=== PATIENT | male | born 1960 ===

== ENCOUNTER 2019-08-11 15:39 | Inpatient (IN) | payer MEDICARE, OTHER ==
[2019-08-09 16:35] VITALS: BMI 34.4
[2019-08-11 16:34] LABS: Glucose,Whole Blood 97 mg/dL (75-99)
[2019-08-11] MEDS ORDERED: SODIUM CHLORIDE 0.9% 1,000 ML IV ONE (16:34)
[2019-08-11] MEDS ORDERED: fentaNYL (PF) 50 MCG/ML 2 ML AMP IV ONE ×2 (16:35)
[2019-08-11] MEDS ORDERED: ONDANSETRON 4 MG/2 ML VIAL IVP ONE (16:35)
[2019-08-11 16:42] LABS: HCT 40.9 % (39.0-53.0); HGB 13.3 gm/dL (13.0-17.5); MCH 29.1 pg (25.0-35.0); MCHC 32.4 g/dL (31.0-37.0); MCV 89.7 fL (80.0-100.0); Platelet Count 267 k/uL (150-450); RBC 4.56 m/uL (4.30-5.90); RDW 14.8 % (11.5-15.5); WBC 11.9 k/uL (3.8-10.6)
[2019-08-11 16:43] LABS: Calcium 8.5 mg/dL (8.4-10.2); Potassium 5.4 mmol/L (3.5-5.1)
[2019-08-11] MEDS ORDERED: MIDAZOLAM 2 MG/2 ML VIAL ONE (17:17)
[2019-08-11] MEDS ORDERED: ePHEDrine SULFATE/0.9% NACL/PF 50 MG/5 ML SYRINGE IV ONE (17:17)
[2019-08-11] MEDS ORDERED: fentaNYL (PF) 50 MCG/ML 2 ML AMP ONE (17:17)
[2019-08-11] MEDS ORDERED: PHENYLEPHRINE-0.9% NACL SYG 1 MG/10 ML SYRINGE ONE (17:17)
[2019-08-11] MEDS ORDERED: PROPOFOL 10 MG/ML 20 ML VIAL IV ONE (17:17)
[2019-08-11] MEDS ORDERED: LIDOCAINE 1% INJ 10MG/ML (20 ML MDV) ONE (17:17)
[2019-08-11] MEDS ORDERED: BUPIVACAINE (PF) 0.5% 30 ML VIAL SQ ONE ×2 (17:37)
[2019-08-11] MEDS ORDERED: LIDOCAINE 1% INJ 10MG/ML (20 ML MDV) SQ ONE ×2 (17:37)
[2019-08-11] MEDS ORDERED: ONDANSETRON 4 MG/2 ML VIAL IVP PRN (20:06)
[2019-08-11 20:09] LABS: Glucose,Whole Blood 113 mg/dL (75-99)
[2019-08-11] MEDS ORDERED: VANCOMYCIN IV PER PHARMACY 1 EACH MISC MISCELLANE PRN (20:13)
--- NOTE | 2019-08-11 21:10 | P.OP ---
Date of Procedure: 08/11/19 Preoperative Diagnosis: 1. Right index finger abscess with osteomyelitis of the distal phalanx Postoperative Diagnosis: 1. Right index finger abscess with osteomyelitis of the distal phalanx 2. Suppurative flexor tenosynovitis - right index finger Procedure(s) Performed: 1. Incision and drainage of right index finger abscess 2. Partial transphalangeal amputation of right index finger 3. Irrigation and debridement of right index finger flexor sheath and flexor tenosynovectomy 4. Open right carpal tunnel release Anesthesia: CHRISTIEA, local Surgeon: Sawyer Tapia Estimated Blood Loss (ml): 5 Pathology: other (Middle and distal phalanges of right index finger) Condition: stable Disposition: PACU Indications for Procedure: The patient is a 58-year-old male who presented to the office for evaluation of a worsening infection in his right index finger. He was diagnosed with an abscess and osteomyelitis and surgical debridement and partial amputation was recommended. Risks and benefits were reviewed, including (but not limited to) the risks of bleeding, injury to tendons or neurovascular structures, persistent or recurrent infection, wound healing problems and possible need for additional surgery. The patient expressed understanding, willingness to accept these risks and wished to proceed with surgery. Consent forms were signed. The surgical site was confirmed and marked preoperatively. Operative Findings: Gross pus in flexor sheath, extending to mid-palm. Description of Procedure: The patient was positioned supine with the operative limb on a hand table. General anesthesia was administered uneventfully. A time-out was performed, confirming patient identifiers, the operative side, site and the procedure to be performed: all team members expressed agreement. The hand (proximal to the finger) was exsanguinated with an Esmarch which was clamped at the wrist as a tourniquet. Loupe magnification was used throughout the case for optimum visualization. There was subcutaneous fluctuance below the skin of the distal phalanx, extending to the mid aspect of the middle phalanx. A fishmouth incision was marked at this level. The skin was sharply incised and full-thickness skin flaps were elevated. Gross purulence was encountered in the flexor sheath. A swab culture of this fluid was obtained. The flexor digitorum profundus tendon was found to be detached from its insertion - this had a chronic appearance, consistent with the subacute presentation of this infection. An oblique incision was made in the palm over the index finger A1 conrado. The subcutaneous tissues were bluntly spread with scissors and more purulent fluid was identified. To further evaluate the proximal extent of the infection, an open carpal tunnel incision was marked in the palm, in line with the radial border of the ring finger. The skin was sharply incised. The subcutaneous tissues were spread and the palmar fascia was divided. The palmar cutaneous nerve branch was identified, mobilized and protected. The transverse carpal ligament was identified and sharply incised. The contents of the carpal tunnel were inspected. There was thickened tenosynovium but no gross purulent material. Once the extent of the infection was determined, attention was turned back to the amputation. The dorsal skin flap was elevated off the extensor tendon. The neurovascular bundles on both sides were identified and dissected free. The nerves were gently tractioned and sharply resected below the level of the intended amputation. The vessels were divided with bipolar cautery. The extensor and flexor tendons were sharply transected at the PIP joint level. The capsule was sharply dissected off the head of the proximal phalanx and the PIP joint was disarticulated. The middle and distal phalanges were amputated and sent to pathology. IV antibiotics were then administered. A 16-gauge angiocatheter was inserted proximally into the flexor sheath of the index finger and a syringe was used to copiously irrigate the sheath with normal saline. This was repeated until no further purulent fluid was expressed from the distal wound. Thickened tenosynovium and nonviable subcutaneous tissue was resected from the distal sheath. The surrounding soft tissues were mechanically debrided with curettes and rongeurs. There was inadequate soft tissue to allow tension-free closure of the wound with the remaining bone length of the proximal phalanx. An oscillating saw was used to resect the head of the proximal phalanx. The edges were smoothed and contoured. The esmarch tourniquet was released after 86 minutes. Good bleeding was noted from the skin flaps but no arterial bleeding was identified. The skin flaps were closed over the end of the remaining proximal phalanx bone with interrupted 4-0 Prolene sutures. The two incisions in the palm were loosely closed with interrupted 3-0 Prolene sutures. Vessel loops were inserted into each of the three incisions to serve as drains. Local anesthetic without epinephrine was injected around the operative sites for postoperative pain control. Sterile dressings of Adaptic, 4 x 4's, Gasper and Cobjosie were applied. All sponge, needle and instrument counts were correct at the end of the case. The patient tolerated the procedure well. He was taken to recovery in stable condition. The patient will be admitted for continued IV antibiotics, to be guided by intraoperative cultures. Repeat surgical debridement may be required. We will consult the infectious disease team for further treatment recommendations.
[2019-08-11] MEDS ORDERED: VANCOMYCIN 2,000 MG in SODIUM CHLORIDE 0.9% 500 ML 500 ML IVPB ONE (22:00)
[2019-08-11 22:19] LABS: Basophils # (A) 0.1 k/uL (0-0.2); Basophils % (A) 1 %; Eosinophils % (A) 0 %; HCT 45.5 % (39.0-53.0); HGB 14.4 gm/dL (13.0-17.5); Lymphocytes # (A) 0.5 k/uL (1.0-4.8); Lymphocytes % (A) 3 %; MCH 29.2 pg (25.0-35.0); MCHC 31.6 g/dL (31.0-37.0); MCV 92.4 fL (80.0-100.0); Mean Platelet Volume 6.9; Monocytes # (A) 0.6 k/uL (0-1.0); Monocytes % (A) 3 %; Neutrophils # (A) 16.6 k/uL (1.3-7.7); Neutrophils % (A) 93 %; Platelet Count 300 k/uL (150-450); RBC 4.93 m/uL (4.30-5.90); RDW 14.9 % (11.5-15.5); WBC 17.9 k/uL (3.8-10.6)
[2019-08-11 23:05] LABS: Albumin 3.7 g/dL (3.5-5.0); Calcium 8.3 mg/dL (8.4-10.2); Potassium 5.8 mmol/L (3.5-5.1); Total Bilirubin 0.6 mg/dL (0.2-1.3); Total Protein 7.4 g/dL (6.3-8.2)
[2019-08-11 23:07] LABS: C Reactive Protein 88.3 mg/L (<10.0)
[2019-08-11 23:15] LABS: Erythrocyte Sedimentation Rate 76 mm/hr (0-15)
[2019-08-12] MEDS: HYDROcodone/APAP 5-325MG 1 EACH TAB PO PRN ×2 (00:35→20:04)
[2019-08-12] MEDS: HYDROmorphone 0.5 MG/0.5 ML SYRINGE IVP PRN ×7 (03:57→23:38)
[2019-08-12] MEDS: ENOXAPARIN 30 MG/0.3 ML SYRINGE SQ SCH (07:39)
[2019-08-12] MEDS ORDERED: ALBUTEROL NEBULIZED 2.5 MG/3 ML INHALATION PRN (09:49)
[2019-08-12 10:58] LABS: HGB 13.1 gm/dL (13.0-17.5); MCHC 33.5 g/dL (31.0-37.0); MCV 89.5 fL (80.0-100.0); Mean Platelet Volume 6.6; Platelet Count 236 k/uL (150-450); RBC 4.36 m/uL (4.30-5.90); RDW 14.7 % (11.5-15.5); WBC 13.6 k/uL (3.8-10.6)
--- NOTE | 2019-08-12 10:59 | P.CONS ---
History of Present Illness - Reason for Consult Consult date: 08/12/19 diabetes Requesting physician: Sawyer Tapia - Chief Complaint right index finger pain and swelling - History of Present Illness Patient is a 58-year-old male with a past medical history of end-stage renal disease on hemodialysis Thursday, Thursday, Thursday at [facility] in [place] with Dr. Linda, diabetes mellitus type 2 insulin-dependent on Toujeo 5 units at night, and prior history of osteomyelitis who presented for surgical incision and drainage of right finger abscess with osteomyelitis of the distal phalanx. On 08/11 he underwent incision and drainage of the right finger tests, partial transphalangeal amputation of the right index finger, I&D of the right index finger flexor sheath and flexure atenolol synovectomy, and open right carpal tunnel release with Dr. Tapia. We're asked to consult for medical management of his diabetes. Patient seen and examined at bedside. He states he is having some increased neuropathy after not receiving his Lyrica last night. Pain is currently controlled. Denies any chest pain, shortness breath, nausea, vomiting, or diarrhea. He no longer produces urine. He goes to dialysis every Thursday, Thursday, and Thursday. He states that he last ran 2 days ago on Thursday for a complete time and that he never misses dialysis or has shorter runs of dialysis. He is surprised that his creatinine was as high as 10 and states this is unusual. He also reports that due to his potassium being high he was trying to not eat any potassium containing foods. He reports that he does have a history of osteomyelitis several years ago that was treated in [place] with a course of initially Vanco and Rocephin and then Vanco and cefepime. He states that he typically receives dialysis through his right upper extremity fistula. He had a left upper extremity fistula placed in April of this year which has not yet matured. This was placed due to stenosis in his right upper extremity fistula. He has been on dialysis for the last 11 years. He states that he had hypertension prior to beginning dialysis but now requires Midrin prior to receiving dialysis. He see Dr. Ortiz in [place]. His diabetes is typically well controlled. His maximum blood sugar over the last 1 month is 124. Per charting from Dr. Tapia's office his last hemoglobin A1c was 5.5. He has not recently missed any medications. No recent illness other than his hand. He does report her dad he initially burned the tip of his finger about 4 weeks ago only Finger at his house, he then reported it with healing, he then helped to son work on cars and this Was knocked off and came out of his fingertip. The finger then worsen for approximately 1 week and he presented to Dr. Tapia's office for evaluation. 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 He does have an electric wheelchair but has no means of transporting the electric wheelchair. Review of Systems Pertinent positives and negatives as discussed in HPI, a complete review of systems was performed and all other systems are negative. Past Medical History Past Medical History: Asthma, Diabetes Mellitus, Eye Disorder, Musculoskeletal Disorder, Renal Disease, Sleep Apnea/CPAP/BIPAP Additional Past Medical History / Comment(s): ESRD- HEMODIALYSIS MON, THU, THU; HAS FISTULA'S IN MART [place], "CAN ONLY HAVE IV'S IN HANDS." USES O2 @ HS OCC. HX OSTEOMYELITIS L3-5 2010. RT INDEX FINGER ABSCESS CURRENTLY. Neuropathy History of Any Multi-Drug Resistant Organisms: None Reported Past Surgical History: Cholecystectomy Additional Past Surgical History / Comment(s): LT BKA, RT TOES AMPUTATIONS. FISTULA IN RFA, & LT INNER ELBOW. MART CATARACTS, EYE LASER. Past Anesthesia/Blood Transfusion Reactions: No Reported Reaction Past Psychological History: No Psychological Hx Reported Smoking Status: Former smoker Past Alcohol Use History: Rare Additional Past Alcohol Use History / Comment(s): SMOKED AGE 9-30, UP TO 2 PPD. Past Drug Use History: Cocaine, Methamphetamine Additional Drug Use History / Comment(s): NO USE SINCE 1993 Additional History: Lives with his [id number], typically uses a cane in the house and a walker outside of the house - Past Family History Mother Family Medical History: No Reported History Additional Family Medical History / Comment(s): Congestive heart failure Father Additional Family Medical History / Comment(s): Congestive heart failure, myocardial infarction Medications and Allergies Home Medications Medication Instructions Recorded Confirmed Type Albuterol Inhaler [Ventolin Hfa 1 - 2 puff INHALATION RT-Q6H PRN 10/01/19 10/03/19 History Inhaler] Cephalexin [Keflex] 250 mg PO TID 08/09/19 08/11/19 History HYDROcodone/APAP 7.5-325MG [Morganza 1 tab PO TID PRN 08/09/19 08/11/19 History 7.5-325] Insulin Glargine [Lantus] 5 unit SQ HS 08/09/19 08/11/19 History Midodrine HCl [ProAmatine] 10 mg PO MOWEFR 08/09/19 08/11/19 History Pregabalin [Lyrica] 75 mg PO HS 08/09/19 08/11/19 History fentaNYL 25MCG/HR PATCH [Duragesic 25 mcg TRANSDERM Q72H 08/09/19 08/11/19 History 25MCG/HR] Allergies Allergy/AdvReac Type Severity Reaction Status Date / Time No Known Allergies Allergy Verified 08/09/19 15:47 Physical Exam Osteopathic Statement: *. No significant issues noted on an osteopathic structural exam other than those noted in the History and Physical/Consult. Vitals: Vital Signs Temp Pulse Pulse Resp BP BP Pulse Ox 08/12/19 07:00 97.4 F L 73 16 131/67 96 08/11/19 23:55 83 92/55 08/11/19 23:40 83 101/57 08/11/19 23:25 86 103/67 08/11/19 23:10 84 103/64 08/11/19 22:55 85 103/64 08/11/19 22:40 85 104/65 08/11/19 22:25 92 109/66 08/11/19 22:10 98.4 F 91 15 104/67 99 08/11/19 20:40 88 16 106/54 97 08/11/19 20:25 91 18 108/52 100 08/11/19 20:10 93 18 101/52 99 08/11/19 19:55 97.0 F L 100 16 110/55 98 08/11/19 16:07 98.3 F 98 16 172/78 97 Intake and Output 08/11/19 08/12/19 08/12/19 22:59 06:59 14:59 Intake Total 450 540 Output Total 5 Balance 445 540 Intake: IV 450 Oral 540 Output: Estimated Blood Loss 5 Other: Weight 117 kg General: non toxic, no distress, appears at stated age, normal weight Derm: right hand with dressing in place unusual rashes/lesions no unusual ecchymoses, warm, dry Head: atraumatic, normocephalic, symmetric Eyes: EOMI, no lid lag, anicteric sclera, pupils equal round reactive to light ENT: Nose and ears atraumatic, no thrush, no pharyngeal erythema Neck: No thyromegaly, no cervical lymphadenopathy, trachea midline, supple Mouth: no lip lesion, mucus membranes moist Cardiovascular: S1S2 reg, no murmur, positive posterior tibial pulse right, no edema, capillary refill less than 2 seconds Lungs: CTA bilateral, no rhonchi, no rales , no accessory muscle use Abdominal: soft, nontender to palpation, no guarding, no appreciable organomegaly, normal bowel sounds Ext: no gross muscle atrophy, muscle strength 5 out of 5 in shoulder b/l, left BKA, no contractures, Neuro: CN II-XI grossly intact, light touch deminished all 4 extremities Psych: Alert, oriented, appropriate affect Results CBC & Chem 7: 08/11/19 21:43 08/11/19 21:43 Labs: Abnormal Lab Results - Last 24 Hours (Table) 08/11/19 08/11/19 08/11/19 Range/Units 16:30 16:30 20:00 WBC 11.9 H (3.8-10.6) k/uL Neutrophils # (1.3-7.7) k/uL Lymphocytes # (1.0-4.8) k/uL ESR (0-15) mm/hr Sodium 135 L (137-145) mmol/L Potassium 5.4 H (3.5-5.1) mmol/L Chloride 94 L (98-107) mmol/L Carbon Dioxide 21 L (22-30) mmol/L BUN 63 H (9-20) mg/dL Creatinine 10.28 H* (0.66-1.25) mg/dL Glucose 106 H (74-99) mg/dL POC Glucose (mg/dL) 113 H (75-99) mg/dL Calcium (8.4-10.2) mg/dL ALT (21-72) U/L C-Reactive Protein (<10.0) mg/L 08/11/19 08/11/19 Range/Units 21:43 21:43 WBC 17.9 H (3.8-10.6) k/uL Neutrophils # 16.6 H (1.3-7.7) k/uL Lymphocytes # 0.5 L (1.0-4.8) k/uL ESR 76 H (0-15) mm/hr Sodium (137-145) mmol/L Potassium 5.8 H (3.5-5.1) mmol/L Chloride 92 L (98-107) mmol/L Carbon Dioxide 19 L (22-30) mmol/L BUN 64 H (9-20) mg/dL Creatinine 10.96 H* (0.66-1.25) mg/dL Glucose 125 H (74-99) mg/dL POC Glucose (mg/dL) (75-99) mg/dL Calcium 8.3 L (8.4-10.2) mg/dL ALT 10 L (21-72) U/L C-Reactive Protein 88.3 H (<10.0) mg/L Microbiology - Last 24 Hours (Table) 08/11/19 19:47 Gram Stain - Preliminary Finger - Right Second Wound Culture - Preliminary 08/11/19 19:47 Anaerobic Culture - Preliminary Finger - Right Second Assessment and Plan Assessment: Right index finger abscess with osteomyelitis status post amputation - Continue with vancomycin - await cultures - await ID Recs - pain control - ortho recs - PT evaluation and OT for help with gait and no use of right hand Diabetes mellitus type 2 insulin requiring with diabetic neuropathy -Hemoglobin A1c 5.5 per patient -Continue with 5 units of long-acting, add sliding scale, follow blood sugars -Resume Isidro End-stage renal disease on hemodialysis Thursday, Thursday, Thursday with hyper kalemia -Stat basic metabolic profile ordered -Discussed with nephrology, and nephrology consulted, plans are for dialysis today -Does not appear to be on any phosphate binders at baseline, will have pharmacy verify his home meds Chronic pain -Resume home fentanyl patch if okay with orthopedics History of osteomyelitis Thank you for allowing us to participate in the care of this patient. We will follow peripherally. Do not hesitate to contact us with questions. Someone can be reached from the [facility] hospitalist group at all hours of the day at [phone] or via perfect serve.
[2019-08-12] MEDS ORDERED: VANCOMYCIN 1,750 MG in SODIUM CHLORIDE 0.9% 500 ML 500 ML IVPB ONE (11:00)
[2019-08-12 11:52] LABS: Calcium 8.1 mg/dL (8.4-10.2)
[2019-08-12 11:55] LABS: Potassium 5.6 mmol/L (3.5-5.1)
[2019-08-12 12:11] LABS: Glucose,Whole Blood 173 mg/dL (75-99)
[2019-08-12] MEDS: INSULIN ASPART (NovoLOG) 100 UNIT/ML VIAL SQ SCH ×2 (13:03→17:49)
[2019-08-12] MEDS: MIDODRINE 5 MG TAB PO SCH (14:10)
--- NOTE | 2019-08-12 17:05 | P.PN ---
Subjective Progress Note Date: 08/12/19 The patient states that the hand has been quite painful but this is improved with the IV dilaudid and his present fentynl patch. He has been trying to keep it elevated. He denies nausea or vomiting. He had dialysis earlier today. Objective - Vital Signs Vital signs: Vital Signs Temp 98.4 F 08/12/19 16:38 Pulse 68 08/12/19 16:38 Resp 18 08/12/19 16:38 BP 139/66 08/12/19 16:38 Pulse Ox 97 08/12/19 16:15 Intake & Output 08/11/19 08/12/19 08/12/19 18:59 06:59 18:59 Intake Total 450 540 800 Output Total 5 1500 Balance 450 535 -700 Weight 117 kg Intake: IV 450 0 Intake, IV Titration 500 Amount Vancomycin 1,750 mg In 500 Sodium Chloride 0.9% 500 ml 500 ml @ 167 mls/hr IVPB ONCE ONE Rx#: [id number] Oral 540 300 Output: Hemodialysis 1500 Estimated Blood Loss 5 Other: # Voids 0 - Exam Dressings were removed. No purulent drainage. Mild sanguinous output from the index finger wound. All incisions are well approximated with sutures in place. No dehiscence. All drains were removed easily. No purulent fluid was expressed from the wounds. Pain with active and passive digital flexion and extension, particularly at the extremes of motion. He retains some intact flexion and extension of the index finger stump. - Labs CBC & Chem 7: 08/12/19 10:47 08/12/19 10:47 Labs: Abnormal Lab Results - Last 24 Hours (Table) 08/11/19 08/11/19 08/11/19 Range/Units 20:00 21:43 21:43 WBC 17.9 H (3.8-10.6) k/uL Neutrophils # 16.6 H (1.3-7.7) k/uL Lymphocytes # 0.5 L (1.0-4.8) k/uL ESR 76 H (0-15) mm/hr Sodium (137-145) mmol/L Potassium 5.8 H (3.5-5.1) mmol/L Chloride 92 L (98-107) mmol/L Carbon Dioxide 19 L (22-30) mmol/L BUN 64 H (9-20) mg/dL Creatinine 10.96 H* (0.66-1.25) mg/dL Glucose 125 H (74-99) mg/dL POC Glucose (mg/dL) 113 H (75-99) mg/dL Calcium 8.3 L (8.4-10.2) mg/dL ALT 10 L (21-72) U/L C-Reactive Protein 88.3 H (<10.0) mg/L 08/12/19 08/12/19 08/12/19 Range/Units 10:47 10:47 12:00 WBC 13.6 H (3.8-10.6) k/uL Neutrophils # (1.3-7.7) k/uL Lymphocytes # (1.0-4.8) k/uL ESR (0-15) mm/hr Sodium 133 L (137-145) mmol/L Potassium 5.6 H (3.5-5.1) mmol/L Chloride 91 L (98-107) mmol/L Carbon Dioxide (22-30) mmol/L BUN 82 H (9-20) mg/dL Creatinine 11.71 H* (0.66-1.25) mg/dL Glucose 224 H (74-99) mg/dL POC Glucose (mg/dL) 173 H (75-99) mg/dL Calcium 8.1 L (8.4-10.2) mg/dL ALT (21-72) U/L C-Reactive Protein (<10.0) mg/L Microbiology - Last 24 Hours (Table) 08/11/19 19:47 Gram Stain - Preliminary Finger - Right Second Wound Culture - Preliminary 08/11/19 19:47 Anaerobic Culture - Preliminary Finger - Right Second Preliminary Cultures: Moderate G+ cocci Few G- bacilli Assessment and Plan Assessment: 1. Postoperative day #1 status post I&D and partial amputation of right index finger with flexor tenosynovectomy. 2. Right index finger osteomyelitis (distal phalanx) and suppurative flexor tenosynovitis. 3. Chronic kidney disease on hemodialysis. 4. Insulin-dependent diabetes mellitus. 5. Obesity. Plan: I discussed the clinical and intraoperative findings with the patient. The finger and hand are looking good. I instructed him to work frequently on range of motion. Begin soaks of the entire hand in warm saline and betadine (10:1 ratio) at least three times a day. Afterwards, reapply a light dressing of 4x4's and patria. Intraoperative cultures pending. Further recommendations to follow - appreciate the assistance of the infectious disease team. Continue IV antibiotic empiric treatment. Encourage ambulation for DVT prophylaxis. DC planning - the patient will require extended outpatient antibiotic therapy.
[2019-08-12 17:41] LABS: Glucose,Whole Blood 191 mg/dL (75-99)
[2019-08-12] MEDS: CALCIUM ACETATE 667 MG CAP PO SCH (17:48)
[2019-08-12] MEDS: PREGABALIN 75 MG CAP PO SCH (20:04)
[2019-08-12 20:38] LABS: Glucose,Whole Blood 210 mg/dL (75-99)
[2019-08-12] MEDS ORDERED: INSULIN DETEMIR (LEVEMIR) 100 UNIT/ML SYR SQ SCH (21:00)
--- NOTE | 2019-08-12 22:07 | CONS ---
CONSULTATION REASON FOR CONSULT: End-stage renal disease. HISTORY OF PRESENT ILLNESS: Patient is a 58-year-old male with end-stage renal disease, on hemodialysis on a Thursday, Thursday, Thursday schedule. Patient dialyzes out of [facility]. He was admitted to the hospital with pain and drainage from his right index finger. He was seen by a hand surgeon as outpatient and was admitted for amputation. This was done yesterday. Patient states he is feeling fairly well. He does not have significant urine output. He has a fistula in his right upper extremity. He is compliant with his dialysis. Serum creatinine was noted to be 10. His potassium was elevated at 5.8, and patient is scheduled for hemodialysis today. No complaints of chest pains or shortness of breath. Usual UF with treatments is about 1 to 1-1/2 as per patient. PAST MEDICAL HISTORY: 1. Diabetes. 2. Hypertension. 3. End-stage renal disease. 4. CKD mineral bone disorder. 5. Anemia of chronic disease. 6. Peripheral neuropathy. PAST SURGICAL HISTORY: 1. Cholecystectomy. 2. Left BKA. 3. Amputation of toes on the right side. 4. AV fistula, right arm. 5. Cataract surgery. 6. Laser surgery on the eyes. SOCIAL HISTORY: Positive for smoking. Currently not smoking any more. There is also history of use of cocaine, methamphetamines. MEDICATIONS: Medications prior to admission included: 1. Keflex. 2. Insulin. 3. Midodrine. 4. Lyrica. 5. Duragesic patch. ALLERGIES: NONE. REVIEW OF SYSTEMS: As per HPI. Other systems negative. PHYSICAL EXAMINATION: Patient is comfortable, awake, alert, oriented x3, not in any acute distress. Blood pressure is 131/67, heart rate 73 per minute. She is afebrile. EXAMINATION OF THE HEART: S1 and S2. EXAMINATION OF LUNGS: Bilateral breath sounds are heard. ABDOMEN: Soft, non-tender. Examination of lower extremities shows no significant edema, right lower extremity. Patient has left BKA. His right hand is currently wrapped after the index finger amputation. LABS: Sodium 133, potassium 5.6, BUN 82, serum creatinine 11.7. ASSESSMENT: 1. End-stage renal disease, on hemodialysis on a Thursday, Thursday, Thursday schedule. We will arrange for hemodialysis today. 2. Hyperkalemia. Expect improvement with hemodialysis. 3. Osteomyelitis, gangrene, right index finger, status post amputation. 4. Chronic kidney disease mineral bone disorder. Check phosphorus level. PLAN: Hemodialysis today. Add phosphorus level to labs drawn this morning. Maintain patient on his home phosphate binders. Continue antibiotics. Thank you for this consultation. Will continue to follow the patient with you during his hospitalization. MMODL / IJN: [id number] /
[2019-08-13] MEDS: HYDROmorphone 0.5 MG/0.5 ML SYRINGE IVP PRN ×7 (03:12→21:44)
[2019-08-13 06:56] LABS: Glucose,Whole Blood 161 mg/dL (75-99)
[2019-08-13] MEDS: ENOXAPARIN 30 MG/0.3 ML SYRINGE SQ SCH (07:55)
[2019-08-13] MEDS: CALCIUM ACETATE 667 MG CAP PO SCH ×3 (07:55→17:25)
[2019-08-13] MEDS: INSULIN ASPART (NovoLOG) 100 UNIT/ML VIAL SQ SCH ×3 (07:55→17:25)
[2019-08-13 09:15] LABS: HCT 35.4 % (39.0-53.0); HGB 11.4 gm/dL (13.0-17.5); MCH 29.6 pg (25.0-35.0); MCHC 32.3 g/dL (31.0-37.0); MCV 91.6 fL (80.0-100.0); Mean Platelet Volume 6.4; Platelet Count 279 k/uL (150-450); RBC 3.86 m/uL (4.30-5.90); RDW 14.5 % (11.5-15.5)
[2019-08-13 09:36] LABS: Calcium 8.2 mg/dL (8.4-10.2); Potassium 4.7 mmol/L (3.5-5.1)
[2019-08-13 11:56] LABS: Glucose,Whole Blood 212 mg/dL (75-99)
--- NOTE | 2019-08-13 12:43 | P.PN ---
Subjective Progress Note Date: 08/13/19 He states the hand is feeling much better overall. The pain level has decreased. He has been performing regular range of motion exercises and feels that the fingers are moving better. He has been soaking the hand as instructed. Objective - Vital Signs Vital signs: Vital Signs Temp 97.8 F 08/13/19 07:00 Pulse 70 08/13/19 08:00 Resp 14 08/13/19 08:00 BP 146/83 08/13/19 07:00 Pulse Ox 96 08/13/19 07:00 Intake & Output 08/12/19 08/13/19 08/13/19 18:59 06:59 18:59 Intake Total 800 540 Output Total 1500 Balance -700 540 Intake: Intake, IV Titration 500 Amount Vancomycin 1,750 mg In 500 Sodium Chloride 0.9% 500 ml 500 ml @ 167 mls/hr IVPB ONCE ONE Rx#: [id number] Oral 300 540 Output: Hemodialysis 1500 Other: # Voids 0 - Exam Dressings are in place-clean and dry without strikethrough. Improve motion and less pain with active flexion and extension of the middle, ring and small fingers. Appropriate tenderness to palpation in the palm. No pain with active wrist motion. - Labs CBC & Chem 7: 08/13/19 06:58 08/13/19 06:58 Labs: Abnormal Lab Results - Last 24 Hours (Table) 08/12/19 08/12/19 08/12/19 Range/Units 14:00 17:30 20:27 RBC (4.30-5.90) m/uL Hgb (13.0-17.5) gm/dL Hct (39.0-53.0) % BUN (9-20) mg/dL Creatinine (0.66-1.25) mg/dL Glucose (74-99) mg/dL POC Glucose (mg/dL) 191 H 210 H (75-99) mg/dL Calcium (8.4-10.2) mg/dL Phosphorus 8.8 H (2.5-4.5) mg/dL 08/13/19 08/13/19 08/13/19 Range/Units 06:54 06:58 06:58 RBC 3.86 L (4.30-5.90) m/uL Hgb 11.4 L (13.0-17.5) gm/dL Hct 35.4 L (39.0-53.0) % BUN 54 H (9-20) mg/dL Creatinine 9.17 H* (0.66-1.25) mg/dL Glucose 144 H (74-99) mg/dL POC Glucose (mg/dL) 161 H (75-99) mg/dL Calcium 8.2 L (8.4-10.2) mg/dL Phosphorus (2.5-4.5) mg/dL 08/13/19 Range/Units 11:55 RBC (4.30-5.90) m/uL Hgb (13.0-17.5) gm/dL Hct (39.0-53.0) % BUN (9-20) mg/dL Creatinine (0.66-1.25) mg/dL Glucose (74-99) mg/dL POC Glucose (mg/dL) 212 H (75-99) mg/dL Calcium (8.4-10.2) mg/dL Phosphorus (2.5-4.5) mg/dL Microbiology - Last 24 Hours (Table) 08/11/19 19:47 Gram Stain - Preliminary Finger - Right Second Wound Culture - Preliminary Gram Neg Bacilli Assessment and Plan Assessment: 1. Postoperative day #2 status post I&D and partial amputation of right index finger with flexor tenosynovectomy. 2. Right index finger osteomyelitis (distal phalanx) and suppurative flexor tenosynovitis. 3. Chronic kidney disease on hemodialysis. 4. Insulin-dependent diabetes mellitus. 5. Obesity. Plan: Continue dilute betadine soaks and encourage ROM of hand, wrist & fingers. Intraoperative cultures show gram-positive cocci and gram-negative bacilli. Final results and sensitivities are still pending. Continue IV antibiotic empiric treatment per Infectious Disease. Encourage ambulation for DVT prophylaxis. DC planning - the patient will require extended outpatient antibiotic therapy.
--- NOTE | 2019-08-13 14:32 | P.CONS ---
History of Present Illness - Reason for Consult Consult date: 08/13/19 - Chief Complaint Infection right hand - History of Present Illness 58 -year-old male presents to the dialysis center as he routinely does aminase Mondays and Fridays but noticed that there was an acute change to his right hand. The patient relates that many weeks ago he was having a Flare in the backyard he suffered a burn to the index finger. With his once a history of diabetes and peripheral neuropathy it was not severely painful and treated it locally. He relates that he was showing some improvement but continued to have eschar at the tip especially below the nail. Is trying to be cautious with it. However was helping his son work on his car and accidentally bumped the finger quite significantly with a tool. The eschar on the tip of the finger dislodged and a large amount of grossly purulent material oozed out of the site. In the following day the hand markedly worsened with increasing swelling discomfort and increasing drainage. He was seen at the dialysis center and referred to the hand surgeon. At the time of the evaluation and answers officer is evidence of an active infection in counseling he was sent to hospital for further intervention. He is undergone the amputation of the index finger of the right hand with the destructive osteomyelitis and gross infection that was actually through the tendon sheath on the index finger that penetrated into the palm but not through the carpal tunnel. Patient the extensive surgical debridement. For antibiotic therapy the infectious diseases consultation is been requested. He has had some recent interventions and include his chronic right upper extremity fistula versus hemodialyses had for 11 years. His had the fistula recently place of the left arm so that he may transition to a new site due to poor flow that is been having into the right upper extremity. He relates he routinely has quite control of his diabetes now in it is noted last hemoglobin A1c was at 5.5. With his infection the blood sugars have now increased which she finds somewhat unusual. Due to his significant neuropathy he is not having much pain at the surgical site. Review of Systems HEENT:Denies headache or acute visual change. Denies sinus or mouth discomforts. Denies neck stiffness or pain. Denies significant oral cavity pain. Denies difficulty on swallowing. Lungs: Denies significant shortness of breath, cough, sputum production, or hemoptysis. Cardiovascular: Denies significant shortness of breath, chest pain, chest wall pain, orthopnea, dyspnea on exertion, syncope Gastrointestinal:Denies nausea, vomiting, diarrhea, constipation, hematemesis, melena, hematochezia. No no significant change of bowel habit noticed. Musculoskeletal: With his neuropathy does not have much pain that is noted has had the extensive interventions and include the left [id number] amputation i n the right transmetatarsal amputation. Skin: Denies new rash or lesions. No new ulcers or wounds are related.. Neuro: Denies headache vision is poor but not acutely changed Denies any new onset weakness or difficulty with ambulation. Denies falls or seizures. Psychiatric:Denies anxiety or depression. 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 HX OSTEOMYELITIS L3-5 2010. RT INDEX FINGER ABSCESS CURRENTLY. Neuropathy History of Any Multi-Drug Resistant Organisms: None Reported Past Surgical History: Cholecystectomy Additional Past Surgical History / Comment(s): LT BKA, RT TOES AMPUTATIONS. FISTULA IN RFA, & LT INNER ELBOW. MART CATARACTS, EYE LASER. Past Anesthesia/Blood Transfusion Reactions: No Reported Reaction Past Psychological History: No Psychological Hx Reported Additional Psychological History / Comment(s): Patient is not . Lived in [place] for most of his life however he is now out of the care of his son. His son work for the disabled [employer]. He moved from [place] to [place] here to [place]. And he followed his son. His son is now in over the road recycler forklift driver truck driver but still resides here in the patient does live with him. He receives his hemodialysis in [place] and Dr. Linda is his nephro logist. 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 No experience. No recent international travel. No animals in the home. Was tobacco smoker but stopped about age 29. No current cocaine or methamphetamine use leg past. Does walk with assistive devices Smoking Status: Former smoker Past Alcohol Use History: Rare Additional Past Alcohol Use History / Comment(s): SMOKED AGE [age], UP TO 2 PPD. Past Drug Use History: Cocaine, Methamphetamine Additional Drug Use History / Comment(s): NO USE SINCE 1993 - Past Family History Mother Family Medical History: No Reported History Additional Family Medical History / Comment(s): Congestive heart failure Father Additional Family Medical History / Comment(s): Congestive heart failure, myocar dial infarction Medications and Allergies Home Medications and Allergies Comment(s): Current Medications Hydrocodone Bitart/Acetaminophen ([place] 5-325) 1 each PO Q6HR PRN PRN Reason: Pain Scale 1 to 5 Last Admin: 08/12/19 20:04 Dose: 1 each Documented by: Albuterol Sulfate (Ventolin Nebulized) 2.5 mg INHALATION RT-Q6H PRN PRN Reason: Shortness Of Breath Calcium Acetate (Phoslo) 667 mg PO TID-W/MEALS [facility] Last Admin: 08/13/19 12:11 Dose: 667 mg Documented by: Enoxaparin Sodium (Lovenox) 30 mg SQ DAILY [facility] Last Admin: 08/13/19 07:55 Dose: 30 mg Documented by: Hydromorphone HCl (Dilaudid) 0.5 mg IVP Q2HR PRN PRN Reason: Breakthrough Pain Last Admin: 08/13/19 13:47 Dose: 0.5 mg Documented by: Ceftriaxone Sodium 1 gm/ (Sodium Chloride) 50 mls @ 100 mls/hr IVPB Q24H [facility] Last Admin: 08/12/19 21:11 Dose: 100 mls/hr Documented by: Insulin Aspart (Novolog) 0 unit SQ AC-TID [facility]; Protocol Last Admin: 08/13/19 12:11 Dose: 3 unit Documented by: Insulin Detemir (Levemir) 7 unit SQ [facility] Midodrine (Proamatine) 10 mg PO MOWEFR [facility] Last Admin: 08/12/19 14:10 Dose: 5 mg Documented by: Miscellaneous Information (Pharmacy To Dose Iv Vancomycin) 1 each MISCELLANE DIRECTED PRN PRN Reason: Per Protocol Ondansetron HCl (Zofran) 4 mg IVP Q8HR PRN PRN Reason: Nausea And Vomiting Pregabalin (Lyrica) 75 mg PO [facility] Last Admin: 08/12/19 20:04 Dose: 75 mg Documented by: Home Medications Medication Instructions Recorded Confirmed Type Albuterol Inhaler [Ventolin Hfa 1 - 2 puff INHALATION RT-Q6H PRN 08/09/19 08/12/19 History Inhaler] Cephalexin [Keflex] 250 mg PO TID 08/09/19 08/12/19 History HYDROcodone/APAP 7.5-325MG [[place] 1 tab PO TID PRN 08/09/19 08/12/19 History 7.5-325] Midodrine HCl [ProAmatine] 10 mg PO MOWEFR@2100 08/09/19 08/12/19 History Pregabalin [Lyrica] 75 mg PO HS 08/09/19 08/12/19 History fentaNYL 25MCG/HR PATCH [Duragesic 1 patch TRANSDERM Q72H 08/09/19 08/12/19 History 25MCG/HR] Calcium Acetate [Phoslo] 1,334 - 2,001 mg PO AC-TID 08/12/19 08/12/19 History Insulin Degludec [Tresiba] 5 units SQ HS 08/12/19 08/12/19 History Allergies Allergy/AdvReac Type Severity Reaction Status Date / Time shellfish derived [Shrimp] Allergy Unknown Verified 08/12/19 11:03 Physical Exam Vitals: Vital Signs Temp Pulse Pulse Resp BP Pulse Ox 08/13/19 08:00 70 14 08/13/19 07:00 97.8 F 70 14 146/83 96 08/13/19 01:08 98.4 F 70 19 104/66 94 L 08/12/19 20:00 98.2 F 94 16 109/67 97 08/12/19 16:38 98.4 F 68 18 139/66 08/12/19 16:15 98.0 F 80 16 139/66 97 08/12/19 16:00 68 18 Intake and Output 08/12/19 08/13/19 08/13/19 22:59 06:59 14:59 Intake Total 540 296 Output Total 1500 Balance -960 296 Intake: Oral 540 296 Output: Hemodialysis 1500 - Constitutional 58 -year-old male currently not in distress HEENT: Anicteric conjunctiva are pink and moist nasal mucosa grossly intact without significant lesions, there is no thrush. Neck: The neck is supple without significant lymphadenopathy or thyromegaly. Lungs: Good bilateral air entry without significant crackles or wheezing. There is no significant bronchial sounds. There is no egophony or dullness. Heart: Regular rate and rhythm with an audible S1-S2, no S3 no S4. There is no significant murmur click or rub, PMI was nondisplaced. Abdomen: Positive bowel sounds soft and nontender without palpable masses or organomegaly. There was no guarding or rebound. Extremities: The left upper extremity has no acute abnormalities. The right upper extremities evidence of the bulky dressing in place from the recent surgery and we've been asked not to remove this dressing. He does have some tenderness that ascends his arm but there is no ascending lymphangitis. There is no distinct epitrochlear or axillary lymphadenopathy. The left hand has no acute abnormalities. The fistula left arm and right arm are both intact with evidence of easily palpable thrill. The lower extremities show evidence of the left [id number] amputation site is intact. The transmetatarsal site to the right foot is also well-healed no evidence of any open ulcerations on either lower extremity at this time. Neuro: Awake alert oriented to person place and time. There are no acute new gross focal sensory motor deficits. Results CBC & Chem 7: 08/13/19 06:58 08/13/19 06:58 Labs: Abnormal Lab Results - Last 24 Hours (Table) 08/12/19 08/12/19 08/12/19 Range/Units 14:00 17:30 20:27 RBC (4.30-5.90) m/uL Hgb (13.0-17.5) gm/dL Hct (39.0-53.0) % BUN (9-20) mg/dL Creatinine (0.66-1.25) mg/dL Glucose (74-99) mg/dL POC Glucose (mg/dL) 191 H 210 H (75-99) mg/dL Calcium (8.4-10.2) mg/dL Phosphorus 8.8 H (2.5-4.5) mg/dL 08/13/19 08/13/19 08/13/19 Range/Units 06:54 06:58 06:58 RBC 3.86 L (4.30-5.90) m/uL Hgb 11.4 L (13.0-17.5) gm/dL Hct 35.4 L (39.0-53.0) % BUN 54 H (9-20) mg/dL Creatinine 9.17 H* (0.66-1.25) mg/dL Glucose 144 H (74-99) mg/dL POC Glucose (mg/dL) 161 H (75-99) mg/dL Calcium 8.2 L (8.4-10.2) mg/dL Phosphorus (2.5-4.5) mg/dL 08/13/19 Range/Units 11:55 RBC (4.30-5.90) m/uL Hgb (13.0-17.5) gm/dL Hct (39.0-53.0) % BUN (9-20) mg/dL Creatinine (0.66-1.25) mg/dL Glucose (74-99) mg/dL POC Glucose (mg/dL) 212 H (75-99) mg/dL Calcium (8.4-10.2) mg/dL Phosphorus (2.5-4.5) mg/dL Microbiology - Last 24 Hours (Table) 08/11/19 19:47 Gram Stain - Preliminary Finger - Right Second Wound Culture - Preliminary Gram Neg Bacilli Laboratory Results WBC 9.0 k/uL (3.8-10.6) 08/13/19 06:58 RBC 3.86 m/uL (4.30-5.90) L 08/13/19 06:58 Hgb 11.4 gm/dL (13.0-17.5) L 08/13/19 06:58 Hct 35.4 % (39.0-53.0) L 08/13/19 06:58 MCV 91.6 fL (80.0-100.0) 08/13/19 06:58 MCH 29.6 pg (25.0-35.0) 08/13/19 06:58 MCHC 32.3 g/dL (31.0-37.0) 08/13/19 06:58 RDW 14.5 % (11.5-15.5) 08/13/19 06:58 Plt Count 279 k/uL (150-450) 08/13/19 06:58 Neutrophils % 93 % 08/11/19 21:43 Lymphocytes % 3 % 08/11/19 21:43 Monocytes % 3 % 08/11/19 21:43 Eosinophils % 0 % 08/11/19 21:43 Basophils % 1 % 08/11/19 21:43 Neutrophils # 16.6 k/uL (1.3-7.7) H 08/11/19 21:43 Lymphocytes # 0.5 k/uL (1.0-4.8) L 08/11/19 21:43 Monocytes # 0.6 k/uL (0-1.0) 08/11/19 21:43 Eosinophils # 0.0 k/uL (0-0.7) 08/11/19 21:43 Basophils # 0.1 k/uL (0-0.2) 08/11/19 21:43 ESR 76 mm/hr (0-15) H 08/11/19 21:43 Sodium 138 mmol/L (137-145) 08/13/19 06:58 Potassium 4.7 mmol/L (3.5-5.1) 08/13/19 06:58 Chloride 98 mmol/L (98-107) 08/13/19 06:58 Carbon Dioxide 24 mmol/L (22-30) 08/13/19 06:58 Anion Gap 16 mmol/L 08/13/19 06:58 BUN 54 mg/dL (9-20) H 08/13/19 06:58 Creatinine 9.17 mg/dL (0.66-1.25) H* 08/13/19 06:58 Est GFR (CKD-EPI)AfAm 7 (>60 ml/min/1.73 sqM) 08/13/19 06:58 Est GFR (CKD-EPI)NonAf 6 (>60 ml/min/1.73 sqM) 08/13/19 06:58 Glucose 144 mg/dL (74-99) H 08/13/19 06:58 POC Glucose (mg/dL) 212 mg/dL (75-99) H 08/13/19 11:55 POC Glu Grease Buffer ID Dimple Mccann 08/13/19 11:55 Calcium 8.2 mg/dL (8.4-10.2) L 08/13/19 06:58 Phosphorus 8.8 mg/dL (2.5-4.5) H 08/12/19 14:00 Total Bilirubin 0.6 mg/dL (0.2-1.3) 08/11/19 21:43 AST 21 U/L (17-59) 08/11/19 21:43 ALT 10 U/L (21-72) L 08/11/19 21:43 Alkaline Phosphatase 72 U/L (38-126) 08/11/19 21:43 C-Reactive Protein 88.3 mg/L (<10.0) H 08/11/19 21:43 Total Protein 7.4 g/dL (6.3-8.2) 08/11/19 21:43 Albumin 3.7 g/dL (3.5-5.0) 08/11/19 21:43 Random Vancomycin 23.6 ug/mL 08/13/19 06:58 Microbiology 08/11/19 19:47 Finger - Right Second Gram Stain - Preliminary 08/11/19 19:47 Finger - Right Second Wound Culture - Preliminary Gram Neg Bacilli 08/11/19 19:47 Finger - Right Second Anaerobic Culture - Preliminary Assessment and Plan (1) Abscess of finger Current Visit: Yes Status: Acute Code(s): L02.519 - CUTANEOUS ABSCESS OF UNSPECIFIED HAND SNOMED Code(s): 33553826 (2) Amputation of finger Current Visit: Yes Status: Acute Code(s): S68.119A - COMPLETE TRAUMATIC MCP AMPUTATION OF UNSP FINGER, INIT SNOMED Code(s): 551618986 (3) Osteomyelitis Current Visit: Yes Status: Acute Code(s): M86.9 - OSTEOMYELITIS, UNSPECIFIED SNOMED Code(s): 93836652 (4) Tenosynovitis of right hand Narrative/Plan: 58-year-old male who has a long-standing history of many medical troubles includes diabetes hypertension heart disease and a prior history of osteomyelitis of the spine when he was living in [place] is on hemodialysis every Thursdayday Thursday at the [facility]. The patient had a sudden onset of pain and swelling to his right hand after an injury many weeks ago. The time he presented to the hand surgeon there is evidence of an extensive infection that traveled through the index finger into the palm. The patient has had the extensive surgical incision and drainage through the palm for the tenosynovitis. He's had amputation of the grossly osteomyelitic and necrotic index finger. The infection did not travel beyond the carpal tunnel. We have cultures at this time she has a gram-negative bacilli. With him being on dialysis to be worried about pathogen pseudomonas because Rocephin is transitioned to ceftazidime at the appropriate dose for dialysis. Continue vancomycin for now until cultures are finalized. We'll need arrangements for outpatient intravenous antibiotic therapy since this is not dialysis related will need to have those arrangements finalized before discharge. Was sure he is getting a vitamin it's appropriate for patient's on hemodialysis. His blood sugars are elevated due to underlying infection and again he has a outpatient hemoglobin A1c that is reported at 5.5 showing evidence of improved glucose control. Current Visit: Yes Status: Acute Code(s): M65.9 - SYNOVITIS AND TENOSYNOVITIS, UNSPECIFIED SNOMED Code(s): 3540632269174438
--- NOTE | 2019-08-13 14:38 | PN ---
PROGRESS NOTE The patient is seen for followup for end-stage renal disease. He was dialyzed yesterday. Patient is doing well. He is maintained on antibiotics for osteomyelitis of his right index finger, which is also status post amputation now. PHYSICAL EXAMINATION: On examination this morning, patient is awake, comfortable, not in any acute distress. Blood pressure was 146/83, heart rate 70 per minute. He is afebrile. EXAMINATION OF THE HEART: S1, S2. EXAMINATION OF THE LUNGS: Bilateral breath sounds are heard. Abdomen is soft, nontender. Examination of the lower extremities shows no significant edema. Patient has left BKA. Right hand is currently wrapped. LABS: Labs show sodium 138, potassium 4.7. Phosphorus was 8.8. ASSESSMENT: 1. End-stage renal disease, on hemodialysis on a Thursday, Thursday, Thursday schedule, status post dialysis yesterday. 2. Chronic kidney disease mineral bone disorder, maintained on PhosLo. Phosphorus level was elevated to 8. I am not sure if patient was taking his binders prior to admission. We will repeat his phosphorus level if he is here over the weekend. 3. Osteomyelitis of the right hand finger, status post amputation of the right index finger. PLAN: Next dialysis on Thursday. Continue with the IV antibiotics. MMODL / IJN: [id number] /
[2019-08-13] MEDS: FOLIC ACID-VIT B COMPLEX-VIT C 1 CAP PO SCH ×2 (15:09→15:10)
[2019-08-13 16:55] LABS: Glucose,Whole Blood 167 mg/dL (75-99)
[2019-08-13 20:53] LABS: Glucose,Whole Blood 179 mg/dL (75-99)
--- NOTE | 2019-08-13 20:57 | P.PN ---
Subjective Progress Note Date: 08/13/19 (delayed charting seen at 1145) Principal diagnosis: right hand pain Patient is a 58-year-old male with a past medical history of end-stage renal disease on hemodialysis Thursday, Thursday, Thursday at [facility] in [place] with Dr. Linda, diabetes mellitus type 2 insulin-dependent on Toujeo 5 units at night, and prior history of osteomyelitis who presented for surgical incision and drainage of right finger abscess with osteomyelitis of the distal phalanx. On 08/11 he underwent incision and drainage of the right finger tests, partial transphalangeal amputation of the right index finger, I&D of the right index finger flexor sheath and flexure atenolol synovectomy, and open right carpal tunnel release with Dr. Tapia. Now undergoing treatment for osteomyelitis and abscess. Patient seen and examined at bedside. He has already soaked and today and it did not cause much pain. He denies any chest pain, shortness breath, nausea, vomiting, or loose stools. He is feeling well overall. Objective - Vital Signs Vital signs: Vital Signs Temp 97.6 F 08/13/19 19:10 Pulse 79 08/13/19 19:10 Resp 16 08/13/19 19:10 BP 144/72 08/13/19 19:10 Pulse Ox 98 08/13/19 19:10 Intake & Output 08/13/19 08/13/19 08/14/19 06:59 18:59 06:59 Intake Total 540 1032 Balance 540 1032 Intake: Oral 540 1032 - Exam General: non toxic, no distress, appears older than stated age Derm: Dressing in place over right hand warm, dry Head: atraumatic, normocephalic, symmetric Eyes: EOMI, no lid lag, anicteric sclera Mouth: no lip lesion, mucus membranes moist Cardiovascular: S1S2 reg, no murmur, positive posterior tibial pulse right, Lungs: Decreased breath sounds bilateral, no rhonchi, no rales , no accessory muscle use Abdominal: soft, nontender to palpation, no guarding, no appreciable organomegaly Ext: no gross muscle atrophy, no edema, no contractures Neuro: CN II-XI grossly intact, no focal neuro deficits Psych: Alert, oriented, appropriate affect - Labs CBC & Chem 7: 08/13/19 06:58 08/13/19 06:58 Labs: Abnormal Lab Results - Last 24 Hours (Table) 08/12/19 08/13/19 08/13/19 Range/Units 14:00 06:54 06:58 RBC 3.86 L (4.30-5.90) m/uL Hgb 11.4 L (13.0-17.5) gm/dL Hct 35.4 L (39.0-53.0) % BUN (9-20) mg/dL Creatinine (0.66-1.25) mg/dL Glucose (74-99) mg/dL POC Glucose (mg/dL) 161 H (75-99) mg/dL Calcium (8.4-10.2) mg/dL Phosphorus 8.8 H (2.5-4.5) mg/dL 08/13/19 08/13/19 08/13/19 Range/Units 06:58 11:55 16:54 RBC (4.30-5.90) m/uL Hgb (13.0-17.5) gm/dL Hct (39.0-53.0) % BUN 54 H (9-20) mg/dL Creatinine 9.17 H* (0.66-1.25) mg/dL Glucose 144 H (74-99) mg/dL POC Glucose (mg/dL) 212 H 167 H (75-99) mg/dL Calcium 8.2 L (8.4-10.2) mg/dL Phosphorus (2.5-4.5) mg/dL Microbiology - Last 24 Hours (Table) 08/11/19 19:47 Gram Stain - Preliminary Finger - Right Second Wound Culture - Preliminary Gram Neg Bacilli Assessment and Plan Assessment: Right index finger abscess with osteomyelitis status post amputation - Continue with vancomycin, ceftazidime added for pseudomonal coverage by ID - CUlture growing gram negatives - ID Recs appreciated - pain control - ortho recs - PT evaluation and OT for help with gait and no use of right hand Diabetes mellitus type 2 insulin requiring with diabetic neuropathy -Hemoglobin A1c 5.5 per patient -7 units of long-acting, sliding scale, follow blood sugars -Lyrica End-stage renal disease on hemodialysis Thursday, Thursday, Thursday -Stat basic metabolic profile ordered -Discussed with nephrology, and nephrology consulted, plans are for dialysis today -Does not appear to be on any phosphate binders at baseline, will have pharmacy verify his home meds Chronic pain -Resume home fentanyl patch, decreased Dilaudid frequency History of osteomyelitis hyperkalemia DVT prophylaxis: Lovenox
[2019-08-13] MEDS: PREGABALIN 75 MG CAP PO SCH (21:41)
[2019-08-13] MEDS: INSULIN DETEMIR (LEVEMIR) 100 UNIT/ML SYR SQ SCH (21:41)
[2019-08-14] MEDS: HYDROcodone/APAP 5-325MG 1 EACH TAB PO PRN ×3 (05:42→22:33)
[2019-08-14 06:56] LABS: HGB 11.7 gm/dL (13.0-17.5); MCH 30.2 pg (25.0-35.0); MCHC 32.5 g/dL (31.0-37.0); MCV 93.1 fL (80.0-100.0); Mean Platelet Volume 7.3; Platelet Count 329 k/uL (150-450); RBC 3.87 m/uL (4.30-5.90); RDW 14.7 % (11.5-15.5); WBC 8.9 k/uL (3.8-10.6)
[2019-08-14 07:10] LABS: Calcium 8.4 mg/dL (8.4-10.2); Potassium 5.3 mmol/L (3.5-5.1)
[2019-08-14 07:18] LABS: Glucose,Whole Blood 120 mg/dL (75-99)
[2019-08-14] MEDS: FOLIC ACID-VIT B COMPLEX-VIT C 1 CAP PO SCH (07:53)
[2019-08-14] MEDS: HYDROmorphone 0.5 MG/0.5 ML SYRINGE IVP PRN ×4 (07:53→22:33)
[2019-08-14] MEDS: ENOXAPARIN 30 MG/0.3 ML SYRINGE SQ SCH (07:53)
[2019-08-14] MEDS: CALCIUM ACETATE 667 MG CAP PO SCH ×3 (07:53→17:24)
[2019-08-14] MEDS: INSULIN ASPART (NovoLOG) 100 UNIT/ML VIAL SQ SCH ×3 (07:58→17:23)
[2019-08-14 08:35] LABS: Vancomycin,Random 22.2 ug/mL
--- NOTE | 2019-08-14 11:57 | P.PN ---
Subjective Progress Note Date: 08/14/19 He states the pain is mild and well controlled. He has been continuing soaks and performing range of motion exercises as discussed. He has been ambulating around the room. He denies any new issues or concerns. Objective - Vital Signs Vital signs: Vital Signs Temp 98.9 F 08/14/19 07:00 Pulse 77 08/14/19 09:24 Resp 18 08/14/19 08:00 BP 131/71 08/14/19 09:24 Pulse Ox 98 08/14/19 07:00 Intake & Output 08/13/19 08/14/19 08/14/19 18:59 06:59 18:59 Intake Total 1032 Output Total 0 Balance 1032 0 Intake: Oral 1032 Output: Urine 0 Other: # Voids 0 - Exam The dressings were removed. All incisions are well approximated. The skin edges at the tip of the stump shows some ecchymosis but no necrosis. No purulent drainage. No active bleeding. Improved motion of the thumb, middle ring and small fingers with less evidence of discomfort. - Labs CBC & Chem 7: 08/14/19 06:10 08/14/19 06:10 Labs: Abnormal Lab Results - Last 24 Hours (Table) 08/13/19 08/13/19 08/13/19 Range/Units 11:55 16:54 20:42 RBC (4.30-5.90) m/uL Hgb (13.0-17.5) gm/dL Hct (39.0-53.0) % Potassium (3.5-5.1) mmol/L Chloride (98-107) mmol/L BUN (9-20) mg/dL Creatinine (0.66-1.25) mg/dL Glucose (74-99) mg/dL POC Glucose (mg/dL) 212 H 167 H 179 H (75-99) mg/dL 08/14/19 08/14/19 08/14/19 Range/Units 06:10 06:10 07:16 RBC 3.87 L (4.30-5.90) m/uL Hgb 11.7 L (13.0-17.5) gm/dL Hct 36.0 L (39.0-53.0) % Potassium 5.3 H (3.5-5.1) mmol/L Chloride 97 L (98-107) mmol/L BUN 64 H (9-20) mg/dL Creatinine 11.15 H* (0.66-1.25) mg/dL Glucose 127 H (74-99) mg/dL POC Glucose (mg/dL) 120 H (75-99) mg/dL Microbiology - Last 24 Hours (Table) 08/11/19 19:47 Gram Stain - Preliminary Finger - Right Second Wound Culture - Preliminary Citrobacter freundii Morganella morganii Presumptive Staph aureus Alpha Hemolytic Streptococcus Assessment and Plan Assessment: 1. Postoperative day #3 status post I&D and partial amputation of right index finger with flexor tenosynovectomy. 2. Right index finger osteomyelitis (distal phalanx) and suppurative flexor tenosynovitis - cultures demonstrate polymicrobial infection 3. Chronic kidney disease on hemodialysis. 4. Insulin-dependent diabetes mellitus. 5. Obesity. Plan: Intraoperative cultures demonstrate a polymicrobial infection. Final results and sensitivities are still pending. Continue IV antibiotic empiric treatment per Infectious Disease. Continue dilute betadine soaks and encourage ROM of hand, wrist & fingers. Encourage ambulation for DVT prophylaxis. DC planning - the patient will require extended outpatient antibiotic therapy. No further surgical debridement planned at this time. The patient should be ready for discharge once final antibiotic plan has been determined. Continue present care.
[2019-08-14 12:11] LABS: Glucose,Whole Blood 140 mg/dL (75-99)
--- NOTE | 2019-08-14 15:03 | P.PN ---
Subjective Progress Note Date: 08/14/19 58 -year-old male presents to the dialysis center as he routinely does aminase Mondays and Fridays but noticed that there was an acute change to his right hand. The patient relates that many weeks ago he was having a Flare in the backyard he suffered a burn to the index finger. With his once a history of diabetes and peripheral neuropathy it was not severely painful and treated it locally. He relates that he was showing some improvement but continued to have eschar at the tip especially below the nail. Is trying to be cautious with it. However was helping his son work on his car and accidentally bumped the finger quite significantly with a tool. The eschar on the tip of the finger dislodged and a large amount of grossly purulent material oozed out of the site. In the following day the hand markedly worsened with increasing swelling discomfort and increasing drainage. He was seen at the dialysis center and referred to the hand surgeon. At the time of the evaluation and answers officer is evidence of an active infection in counseling he was sent to hospital for further inte rvention. He is undergone the amputation of the index finger of the right hand with the destructive osteomyelitis and gross infection that was actually through the tendon sheath on the index finger that penetrated into the palm but not through the carpal tunnel. Patient the extensive surgical debridement. For antibiotic therapy the infectious diseases consultation is been requested. He has had some recent interventions and include his chronic right upper extremity fistula versus hemodialyses had for 11 years. His had the fistula recently place of the left arm so that he may transition to a new site due to poor flow that is been having into the right upper extremity. He relates he routinely has quite control of his diabetes now in it is noted last hemoglobin A1c was at 5.5. With his infection the blood sugars have now increased which he finds somewhat unusual. Due to his significant neuropathy he is not having much pain at the surgical site. 08/14/2019 the patient does feel somewhat better. Relates the pain is improved. He is not having fevers or chills. Objective - Vital Signs Vital signs: Vital Signs Temp 98.9 F 08/14/19 07:00 Pulse 77 08/14/19 09:24 Resp 18 08/14/19 08:00 BP 131/71 08/14/19 09:24 Pulse Ox 98 08/14/19 07:00 Intake & Output 08/13/19 08/14/19 08/14/19 18:59 06:59 18:59 Intake Total 1032 500 Output Total 0 Balance 1032 0 500 Intake: Oral 1032 500 Output: Urine 0 Other: # Voids 0 - Exam 58 -year-old male currently not in distress HEENT: Anicteric conjunctiva are pink and moist nasal mucosa grossly intact without significant lesions, there is no thrush. Neck: The neck is supple without significant lymphadenopathy or thyromegaly. Lungs: Good bilateral air entry without significant crackles or wheezing. There is no significant bronchial sounds. There is no egophony or dullness. Heart: Regular rate and rhythm with an audible S1-S2, no S3 no S4. There is no significant murmur click or rub, PMI was nondisplaced. Abdomen: Positive bowel sounds soft and nontender without palpable masses or organomegaly. There was no guarding or rebound. Extremities: The left upper extremity has no acute abnormalities. The right upper extremities evidence of the bulky dressing in place from the recent surgery and is being changed by the surgeon .He does have some tenderness that ascends his arm but there is no ascending lymphangitis. There is no distinct epitrochlear or axillary lymphadenopathy. The left hand has no acute abnormalities. The fistula left arm and right arm are both intact with evidence of easily palpable thrill. The lower extremities show evidence of the left [id number] amputation site is intact. The transmetatarsal site to the right foot is also well-healed no evidence of any open ulcerations on either lower extremity at this time. Neuro: Awake alert oriented to person place and time. There are no acute new gross focal sensory motor deficits. - Labs CBC & Chem 7: 08/14/19 06:10 08/14/19 06:10 Labs: Abnormal Lab Results - Last 24 Hours (Table) 08/13/19 08/13/19 08/14/19 Range/Units 16:54 20:42 06:10 RBC 3.87 L (4.30-5.90) m/uL Hgb 11.7 L (13.0-17.5) gm/dL Hct 36.0 L (39.0-53.0) % Potassium (3.5-5.1) mmol/L Chloride (98-107) mmol/L BUN (9-20) mg/dL Creatinine (0.66-1.25) mg/dL Glucose (74-99) mg/dL POC Glucose (mg/dL) 167 H 179 H (75-99) mg/dL 08/14/19 08/14/19 08/14/19 Range/Units 06:10 07:16 12:07 RBC (4.30-5.90) m/uL Hgb (13.0-17.5) gm/dL Hct (39.0-53.0) % Potassium 5.3 H (3.5-5.1) mmol/L Chloride 97 L (98-107) mmol/L BUN 64 H (9-20) mg/dL Creatinine 11.15 H* (0.66-1.25) mg/dL Glucose 127 H (74-99) mg/dL POC Glucose (mg/dL) 120 H 140 H (75-99) mg/dL Microbiology - Last 24 Hours (Table) 08/11/19 19:47 Gram Stain - Preliminary Finger - Right Second Wound Culture - Preliminary Citrobacter freundii Morganella morganii Presumptive Staph aureus Alpha Hemolytic Streptococcus Laboratory Results WBC 8.9 k/uL (3.8-10.6) 08/14/19 06:10 RBC 3.87 m/uL (4.30-5.90) L 08/14/19 06:10 Hgb 11.7 gm/dL (13.0-17.5) L 08/14/19 06:10 Hct 36.0 % (39.0-53.0) L 08/14/19 06:10 MCV 93.1 fL (80.0-100.0) 08/14/19 06:10 MCH 30.2 pg (25.0-35.0) 08/14/19 06:10 MCHC 32.5 g/dL (31.0-37.0) 08/14/19 06:10 RDW 14.7 % (11.5-15.5) 08/14/19 06:10 Plt Count 329 k/uL (150-450) 08/14/19 06:10 Neutrophils % 93 % 08/11/19 21:43 Lymphocytes % 3 % 08/11/19 21:43 Monocytes % 3 % 08/11/19 21:43 Eosinophils % 0 % 08/11/19 21:43 Basophils % 1 % 08/11/19 21:43 Neutrophils # 16.6 k/uL (1.3-7.7) H 08/11/19 21:43 Lymphocytes # 0.5 k/uL (1.0-4.8) L 08/11/19 21:43 Monocytes # 0.6 k/uL (0-1.0) 08/11/19 21:43 Eosinophils # 0.0 k/uL (0-0.7) 08/11/19 21:43 Basophils # 0.1 k/uL (0-0.2) 08/11/19 21:43 ESR 76 mm/hr (0-15) H 08/11/19 21:43 Sodium 139 mmol/L (137-145) 08/14/19 06:10 Potassium 5.3 mmol/L (3.5-5.1) H 08/14/19 06:10 Chloride 97 mmol/L (98-107) L 08/14/19 06:10 Carbon Dioxide 25 mmol/L (22-30) 08/14/19 06:10 Anion Gap 17 mmol/L 08/14/19 06:10 BUN 64 mg/dL (9-20) H 08/14/19 06:10 Creatinine 11.15 mg/dL (0.66-1.25) H* 08/14/19 06:10 Est GFR (CKD-EPI)AfAm 5 (>60 ml/min/1.73 sqM) 08/14/19 06:10 Est GFR (CKD-EPI)NonAf 4 (>60 ml/min/1.73 sqM) 08/14/19 06:10 Glucose 127 mg/dL (74-99) H 08/14/19 06:10 POC Glucose (mg/dL) 140 mg/dL (75-99) H 08/14/19 12:07 POC Glu Product Line Manager ID Rema Cain 08/14/19 12:07 Calcium 8.4 mg/dL (8.4-10.2) 08/14/19 06:10 Phosphorus 8.8 mg/dL (2.5-4.5) H 08/12/19 14:00 Total Bilirubin 0.6 mg/dL (0.2-1.3) 08/11/19 21:43 AST 21 U/L (17-59) 08/11/19 21:43 ALT 10 U/L (21-72) L 08/11/19 21:43 Alkaline Phosphatase 72 U/L (38-126) 08/11/19 21:43 C-Reactive Protein 88.3 mg/L (<10.0) H 08/11/19 21:43 Total Protein 7.4 g/dL (6.3-8.2) 08/11/19 21:43 Albumin 3.7 g/dL (3.5-5.0) 08/11/19 21:43 Random Vancomycin 22.2 ug/mL 08/14/19 06:10 Microbiology 08/11/19 19:47 Finger - Right Second Gram Stain - Preliminary 08/11/19 19:47 Finger - Right Second Wound Culture - Preliminary Citrobacter freundii Morganella morganii Presumptive Staph aureus Alpha Hemolytic Streptococcus 08/11/19 19:47 Finger - Right Second Anaerobic Culture - Preliminary Assessment and Plan (1) Abscess of finger Current Visit: Yes Status: Acute Code(s): L02.519 - CUTANEOUS ABSCESS OF UNSPECIFIED HAND SNOMED Code(s): 50612706 (2) Amputation of finger Current Visit: Yes Status: Acute Code(s): S68.119A - COMPLETE TRAUMATIC MCP AMPUTATION OF UNSP FINGER, INIT SNOMED Code(s): 644234615 (3) Osteomyelitis Current Visit: Yes Status: Acute Code(s): M86.9 - OSTEOMYELITIS, UNSPECIFIED SNOMED Code(s): 70551986 (4) Tenosynovitis of right hand Narrative/Plan: 58-year-old male who has a long-standing history of many medical troubles includes diabetes hypertension heart disease and a prior history of os teomyelitis of the spine when he was living in [place] is on hemodialysis every Thursday at the [facility]. The patient had a sudden onset of pain and swelling to his right hand after an injury many weeks ago. The time he presented to the hand surgeon there is evidence of an extensive infection that traveled through the index finger into the palm. The patient has had the extensive surgical incision and drainage through the palm for the tenosynovitis. He's had amputation of the grossly osteomyelitic and necrotic index finger. The infection did not travel beyond the carpal tunnel. We have cultures at this time she has a gram-negative bacilli. With him being on dialysis to be worried about pathogen pseudomonas because Rocephin is transitioned to ceftazidime at the appropriate dose for dialysis. Continue vancomycin for now until cultures are finalized. We'll need arrangements for outpatient intravenous antibiotic therapy since this is not dialysis related will need to have those arrangements finalized before discharge. Was sure he is getting a vitamin it's appropriate for patient's on hemodialysis. His blood sugars are elevated due to underlying infection and again he has a outpatient hemoglobin A1c that is reported at 5.5 showing evidence of improved glucose control. 08/14/2019 the patient is having some improvement. Pain discomfort have improved. Drainage is improved when the dressing was changed. Cultures are showing evidence of the polymicrobial infection but so far nothing is highly resistant. There may be the possibility of oral therapy or a combination between oral and antibiotic given at dialysis. His cultures finalized we'll then be able to work with case management to finalize the choice. Current Visit: Yes Status: Acute Code(s): M65.9 - SYNOVITIS AND TENOSYNOVITIS, UNSPECIFIED SNOMED Code(s): 6370366445389844
--- NOTE | 2019-08-14 16:31 | P.PN ---
Subjective Progress Note Date: 08/14/19 (Delayed charting seen at 12:30) Principal diagnosis: right hand pain Patient is a 58-year-old male with a past medical history of end-stage renal disease on hemodialysis Thursday, Thursday, Thursday at [facility] in [place] with Dr. Linda, diabetes mellitus type 2 insulin-dependent on Toujeo 5 units at night, and prior history of osteomyelitis who presented for surgical incision and drainage of right finger abscess with osteomyelitis of the distal phalanx. On 08/11 he underwent incision and drainage of the right finger tests, partial transphalangeal amputation of the right index finger, I&D of the right index finger flexor sheath and flexor tenosynovectomy, and open right carpal tunnel release with Dr. Tapia. Now undergoing treatment for ost eomyelitis and abscess. CUltures show poly microbial infection Patient seen and examined at bedside. Pain is well controlled. Feeling better after fentanyl patch was changed. Denies any chest pain, shortness breath, nausea, vomiting, or diarrhea. Objective - Vital Signs Vital signs: Vital Signs Temp 98.4 F 08/14/19 15:00 Pulse 77 08/14/19 15:00 Resp 12 08/14/19 15:00 BP 154/72 08/14/19 15:00 Pulse Ox 98 08/14/19 15:00 Intake & Output 08/13/19 08/14/19 08/14/19 18:59 06:59 18:59 Intake Total 1032 500 Output Total 0 Balance 1032 0 500 Intake: Oral 1032 500 Output: Urine 0 Other: # Voids 0 - Exam General: non toxic, no distress, appears older than stated age Derm: Dressing in place over right hand warm, dry Head: atraumatic, normocephalic, symmetric Eyes: EOMI, no lid lag, anicteric sclera Mouth: no lip lesion, mucus membranes moist Cardiovascular: S1S2 reg, no murmur, positive posterior tibial pulse right, Lungs: Decreased breath sounds bilateral, no rhonchi, no rales , no accessory muscle use Abdominal: soft, nontender to palpation, no guarding, no appreciable organomegaly Ext: no gross muscle atrophy, no edema, no contractures Neuro: CN II-XI grossly intact, no focal neuro deficits Psych: Alert, oriented, appropriate affect - Labs CBC & Chem 7: 08/14/19 06:10 08/14/19 06:10 Labs: Abnormal Lab Results - Last 24 Hours (Table) 08/13/19 08/13/19 08/14/19 Range/Units 16:54 20:42 06:10 RBC 3.87 L (4.30-5.90) m/uL Hgb 11.7 L (13.0-17.5) gm/dL Hct 36.0 L (39.0-53.0) % Potassium (3.5-5.1) mmol/L Chloride (98-107) mmol/L BUN (9-20) mg/dL Creatinine (0.66-1.25) mg/dL Glucose (74-99) mg/dL POC Glucose (mg/dL) 167 H 179 H (75-99) mg/dL 08/14/19 08/14/19 08/14/19 Range/Units 06:10 07:16 12:07 RBC (4.30-5.90) m/uL Hgb (13.0-17.5) gm/dL Hct (39.0-53.0) % Potassium 5.3 H (3.5-5.1) mmol/L Chloride 97 L (98-107) mmol/L BUN 64 H (9-20) mg/dL Creatinine 11.15 H* (0.66-1.25) mg/dL Glucose 127 H (74-99) mg/dL POC Glucose (mg/dL) 120 H 140 H (75-99) mg/dL Microbiology - Last 24 Hours (Table) 08/11/19 19:47 Gram Stain - Preliminary Finger - Right Second Wound Culture - Preliminary Citrobacter freundii Morganella morganii Presumptive Staph aureus Alpha Hemolytic Streptococcus Assessment and Plan Assessment: Right index finger abscess with osteomyelitis status post amputation - Continue with vancomycin, ceftazidime added for pseudomonal coverage by ID - Culture growing gram negatives, possible staph and alpha hemolytic strep - ID Recs appreciated: possible oral vs oral and IV await final cultures - pain control - ortho recs - PT evaluation and OT Diabetes mellitus type 2 insulin requiring with diabetic neuropathy -Hemoglobin A1c 5.5 per patient -7 units of long-acting, sliding scale, follow blood sugars -Lyrica End-stage renal disease on hemodialysis Thursday, Thursday, Thursday -Stat basic metabolic profile ordered -Discussed with nephrology, and nephrology consulted, plans are for dialysis today -Does not appear to be on any phosphate binders at baseline, will have pharmacy verify his home meds Chronic pain -Fentanyl patch home dose - dilaudid and norco for break through History of osteomyelitis hyperkalemia, resolved DVT prophylaxis: Lovenox
[2019-08-14 17:15] LABS: Glucose,Whole Blood 144 mg/dL (75-99)
--- NOTE | 2019-08-14 18:54 | PN ---
PROGRESS NOTE Patient is seen for followup for end-stage renal disease. He is scheduled for hemodialysis tomorrow as he is on a Thursday, Thursday, Thursday schedule. No significant complaints. His pain from the site of the right index finger amputation is controlled. Blood pressure this morning 131/71, heart rate 94 per minute, he is afebrile. Examination of the heart S1, S2. Examination of the lungs, bilateral breath sounds are heard. Abdomen is soft, nontender. Examination lower extremities shows left BKA. Right hand is currently wrapped. LABS: Shows potassium of 5.3, hemoglobin 11.7 g/dL. ASSESSMENT: 1. End-stage renal disease, on hemodialysis on a Thursday, Thursday, Thursday schedule. We will arrange for hemodialysis in a.m. 2. Mild hyperkalemia. Expect improvement with hemodialysis tomorrow. 3. Osteomyelitis of the right index finger status post amputation, maintained on antibiotics. 4. Chronic hypotension maintained on midodrine. However, blood pressure has been high here for the last 2 days. We can use the midodrine just with dialysis if needed. PLAN: Hemodialysis in a.m., UF of about 2 L. MMODL / IJN: [id number] /
[2019-08-14 22:26] LABS: Glucose,Whole Blood 131 mg/dL (75-99)
[2019-08-14] MEDS: INSULIN DETEMIR (LEVEMIR) 100 UNIT/ML SYR SQ SCH (22:34)
[2019-08-14] MEDS: PREGABALIN 75 MG CAP PO SCH (22:34)
[2019-08-15] MEDS: HYDROmorphone 0.5 MG/0.5 ML SYRINGE IVP PRN (07:09)
[2019-08-15] MEDS: CALCIUM ACETATE 667 MG CAP PO SCH ×3 (07:09→17:27)
[2019-08-15] MEDS: HYDROcodone/APAP 5-325MG 1 EACH TAB PO PRN ×2 (07:09→11:50)
[2019-08-15] MEDS: ENOXAPARIN 30 MG/0.3 ML SYRINGE SQ SCH (07:10)
[2019-08-15 07:18] LABS: Glucose,Whole Blood 97 mg/dL (75-99)
[2019-08-15] MEDS: INSULIN ASPART (NovoLOG) 100 UNIT/ML VIAL SQ SCH ×3 (07:34→17:27)
[2019-08-15 07:50] LABS: Calcium 7.6 mg/dL (8.4-10.2); Potassium 5.2 mmol/L (3.5-5.1)
--- NOTE | 2019-08-15 11:16 | P.PN ---
Subjective Progress Note Date: 08/15/19 Chart reviewed. The patient reports continued improvement in both pain and function. His soaking the hand and moving the fingers regularly. He denies any specific issues or concerns. Objective - Vital Signs Vital signs: Vital Signs Temp 97.9 F 08/15/19 07:00 Pulse 76 08/15/19 07:00 Resp 18 08/15/19 07:00 BP 153/75 08/15/19 07:00 Pulse Ox 98 08/15/19 07:00 Intake & Output 08/14/19 08/15/19 08/15/19 18:59 06:59 18:59 Intake Total 500 Balance 500 Intake: Oral 500 Other: # Bowel Movements 1 - Exam The patient was actually in the process of soaking the hand upon entering the room. Carpal tunnel incision is closed and healing well. The two distal incisions are still approximated but the wound edges are still mobile and not yet epithelia lized. No erythema, drainage or purulence. Appropriate edema without subcutaneous fluctuance. He demonstrates no signs of pain with mid range active digital flexion and extension or with active wrist range of motion. - Labs CBC & Chem 7: 08/14/19 06:10 08/15/19 06:37 Labs: Abnormal Lab Results - Last 24 Hours (Table) 08/14/19 08/14/19 08/14/19 Range/Units 12:07 17:11 22:24 Potassium (3.5-5.1) mmol/L Carbon Dioxide (22-30) mmol/L BUN (9-20) mg/dL Creatinine (0.66-1.25) mg/dL POC Glucose (mg/dL) 140 H 144 H 131 H (75-99) mg/dL Calcium (8.4-10.2) mg/dL 08/15/19 Range/Units 06:37 Potassium 5.2 H (3.5-5.1) mmol/L Carbon Dioxide 21 L (22-30) mmol/L BUN 75 H (9-20) mg/dL Creatinine 11.27 H* (0.66-1.25) mg/dL POC Glucose (mg/dL) (75-99) mg/dL Calcium 7.6 L (8.4-10.2) mg/dL Microbiology - Last 24 Hours (Table) 08/11/19 19:47 Gram Stain - Final Finger - Right Second Wound Culture - Final Citrobacter freundii Morganella morganii Staphylococcus aureus Viridans streptococcus group 08/11/19 19:47 Anaerobic Culture - Final Finger - Right Second Anaerobic Gm Negative Bacilli Anaerobic Gm Negative Bacilli#2 Anaerobic Gm Negative Bacilli#3 Assessment and Plan Assessment: 1. Postoperative day #4 status post I&D and partial amputation of right index finger with flexor tenosynovectomy. 2. Right index finger osteomyelitis (distal phalanx) and suppurative flexor tenosynovitis 3. Intraoperative cultures demonstrate polymicrobial infection 4. Chronic kidney disease on hemodialysis. 5. Insulin-dependent diabetes mellitus. 6. Obesity. Plan: Intraoperative cultures results finalized with sensitivities. Antibiotic regimen TDB by Dr. Jonas Discontinue soaks and encourage ROM of hand, wrist & fingers. Encourage ambulation for DVT prophylaxis. DC planning - the patient will require extended outpatient antibiotic therapy. Ok to discharge once final antibiotic plan has been determined.
[2019-08-15 11:43] LABS: Glucose,Whole Blood 135 mg/dL (75-99)
--- NOTE | 2019-08-15 14:04 | PN ---
PROGRESS NOTE Patient is seen for followup for end-stage renal disease. He was admitted to the hospital for amputation of his right index finger for necroses and gangrene and osteomyelitis. Currently patient is maintained on IV antibiotics. He is doing very well. He is maintained on a Thursday, Thursday, Thursday schedule for dialysis. He is scheduled for hemodialysis today. PHYSICAL EXAMINATION: On examination, blood pressure is 153/75, heart rate 76 per minute, he is afebrile. Examination of the heart S1, S2. Examination of the lungs, bilateral breath sounds are heard. Abdomen is soft, nontender. 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 No edema right lower extremity. Right hand is currently dressed. LABS: Show potassium 5.2, BUN 75, creatinine 11.27. ASSESSMENT: 1. End-stage renal disease, on hemodialysis on a Thursday, Thursday, Thursday schedule. 2. Mild hyperkalemia. Expect improvement with hemodialysis today. 3. Status post amputation right index finger, maintained on antibiotics. 4. Osteomyelitis of the right index finger, status post amputation. 5. Chronic kidney disease mineral bone disorder. 6. Hypertension, currently controlled. PLAN: Continue antibiotics, hemodialysis today, UF about 2 L. MMODL / IJN: [id number] /
[2019-08-15 16:59] LABS: Glucose,Whole Blood 132 mg/dL (75-99)
[2019-08-15] MEDS: MIDODRINE 5 MG TAB PO SCH (17:39)
[2019-08-15] MEDS ORDERED: VANCOMYCIN 1,750 MG in SODIUM CHLORIDE 0.9% 500 ML 500 ML IVPB ONE (18:00)
[2019-08-15 18:27] VITALS: BP 197/83; PULSE 68; RESP 18; TEMP 98.1
--- NOTE | 2019-08-15 19:47 | P.PN ---
Subjective Progress Note Date: 08/15/19 (Delayed charting seen at 1155) Principal diagnosis: right hand pain Patient is a 58-year-old male with a past medical history of end-stage renal disease on hemodialysis Thursday, Thursday, Thursday at [facility] in [place] with Dr. Linda, diabetes mellitus type 2 insulin-dependent on Toujeo 5 units at night, and prior history of osteomyelitis who presented for surgical incision and drainage of right finger abscess with osteomyelitis of the distal phalanx. On 08/11 he underwent incision and drainage of the right finger tests, partial transphalangeal amputation of the right index finger, I&D of the right index finger flexor sheath and flexor tenosynovectomy, and open right carpal tunnel release with Dr. Tapia. Now undergoing treatment for oste omyelitis and abscess. CUltures show poly microbial infection Patient seen and examined at bedside. Feeling well, excited to go home, no chest pain, no shortness of breath, no nausea. Objective - Vital Signs Vital signs: Vital Signs Temp 98.1 F 08/15/19 18:25 Pulse 68 08/15/19 18:25 Resp 18 08/15/19 18:25 BP 197/83 08/15/19 18:25 Pulse Ox 98 08/15/19 07:00 Intake & Output 08/15/19 08/15/19 08/16/19 06:59 18:59 06:59 Output Total 1999 Balance -1999 Output: Hemodialysis 1999 Other: # Bowel Movements 1 - Exam General: non toxic, no distress, appears older than stated age Derm: Dressing in place over right hand warm, dry Head: atraumatic, normocephalic, symmetric Eyes: EOMI, no lid lag, anicteric sclera Mouth: no lip lesion, mucus membranes moist, poor dentition Cardiovascular: S1S2 reg, no murmur, positive posterior tibial pulse right, Lungs: Decreased breath sounds bilateral, no rhonchi, no rales , no accessory muscle use Abdominal: soft, nontender to palpation, no guarding, no appreciable organomegaly Ext: no gross muscle atrophy, no edema, no contractures Neuro: CN II-XI grossly intact, no focal neuro deficits Psych: Alert, oriented, appropriate affect - Labs CBC & Chem 7: 08/14/19 06:10 08/15/19 06:37 Labs: Abnormal Lab Results - Last 24 Hours (Table) 08/14/19 08/15/19 08/15/19 Range/Units 22:24 06:37 11:42 Potassium 5.2 H (3.5-5.1) mmol/L Carbon Dioxide 21 L (22-30) mmol/L BUN 75 H (9-20) mg/dL Creatinine 11.27 H* (0.66-1.25) mg/dL POC Glucose (mg/dL) 131 H 135 H (75-99) mg/dL Calcium 7.6 L (8.4-10.2) mg/dL 08/15/19 Range/Units 16:57 Potassium (3.5-5.1) mmol/L Carbon Dioxide (22-30) mmol/L BUN (9-20) mg/dL Creatinine (0.66-1.25) mg/dL POC Glucose (mg/dL) 132 H (75-99) mg/dL Calcium (8.4-10.2) mg/dL Microbiology - Last 24 Hours (Table) 08/11/19 19:47 Gram Stain - Final Finger - Right Second Wound Culture - Final Citrobacter freundii Morganella morganii Staphylococcus aureus Viridans streptococcus group 08/11/19 19:47 Anaerobic Culture - Final Finger - Right Second Anaerobic Gm Negative Bacilli Anaerobic Gm Negative Bacilli#2 Anaerobic Gm Negative Bacilli#3 Assessment and Plan Assessment: Right index finger abscess with osteomyelitis status post amputation - ID recs: 4 weeks of oral abx with flagyl and levaquin - Culture growing gram negatives, staph and alpha hemolytic strep - pain control - ortho recs - PT evaluation and OT Diabetes mellitus type 2 insulin requiring with diabetic neuropathy -Hemoglobin A1c 5.5 per patient -Resume home Gabe Boa End-stage renal disease on hemodialysis Thursday, Thursday, Thursday -Discussed with nephrology, and nephrology consulted, plans are for dialysis today -phosphate binders Chronic pain -Fentanyl patch home dose - dilaudid and norco for break through History of osteomyelitis hyperkalemia, resolved DVT prophylaxis: Lovenox Medically optimized for discharge home. Med rec verified.
--- NOTE | 2019-08-15 22:34 | P.PN ---
Subjective Progress Note Date: 08/15/19 58 -year-old male presents to the dialysis center as he routinely does aminase Mondays and Fridays but noticed that there was an acute change to his right hand. The patient relates that many weeks ago he was having a Flare in the backyard he suffered a burn to the index finger. With his once a history of diabetes and peripheral neuropathy it was not severely painful and treated it locally. He relates that he was showing some improvement but continued to have eschar at the tip especially below the nail. Is trying to be cautious with it. However was helping his son work on his car and accidentally bumped the finger quite significantly with a tool. The eschar on the tip of the finger dislodged and a large amount of grossly purulent material oozed out of the site. In the following day the hand markedly worsened with increasing swelling discomfort and increasing drainage. He was seen at the dialysis center and referred to the hand surgeon. At the time of the evaluation and answers officer is evidence of an active infection in counseling he was sent to hospital for further inte rvention. He is undergone the amputation of the index finger of the right hand with the destructive osteomyelitis and gross infection that was actually through the tendon sheath on the index finger that penetrated into the palm but not through the carpal tunnel. Patient the extensive surgical debridement. For antibiotic therapy the infectious diseases consultation is been requested. He has had some recent interventions and include his chronic right upper extremity fistula versus hemodialyses had for 11 years. His had the fistula recently place of the left arm so that he may transition to a new site due to poor flow that is been having into the right upper extremity. He relates he routinely has quite control of his diabetes now in it is noted last hemoglobin A1c was at 5.5. With his infection the blood sugars have now increased which he finds somewhat unusual. Due to his significant neuropathy he is not having much pain at the surgical site. 08/14/2019 the patient does feel somewhat better. Relates the pain is improved. He is not having fevers or chills. 08/15/2019 doing much better,pain has improved, will be released after dialysis Objective - Vital Signs Vital signs: Vital Signs Temp 98.1 F 08/15/19 18:25 Pulse 68 08/15/19 18:25 Resp 18 08/15/19 18:25 BP 197/83 08/15/19 18:25 Pulse Ox 98 08/15/19 07:00 Intake & Output 08/15/19 08/15/19 08/16/19 06:59 18:59 06:59 Output Total 1999 Balance -1999 Output: Hemodialysis 1999 Other: # Bowel Movements 1 - Exam 58 -year-old male currently not in distress HEENT: Anicteric conjunctiva are pink and moist nasal mucosa grossly intact without significant lesions, there is no thrush. Neck: The neck is supple without significant lymphadenopathy or thyromegaly. Lungs: Good bilateral air entry without significant crackles or wheezing. There is no significant bronchial sounds. There is no egophony or dullness. Heart: Regular rate and rhythm with an audible S1-S2, no S3 no S4. There is no significant murmur click or rub, PMI was nondisplaced. Abdomen: Positive bowel sounds soft and nontender without palpable masses or organomegaly. There was no guarding or rebound. Extremities: The left upper extremity has no acute abnormalities. The right upper extremities evidence of the bulky dressing in place from the recent surgery and is being changed by the surgeon .He has no tenderness to the arm and is no ascending lymphangitis. There is no distinct epitrochlear or axillary lymphadenopathy. The left hand has no acute abnormalities. The fistula left arm and right arm are both intact with evidence of easily palpable thrill. The lower extremities show evidence of the left [id number] amputation site is intact. The transmetatarsal site to the right foot is also well-healed no evidence of any open ulcerations on either lower extremity at this time. Neuro: Awake alert oriented to person place and time. There are no acute new gross focal sensory motor deficits. - Labs CBC & Chem 7: 08/14/19 06:10 08/15/19 06:37 Labs: Abnormal Lab Results - Last 24 Hours (Table) 08/14/19 08/15/19 08/15/19 Range/Units 22:24 06:37 11:42 Potassium 5.2 H (3.5-5.1) mmol/L Carbon Dioxide 21 L (22-30) mmol/L BUN 75 H (9-20) mg/dL Creatinine 11.27 H* (0.66-1.25) mg/dL POC Glucose (mg/dL) 131 H 135 H (75-99) mg/dL Calcium 7.6 L (8.4-10.2) mg/dL 08/15/19 Range/Units 16:57 Potassium (3.5-5.1) mmol/L Carbon Dioxide (22-30) mmol/L BUN (9-20) mg/dL Creatinine (0.66-1.25) mg/dL POC Glucose (mg/dL) 132 H (75-99) mg/dL Calcium (8.4-10.2) mg/dL Microbiology - Last 24 Hours (Table) 08/11/19 19:47 Gram Stain - Final Finger - Right Second Wound Culture - Final Citrobacter freundii Morganella morganii Staphylococcus aureus Viridans streptococcus group 08/11/19 19:47 Anaerobic Culture - Final Finger - Right Second Anaerobic Gm Negative Bacilli Anaerobic Gm Negative Bacilli#2 Anaerobic Gm Negative Bacilli#3 Laboratory Results WBC 8.9 k/uL (3.8-10.6) 08/14/19 06:10 RBC 3.87 m/uL (4.30-5.90) L 08/14/19 06:10 Hgb 11.7 gm/dL (13.0-17.5) L 08/14/19 06:10 Hct 36.0 % (39.0-53.0) L 08/14/19 06:10 MCV 93.1 fL (80.0-100.0) 08/14/19 06:10 MCH 30.2 pg (25.0-35.0) 08/14/19 06:10 MCHC 32.5 g/dL (31.0-37.0) 08/14/19 06:10 RDW 14.7 % (11.5-15.5) 08/14/19 06:10 Plt Count 329 k/uL (150-450) 08/14/19 06:10 Neutrophils % 93 % 08/11/19 21:43 Lymphocytes % 3 % 08/11/19 21:43 Monocytes % 3 % 08/11/19 21:43 Eosinophils % 0 % 08/11/19 21:43 Basophils % 1 % 08/11/19 21:43 Neutrophils # 16.6 k/uL (1.3-7.7) H 08/11/19 21:43 Lymphocytes # 0.5 k/uL (1.0-4.8) L 08/11/19 21:43 Monocytes # 0.6 k/uL (0-1.0) 08/11/19 21:43 Eosinophils # 0.0 k/uL (0-0.7) 08/11/19 21:43 Basophils # 0.1 k/uL (0-0.2) 08/11/19 21:43 ESR 76 mm/hr (0-15) H 08/11/19 21:43 Sodium 138 mmol/L (137-145) 08/15/19 06:37 Potassium 5.2 mmol/L (3.5-5.1) H 08/15/19 06:37 Chloride 103 mmol/L (98-107) 08/15/19 06:37 Carbon Dioxide 21 mmol/L (22-30) L 08/15/19 06:37 Anion Gap 14 mmol/L 08/15/19 06:37 BUN 75 mg/dL (9-20) H 08/15/19 06:37 Creatinine 11.27 mg/dL (0.66-1.25) H* 08/15/19 06:37 Est GFR (CKD-EPI)AfAm 5 (>60 ml/min/1.73 sqM) 08/15/19 06:37 Est GFR (CKD-EPI)NonAf 4 (>60 ml/min/1.73 sqM) 08/15/19 06:37 Glucose 85 mg/dL (74-99) 08/15/19 06:37 POC Glucose (mg/dL) 132 mg/dL (75-99) H 08/15/19 16:57 POC Glu Small Business Banking Officer ID Glenn Kaiser 08/15/19 16:57 Calcium 7.6 mg/dL (8.4-10.2) L 08/15/19 06:37 Phosphorus 8.8 mg/dL (2.5-4.5) H 08/12/19 14:00 Total Bilirubin 0.6 mg/dL (0.2-1.3) 08/11/19 21:43 AST 21 U/L (17-59) 08/11/19 21:43 ALT 10 U/L (21-72) L 08/11/19 21:43 Alkaline Phosphatase 72 U/L (38-126) 08/11/19 21:43 C-Reactive Protein 88.3 mg/L (<10.0) H 08/11/19 21:43 Total Protein 7.4 g/dL (6.3-8.2) 08/11/19 21:43 Albumin 3.7 g/dL (3.5-5.0) 08/11/19 21:43 Random Vancomycin 22.2 ug/mL 08/14/19 06:10 Microbiology 08/11/19 19:47 Finger - Right Second Gram Stain - Final 08/11/19 19:47 Finger - Right Second Wound Culture - Final Citrobacter freundii Morganella morganii Staphylococcus aureus Viridans streptococcus group 08/11/19 19:47 Finger - Right Second Anaerobic Culture - Final Anaerobic Gm Negative Bacilli Anaerobic Gm Negative Bacilli#2 Anaerobic Gm Negative Bacilli#3 Assessment and Plan (1) Abscess of finger Status: Acute Code(s): L02.519 - CUTANEOUS ABSCESS OF UNSPECIFIED HAND SNOMED Code(s): 94328793 (2) Amputation of finger Status: Acute Code(s): S68.119A - COMPLETE TRAUMATIC MCP AMPUTATION OF UNSP FINGER, INIT SNOMED Code(s): 690286859 (3) Osteomyelitis Status: Acute Code(s): M86.9 - OSTEOMYELITIS, UNSPECIFIED SNOMED Code(s): 49521123 (4) Tenosynovitis of right hand Narrative/Plan: 58-year-old male who has a long-standing history of many medical troubles includes diabetes hypertension heart disease and a prior history of osteomyelitis of the spine when he was living in [place] is on hemodialysis every Thursdayday Thursday at the [facility] [place]. The patient had a sudden onset of pain and swelling to his right hand after an injury many weeks ago. The time he presented to the hand surgeon there is evidence of an extensiv e infection that traveled through the index finger into the palm. The patient has had the extensive surgical incision and drainage through the palm for the tenosynovitis. He's had amputation of the grossly osteomyelitic and necrotic index finger. The infection did not travel beyond the carpal tunnel. We have cultures at this time she has a gram-negative bacilli. With him being on dialysis to be worried about pathogen pseudomonas because Rocephin is transitioned to ceftazidime at the appropriate dose for dialysis. Continue vancomycin for now until cultures are finalized. We'll need arrangements for outpatient intravenous antibiotic therapy since this is not dialysis related will need to have those arrangements finalized before discharge. Was sure he is getting a vitamin it's appropriate for patient's on hemodialysis. His blood sugars are elevated due to underlying infection and again he has a outpatient hemoglobin A1c that is reported at 5.5 showing evidence of improved glucose control. 08/14/2019 the patient is having some improvement. Pain discomfort have improved. Drainage is improved when the dressing was changed. Cultures are showing evidence of the polymicrobial infection but so far nothing is highly resistant. There may be the possibility of oral therapy or a combination between oral and antibiotic given at dialysis. His cultures finalized we'll then be able to work with case management to finalize the choice. 08/15/2019 has improved and after dialysis will be discharged Levaquin and metronidazole sent to pharmacy planning 42 days given the osteo and the tenosynovitis patient to followup in office in 3 weeks labs at dialysis wound care was directed by hand surgeon. Status: Acute Code(s): M65.9 - SYNOVITIS AND TENOSYNOVITIS, UNSPECIFIED SNOMED Code(s): 5571507239606512
== END 2019-08-15 18:53 | disposition home health service (06) | DRG 629 ==
LOC: OR 15:39 → EDSTATUS 17:00 → 4SSUR 19:48 → OR 20:05 → 4SSUR 20:06
PROVIDERS: ADMIT Orthopaedic Surgery; ATTEND Orthopaedic Surgery
PROC: 0LB70ZZ Excision of Right Hand Tendon, Open Approach (ICD-10-PCS; principal; 2019-08-11 17:00)
PROC: 0X6N0Z2 Detachment at Right Index Finger, Mid, Open Approach (ICD-10-PCS; principal; 2019-08-11 17:00)
PROC: 01N50ZZ Release Median Nerve, Open Approach (ICD-10-PCS; principal; 2019-08-11 17:00)
PROC: 5A1D70Z Performance of Urinary Filtration, Intermittent, Less than 6 Hours Per Day (ICD-10-PCS; 2019-08-12)
DX: E11.69 Type 2 diabetes mellitus with other specified complication (principal); M86.141 Other acute osteomyelitis, right hand; E11.52 Type 2 diabetes mellitus with diabetic peripheral angiopathy with gangrene; I12.0 Hypertensive chronic kidney disease with stage 5 chronic kidney disease or end stage renal disease; L02.511 Cutaneous abscess of right hand; D63.8 Anemia in other chronic diseases classified elsewhere; E11.22 Type 2 diabetes mellitus with diabetic chronic kidney disease; E11.42 Type 2 diabetes mellitus with diabetic polyneuropathy; E66.9 Obesity, unspecified; Z68.34 Body mass index [BMI] 34.0-34.9, adult; E87.5 Hyperkalemia; G47.30 Sleep apnea, unspecified; G56.01 Carpal tunnel syndrome, right upper limb; G89.29 Other chronic pain; I95.89 Other hypotension; J45.909 Unspecified asthma, uncomplicated; M65.9 Synovitis and tenosynovitis, unspecified; N18.6 End stage renal disease; T23.029A Burn of unspecified degree of unspecified single finger (nail) except thumb, initial encounter; N25.0 Renal osteodystrophy; Z79.4 Long term (current) use of insulin; Z82.49 Family history of ischemic heart disease and other diseases of the circulatory system; Z87.891 Personal history of nicotine dependence; Z89.512 Acquired absence of left leg below knee; Z99.2 Dependence on renal dialysis; Z79.83 Long term (current) use of bisphosphonates
CPT/HCPCS: 80048; 80053; 80202; 84100; 85025; 85027; 85652; 86140; 87070; 87075; 87077; 87186; 87205; 88305; 88311; 90935

== ENCOUNTER → 2019-09-02 | Day surgery (SDC) | payer MEDICARE, OTHER ==
[2019-08-30 16:12] VITALS: BMI 34.4
[~2019-09-02] MED LIST: BUPIVACAINE (PF) 0.5% 30 ML VIAL SQ ONE; DEXAMETHASONE SOD PHOSPHATE 10 MG/ML 1 ML VIAL IV ONE; LACTATED RINGERS 1,000 ML IV SCH; LIDOCAINE 1% 20 ML VIAL (10MG/ML) FOR IV START INTRADERMA PRN; LIDOCAINE 1% INJ 10MG/ML (20 ML MDV) ONE; MIDAZOLAM 2 MG/2 ML VIAL IV PRN; MIDAZOLAM 2 MG/2 ML VIAL ONE; ONDANSETRON 4 MG/2 ML VIAL IVP ONE; PHENYLEPHRINE-0.9% NACL SYG 1 MG/10 ML SYRINGE ONE; PROPOFOL 10 MG/ML 20 ML VIAL IV ONE; SCOPOLAMINE 1.5MG/72HR PATCH TRANSDERM ONE; SODIUM CHLORIDE 0.9% 500 ML 500 ML IV ONE; WATER FOR INJECTION, STERILE 10 ML VIAL IV ONE; ePHEDrine SULFATE/0.9% NACL/PF 50 MG/5 ML SYRINGE IV ONE; fentaNYL (PF) 50 MCG/ML 2 ML AMP IV ONE; fentaNYL (PF) 50 MCG/ML 2 ML AMP ONE
[2019-09-02 13:09] LABS: Glucose,Whole Blood 79 mg/dL (75-99)
[2019-09-02 15:05] LABS: Glucose,Whole Blood 75 mg/dL (75-99)
[2019-09-02 16:46] LABS: Glucose,Whole Blood 102 mg/dL (75-99)
[2019-09-02 16:49] VITALS: TEMP 98
[2019-09-02] MEDS: HYDROmorphone 0.5 MG/0.5 ML SYRINGE IVP PRN ×2 (16:55→17:19)
[2019-09-02 17:17] VITALS: RESP 16
[2019-09-02 17:30] VITALS: PULSE 81
[2019-09-02 17:51] VITALS: BP 158/84
--- NOTE | 2019-09-03 15:36 | P.OP ---
Date of Procedure: 09/02/19 Preoperative Diagnosis: 1. Persistent right index finger infection status post irrigation and debridement and right index finger amputation 2. History of osteomyelitis of the right index finger distal phalanx with suppurative flexor tenosynovitis Postoperative Diagnosis: 1. Persistent right index finger infection status post irrigation and debridement and right index finger amputation 2. History of osteomyelitis of the right index finger distal phalanx with suppurative flexor tenosynovitis Procedure(s) Performed: 1. Irrigation and sharp excisional debridement of right index finger and flexor sheath 2. Sharp excisional debridement and closure of non-healing right hand wound 3. Revision amputation of right index finger Anesthesia: GETA (General), local Surgeon: Sawyer Tapia Estimated Blood Loss (ml): 5 Pathology: none sent Condition: stable Disposition: PACU Indications for Procedure: The patient is a 59-year-old male who previously underwent surgical debridement of his right index finger for abscess and osteomyelitis, resulting in partial amputation. At postoperative follow-up, purulent fluid was expressed from the stump and the wound was not healing. Surgical debridement was recommended. Risks and benefits were reviewed including (but not limited to) the risks of bleeding, injury to tendons or neurovascular structures, persistent or recurrent infection, wound healing problems and possible need for additional surgery, including revision amputation. The patient expressed understanding, willingness to accept these risks and wished to proceed with surgery. Consent forms were signed. The surgical site was confirmed and marked preoperatively. Description of Procedure: The patient was brought to the operating suite by the anesthesia team and was positioned supine. All bony prominences were well-padded. Anesthesia was administered uneventfully. A tourniquet was placed on the operative limb but was not utilized. The right upper extremity was prepped and draped in standard, sterile fashion. A time-out was performed, confirming patient identifiers, the operative side, site and the procedure to be performed: all team members expressed agreement. Sutures in the stump were removed and the wound opened easily with spreading dissection. There was a small purulent fluid pocket in the stump but a great deal more unhealthy-appearing granulation tissue. A piece of the FDS tendon was protruding from the incision at the A1 conrado level. These sutures were also removed. A Ragnell retractor was inserted under the FDS and FDP tendons - both pulled easily through the palmar wound. The tendon ends showed maceration, consistent with infection. These were sharply resected at the level of the incision. There is no evidence of purulence extending proximally from the incision. A combination of sharp and mechanical debridement was used to resect infected and unhealthy tissue. Both wounds were copiously irrigated with normal saline using a bulb syringe. The fluid flowed easily out the distal wound when irrigated proximally. The surrounding soft tissues were mechanically debrided with a curette. A rongeur was used to resect fibrous and devitalized tissue at the end of the stump. The skin edges showed some maceration. These were sharply revised back to bleeding tissue. The revised skin edges would not close over the end of the remaining bone. A rongeur was used to resect additional bone of the proximal phalanx. The bone end was contoured until smooth. The neurovascular bundles were already recessed proximal to this level. The skin flaps were positioned over the end of the bone, now able to close over the stump without tension. The stump wound was again irrigated and the flaps were closed with interrupted 3-0 Prolene sutures. The skin edges and the palmar wound were thickened, keratotic and macerated. The margins were sharply revised back to healthy tissue. The wound was irrigated and closed with interrupted 3-0 Prolene sutures. Good hemostasis was maintained throughout the case without the need for a tourniquet. Local anesthetic without epinephrine was injected for postoperative pain control. Sterile dressings of Adaptic, 4 x 4's, Gasper and Coban were applied. All sponge, needle and instrument counts were correct at the end of the case. The patient tolerated the procedure well and was taken to recovery in stable condition.
--- NOTE | 2019-09-08 06:21 | CDI ---
Outpatient Documentation Clarification Form Date: 09/08/19 CDS/Itinerant Teacher Assistant Name: Sari Conklin Phone: If any questions call Karma Juarez Airline Dispatcher at [phone] Patient Name: Clint Verdugo Admit Date: 09/02/29 Discharge Date: 09/02/19 ATTENTION: The [facility] Coding Staff appreciate your assistance in clarifying documentation. Please respond to the clarification below the line at the bottom and electronically sign. The [facility] Coding Staff will review the response and follow-up as needed. Please note: Queries are made part of the Legal Health Record. If you have any questions, please call the Airline Dispatcher. Dear Dr. Tapia, In order to follow official coding guidelines and code to the highest specificity, please provide the dimensions of the areas debrided, both the finger and the palm. Thank you for your kind consideration, An area of approximately 3 cm was debrided in the finger and approximately 2 cm in the palm. MTDD
== END | disposition home or self-care (01) ==
LOC: OR 12:37
PROVIDERS: ATTEND Orthopaedic Surgery
DX: T87.41 Infection of amputation stump, right upper extremity (principal); L02.511 Cutaneous abscess of right hand; Z89.021 Acquired absence of right finger(s); E11.22 Type 2 diabetes mellitus with diabetic chronic kidney disease; N18.6 End stage renal disease; Z99.2 Dependence on renal dialysis; J45.909 Unspecified asthma, uncomplicated; G47.33 Obstructive sleep apnea (adult) (pediatric); E66.01 Morbid (severe) obesity due to excess calories; Z68.35 Body mass index [BMI] 35.0-35.9, adult; Z89.512 Acquired absence of left leg below knee; Z89.429 Acquired absence of other toe(s), unspecified side; Z87.891 Personal history of nicotine dependence; Z90.49 Acquired absence of other specified parts of digestive tract; Z83.3 Family history of diabetes mellitus; Z82.49 Family history of ischemic heart disease and other diseases of the circulatory system; Z97.3 Presence of spectacles and contact lenses; Z79.890 Hormone replacement therapy; Z79.891 Long term (current) use of opiate analgesic; Z99.81 Dependence on supplemental oxygen; Z79.899 Other long term (current) drug therapy; Z91.013 Allergy to seafood
CPT/HCPCS: 26180 ×2; 84132; 11043; 26952; J2250; J0690; J2405; J2001; J3010; J2370; J2704; J1170

== ENCOUNTER 2019-11-16 08:49 | Inpatient (IN) | payer MEDICARE, OTHER ==
[2019-11-16] MEDS ORDERED: MORPHINE SULFATE 4 MG/ML SYRINGE IVP STA ×2 (09:37→14:10)
--- NOTE | 2019-11-16 10:14 | ED ---
Extremity Problem HPI - General Chief complaint: Extremity Problem,Nontraumatic Stated complaint: rt hand finger infection Time Seen by Provider: 11/16/19 09:17 Source: patient, RN notes reviewed Mode of arrival: ambulatory Limitations: no limitations - History of Present Illness Initial comments: 59-year-old male presents emergency Department chief complaint of pain, infection to his right hand third digit. Patient states that he had his index finger amputation this finger by Dr. Tapia for similar problems. They discussed possible amputation of his digit if it became infected. Patient has had bilateral lower extremity amputation secondary to infections, diabetes. Patient reports controlled diabetic has been on dialysis for several years. He does admit that he's had multiple infections including osteomyelitis. Patient states she has severe neuropathy normally has no symptoms in his digits but states that he has severe pain to his finger there is wound that has been increasing in size, mild drainage. He states this initially started from a burn - Related Data Home Medications Medication Instructions Recorded Confirmed Albuterol Inhaler [Ventolin Hfa 2 puff INHALATION RT-HS 08/09/19 11/16/19 Inhaler] HYDROcodone/APAP 7.5-325MG [[place] 1 tab PO TID PRN 08/09/19 11/16/19 7.5-325] Midodrine HCl [ProAmatine] 10 mg PO MOWEFR@2100 PRN 08/09/19 11/16/19 Pregabalin [Lyrica] 75 mg PO DIRECTED 08/09/19 11/16/19 Calcium Acetate [PhosLo] 2,001 - 2,668 mg PO AC-TID 08/12/19 11/16/19 Insulin Degludec [Tresiba] 3 units SQ HS 08/12/19 11/16/19 traMADol HCl [Ultram] 50 mg PO Q4HR PRN 11/16/19 11/16/19 Allergies Allergy/AdvReac Type Severity Reaction Status Date / Time shellfish derived [Shrimp] Allergy Unknown Verified 11/16/19 10:00 Review of Systems ROS Statement: Those systems with pertinent positive or pertinent negative responses have been documented in the HPI. ROS Other: All systems not noted in ROS Statement are negative. Past Medical History Past Medical History: Asthma, Diabetes Mellitus, Eye Disorder, Musculoskeletal Disorder, Renal Disease, Sleep Apnea/CPAP/BIPAP Additional Past Medical History / Comment(s): End Stage Renal Disease- HEMODIALYSIS MON, WED, FRI, HAS FISTULAS IN BILATERAL ARMS, "CAN ONLY HAVE IV'S IN HANDS." USES O2 @ HS OCCASIONALLY. HX OSTEOMYELITIS L3-5 2010. RT INDEX FINGER ABSCESS. Neuropathy. No CPAP use. Bilateral Glaucoma. History of Any Multi-Drug Resistant Organisms: None Reported Past Surgical History: Cholecystectomy Additional Past Surgical History / Comment(s): LEFT BKA, RIGHT TOE AMPUTATIONS. FISTULA IN RFA, & LT INNER ELBOW. BILATERAL CATARACT SURGERY, LASER EYE ESTEVAN GUSTAVO, right index finger amputation. Past Anesthesia/Blood Transfusion Reactions: No Reported Reaction Past Psychological History: No Psychological Hx Reported Smoking Status: Former smoker Past Alcohol Use History: Rare Past Drug Use History: Cocaine, Methamphetamine - Past Family History Mother Family Medical History: No Reported History Additional Family Medical History / Comment(s): Congestive heart failure. Father Additional Family Medical History / Comment(s): Congestive heart failure, myocardial infarction General Exam Limitations: no limitations General appearance: alert, in no apparent distress Head exam: Present: atraumatic, normocephalic, normal inspection Eye exam: Present: normal appearance, PERRL, EOMI. Absent: scleral icterus, conjunctival injection, periorbital swelling Respiratory exam: Present: normal lung sounds bilaterally. Absent: respiratory distress, wheezes, rales, rhonchi, stridor Cardiovascular Exam: Present: normal rhythm, tachycardia, normal heart sounds. Absent: systolic murmur, diastolic murmur, rubs, gallop, clicks Extremities exam: Present: other (Bilateral lower extremity amputation, right hand second digit amputation noted, there is an open wound with mild drainage, tenderness palpation to the third digit, full range of motion there is mild erythema noted) Neurological exam: Present: alert, oriented X3 Skin exam: Present: warm, dry, intact, normal color. Absent: rash Course Vital Signs 11/16/19 09:02 Temperature 100.7 F H Pulse Rate 106 H Respiratory 19 Rate Blood Pressure 137/87 O2 Sat by Pulse 100 Oximetry Medical Decision Making - Medical Decision Making 5-year-old male with known diabetic, on renal dialysis with multiple amputation secondary to infections vascular issues has evidence of bruits abscess versus icing advised of his finger. Patient does have a fever, leukocytosis. Patient will be admitted for IV antibiotics evaluation from his hand surgeon Dr. Tapia and will have consult to nephrology for dialysis. - Lab Data Result diagrams: 11/16/19 10:55 11/16/19 10:55 Lab Results 11/16/19 11/16/19 11/16/19 Range/Units 10:55 10:55 10:55 WBC 11.6 H (3.8-10.6) k/uL RBC 4.03 L (4.30-5.90) m/uL Hgb 12.3 L (13.0-17.5) gm/dL Hct 35.9 L (39.0-53.0) % MCV 89.1 (80.0-100.0) fL MCH 30.6 (25.0-35.0) pg MCHC 34.3 (31.0-37.0) g/dL RDW 15.2 (11.5-15.5) % Plt Count 194 (150-450) k/uL Neutrophils % 85 % Lymphocytes % 7 % Monocytes % 6 % Eosinophils % 1 % Basophils % 1 % Neutrophils # 9.9 H (1.3-7.7) k/uL Lymphocytes # 0.8 L (1.0-4.8) k/uL Monocytes # 0.7 (0-1.0) k/uL Eosinophils # 0.1 (0-0.7) k/uL Basophils # 0.1 (0-0.2) k/uL Sodium 135 L (137-145) mmol/L Potassium 5.7 H (3.5-5.1) mmol/L Chloride 95 L (98-107) mmol/L Carbon Dioxide 24 (22-30) mmol/L Anion Gap 16 mmol/L BUN 67 H (9-20) mg/dL Creatinine 11.19 H* (0.66-1.25) mg/dL Est GFR (CKD-EPI)AfAm 5 (>60 ml/min/1.73 sqM) Est GFR (CKD-EPI)NonAf 4 (>60 ml/min/1.73 sqM) Glucose 100 H (74-99) mg/dL Plasma Lactic Acid Gonsalo 1.3 (0.7-2.0) mmol/L Calcium 8.3 L (8.4-10.2) mg/dL Total Bilirubin 0.9 (0.2-1.3) mg/dL AST 20 (17-59) U/L ALT 10 (4-49) U/L Alkaline Phosphatase 76 (38-126) U/L C-Reactive Protein 53.5 H (<10.0) mg/L Total Protein 7.6 (6.3-8.2) g/dL Albumin 4.1 (3.5-5.0) g/dL Influenza Type A RNA (Not Detectd) Influenza Type B (PCR) (Not Detectd) 11/16/19 Range/Units 11:15 WBC (3.8-10.6) k/uL RBC (4.30-5.90) m/uL Hgb (13.0-17.5) gm/dL Hct (39.0-53.0) % MCV (80.0-100.0) fL MCH (25.0-35.0) pg MCHC (31.0-37.0) g/dL RDW (11.5-15.5) % Plt Count (150-450) k/uL Neutrophils % % Lymphocytes % % Monocytes % % Eosinophils % % Basophils % % Neutrophils # (1.3-7.7) k/uL Lymphocytes # (1.0-4.8) k/uL Monocytes # (0-1.0) k/uL Eosinophils # (0-0.7) k/uL Basophils # (0-0.2) k/uL Sodium (137-145) mmol/L Potassium (3.5-5.1) mmol/L Chloride (98-107) mmol/L Carbon Dioxide (22-30) mmol/L Anion Gap mmol/L BUN (9-20) mg/dL Creatinine (0.66-1.25) mg/dL Est GFR (CKD-EPI)AfAm (>60 ml/min/1.73 sqM) Est GFR (CKD-EPI)NonAf (>60 ml/min/1.73 sqM) Glucose (74-99) mg/dL Plasma Lactic Acid Gonsalo (0.7-2.0) mmol/L Calcium (8.4-10.2) mg/dL Total Bilirubin (0.2-1.3) mg/dL AST (17-59) U/L ALT (4-49) U/L Alkaline Phosphatase (38-126) U/L C-Reactive Protein (<10.0) mg/L Total Protein (6.3-8.2) g/dL Albumin (3.5-5.0) g/dL Influenza Type A RNA Not Detected (Not Detectd) Influenza Type B (PCR) Not Detected (Not Detectd) Disposition Clinical Impression: Cellulitis of finger of right hand, Osteomyelitis of finger Disposition: ADMITTED IP TO THIS [facility] Condition: Fair Referrals: Ander Ortiz DO [Primary Care Provider] - 1-2 days
[2019-11-16 11:19] LABS: Basophils # (A) 0.1 k/uL (0-0.2); Basophils % (A) 1 %; Eosinophils # (A) 0.1 k/uL (0-0.7); Eosinophils % (A) 1 %; HCT 35.9 % (39.0-53.0); HGB 12.3 gm/dL (13.0-17.5); Lymphocytes # (A) 0.8 k/uL (1.0-4.8); Lymphocytes % (A) 7 %; MCH 30.6 pg (25.0-35.0); MCHC 34.3 g/dL (31.0-37.0); MCV 89.1 fL (80.0-100.0); Mean Platelet Volume 8.3; Monocytes # (A) 0.7 k/uL (0-1.0); Monocytes % (A) 6 %; Neutrophils # (A) 9.9 k/uL (1.3-7.7); Neutrophils % (A) 85 %; Platelet Count 194 k/uL (150-450); RBC 4.03 m/uL (4.30-5.90); RDW 15.2 % (11.5-15.5); WBC 11.6 k/uL (3.8-10.6)
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
[2019-11-16 11:47] LABS: Albumin 4.1 g/dL (3.5-5.0); C Reactive Protein 53.5 mg/L (<10.0); Calcium 8.3 mg/dL (8.4-10.2); Potassium 5.7 mmol/L (3.5-5.1); Total Bilirubin 0.9 mg/dL (0.2-1.3); Total Protein 7.6 g/dL (6.3-8.2)
[2019-11-16] MEDS ORDERED: VANCOMYCIN IV PER PHARMACY 1 EACH MISC MISCELLANE PRN (11:47)
[2019-11-16] MEDS ORDERED: PIPERACILLIN-TAZOBACTAM 3.375 GM in SODIUM CHLORIDE 0.9% 100 ML IVPB STA (11:47)
[2019-11-16] MEDS ORDERED: VANCOMYCIN 1,750 MG in SODIUM CHLORIDE 0.9% 500 ML 500 ML IVPB STA (11:54)
[2019-11-16] MEDS ORDERED: NALOXONE 0.4 MG/ML 1 ML VIAL IV PRN (12:39)
[2019-11-16] MEDS ORDERED: CALCIUM GLUCONATE 1 GM in SODIUM CHLORIDE 0.9% 100 ML IVPB ONE (18:11)
--- NOTE | 2019-11-16 18:22 | P.HPIM ---
History of Present Illness H&P Date: 11/16/19 The patient is a 59-year-old male with a PMH of type 2 diabetes mellitus, end- stage renal disease on hemodialysis, and ARA on CPAP presented to the ED w/ complaints of R hand 3rd finger wound with drainage and tenderness. The patient has had multiple amputations due to uncontrolled DM and notes that he has been following with Dr Tapia. The patient notes that Dr Tapia advised him to come to the ED if the fingers became swollen or began hurting. The patient reports he has severe neuropathy and normally can not feel much in his fingers. The patient notes that this morning when he went to his dialysis site, they noticed a temperature of 100.0 and advised him to go to the ED and told him that his dialysis couldn't be done. The patient otherwise denied any additional complaints. Denied chest pain, SOB, nausea, vomiting, fever, chills, dizziness, diaphoresis, cough, or diarrhea. He underwent an extensive evaluation in the ED w/ T max 100.7. Finger x-ray revealed lucency in the distal portion of the middle phalanx of the R middle finger with concerns for Boo's abscess vs osteomyelitis. Laboratory evaluation revealed a WBC count of 11.6, Hgb 12.3, plt 194, Na 135, K 5.7, chloride 95, CO2 24, BUN 67, creatinine 11.19, and influenza negative. Review of Systems Pertinent positives and negatives as discussed in HPI, a complete review of systems was performed and all other systems are negative. Past Medical History Past Medical History: Asthma, Diabetes Mellitus, Eye Disorder, Musculoskeletal Disorder, Renal Disease, Sleep Apnea/CPAP/BIPAP Additional Past Medical History / Comment(s): End Stage Renal Disease- HEMODIALYSIS MON, WED, THU, HAS FISTULAS IN BILATERAL ARMS, "CAN ONLY HAVE IV'S IN HANDS." USES O2 @ HS OCCASIONALLY. HX OSTEOMYELITIS L3-5 2010. RT INDEX FINGER ABSCESS. Neuropathy. No CPAP use. Bilateral Glaucoma. History of Any Multi-Drug Resistant Organisms: None Reported Past Surgical History: Cholecystectomy Additional Past Surgical History / Comment(s): LEFT BKA, RIGHT TOE AMPUTATIONS. FISTULA IN RFA, & LT INNER ELBOW. BILATERAL CATARACT SURGERY, LASER EYE SURGERY, right index finger amputation. Past Anesthesia/Blood Transfusion Reactions: No Reported Reaction Past Psychological History: No Psychological Hx Reported Smoking Status: Former smoker Past Alcohol Use History: Rare Past Drug Use History: Cocaine, Methamphetamine - Past Family History Mother Family Medical History: No Reported History Additional Family Medical History / Comment(s): Congestive heart failure. Father Additional Family Medical History / Comment(s): Congestive heart failure, myocardial infarction Medications and Allergies Home Medications Medication Instructions Recorded Confirmed Type Albuterol Inhaler [Ventolin Hfa 2 puff INHALATION RT-HS 08/09/19 11/16/19 History Inhaler] HYDROcodone/APAP 7.5-325MG [[place] 1 tab PO TID PRN 08/09/19 11/16/19 History 7.5-325] Midodrine HCl [ProAmatine] 10 mg PO MOWEFR@2100 PRN 08/09/19 11/16/19 History Pregabalin [Lyrica] 75 mg PO DIRECTED 08/09/19 11/16/19 History Calcium Acetate [PhosLo] 2,001 - 2,668 mg PO AC-TID 08/12/19 11/16/19 History Insulin Degludec [Tresiba] 3 units SQ HS 08/12/19 11/16/19 History traMADol HCl [Ultram] 50 mg PO Q4HR PRN 11/16/19 11/16/19 History Allergies Allergy/AdvReac Type Severity Reaction Status Date / Time shellfish derived [Shrimp] Allergy Unknown Verified 11/16/19 10:00 Physical Exam Vitals: Vital Signs Temp Pulse Resp BP Pulse Ox 11/16/19 09:02 100.7 F H 106 H 19 137/87 100 Intake and Output 11/16/19 11/16/19 11/16/19 06:59 14:59 22:59 Other: Weight 117 kg General: Chronically ill-appearing M, no distress, appears older than stated age, obese Derm: no unusual rashes/lesions no unusual ecchymoses, warm, dry Head: atraumatic, normocephalic, symmetric Eyes: EOMI, no lid lag, anicteric sclera, pupils equal round reactive to light ENT: Nose and ears atraumatic, no thrush, no pharyngeal erythema Neck: No thyromegaly, no cervical lymphadenopathy, trachea midline, supple Mouth: no lip lesion, mucus membranes moist, poor dentition Cardiovascular: S1S2 reg, no murmur Lungs: CTA bilateral, no rhonchi, no rales, no accessory muscle use Abdominal: soft, nontender to palpation, no guarding, no appreciable organomegaly, normal bowel sounds Ext: LLE AKA, RLE all toes amputated, R hand 2nd digit amputated, R hand 3rd digit wound @ medial aspect with some erythema and no drainage, no gross muscle atrophy, muscle strength 5 out of 5 in all 4 extremities grossly, no contractures Neuro: CN II-XI grossly intact, finger to nose within normal limits Psych: Alert, oriented, appropriate affect Results CBC & Chem 7: 11/16/19 10:55 11/16/19 10:55 Labs: Abnormal Lab Results - Last 24 Hours (Table) 11/16/19 11/16/19 Range/Units 10:55 10:55 WBC 11.6 H (3.8-10.6) k/uL RBC 4.03 L (4.30-5.90) m/uL Hgb 12.3 L (13.0-17.5) gm/dL Hct 35.9 L (39.0-53.0) % Neutrophils # 9.9 H (1.3-7.7) k/uL Lymphocytes # 0.8 L (1.0-4.8) k/uL Sodium 135 L (137-145) mmol/L Potassium 5.7 H (3.5-5.1) mmol/L Chloride 95 L (98-107) mmol/L BUN 67 H (9-20) mg/dL Creatinine 11.19 H* (0.66-1.25) mg/dL Glucose 100 H (74-99) mg/dL Calcium 8.3 L (8.4-10.2) mg/dL C-Reactive Protein 53.5 H (<10.0) mg/L Assessment and Plan Plan: Sepsis secondary to R hand 3rd digit osteomyelitis -Dr Tapia consulted -C/w Vancomycin and Zosyn for now -ID consulted -Monitor CBC -F/u blood cultures ESRD, on HD -Nephro for resumption of HD -Monitor BMP Hyperkalemia -Due to ESRD -S/p Ca-Gluconate -Monitor BMP Type 2 DM -JASPAL with FS DVT prophylaxis -Heparin The patient is admitted with an anticipated more than 2 midnight stay for evaluation of osteomyelitis CODE STATUS: Full Code Discussed with: Patient Anticipated discharge date: 3-[address]: Home A total of 40 minutes was spent on the care of this complex patient more than 50% of the time was spent in counseling and care coordination.
[2019-11-16] MEDS: ALBUTEROL NEBULIZED 2.5 MG/3 ML INHALATION SCH (19:24)
[2019-11-16] MEDS: HYDROcodone/APAP 5-325MG 1 EACH TAB PO PRN (19:49)
[2019-11-16] MEDS: ACETAMINOPHEN TAB 325 MG TAB PO PRN (20:36)
[2019-11-16] MEDS: PREGABALIN 75 MG CAP PO SCH (21:21)
[2019-11-17] MEDS: HYDROcodone/APAP 7.5-325MG 1 EACH TAB PO PRN (04:13)
[2019-11-17 07:07] LABS: Glucose,Whole Blood 123 mg/dL (75-99)
[2019-11-17] MEDS ORDERED: SODIUM CHLORIDE 0.9% 1,000 ML IV SCH (07:15)
[2019-11-17 07:55] LABS: HCT 34.6 % (39.0-53.0); HGB 11.9 gm/dL (13.0-17.5); MCH 30.8 pg (25.0-35.0); MCHC 34.4 g/dL (31.0-37.0); MCV 89.6 fL (80.0-100.0); Mean Platelet Volume 8.3; Platelet Count 170 k/uL (150-450); RBC 3.86 m/uL (4.30-5.90); WBC 8.8 k/uL (3.8-10.6)
[2019-11-17] MEDS ORDERED: VANCOMYCIN 1,750 MG in SODIUM CHLORIDE 0.9% 500 ML 500 ML IVPB ONE (08:00)
[2019-11-17 08:10] LABS: Calcium 8.1 mg/dL (8.4-10.2)
[2019-11-17 08:17] LABS: Potassium 6.4 mmol/L (3.5-5.1)
[2019-11-17] MEDS: ACETAMINOPHEN TAB 325 MG TAB PO PRN ×3 (08:57→22:04)
[2019-11-17] MEDS: HYDROcodone/APAP 5-325MG 1 EACH TAB PO PRN ×2 (09:34→17:03)
--- NOTE | 2019-11-17 10:33 | P.PN ---
Subjective Progress Note Date: 11/17/19 The patient is a 59-year-old male with a PMH of type 2 diabetes mellitus, end- stage renal disease on hemodialysis, and ARA on CPAP presented to the ED w/ complaints of R hand 3rd finger wound with drainage and tenderness. The patient had multiple amputations due to uncontrolled DM and noted that he had been following with Dr Tapia. The patient notes that Dr Tapia advised him to come to the ED if the fingers became swollen or began hurting. The patient reports he has severe neuropathy and normally can not feel much in his fingers. The patient noted that this morning when he went to his dialysis site, they noticed a temperature of 100.0 and advised him to go to the ED and told him that his dialysis couldn't be done. The patient otherwise denied any additional complaints. Denied chest pain, SOB, nausea, vomiting, fever, chills, dizziness, diaphoresis, cough, or diarrhea. He underwent an extensive evaluation in the ED w/ T max 100.7. Finger x-ray revealed lucency in the distal portion of the middle phalanx of the R middle finger with concerns for Boo's abscess vs osteomyelitis. Laboratory evaluation revealed a WBC count of 11.6, Hgb 12.3, plt 194, Na 135, K 5.7, chloride 95, CO2 24, BUN 67, creatinine 11.19, and influenza negative. The patient was started on IV Vancomycin and Zosyn. Nephrology was consulted and the patient was restarted on his dialysis. The patient was seen and evaluated at the bedside on 11/17/19. He reported episodes of fever overnight with Tmax 102.7. He noted some pain in the R 3rd digit. Denied chest pain, SOB, nausea, vomiting, cough, abdominal pain, or diarrhea. Objective - Vital Signs Vital signs: Vital Signs Temp 100 F H 11/17/19 09:17 Pulse 77 11/17/19 04:49 Resp 20 11/17/19 04:49 BP 156/65 11/17/19 04:49 Pulse Ox 99 11/17/19 04:49 Intake & Output 11/16/19 11/17/19 11/17/19 18:59 06:59 18:59 Intake Total 580 Balance 580 Weight 117 kg 117 kg Intake: Intake, IV Titration 100 Amount Calcium Gluconate 1 gm In 100 Sodium Chloride 0.9% 100 ml @ 100 mls/hr IVPB ONCE ONE Rx#:[id number] Oral 480 - Exam General: Chronically Ill-appearing M, in no acute distress, appears stated age, obese HEENT: NC/AT, anicteric sclerae, moist conjunctiva, no lid-lag, PERRLA Cardiovascular: S1/S2 wnl, no murmurs, rubs, or gallops Lungs: Clear to auscultation, normal respiratory effort, no accessory muscle use Abdominal: Soft, non-tender, non-distended, no guarding, rebound, or rigidity Skin: Warm, dry Extremities: LLE BKA, RLE all toes amputated, R hand 2nd digit amputated, R hand 3rd digit ulcer with some erythema and no drainage, no gross muscle atrophy, no contractures Psychiatric: Alert and oriented to person, place and time, appropriate affect Neuro: CN II-XII grossly intact, Speech intact, no focal deficits noted - Labs CBC & Chem 7: 11/17/19 07:40 11/17/19 07:40 Labs: Abnormal Lab Results - Last 24 Hours (Table) 11/16/19 11/16/19 11/17/19 Range/Units 10:55 10:55 07:00 WBC 11.6 H (3.8-10.6) k/uL RBC 4.03 L (4.30-5.90) m/uL Hgb 12.3 L (13.0-17.5) gm/dL Hct 35.9 L (39.0-53.0) % Neutrophils # 9.9 H (1.3-7.7) k/uL Lymphocytes # 0.8 L (1.0-4.8) k/uL Sodium 135 L (137-145) mmol/L Potassium 5.7 H (3.5-5.1) mmol/L Chloride 95 L (98-107) mmol/L Carbon Dioxide (22-30) mmol/L BUN 67 H (9-20) mg/dL Creatinine 11.19 H* (0.66-1.25) mg/dL Glucose 100 H (74-99) mg/dL POC Glucose (mg/dL) 123 H (75-99) mg/dL Calcium 8.3 L (8.4-10.2) mg/dL C-Reactive Protein 53.5 H (<10.0) mg/L 11/17/19 11/17/19 Range/Units 07:40 07:40 WBC (3.8-10.6) k/uL RBC 3.86 L (4.30-5.90) m/uL Hgb 11.9 L (13.0-17.5) gm/dL Hct 34.6 L (39.0-53.0) % Neutrophils # (1.3-7.7) k/uL Lymphocytes # (1.0-4.8) k/uL Sodium 134 L (137-145) mmol/L Potassium 6.4 H* (3.5-5.1) mmol/L Chloride 96 L (98-107) mmol/L Carbon Dioxide 20 L (22-30) mmol/L BUN 82 H (9-20) mg/dL Creatinine 13.49 H* (0.66-1.25) mg/dL Glucose 133 H (74-99) mg/dL POC Glucose (mg/dL) (75-99) mg/dL Calcium 8.1 L (8.4-10.2) mg/dL C-Reactive Protein (<10.0) mg/L Microbiology - Last 24 Hours (Table) 11/16/19 10:55 Blood Culture - Final Blood Assessment and Plan Plan: Sepsis secondary to R hand 3rd digit osteomyelitis -Awaiting Dr Tapia and Dr Jonas recommendations -C/w Vancomycin and Zosyn for now -Monitor CBC -Blood cultures showing gram positive cocci in clusters ESRD, on HD -C/w HD -Monitor BMP Hyperkalemia -Currently undergoing HD -Monitor BMP Type 2 DM -JASPAL with FS DVT prophylaxis -Heparin Discussed with: Patient Anticipated discharge date: 3-[address]: Home
--- NOTE | 2019-11-17 10:37 | P.NPCON ---
History of Present Illness - Reason for Consult end stage renal disease - History of Present Illness Reason for consultation: End-stage renal disease History of present illness: Patient is a 59-year-old male seen in renal consultation for end-stage renal disease. He is maintained on hemodialysis on Thursday schedule. Patient has a right upper extremity AV fistula. Patient missed hemodialysis treatment yesterday as he wasn't feeling well. Patient states on the way to dialysis he felt like he was shaking and was also noted to have a fever. He subsequently came to the hospital. Patient states his right middle finger is infected. He does have a wound on the finger and states is tender. No active drainage noted. Patient has a history of uncontrolled diabetes mellitus. He's had multiple amputations in the past. Patient's x-ray was suspicious for Boo's abscess. Infectious disease and orthopedic surgery have been consulted. This morning he had a temperature of 100F. He's currently seen while undergoing hemodialysis. Patient's potassium level was 6.4 this morning w hich is expected to improve after dialysis. Blood sugars are stable. No vomiting or diarrhea. Vital signs are stable. General: The patient appeared well nourished and normally developed. HEENT: Head exam is unremarkable. Neck is without jugular venous distension. LUNGS: Lungs are clear to auscultation and percussion. Breath sounds decreased. HEART: Rate and Rhythm are regular. First and second heart sounds normal. No murmurs, rubs or gallops. ABDOMEN: Abdominal exam reveals normal bowel sounds. Non-tender and non- distended. No evidence of peritonitis. EXTREMITITES: No clubbing, cyanosis, or edema. Left BKA. Right first finger amputated. Right toes amputated. Past Medical History Past Medical History: Asthma, Diabetes Mellitus, Eye Disorder, Hypertension, Musculoskeletal Disorder, Renal Disease, Sleep Apnea/CPAP/BIPAP Additional Past Medical History / Comment(s): End Stage Renal Disease- HEMODIALYSIS THU, THU, THU, HAS FISTULAS IN BILATERAL ARMS, "CAN ONLY HAVE IV'S IN HANDS." USES O2 @ HS OCCASIONALLY. HX OSTEOMYELITIS L3-5 2010. RT INDEX FINGER ABSCESS. Neuropathy. No CPAP use. Bilateral Glaucoma. History of Any Multi-Drug Resistant Organisms: None Reported Past Surgical History: Cholecystectomy Additional Past Surgical History / Comment(s): LEFT BKA, RIGHT TOE AMPUTATIONS. FISTULA IN RFA, & LT INNER ELBOW. BILATERAL CATARACT SURGERY,bilateral lens LASER EYE SURGERY, right index finger amputation. Past Anesthesia/Blood Transfusion Reactions: No Reported Reaction Past Psychological History: No Psychological Hx Reported Smoking Status: Former smoker Past Alcohol Use History: Rare Additional Past Alcohol Use History / Comment(s): SMOKED AGE 9-30, UP TO 2 PPD. Past Drug Use History: Cocaine, Methamphetamine Additional Drug Use History / Comment(s): NO USE SINCE 1993. - Past Family History Mother Family Medical History: No Reported History Additional Family Medical History / Comment(s): Congestive heart failure. Father Additional Family Medical History / Comment(s): Congestive heart failure, myocardial infarction Medications and Allergies Home Medications Medication Instructions Recorded Confirmed Type Albuterol Inhaler [Ventolin Hfa 2 puff INHALATION RT-HS 08/09/19 11/16/19 History Inhaler] HYDROcodone/APAP 7.5-325MG [[place] 1 tab PO TID PRN 08/09/19 11/16/19 History 7.5-325] Midodrine HCl [ProAmatine] 10 mg PO MOWEFR@2100 PRN 08/09/19 11/16/19 History Pregabalin [Lyrica] 75 mg PO DIRECTED 08/09/19 11/16/19 History Calcium Acetate [PhosLo] 2,001 - 2,668 mg PO AC-TID 08/12/19 11/16/19 History Insulin Degludec [Tresiba] 3 units SQ HS 08/12/19 11/16/19 History traMADol HCl [Ultram] 50 mg PO Q4HR PRN 11/16/19 11/16/19 History Allergies Allergy/AdvReac Type Severity Reaction Status Date / Time shellfish derived [Shrimp] Allergy Unknown Verified 11/16/19 10:00 Physical Exam Vitals: Vital Signs Temp Pulse Pulse Resp BP BP Pulse Ox 11/17/19 09:17 100 F H 11/17/19 04:49 97.4 F L 77 20 156/65 99 11/16/19 21:53 100.4 F H 11/16/19 20:48 102.1 F H 118 H 18 192/82 96 11/16/19 19:30 88 11/16/19 19:26 90 11/16/19 16:29 98.0 F 90 16 174/86 97 Intake and Output 11/16/19 11/17/19 11/17/19 22:59 06:59 14:59 Intake Total 340 240 Balance 340 240 Intake: Intake, IV Titration 100 Amount Calcium Gluconate 1 gm In 100 Sodium Chloride 0.9% 100 ml @ 100 mls/hr IVPB ONCE ONE Rx#:[id number] Oral 240 240 Other: Weight 117 kg Results - Lab Results Most recent lab results Calcium 8.1 mg/dL (8.4-10.2) L 11/17/19 07:40 11/17/19 07:40 11/17/19 07:40 Assessment and Plan Plan: Assessment: 1. End-stage renal disease maintained on hemodialysis on Thursday schedule. 2. Hyperkalemia secondary to chronic kidney disease and missed hemodialysis yesterday. 3. Metabolic acidosis secondary to chronic kidney disease. 4. Diabetes mellitus. 5. Status post left BKA. 6. Right middle finger osteomyelitis. Maintained on IV antibiotics. Plan: Currently seen while undergoing hemodialysis. Next hemodialysis tomorrow. Discontinue IV fluids. Monitor vancomycin levels. Target level less than 20. Infectious disease and orthopedic surgery recommendations pending. Thank you for the consultation. I will continue to follow the patient with you during his hospital stay.
--- NOTE | 2019-11-17 10:46 | P.CNOR ---
<Michelle Nieves - Last Filed: 11/17/19 10:32> History of Present Illness - HPI Consult date: 11/17/19 Consult reason: joint pain (Right middle finger infection) History of present illness: This is a 59-year-old male presents emergency Department chief complaint of pain, infection to his right middle finger. Patient states that he had his index finger amputation this finger by Dr. Tapia for similar problems. They discussed possible amputation of his digit if it became infected. Patient has had bilateral lower extremity amputation secondary to infections, diabetes. Patient reports controlled diabetic has been on dialysis for several years. He does admit that he's had multiple infections including osteomyelitis. Patient states she has severe neuropathy normally has no symptoms in his digits but states that he has severe pain to his finger there is wound that has been increasing in size, mild drainage. He states this initially started from a burn to the finger after pulling the plate out of the microwave a while back. He is readmitted for IV antibiotics and orthopedic evaluation. Past Medical History Past Medical History: Asthma, Diabetes Mellitus, Eye Disorder, Hypertension, Mu sculoskeletal Disorder, Renal Disease, Sleep Apnea/CPAP/BIPAP Additional Past Medical History / Comment(s): End Stage Renal Disease- HEMODIALYSIS MON, WED, FRI, HAS FISTULAS IN BILATERAL ARMS, "CAN ONLY HAVE IV'S IN HANDS." USES O2 @ HS OCCASIONALLY. HX OSTEOMYELITIS L3-5 2010. RT INDEX FINGER ABSCESS. Neuropathy. No CPAP use. Bilateral Glaucoma. History of Any Multi-Drug Resistant Organisms: None Reported Past Surgical History: Cholecystectomy Additional Past Surgical History / Comment(s): LEFT BKA, RIGHT TOE AMPUTATIONS. FISTULA IN RFA, & LT INNER ELBOW. BILATERAL CATARACT SURGERY,bilateral lens LASER EYE SURGERY, right index finger amputation. Past Anesthesia/Blood Transfusion Reactions: No Reported Reaction Past Psychological History: No Psychological Hx Reported Smoking Status: Former smoker Past Alcohol Use History: Rare Additional Past Alcohol Use History / Comment(s): SMOKED AGE 9-30, UP TO 2 PPD. Past Drug Use History: Cocaine, Methamphetamine Additional Drug Use History / Comment(s): NO USE SINCE 1993. - Past Family History Mother Family Medical History: No Reported History Additional Family Medical History / Comment(s): Congestive heart failure. Father Additional Family Medical History / Comment(s): Congestive heart failure, myocardial infarction Medications and Allergies Home Medications Medication Instructions Recorded Confirmed Type Albuterol Inhaler [Ventolin Hfa 2 puff INHALATION RT-HS 08/09/19 11/16/19 History Inhaler] HYDROcodone/APAP 7.5-325MG [[place] 1 tab PO TID PRN 08/09/19 11/16/19 History 7.5-325] Midodrine HCl [ProAmatine] 10 mg PO MOWEFR@2100 PRN 08/09/19 11/16/19 History Pregabalin [Lyrica] 75 mg PO DIRECTED 08/09/19 11/16/19 History Calcium Acetate [PhosLo] 2,001 - 2,668 mg PO AC-TID 08/12/19 11/16/19 History Insulin Degludec [Tresiba] 3 units SQ HS 08/12/19 11/16/19 History traMADol HCl [Ultram] 50 mg PO Q4HR PRN 11/16/19 11/16/19 History Allergies Allergy/AdvReac Type Severity Reaction Status Date / Time shellfish derived [Shrimp] Allergy Unknown Verified 11/16/19 10:00 Physical Examination Exam of the right upper extremity reveals status post amputation of the index finger. Middle finger has a V-shaped wound about the palmar aspect of the middle finger between the DIP and PIP joints. There is some callus formation around the wound. There is slight active drainage from the wound at this time. Drainage is slightly purulent. There is also a small wound at the fingertip. He is able to fully extend the finger. There is some stiffness with flexion of the DIP joint. Neurologic status is impaired secondary to diabetic neuropathy. The remainder of his musculoskeletal exam Her extremities is unremarkable. Results X-rays of the right hand reveal multiple metallic foreign bodies in place. Evidence of index finger amputation at mid proximal phalanx. There are some changes noted to the distal aspect of the middle phalanx of the right middle finger consistent with possible osteomyelitis. No acute fractures identified. - Labs Labs: Abnormal Lab Results - Last 24 Hours (Table) 11/16/19 11/16/19 11/17/19 Range/Units 10:55 10:55 07:00 WBC 11.6 H (3.8-10.6) k/uL RBC 4.03 L (4.30-5.90) m/uL Hgb 12.3 L (13.0-17.5) gm/dL Hct 35.9 L (39.0-53.0) % Neutrophils # 9.9 H (1.3-7.7) k/uL Lymphocytes # 0.8 L (1.0-4.8) k/uL Sodium 135 L (137-145) mmol/L Potassium 5.7 H (3.5-5.1) mmol/L Chloride 95 L (98-107) mmol/L Carbon Dioxide (22-30) mmol/L BUN 67 H (9-20) mg/dL Creatinine 11.19 H* (0.66-1.25) mg/dL Glucose 100 H (74-99) mg/dL POC Glucose (mg/dL) 123 H (75-99) mg/dL Calcium 8.3 L (8.4-10.2) mg/dL C-Reactive Protein 53.5 H (<10.0) mg/L 11/17/19 11/17/19 Range/Units 07:40 07:40 WBC (3.8-10.6) k/uL RBC 3.86 L (4.30-5.90) m/uL Hgb 11.9 L (13.0-17.5) gm/dL Hct 34.6 L (39.0-53.0) % Neutrophils # (1.3-7.7) k/uL Lymphocytes # (1.0-4.8) k/uL Sodium 134 L (137-145) mmol/L Potassium 6.4 H* (3.5-5.1) mmol/L Chloride 96 L (98-107) mmol/L Carbon Dioxide 20 L (22-30) mmol/L BUN 82 H (9-20) mg/dL Creatinine 13.49 H* (0.66-1.25) mg/dL Glucose 133 H (74-99) mg/dL POC Glucose (mg/dL) (75-99) mg/dL Calcium 8.1 L (8.4-10.2) mg/dL C-Reactive Protein (<10.0) mg/L Microbiology - Last 24 Hours (Table) 11/16/19 10:55 Blood Culture - Final Blood H & H 11/16/19 11/17/19 Range/Units 10:55 07:40 Hgb 12.3 L 11.9 L (13.0-17.5) gm/dL Hct 35.9 L 34.6 L (39.0-53.0) % Result Diagrams: 11/17/19 07:40 11/17/19 07:40 Assessment and Plan Assessment: 1. Infection right middle finger with possible osteomyelitis. 2. Insulin-dependent diabetic. 3. Renal failure, on dialysis. 4. History of amputation right index finger. Plan: The clinical and x-ray findings are discussed with the patient. The patient will be evaluated by Dr. Tapia later today. There'll be further recommendations at that time. He most likely will require further debridement with possible fixation of that finger. <Sawyer Tapia - Last Filed: 11/18/19 07:30> Results - Labs Labs: Abnormal Lab Results - Last 24 Hours (Table) 11/17/19 11/17/19 11/17/19 Range/Units 07:40 07:40 07:40 RBC 3.86 L (4.30-5.90) m/uL Hgb 11.9 L (13.0-17.5) gm/dL Hct 34.6 L (39.0-53.0) % Sodium 134 L (137-145) mmol/L Potassium 6.4 H* (3.5-5.1) mmol/L Chloride 96 L (98-107) mmol/L Carbon Dioxide 20 L (22-30) mmol/L BUN 82 H (9-20) mg/dL Creatinine 13.49 H* (0.66-1.25) mg/dL Glucose 133 H (74-99) mg/dL POC Glucose (mg/dL) (75-99) mg/dL Calcium 8.1 L (8.4-10.2) mg/dL Hep Bs Antibody Reactive H (Non-Reactive) 11/17/19 11/17/19 11/17/19 Range/Units 11:16 17:12 19:27 RBC (4.30-5.90) m/uL Hgb (13.0-17.5) gm/dL Hct (39.0-53.0) % Sodium (137-145) mmol/L Potassium 5.5 H (3.5-5.1) mmol/L Chloride (98-107) mmol/L Carbon Dioxide (22-30) mmol/L BUN (9-20) mg/dL Creatinine (0.66-1.25) mg/dL Glucose (74-99) mg/dL POC Glucose (mg/dL) 152 H 192 H (75-99) mg/dL Calcium (8.4-10.2) mg/dL Hep Bs Antibody (Non-Reactive) 11/17/19 11/18/19 Range/Units 20:39 06:58 RBC (4.30-5.90) m/uL Hgb (13.0-17.5) gm/dL Hct (39.0-53.0) % Sodium (137-145) mmol/L Potassium (3.5-5.1) mmol/L Chloride (98-107) mmol/L Carbon Dioxide (22-30) mmol/L BUN (9-20) mg/dL Creatinine (0.66-1.25) mg/dL Glucose (74-99) mg/dL POC Glucose (mg/dL) 181 H 135 H (75-99) mg/dL Calcium (8.4-10.2) mg/dL Hep Bs Antibody (Non-Reactive) Microbiology - Last 24 Hours (Table) 11/17/19 10:45 Blood Culture - Final Blood 11/16/19 10:45 Blood Culture Gram Stain - Preliminary Blood Blood Culture - Preliminary Staphylococcus aureus 11/16/19 10:55 Blood Culture - Final Blood H & H 11/16/19 11/17/19 Range/Units 10:55 07:40 Hgb 12.3 L 11.9 L (13.0-17.5) gm/dL Hct 35.9 L 34.6 L (39.0-53.0) % Result Diagrams: 11/17/19 07:40 11/17/19 19:27 Assessment and Plan Plan: Reviewed and agree with above (amendments/corrections noted below). The patient was subsequently seen and examined by me as well. S: He denies recent injuries to the finger. The pain has improved since admission. He reports persistent fevers and chills. O: Middle finger is diffusely edematous, with more subcutaneous edema along the dorsum of the middle and proximal phalanges. Mild calor. Moderate tenderness at the distal phalanx. This is somewhat fluctuant. Nothing is expressed from the wound. Imaging: Cystic changes noted at the distal middle phalanx, not significantly changed fr om prior studies from August 2019. A: Right middle finger wound with possible deep abscess Fevers of unknown origin P: I discussed the clinical findings with the patient. I explained that it is not common to have high-grade fevers from only a finger infection. I recommended a brief period of observation to see how he responds to the antibiotics. If this progresses, we will likely proceed with incision and drainage and primary amputation. He expressed understanding and agreement with this plan. Continue IV antibiotics per infectious disease. Sawyer Tapia D.O. [facility]
[2019-11-17 11:39] LABS: Glucose,Whole Blood 152 mg/dL (75-99)
[2019-11-17 17:17] LABS: Glucose,Whole Blood 192 mg/dL (75-99)
[2019-11-17 18:08] LABS: Hepatitis B Surface AB- Quant 279.1 mIU/mL; Hepatitis B Surface Antibody Reactive (Non-Reactive); Hepatitis B Surface Antigen Non-Reactive (Non-Reactive)
[2019-11-17] MEDS ORDERED: MIDODRINE 5 MG TAB PO PRN (18:36)
[2019-11-17] MEDS: ALBUTEROL NEBULIZED 2.5 MG/3 ML INHALATION SCH (20:37)
[2019-11-17 20:40] LABS: Glucose,Whole Blood 181 mg/dL (75-99)
--- NOTE | 2019-11-17 23:02 | P.CONS ---
History of Present Illness - Reason for Consult Consult date: 11/17/19 right middle finger infection Requesting physician: Tammy Billy - Chief Complaint pain right middle finger x days - History of Present Illness Patient is a 59-year-old male with a previous history of right index finger amputation because of infection/osteomyelitis patient now has developed a wound on his right middle finger at the middle phalanx with the patient has for couple of weeks now patient denies any history of trauma to the middle finger, the patient is complaining of pain to the middle finger to be throbbing and sharp almost 10 out of 10 when severe with associated swelling and redness but there is no purulent drainage with the symptom the patient presented to [facility] ER on arrival to the ER the patient has been running a fever of 100.7 to 102 F patient did have a tachycardia with heart rate of 106 white count was elevated at 11.6 patient did have blood cultures drawn which are now showing staph aureus patient also have x-rays of the right hand which he did show some lucency within the distal portion middle phalanx right middle finger with concern for bolus abscess/osteomyelitis patient has been treated with vancomycin infectious disease has been consulted for further recommendation regarding antibiotic therapy. Review of Systems CONSTITUTIONAL: Positive for weakness along with the fever. EYES: No complaint. ENT: No complaint. RESPIRATORY: No complaint. CARDIOVASCULAR: No complaint. GENITOURINARY: No complaint. GASTROINTESTINAL: No complaint. MUSCULOSKELETAL: As per history of present illness. INTEGUMENTARY: No complaint. PSYCHOLOGIC: No complaint. ENDOCRINE: No complaint. NEUROLOGIC: No complaint. Past Medical History Past Medical History: Asthma, Diabetes Mellitus, Eye Disorder, Hypertension, Musculoskeletal Disorder, Renal Disease, Sleep Apnea/CPAP/BIPAP Additional Past Medical History / Comment(s): End Stage Renal Disease- HEMODIALYSIS MON, WED, THU, HAS FISTULAS IN BILATERAL ARMS, "CAN ONLY HAVE IV'S IN HANDS." USES O2 @ HS OCCASIONALLY. HX OSTEOMYELITIS L3-5 2010. RT INDEX FINGER ABSCESS. Neuropathy. No CPAP use. Bilateral Glaucoma. History of Any Multi-Drug Resistant Organisms: None Reported Past Surgical History: Cholecystectomy Additional Past Surgical History / Comment(s): LEFT BKA, RIGHT TOE AMPUTATIONS. FISTULA IN RFA, & LT INNER ELBOW. BILATERAL CATARACT SURGERY,bilateral lens LASER EYE SURGERY, right index finger amputation. Past Anesthesia/Blood Transfusion Reactions: No Reported Reaction Past Psychological History: No Psychological Hx Reported Smoking Status: Former smoker Past Alcohol Use History: Rare Additional Past Alcohol Use History / Comment(s): SMOKED AGE 9-30, UP TO 2 PPD. Past Drug Use History: Cocaine, Methamphetamine Additional Drug Use History / Comment(s): NO USE SINCE 1993. - Past Family History Mother Family Medical History: No Reported History Additional Family Medical History / Comment(s): Congestive heart failure. Father Additional Family Medical History / Comment(s): Congestive heart failure, myocardial infarction Medications and Allergies Home Medications Medication Instructions Recorded Confirmed Type Albuterol Inhaler [Ventolin Hfa 2 puff INHALATION RT-HS 08/09/19 11/16/19 History Inhaler] HYDROcodone/APAP 7.5-325MG [[place] 1 tab PO TID PRN 08/09/19 11/16/19 History 7.5-325] Midodrine HCl [ProAmatine] 10 mg PO MOWEFR@2100 PRN 08/09/19 11/16/19 History Pregabalin [Lyrica] 75 mg PO DIRECTED 08/09/19 11/16/19 History Calcium Acetate [PhosLo] 2,001 - 2,668 mg PO AC-TID 08/12/19 11/16/19 History Insulin Degludec [Tresiba] 3 units SQ HS 08/12/19 11/16/19 History traMADol HCl [Ultram] 50 mg PO Q4HR PRN 11/16/19 11/16/19 History Allergies Allergy/AdvReac Type Severity Reaction Status Date / Time shellfish derived [Shrimp] Allergy Unknown Verified 11/16/19 10:00 Physical Exam Vitals: Vital Signs Temp Pulse Pulse Pulse Resp BP BP 11/17/19 21:00 99.1 F 95 16 92/55 11/17/19 20:50 84 11/17/19 20:37 84 11/17/19 17:06 99.9 F H 11/17/19 16:00 65 18 11/17/19 13:24 98.2 F 18 171/91 11/17/19 11:52 98.2 F 65 17 99/43 11/17/19 09:17 100 F H 11/17/19 07:55 17 11/17/19 04:49 97.4 F L 77 20 156/65 Pulse Ox 11/17/19 21:00 97 11/17/19 20:50 11/17/19 20:37 11/17/19 17:06 11/17/19 16:00 11/17/19 13:24 11/17/19 11:52 95 11/17/19 09:17 11/17/19 07:55 11/17/19 04:49 99 Intake and Output 11/17/19 11/17/19 11/17/19 06:59 14:59 22:59 Intake Total 240 1200 240 Output Total 3100 0 Balance 240 -1900 240 Intake: Intake, IV Titration 550 Amount Sodium Chloride 0.9% 1, 50 000 ml @ 100 mls/hr IV . Q10H SK[facility] Rx#:[id number] Vancomycin 1,750 mg In 500 Sodium Chloride 0.9% 500 ml 500 ml @ 167 mls/hr IVPB ONCE ONE Rx#: [id number] Oral 240 650 240 Output: Urine 0 0 Hemodialysis 3100 GENERAL DESCRIPTION: Middle-aged male lying in bed, no distress. No tachypnea or accessory muscle of respiration use. HEENT: Shows Pallor , no scleral icterus. Oral mucous membrane is dry. NECK: Trachea central, no thyromegaly. LUNGS: Unlabored breathing. Clear to auscultation anteriorly. No wheeze or crackle. HEART: S1, S2, regular rate and rhythm. ABDOMEN: Soft, no tenderness , guarding or rigidity EXTREMITIES: Right middle finger did have swelling and redness with a wound on the palmar aspect no purulent drainage was noticed. SKIN: No rash, no masses palpable. NEUROLOGICAL: The patient is awake, alert, oriented x3, mood and affect normal. Results CBC & Chem 7: 11/17/19 07:40 11/17/19 19:27 Labs: Abnormal Lab Results - Last 24 Hours (Table) 11/17/19 11/17/19 11/17/19 Range/Units 07:00 07:40 07:40 RBC 3.86 L (4.30-5.90) m/uL Hgb 11.9 L (13.0-17.5) gm/dL Hct 34.6 L (39.0-53.0) % Sodium 134 L (137-145) mmol/L Potassium 6.4 H* (3.5-5.1) mmol/L Chloride 96 L (98-107) mmol/L Carbon Dioxide 20 L (22-30) mmol/L BUN 82 H (9-20) mg/dL Creatinine 13.49 H* (0.66-1.25) mg/dL Glucose 133 H (74-99) mg/dL POC Glucose (mg/dL) 123 H (75-99) mg/dL Calcium 8.1 L (8.4-10.2) mg/dL Hep Bs Antibody (Non-Reactive) 11/17/19 11/17/19 11/17/19 Range/Units 07:40 11:16 17:12 RBC (4.30-5.90) m/uL Hgb (13.0-17.5) gm/dL Hct (39.0-53.0) % Sodium (137-145) mmol/L Potassium (3.5-5.1) mmol/L Chloride (98-107) mmol/L Carbon Dioxide (22-30) mmol/L BUN (9-20) mg/dL Creatinine (0.66-1.25) mg/dL Glucose (74-99) mg/dL POC Glucose (mg/dL) 152 H 192 H (75-99) mg/dL Calcium (8.4-10.2) mg/dL Hep Bs Antibody Reactive H (Non-Reactive) 11/17/19 11/17/19 Range/Units 19:27 20:39 RBC (4.30-5.90) m/uL Hgb (13.0-17.5) gm/dL Hct (39.0-53.0) % Sodium (137-145) mmol/L Potassium 5.5 H (3.5-5.1) mmol/L Chloride (98-107) mmol/L Carbon Dioxide (22-30) mmol/L BUN (9-20) mg/dL Creatinine (0.66-1.25) mg/dL Glucose (74-99) mg/dL POC Glucose (mg/dL) 181 H (75-99) mg/dL Calcium (8.4-10.2) mg/dL Hep Bs Antibody (Non-Reactive) Microbiology - Last 24 Hours (Table) 11/16/19 10:45 Blood Culture Gram Stain - Preliminary Blood Blood Culture - Preliminary Staphylococcus aureus 11/16/19 10:55 Blood Culture - Final Blood Assessment and Plan Assessment: -patient admitted to the hospital with sepsis in this patient who did have fever tachycardia elevated white count source is right middle finger abscess with concern for underlying osteomyelitis now with evidence of Streptococcus aureus bacteremia likely infecting pathogen with a question of possible MRSA in this patient with history of diabetes and previous antibiotic exposure (1) Sepsis Current Visit: Yes Status: Acute Code(s): A41.9 - SEPSIS, UNSPECIFIED ORGANISM SNOMED Code(s): 66982891 (2) Staphylococcus aureus bacteremia Current Visit: Yes Status: Acute Code(s): R78.81 - BACTEREMIA SNOMED Code(s): 914371185 (3) Cellulitis of finger of right hand Current Visit: Yes Status: Acute Code(s): L03.011 - CELLULITIS OF RIGHT FINGER SNOMED Code(s): 69383095 Plan: 1-await orthopedic decision regarding either drainage of the abscess and deep culture versus amputation 2-repeat blood cultures to document clearance of bacteremia 3-vancomycin pharmacy to dose her with a target trough of 15 while watching her kidney function and Vanco trough closely. 4-dry protective dressing to the wound on the right middle finger We will follow on clinical condition and cultures to further adjust medication if needed Thank you for this consultation we will follow the patient along with you Time with Patient: Greater than 30
[2019-11-18] MEDS: HYDROcodone/APAP 7.5-325MG 1 EACH TAB PO PRN ×3 (04:50→20:56)
[2019-11-18 07:00] LABS: Glucose,Whole Blood 135 mg/dL (75-99)
[2019-11-18 08:44] LABS: HCT 35.7 % (39.0-53.0); HGB 11.5 gm/dL (13.0-17.5); MCH 30.2 pg (25.0-35.0); MCHC 32.3 g/dL (31.0-37.0); MCV 93.5 fL (80.0-100.0); Mean Platelet Volume 8.7; Platelet Count 181 k/uL (150-450); RBC 3.82 m/uL (4.30-5.90); RDW 15.3 % (11.5-15.5); WBC 10.2 k/uL (3.8-10.6)
[2019-11-18 08:59] LABS: Calcium 8.6 mg/dL (8.4-10.2); Potassium 5.8 mmol/L (3.5-5.1)
[2019-11-18 09:01] LABS: Vancomycin,Random 22.6 ug/mL
[2019-11-18 09:13] LABS: C Reactive Protein 211.8 mg/L (<10.0)
--- NOTE | 2019-11-18 10:08 | P.PN ---
Subjective Progress Note Date: 11/18/19 The patient is a 59-year-old male with a PMH of type 2 diabetes mellitus, end- stage renal disease on hemodialysis, and ARA on CPAP presented to the ED w/ complaints of R hand 3rd finger wound with drainage and tenderness. The patient had multiple amputations due to uncontrolled DM and noted that he had been following with Dr Tapia. The patient notes that Dr Tapia advised him to come to the ED if the fingers became swollen or began hurting. The patient reports he has severe neuropathy and normally can not feel much in his fingers. The patient noted that this morning when he went to his dialysis site, they noticed a temperature of 100.0 and advised him to go to the ED and told him that his dialysis couldn't be done. The patient otherwise denied any additional complaints. Denied chest pain, SOB, nausea, vomiting, fever, chills, dizziness, diaphoresis, cough, or diarrhea. He underwent an extensive evaluation in the ED w/ T max 100.7. Finger x-ray revealed lucency in the distal portion of the middle phalanx of the R middle finger with concerns for Boo's abscess vs osteomyelitis. Laboratory evaluation revealed a WBC count of 11.6, Hgb 12.3, plt 194, Na 135, K 5.7, chloride 95, CO2 24, BUN 67, creatinine 11.19, and influenza negative. The patient was started on IV Vancomycin and Zosyn. Nephrology was consulted and the patient was restarted on his dialysis. The patient was seen and evaluated at the bedside on 11/18. He reported that he did not have any additional episodes of fever overnight. Notes continued slight pain in the R 3rd finger. Denied additional complaints. Denied chest pain, SOB, nausea, vomiting, abdominal pain, or diarrhea. Objective - Vital Signs Vital signs: Vital Signs Temp 98 F 11/18/19 05:00 Pulse 78 11/18/19 05:00 Resp 18 11/18/19 05:00 BP 141/53 11/18/19 05:00 Pulse Ox 99 11/18/19 05:00 Intake & Output 11/17/19 11/18/19 11/18/19 18:59 06:59 18:59 Intake Total 1200 480 Output Total 3100 Balance -1900 480 Intake: Intake, IV Titration 550 Amount Sodium Chloride 0.9% 1, 50 000 ml @ 100 mls/hr IV . Q10H SK[facility] Rx#:[id number] Vancomycin 1,750 mg In 500 Sodium Chloride 0.9% 500 ml 500 ml @ 167 mls/hr IVPB ONCE ONE Rx#: [id number] Oral 650 480 Output: Urine 0 Hemodialysis 3100 - Exam General: Chronically Ill-appearing M, in no acute distress, appears stated age, obese HEENT: NC/AT, anicteric sclerae, moist conjunctiva, no lid-lag, PERRLA Cardiovascular: S1/S2 wnl, no murmurs, rubs, or gallops Lungs: Clear to auscultation, normal respiratory effort, no accessory muscle use Abdominal: Soft, non-tender, non-distended, no guarding, rebound, or rigidity Skin: Warm, dry Extremities: LLE BKA, RLE all toes amputated, R hand 2nd digit amputated, R hand 3rd digit ulcer with some erythema and edema and no drainage, no gross muscle atrophy, no contractures Psychiatric: Alert and oriented to person, place and time, appropriate affect Neuro: CN II-XII grossly intact, Speech intact, no focal deficits noted - Labs CBC & Chem 7: 11/18/19 08:05 11/18/19 08:05 Labs: Abnormal Lab Results - Last 24 Hours (Table) 11/17/19 11/17/19 11/17/19 Range/Units 07:40 11:16 17:12 RBC (4.30-5.90) m/uL Hgb (13.0-17.5) gm/dL Hct (39.0-53.0) % Sodium (137-145) mmol/L Potassium (3.5-5.1) mmol/L Chloride (98-107) mmol/L Carbon Dioxide (22-30) mmol/L BUN (9-20) mg/dL Creatinine (0.66-1.25) mg/dL Glucose (74-99) mg/dL POC Glucose (mg/dL) 152 H 192 H (75-99) mg/dL C-Reactive Protein (<10.0) mg/L Hep Bs Antibody Reactive H (Non-Reactive) 11/17/19 11/17/19 11/18/19 Range/Units 19:27 20:39 06:58 RBC (4.30-5.90) m/uL Hgb (13.0-17.5) gm/dL Hct (39.0-53.0) % Sodium (137-145) mmol/L Potassium 5.5 H (3.5-5.1) mmol/L Chloride (98-107) mmol/L Carbon Dioxide (22-30) mmol/L BUN (9-20) mg/dL Creatinine (0.66-1.25) mg/dL Glucose (74-99) mg/dL POC Glucose (mg/dL) 181 H 135 H (75-99) mg/dL C-Reactive Protein (<10.0) mg/L Hep Bs Antibody (Non-Reactive) 11/18/19 11/18/19 Range/Units 08:05 08:05 RBC 3.82 L (4.30-5.90) m/uL Hgb 11.5 L (13.0-17.5) gm/dL Hct 35.7 L (39.0-53.0) % Sodium 134 L (137-145) mmol/L Potassium 5.8 H (3.5-5.1) mmol/L Chloride 97 L (98-107) mmol/L Carbon Dioxide 17 L (22-30) mmol/L BUN 64 H (9-20) mg/dL Creatinine 10.83 H* (0.66-1.25) mg/dL Glucose 142 H (74-99) mg/dL POC Glucose (mg/dL) (75-99) mg/dL C-Reactive Protein 211.8 H (<10.0) mg/L Hep Bs Antibody (Non-Reactive) Microbiology - Last 24 Hours (Table) 11/17/19 10:45 Blood Culture - Final Blood 11/16/19 10:45 Blood Culture Gram Stain - Preliminary Blood Blood Culture - Preliminary Staphylococcus aureus 11/16/19 10:55 Blood Culture - Final Blood Assessment and Plan Plan: R hand 3rd digit osteomyelitis, sepsis resolved -Orthopedic and ID recs appreciated -Blood culture growing S. aureus -C/w Vancomycin. Zosyn DCed -Monitor CBC -Blood cultures showing gram positive cocci in clusters -Possible amputation of the R 3rd digit ESRD, on HD -C/w HD -Monitor BMP Hyperkalemia -Currently undergoing HD -Monitor BMP Type 2 DM -JASPAL with FS Anemia of chronic disease -At baseline DVT prophylaxis -Heparin Discussed with: Patient Anticipated discharge date: 3-[address]: Home
--- NOTE | 2019-11-18 11:02 | P.PN ---
Subjective Patient is seen in follow-up for end-stage renal disease. He is maintained on hemodialysis on Thursday schedule. Currently being treated for right middle finger abscess. Blood culture positive for staph aureus. Denies chest pain or shortness of breath. No active complaints. Vital signs are stable. General: The patient appeared well nourished and normally developed. HEENT: Head exam is unremarkable. Neck is without jugular venous distension. LUNGS: Lungs are clear to auscultation and percussion. Breath sounds decreased. HEART: Rate and Rhythm are regular. First and second heart sounds normal. No murmurs, rubs or gallops. ABDOMEN: Abdominal exam reveals normal bowel sounds. Non-tender and non- distended. No evidence of peritonitis. EXTREMITITES: No clubbing, cyanosis, or edema. Left BKA noted. No drainage noted from the right middle finger. Objective - Vital Signs Vital signs: Vital Signs Temp 98 F 11/18/19 05:00 Pulse 78 11/18/19 05:00 Resp 18 11/18/19 05:00 BP 141/53 11/18/19 05:00 Pulse Ox 99 11/18/19 05:00 Intake & Output 11/17/19 11/18/19 11/18/19 18:59 06:59 18:59 Intake Total 1200 480 Output Total 3100 Balance -1900 480 Intake: Intake, IV Titration 550 Amount Sodium Chloride 0.9% 1, 50 000 ml @ 100 mls/hr IV . Q10H [facility] Rx#:[id number] Vancomycin 1,750 mg In 500 Sodium Chloride 0.9% 500 ml 500 ml @ 167 mls/hr IVPB ONCE ONE Rx#: [id number] Oral 650 480 Output: Urine 0 Hemodialysis 3100 - Labs CBC & Chem 7: 11/18/19 08:05 11/18/19 08:05 Labs: Abnormal Lab Results - Last 24 Hours (Table) 11/17/19 11/17/19 11/17/19 Range/Units 07:40 11:16 17:12 RBC (4.30-5.90) m/uL Hgb (13.0-17.5) gm/dL Hct (39.0-53.0) % Sodium (137-145) mmol/L Potassium (3.5-5.1) mmol/L Chloride (98-107) mmol/L Carbon Dioxide (22-30) mmol/L BUN (9-20) mg/dL Creatinine (0.66-1.25) mg/dL Glucose (74-99) mg/dL POC Glucose (mg/dL) 152 H 192 H (75-99) mg/dL C-Reactive Protein (<10.0) mg/L Hep Bs Antibody Reactive H (Non-Reactive) 11/17/19 11/17/19 11/18/19 Range/Units 19:27 20:39 06:58 RBC (4.30-5.90) m/uL Hgb (13.0-17.5) gm/dL Hct (39.0-53.0) % Sodium (137-145) mmol/L Potassium 5.5 H (3.5-5.1) mmol/L Chloride (98-107) mmol/L Carbon Dioxide (22-30) mmol/L BUN (9-20) mg/dL Creatinine (0.66-1.25) mg/dL Glucose (74-99) mg/dL POC Glucose (mg/dL) 181 H 135 H (75-99) mg/dL C-Reactive Protein (<10.0) mg/L Hep Bs Antibody (Non-Reactive) 11/18/19 11/18/19 Range/Units 08:05 08:05 RBC 3.82 L (4.30-5.90) m/uL Hgb 11.5 L (13.0-17.5) gm/dL Hct 35.7 L (39.0-53.0) % Sodium 134 L (137-145) mmol/L Potassium 5.8 H (3.5-5.1) mmol/L Chloride 97 L (98-107) mmol/L Carbon Dioxide 17 L (22-30) mmol/L BUN 64 H (9-20) mg/dL Creatinine 10.83 H* (0.66-1.25) mg/dL Glucose 142 H (74-99) mg/dL POC Glucose (mg/dL) (75-99) mg/dL C-Reactive Protein 211.8 H (<10.0) mg/L Hep Bs Antibody (Non-Reactive) Microbiology - Last 24 Hours (Table) 11/17/19 10:45 Blood Culture Gram Stain - Preliminary Blood 11/17/19 10:45 Blood Culture - Final Blood 11/16/19 10:45 Blood Culture Gram Stain - Preliminary Blood Blood Culture - Preliminary Staphylococcus aureus 11/16/19 10:55 Blood Culture - Final Blood Assessment and Plan Plan: Assessment: 1. End-stage renal disease maintained on hemodialysis on Thursday schedule. Patient has a right upper extremity AV fistula. 2. Hyperkalemia secondary to chronic kidney disease. 3. Metabolic acidosis secondary to chronic kidney disease. 4. Diabetes mellitus. 5. Status post left BKA. 6. Right middle finger osteomyelitis with staph aureus bacteremia. Maintained on IV antibiotics. Potential amputation this admission. Plan: Hemodialysis today. Monitor vancomycin levels. Target level less than 20. Renal diet. Add oral sodium bicarbonate.
[2019-11-18 11:57] LABS: Glucose,Whole Blood 162 mg/dL (75-99)
[2019-11-18] MEDS: PREGABALIN 75 MG CAP PO SCH ×2 (13:28→20:12)
[2019-11-18] MEDS ORDERED: MIDAZOLAM 2 MG/2 ML VIAL ONE (14:41)
[2019-11-18] MEDS ORDERED: PROPOFOL 10 MG/ML 20 ML VIAL IV ONE (14:41)
[2019-11-18] MEDS ORDERED: fentaNYL (PF) 50 MCG/ML 2 ML AMP ONE (14:41)
[2019-11-18] MEDS ORDERED: ROCURONIUM BROMIDE 10 MG/ML 10 ML VIAL IV ONE (14:41)
[2019-11-18] MEDS ORDERED: PHENYLEPHRINE-0.9% NACL SYG 1 MG/10 ML SYRINGE ONE (14:41)
[2019-11-18] MEDS ORDERED: LIDOCAINE 1% INJ 10MG/ML (20 ML MDV) ONE (14:41)
[2019-11-18] MEDS: SODIUM BICARBONATE TAB 650 MG TAB PO SCH ×2 (15:25→20:13)
[2019-11-18 16:49] LABS: Glucose,Whole Blood 126 mg/dL (75-99)
[2019-11-18] MEDS: ALBUTEROL NEBULIZED 2.5 MG/3 ML INHALATION SCH (20:16)
[2019-11-18 20:18] LABS: Glucose,Whole Blood 217 mg/dL (75-99)
--- NOTE | 2019-11-18 22:47 | P.PN ---
Subjective Progress Note Date: 11/18/19 The patient reports continued pain in the tip of the middle finger. He has noticed that his fingernail has turned darker. Pain has been fairly well controlled. Objective - Vital Signs Vital signs: Vital Signs Temp 99.3 F 11/18/19 20:02 Pulse 90 11/18/19 20:27 Resp 16 11/18/19 20:02 BP 146/82 11/18/19 20:02 Pulse Ox 99 11/18/19 20:02 Intake & Output 11/18/19 11/18/19 11/19/19 06:59 18:59 06:59 Intake Total 480 Output Total 2500 Balance 480 -2500 Intake: Oral 480 Output: Hemodialysis 2500 Other: # Voids 0 - Exam Right middle finger: Moderately severe tenderness to palpation in the pulp. Nothing expressed from under the nail fold or from the open wound. The distal corner of the digit is hard but not necrotic. No tenderness in the middle and proximal phalanges (with the exception of the wound). No calor or erythema. The edema proximally has marginally improved - Labs CBC & Chem 7: 11/18/19 08:05 11/18/19 08:05 Labs: Abnormal Lab Results - Last 24 Hours (Table) 11/18/19 11/18/19 11/18/19 Range/Units 06:58 08:05 08:05 RBC 3.82 L (4.30-5.90) m/uL Hgb 11.5 L (13.0-17.5) gm/dL Hct 35.7 L (39.0-53.0) % ESR (0-15) mm/hr Sodium 134 L (137-145) mmol/L Potassium 5.8 H (3.5-5.1) mmol/L Chloride 97 L (98-107) mmol/L Carbon Dioxide 17 L (22-30) mmol/L BUN 64 H (9-20) mg/dL Creatinine 10.83 H* (0.66-1.25) mg/dL Glucose 142 H (74-99) mg/dL POC Glucose (mg/dL) 135 H (75-99) mg/dL C-Reactive Protein 211.8 H (<10.0) mg/L 11/18/19 11/18/19 11/18/19 Range/Units 11:47 12:05 16:48 RBC (4.30-5.90) m/uL Hgb (13.0-17.5) gm/dL Hct (39.0-53.0) % ESR 97 H (0-15) mm/hr Sodium (137-145) mmol/L Potassium (3.5-5.1) mmol/L Chloride (98-107) mmol/L Carbon Dioxide (22-30) mmol/L BUN (9-20) mg/dL Creatinine (0.66-1.25) mg/dL Glucose (74-99) mg/dL POC Glucose (mg/dL) 162 H 126 H (75-99) mg/dL C-Reactive Protein (<10.0) mg/L 11/18/19 Range/Units 20:11 RBC (4.30-5.90) m/uL Hgb (13.0-17.5) gm/dL Hct (39.0-53.0) % ESR (0-15) mm/hr Sodium (137-145) mmol/L Potassium (3.5-5.1) mmol/L Chloride (98-107) mmol/L Carbon Dioxide (22-30) mmol/L BUN (9-20) mg/dL Creatinine (0.66-1.25) mg/dL Glucose (74-99) mg/dL POC Glucose (mg/dL) 217 H (75-99) mg/dL C-Reactive Protein (<10.0) mg/L Microbiology - Last 24 Hours (Table) 11/17/19 10:45 Blood Culture Gram Stain - Preliminary Blood Blood Culture - Preliminary Presumptive Staph aureus 11/17/19 10:45 Blood Culture - Final Blood 11/16/19 10:45 Blood Culture Gram Stain - Preliminary Blood Blood Culture - Preliminary Staphylococcus aureus Assessment and Plan Assessment: 1. Right middle finger abscess - likely osteomyelitis 2. Staph bactermia 3. ESRD on HD 4. DM Plan: I reviewed the exam and imaging findings in detail with Mr. Peterson. Clinically, the presentation is consistent with a felon or deep abscess. Given his history, osteomyelitis is likely. Recommend proceeding with incision and drainage; possible partial amputation of the right middle finger. Risks and benefits reviewed. Patient in agreement. NPO after midnight for surgery tomorrow morning.
--- NOTE | 2019-11-18 23:25 | PN ---
PROGRESS NOTE DATE OF SERVICE: 11/18/2019 REASON FOR FOLLOWUP: Right middle finger abscess, cellulitis with bacteremia. INTERVAL HISTORY: The patient is currently afebrile. Still complaining of pain to the right flank area. Pain though slightly decreased intensity. The pain controlled with pain medication. No drainage. No chest pain, shortness of breath, cough, no abdominal pain. No diarrhea. PHYSICAL EXAMINATION: Blood pressure 146/82 with a pulse of 94, temperature 99.3. He is 99% on room air. General description is a middle-aged male lying in bed in no distress. Respiratory system: Unlabored breathing. Clear to auscultation anteriorly. Heart S1, S2. Regular rate and rhythm. Abdomen soft, no tenderness. Right middle finger open wound. Some swelling. No drainage was noticed. White count was 11.5, white count 10.2. Blood culture with Staph aureus. DIAGNOSTIC IMPRESSION AND PLAN: Patient with right middle finger abscess with secondary Staph aureus bacteremia. The patient is currently covered on vancomycin. Waiting for the surgical debridement or amputation per Ortho and monitor clinical course closely. MMODL / IJN: [id number] /
[2019-11-19] MEDS: HYDROcodone/APAP 7.5-325MG 1 EACH TAB PO PRN ×2 (05:29→19:17)
[2019-11-19 06:49] LABS: Glucose,Whole Blood 151 mg/dL (75-99)
[2019-11-19 07:30] LABS: Calcium 8.4 mg/dL (8.4-10.2); Potassium 4.8 mmol/L (3.5-5.1)
[2019-11-19 08:54] LABS: Vancomycin,Random 18.6 ug/mL
[2019-11-19] MEDS: SODIUM BICARBONATE TAB 650 MG TAB PO SCH ×2 (09:22→21:18)
--- NOTE | 2019-11-19 09:58 | P.PN ---
Subjective Patient is seen in follow-up for end-stage renal disease. He is maintained on hemodialysis on Thursday schedule. Currently being treated for right middle finger abscess. Blood culture positive for staph aureus. Denies chest pain or shortness of breath. No active complaints. Vital signs are stable. General: The patient appeared well nourished and normally developed. HEENT: Head exam is unremarkable. Neck is without jugular venous distension. LUNGS: Lungs are clear to auscultation and percussion. Breath sounds decreased. HEART: Rate and Rhythm are regular. First and second heart sounds normal. No murmurs, rubs or gallops. ABDOMEN: Abdominal exam reveals normal bowel sounds. Non-tender and non- distended. No evidence of peritonitis. EXTREMITITES: No clubbing, cyanosis, or edema. Left BKA noted. No drainage noted from the right middle finger. Objective - Vital Signs Vital signs: Vital Signs Temp 97.8 F 11/19/19 05:21 Pulse 76 11/19/19 05:21 Resp 17 11/19/19 05:21 BP 135/74 11/19/19 05:21 Pulse Ox 99 11/19/19 05:21 Intake & Output 11/18/19 11/19/19 11/19/19 18:59 06:59 18:59 Output Total 2500 Balance -2500 Output: Hemodialysis 2500 Other: # Voids 0 1 - Labs CBC & Chem 7: 11/18/19 08:05 11/19/19 06:53 Labs: Abnormal Lab Results - Last 24 Hours (Table) 11/18/19 11/18/19 11/18/19 Range/Units 11:47 12:05 16:48 ESR 97 H (0-15) mm/hr Sodium (137-145) mmol/L Chloride (98-107) mmol/L BUN (9-20) mg/dL Creatinine (0.66-1.25) mg/dL Glucose (74-99) mg/dL POC Glucose (mg/dL) 162 H 126 H (75-99) mg/dL 11/18/19 11/19/19 11/19/19 Range/Units 20:11 06:47 06:53 ESR (0-15) mm/hr Sodium 135 L (137-145) mmol/L Chloride 96 L (98-107) mmol/L BUN 50 H (9-20) mg/dL Creatinine 8.97 H* (0.66-1.25) mg/dL Glucose 152 H (74-99) mg/dL POC Glucose (mg/dL) 217 H 151 H (75-99) mg/dL Microbiology - Last 24 Hours (Table) 11/16/19 10:45 Blood Culture Gram Stain - Final Blood Blood Culture - Final Staphylococcus aureus 11/17/19 10:45 Blood Culture Gram Stain - Preliminary Blood Blood Culture - Preliminary Presumptive Staph aureus 11/17/19 10:45 Blood Culture - Final Blood Assessment and Plan Plan: Assessment: 1. End-stage renal disease maintained on hemodialysis on Thursday schedule. Patient has a right upper extremity AV fistula. 2. Hyperkalemia secondary to chronic kidney disease. Better post dialysis. 3. Metabolic acidosis secondary to chronic kidney disease. Improved. Maintain ed on oral sodium bicarbonate. 4. Diabetes mellitus. 5. Status post left BKA. 6. Right middle finger osteomyelitis with staph aureus bacteremia. Maintained on IV antibiotics. Scheduled for incision and drainage today. Plan: Hemodialysis Thursday. Monitor vancomycin levels. Target level less than 20. Renal diet.
[2019-11-19 11:04] LABS: Glucose,Whole Blood 129 mg/dL (75-99)
--- NOTE | 2019-11-19 11:48 | P.PN ---
Subjective Progress Note Date: 11/19/19 The patient is a 59-year-old male with a PMH of type 2 diabetes mellitus, end- stage renal disease on hemodialysis, and ARA on CPAP presented to the ED w/ complaints of R hand 3rd finger wound with drainage and tenderness. The patient had multiple amputations due to uncontrolled DM and noted that he had been following with Dr Tapia. The patient notes that Dr Tapia advised him to come to the ED if the fingers became swollen or began hurting. The patient reports he has severe neuropathy and normally can not feel much in his fingers. The patient noted that this morning when he went to his dialysis site, they noticed a temperature of 100.0 and advised him to go to the ED and told him that his dialysis couldn't be done. The patient otherwise denied any additional complaints. Denied chest pain, SOB, nausea, vomiting, fever, chills, dizziness, diaphoresis, cough, or diarrhea. He underwent an extensive evaluation in the ED w/ T max 100.7. Finger x-ray revealed lucency in the distal portion of the middle phalanx of the R middle finger with concerns for Boo's abscess vs osteomyelitis. Laboratory evaluation revealed a WBC count of 11.6, Hgb 12.3, plt 194, Na 135, K 5.7, chloride 95, CO2 24, BUN 67, creatinine 11.19, and influenza negative. The patient was started on IV Vancomycin and Zosyn. Nephrology was consulted and the patient was restarted on his dialysis. Orthopedic surgery and ID were consulted. The patient's blood cultures grew S. aureus and he was continued on Vancomycin. Surgery recommended amputation of the R 3rd digit. The patient was seen and evaluated at the bedside on 11/19. The patient was in good spirits. Noted minimal pain of the R 3rd finger. He denied fever, chills, chest pain, nausea, or vomiting. Objective - Vital Signs Vital signs: Vital Signs Temp 97.8 F 11/19/19 05:21 Pulse 76 11/19/19 05:21 Resp 17 11/19/19 05:21 BP 135/74 11/19/19 05:21 Pulse Ox 99 11/19/19 05:21 Intake & Output 11/18/19 11/19/19 11/19/19 18:59 06:59 18:59 Output Total 2500 Balance -2500 Output: Hemodialysis 2500 Other: # Voids 0 1 - Exam General: CNo acute distress, appears stated age, obese HEENT: NC/AT, anicteric sclerae, moist conjunctiva, no lid-lag, PERRLA Cardiovascular: S1/S2 wnl, no murmurs, rubs, or gallops Lungs: Clear to auscultation, normal respiratory effort, no accessory muscle use Abdominal: Soft, non-tender, non-distended, no guarding, rebound, or rigidity Skin: Warm, dry Extremities: LLE BKA, RLE all toes amputated, R hand 2nd digit amputated, R hand 3rd digit ulcer with some erythema and edema and no drainage, no gross muscle atrophy, no contractures Psychiatric: Alert and oriented to person, place and time, appropriate affect Neuro: CN II-XII grossly intact, Speech intact, no focal deficits noted - Labs CBC & Chem 7: 11/18/19 08:05 11/19/19 06:53 Labs: Abnormal Lab Results - Last 24 Hours (Table) 11/18/19 11/18/19 11/18/19 Range/Units 11:47 12:05 16:48 ESR 97 H (0-15) mm/hr Sodium (137-145) mmol/L Chloride (98-107) mmol/L BUN (9-20) mg/dL Creatinine (0.66-1.25) mg/dL Glucose (74-99) mg/dL POC Glucose (mg/dL) 162 H 126 H (75-99) mg/dL 11/18/19 11/19/19 11/19/19 Range/Units 20:11 06:47 06:53 ESR (0-15) mm/hr Sodium 135 L (137-145) mmol/L Chloride 96 L (98-107) mmol/L BUN 50 H (9-20) mg/dL Creatinine 8.97 H* (0.66-1.25) mg/dL Glucose 152 H (74-99) mg/dL POC Glucose (mg/dL) 217 H 151 H (75-99) mg/dL 11/19/19 Range/Units 11:01 ESR (0-15) mm/hr Sodium (137-145) mmol/L Chloride (98-107) mmol/L BUN (9-20) mg/dL Creatinine (0.66-1.25) mg/dL Glucose (74-99) mg/dL POC Glucose (mg/dL) 129 H (75-99) mg/dL Microbiology - Last 24 Hours (Table) 11/18/19 08:05 Blood Culture - Preliminary Blood No Growth after 24 hours 11/16/19 10:45 Blood Culture Gram Stain - Final Blood Blood Culture - Final Staphylococcus aureus 11/17/19 10:45 Blood Culture Gram Stain - Preliminary Blood Blood Culture - Preliminary Presumptive Staph aureus Assessment and Plan Plan: R hand 3rd digit osteomyelitis, sepsis resolved -Orthopedic and ID recs appreciated -Blood culture growing S. aureus -C/w Vancomycin. Zosyn DCed -Monitor CBC -Blood cultures showing gram positive cocci in clusters -Scheduled for amputation today, 11/19 ESRD, on HD -C/w HD -Monitor BMP Hyperkalemia -Resolved Type 2 DM -JASPAL with FS Anemia of chronic disease -At baseline DVT prophylaxis -Heparin Discussed with: Patient Anticipated discharge date: 1-[address]: Home
[2019-11-19 14:20] LABS: Glucose,Whole Blood 123 mg/dL (75-99)
[2019-11-19] MEDS ORDERED: fentaNYL (PF) 50 MCG/ML 2 ML AMP ONE (14:41)
[2019-11-19] MEDS ORDERED: PHENYLEPHRINE-0.9% NACL SYG 1 MG/10 ML SYRINGE ONE (14:41)
[2019-11-19] MEDS ORDERED: MIDAZOLAM 2 MG/2 ML VIAL ONE (14:41)
[2019-11-19] MEDS ORDERED: LIDOCAINE 1% INJ 10MG/ML (20 ML MDV) ONE (14:41)
[2019-11-19] MEDS ORDERED: ROCURONIUM BROMIDE 10 MG/ML 10 ML VIAL IV ONE (14:41)
[2019-11-19] MEDS ORDERED: PROPOFOL 10 MG/ML 20 ML VIAL IV ONE (14:41)
[2019-11-19] MEDS ORDERED: SODIUM CHLORIDE 0.9% 500 ML 500 ML IV ONE (14:44)
[2019-11-19] MEDS ORDERED: LIDOCAINE 1% INJ 10MG/ML (20 ML MDV) SQ ONE (15:18)
[2019-11-19] MEDS ORDERED: VANCOMYCIN 1,750 MG in SODIUM CHLORIDE 0.9% 500 ML 500 ML IVPB ONE (16:00)
[2019-11-19] MEDS ORDERED: MORPHINE SULFATE 4 MG/ML SYRINGE IV PRN (17:11)
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
[2019-11-19 17:14] LABS: Glucose,Whole Blood 115 mg/dL (75-99)
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
--- NOTE | 2019-11-19 19:56 | PN ---
PROGRESS NOTE DATE OF SERVICE: 11/19/2019. REASON FOR FOLLOWUP: Right middle finger abscess and cellulitis. INTERVAL HISTORY: The patient was seen on rounds this morning. The patient was waiting for his surgery this afternoon. The patient's pain currently is controlled. The patient denies having any chest pain, shortness of breath or cough. No nausea or vomiting. No abdominal pain or diarrhea. PHYSICAL EXAMINATION: Blood pressure 143/79 with a pulse of 69, temperature of 98.5. He is 100% on room air. General description is a middle-aged male lying in bed in no distress. RESPIRATORY SYSTEM: Unlabored breathing. Clear to auscultation anteriorly. HEART: S1, S2. Regular rate and rhythm. ABDOMEN: Soft. No tenderness. Right middle finger still has some swelling and redness but no drainage. LABS: Blood culture has been finalized with MSSA. DIAGNOSTIC IMPRESSION AND PLAN: Patient with a right middle finger abscess, possible osteomyelitis with methicillin- susceptible Staphylococcus aeruginosa bacteremia. The patient is status post debridement and amputation. Will wait for the deep culture to finalize. Antibiotic will be adjusted to cefazolin and discontinue vancomycin. Monitor clinical course closely. MMODL / IJN: [id number] /
[2019-11-19] MEDS: ALBUTEROL NEBULIZED 2.5 MG/3 ML INHALATION SCH (20:45)
[2019-11-19 21:28] LABS: Glucose,Whole Blood 190 mg/dL (75-99)
[2019-11-19] MEDS ORDERED: diphenhydrAMINE 50 MG/ML 1 ML VIAL IVP STA (23:12)
[2019-11-19] MEDS ORDERED: FAMOTIDINE 20 MG/2 ML VIAL IV STA (23:12)
[2019-11-19] MEDS ORDERED: methylPREDNISolone SOD SUCCI 125 MG/2 ML VIAL IV STA (23:21)
--- NOTE | 2019-11-19 23:35 | P.EN ---
i was called by RN to evaluate patient once he started the antibiotics he developed some itching , tightness in his breathing and vomited once vital signs stable antibiotics stopped started on IVF normal saline, one dose of IV benadryl , pepcid and solumedrol close monitoring continue IVF @ 100cc per hour (total of 1 L ) patient reports no history of any allergy to penicillin and that he has tolerated amoxicillin in the past no leukocytosis no fevers positive blood culture for MSSA patient received dose of vancomycin await further ID recs patient underwent I&D and amputation to site of cellulitis on his finger
[2019-11-20 07:09] LABS: Glucose,Whole Blood 271 mg/dL (75-99)
[2019-11-20 07:59] LABS: Calcium 8.2 mg/dL (8.4-10.2)
[2019-11-20 08:04] LABS: Potassium 6.1 mmol/L (3.5-5.1)
[2019-11-20] MEDS: SODIUM BICARBONATE TAB 650 MG TAB PO SCH ×2 (08:09→20:11)
[2019-11-20] MEDS: SODIUM CHLORIDE 0.9% 1,000 ML IV SCH ×4 (08:10→20:57)
--- NOTE | 2019-11-20 10:21 | P.PN ---
Subjective Patient is seen in follow-up for end-stage renal disease. He is maintained on hemodialysis on Thursday schedule. Blood culture positive for staph aureus. He was noted to have abscess of his right middle finger and underwent amputation yesterday. Denies chest pain or shortness of breath. No active complaints. Vital signs are stable. General: The patient appeared well nourished and normally developed. HEENT: Head exam is unremarkable. Neck is without jugular venous distension. LUNGS: Lungs are clear to auscultation and percussion. Breath sounds decreased. HEART: Rate and Rhythm are regular. First and second heart sounds normal. No murmurs, rubs or gallops. ABDOMEN: Abdominal exam reveals normal bowel sounds. Non-tender and non- distended. No evidence of peritonitis. EXTREMITITES: No clubbing, cyanosis, or edema. Left BKA noted. Objective - Vital Signs Vital signs: Vital Signs Temp 98.2 F 11/20/19 05:25 Pulse 86 11/20/19 05:25 Resp 16 11/20/19 05:25 BP 154/70 11/20/19 05:25 Pulse Ox 99 11/20/19 05:25 Intake & Output 11/19/19 11/20/19 11/20/19 18:59 06:59 18:59 Intake Total 370 500 Output Total 3 Balance 367 500 Intake: IV 370 Intake, IV Titration 500 Amount Vancomycin 1,750 mg In 500 Sodium Chloride 0.9% 500 ml 500 ml @ 167 mls/hr IVPB ONCE ONE Rx#: [id number] Output: Estimated Blood Loss 3 Other: # Bowel Movements 1 - Labs CBC & Chem 7: 11/18/19 08:05 11/20/19 07:24 Labs: Abnormal Lab Results - Last 24 Hours (Table) 11/19/19 11/19/19 11/19/19 Range/Units 11:01 14:19 17:13 Sodium (137-145) mmol/L Potassium (3.5-5.1) mmol/L Carbon Dioxide (22-30) mmol/L BUN (9-20) mg/dL Creatinine (0.66-1.25) mg/dL Glucose (74-99) mg/dL POC Glucose (mg/dL) 129 H 123 H 115 H (75-99) mg/dL Calcium (8.4-10.2) mg/dL 11/19/19 11/20/19 11/20/19 Range/Units 21:23 07:07 07:24 Sodium 136 L (137-145) mmol/L Potassium 6.1 H* (3.5-5.1) mmol/L Carbon Dioxide 20 L (22-30) mmol/L BUN 65 H (9-20) mg/dL Creatinine 10.92 H* (0.66-1.25) mg/dL Glucose 290 H (74-99) mg/dL POC Glucose (mg/dL) 190 H 271 H (75-99) mg/dL Calcium 8.2 L (8.4-10.2) mg/dL Microbiology - Last 24 Hours (Table) 11/17/19 10:45 Blood Culture Gram Stain - Final Blood Blood Culture - Final Staphylococcus aureus 11/18/19 08:05 Blood Culture - Preliminary Blood No Growth after 24 hours Assessment and Plan Plan: Assessment: 1. End-stage renal disease maintained on hemodialysis on Thursday schedule. Patient has a right upper extremity AV fistula. 2. Hyperkalemia secondary to chronic kidney disease and hyperglycemia. 3. Metabolic acidosis secondary to chronic kidney disease. Maintained on oral sodium bicarbonate. 4. Diabetes mellitus. 5. Status post left BKA. 6. Right middle finger osteomyelitis with staph aureus bacteremia. Maintained on IV antibiotics. S/p amputation on November 19. Plan: 2-hour hemodialysis treatment today. Another treatment tomorrow per his outpatient schedule. Renal diet. Tighter blood sugar control.
[2019-11-20] MEDS ORDERED: VANCOMYCIN IV PER PHARMACY 1 EACH MISC MISCELLANE PRN (10:30)
[2019-11-20 11:11] LABS: Glucose,Whole Blood 327 mg/dL (75-99)
[2019-11-20] MEDS: HYDROcodone/APAP 7.5-325MG 1 EACH TAB PO PRN ×2 (15:13→21:24)
--- NOTE | 2019-11-20 15:55 | P.PN ---
Subjective Progress Note Date: 11/20/19 The patient is a 59-year-old male with a PMH of type 2 diabetes mellitus, end- stage renal disease on hemodialysis, and ARA on CPAP presented to the ED w/ complaints of R hand 3rd finger wound with drainage and tenderness. The patient had multiple amputations due to uncontrolled DM and noted that he had been following with Dr Tapia. The patient notes that Dr Tapia advised him to come to the ED if the fingers became swollen or began hurting. The patient reports he has severe neuropathy and normally can not feel much in his fingers. The patient noted that this morning when he went to his dialysis site, they noticed a temperature of 100.0 and advised him to go to the ED and told him that his dialysis couldn't be done. The patient otherwise denied any additional complaints. Denied chest pain, SOB, nausea, vomiting, fever, chills, dizziness, diaphoresis, cough, or diarrhea. He underwent an extensive evaluation in the ED w/ T max 100.7. Finger x-ray revealed lucency in the distal portion of the middle phalanx of the R middle finger with concerns for Boo's abscess vs osteomyelitis. Laboratory evaluation revealed a WBC count of 11.6, Hgb 12.3, plt 194, Na 135, K 5.7, chloride 95, CO2 24, BUN 67, creatinine 11.19, and influenza negative. The patient was started on IV Vancomycin and Zosyn. Nephrology was consulted and the patient was restarted on his dialysis. Orthopedic surgery and ID were consulted. The patient's blood cultures grew S. aureus and he was continued on Vancomycin. Surgery recommended amputation of the R 3rd digit which the patient underwent on 11/19. The patient was started on Keflex by ID on 11/19 though the patient had a reaction to it, with itching, SOB, and vomiting. The patient was seen and evaluated at the bedside on 11/20. The patient denied active complaints. Denied chest pain, SOB, nausea, vomiting, dizziness, fever, chills, or abdominal pain. Objective - Vital Signs Vital signs: Vital Signs Temp 98.0 F 11/20/19 14:17 Pulse 93 11/20/19 14:17 Resp 18 11/20/19 14:17 BP 146/91 11/20/19 14:17 Pulse Ox 97 11/20/19 11:12 Intake & Output 11/19/19 11/20/19 11/20/19 18:59 06:59 18:59 Intake Total 370 500 Output Total 3 1999 Balance 367 500 -1999 Intake: IV 370 Intake, IV Titration 500 Amount Vancomycin 1,750 mg In 500 Sodium Chloride 0.9% 500 ml 500 ml @ 167 mls/hr IVPB ONCE ONE Rx#: [id number] Output: Hemodialysis 1999 Estimated Blood Loss 3 Other: # Bowel Movements 1 - Exam General: No acute distress, appears stated age, obese HEENT: NC/AT, anicteric sclerae, moist conjunctiva, no lid-lag, PERRLA Cardiovascular: S1/S2 wnl, no murmurs, rubs, or gallops Lungs: Clear to auscultation, normal respiratory effort, no accessory muscle use Abdominal: Soft, non-tender, non-distended, no guarding, rebound, or rigidity Skin: Warm, dry Extremities: LLE BKA, RLE all toes amputated, R hand 2nd digit amputated, R hand 3rd digit s/p amputation with dressing in place, no gross muscle atrophy, no contractures Psychiatric: Alert and oriented to person, place and time, appropriate affect Neuro: CN II-XII grossly intact, Speech intact, no focal deficits noted - Labs CBC & Chem 7: 11/18/19 08:05 11/20/19 07:24 Labs: Abnormal Lab Results - Last 24 Hours (Table) 11/19/19 11/19/19 11/20/19 Range/Units 17:13 21:23 07:07 Sodium (137-145) mmol/L Potassium (3.5-5.1) mmol/L Carbon Dioxide (22-30) mmol/L BUN (9-20) mg/dL Creatinine (0.66-1.25) mg/dL Glucose (74-99) mg/dL POC Glucose (mg/dL) 115 H 190 H 271 H (75-99) mg/dL Calcium (8.4-10.2) mg/dL 11/20/19 11/20/19 Range/Units 07:24 11:10 Sodium 136 L (137-145) mmol/L Potassium 6.1 H* (3.5-5.1) mmol/L Carbon Dioxide 20 L (22-30) mmol/L BUN 65 H (9-20) mg/dL Creatinine 10.92 H* (0.66-1.25) mg/dL Glucose 290 H (74-99) mg/dL POC Glucose (mg/dL) 327 H (75-99) mg/dL Calcium 8.2 L (8.4-10.2) mg/dL Microbiology - Last 24 Hours (Table) 11/18/19 08:05 Blood Culture - Preliminary Blood No Growth after 48 hours 11/17/19 10:45 Blood Culture Gram Stain - Final Blood Blood Culture - Final Staphylococcus aureus Assessment and Plan Plan: R hand 3rd digit osteomyelitis, w/ MSSA bactaremia, s/p amputation 11/19 -Orthopedic and ID recs appreciated -Plan for patient to complete course of Vancomycin -Likely DC on 11/21 ESRD, on HD -C/w HD -Monitor BMP Hyperkalemia -On HD Type 2 DM -JASPAL with FS Anemia of chronic disease -At baseline DVT prophylaxis -Heparin Discussed with: Patient Anticipated discharge date: 11/[address]: Home
--- NOTE | 2019-11-20 16:12 | P.PN ---
Subjective Progress Note Date: 11/20/19 Patient states that the pain has improved substantially since prior to surgery. Interval events reviewed, discussed with RN. The patient states that he suddenly became itchy, nauseated and threw up. This was shortly after his cefazolin was started. Infusion was stopped. Itching improved with benedryl. He has taken oral keflex in the past without adverse reaction. Says he feels fine now. Objective - Vital Signs Vital signs: Vital Signs Temp 98.2 F 11/20/19 05:25 Pulse 86 11/20/19 05:25 Resp 16 11/20/19 05:25 BP 154/70 11/20/19 05:25 Pulse Ox 99 11/20/19 05:25 Intake & Output 11/19/19 11/20/19 11/20/19 18:59 06:59 18:59 Intake Total 370 500 Output Total 3 Balance 367 500 Intake: IV 370 Intake, IV Titration 500 Amount Vancomycin 1,750 mg In 500 Sodium Chloride 0.9% 500 ml 500 ml @ 167 mls/hr IVPB ONCE ONE Rx#: [id number] Output: Estimated Blood Loss 3 Other: # Bowel Movements 1 - Exam The dressings were removed. There was minimal blood on the undersurface. The drains were removed easily. No purulence was expressed from the wound. The wound edges are well-approximated without dehiscence. No fluctuance or tenderness proximally. - Labs CBC & Chem 7: 11/18/19 08:05 11/20/19 07:24 Labs: Abnormal Lab Results - Last 24 Hours (Table) 11/19/19 11/19/19 11/19/19 Range/Units 11:01 14:19 17:13 Sodium (137-145) mmol/L Potassium (3.5-5.1) mmol/L Carbon Dioxide (22-30) mmol/L BUN (9-20) mg/dL Creatinine (0.66-1.25) mg/dL Glucose (74-99) mg/dL POC Glucose (mg/dL) 129 H 123 H 115 H (75-99) mg/dL Calcium (8.4-10.2) mg/dL 11/19/19 11/20/19 11/20/19 Range/Units 21:23 07:07 07:24 Sodium 136 L (137-145) mmol/L Potassium 6.1 H* (3.5-5.1) mmol/L Carbon Dioxide 20 L (22-30) mmol/L BUN 65 H (9-20) mg/dL Creatinine 10.92 H* (0.66-1.25) mg/dL Glucose 290 H (74-99) mg/dL POC Glucose (mg/dL) 190 H 271 H (75-99) mg/dL Calcium 8.2 L (8.4-10.2) mg/dL Microbiology - Last 24 Hours (Table) 11/17/19 10:45 Blood Culture Gram Stain - Final Blood Blood Culture - Final Staphylococcus aureus 11/18/19 08:05 Blood Culture - Preliminary Blood No Growth after 24 hours Assessment and Plan Assessment: 1. Postoperative day #1 status post irrigation, debridement and partial amputation of right middle finger 2. Right middle finger abscess with suppurative extensor tenosynovitis and likely osteomyelitis 3. MSSA bacteremia 4. End-stage renal disease on hemodialysis Plan: I discussed the clinical and intraoperative findings in detail with the patient. I do not anticipate any further debridements at this time. Sterile dressings were applied. These may be changed as needed. He may remove them shower. Okay to wash the finger and hand with soap and water. New dressing should then be reapplied. Continue IV antibiotics per ID recommendations. Continue PRN pain management. Discharge planning for outpatient antibiotic treatment.
[2019-11-20 16:59] LABS: Glucose,Whole Blood 356 mg/dL (75-99)
[2019-11-20 20:28] LABS: Glucose,Whole Blood 382 mg/dL (75-99)
[2019-11-20] MEDS: ALBUTEROL NEBULIZED 2.5 MG/3 ML INHALATION SCH (20:48)
[2019-11-20] MEDS: INSULIN ASPART (NovoLOG) 100 UNIT/ML VIAL SQ SCH (20:57)
[2019-11-20] MEDS ORDERED: PREGABALIN 75 MG CAP PO SCH (21:00)
--- NOTE | 2019-11-20 21:01 | PN ---
PROGRESS NOTE DATE OF SERVICE: 11/20/2019 REASON FOR FOLLOWUP: Left middle finger abscess and osteomyelitis. INTERVAL HISTORY: The patient seemed to have problem last night with infusion of Cefazolin with the patient having vomiting, itching, Cefazolin was subsequently discontinued last night. I was not notified. As of this morning, the patient's symptom have resolved. The patient denies having any chest pain. No shortness of breath. No cough. No nausea, vomiting, no abdominal pain. No diarrhea. PHYSICAL EXAMINATION: Vital signs stable with a blood pressure of 154/70 with a pulse of 86, temperature 98.2. He is 99% on room air. General description is a middle-aged male lying in bed in no distress. Respiratory system: Unlabored breathing. Clear to auscultation anteriorly. Heart S1, S2. Regular rate and rhythm. Abdomen soft, no tenderness. Right hand is currently dressed up, no obvious drainage on the dressing. LABS: Blood culture with MSSA. DIAGNOSTIC IMPRESSION AND PLAN: Patient with MSSA bacteremia, source is right middle finger abscess and osteomyelitis in this patient who is status post partial amputation of the right middle finger. The patient did have problems with cefazolin which has been discontinued. Vancomycin pharmacy to dose has been started. We will need to arrange for IV vancomycin which can be done through dialysis for at least 2-3 weeks depending upon clinical response. Local care to continue per surgery and monitor clinical course closely. MMODL / IJN: [id number] /
[2019-11-20 23:01] LABS: Glucose,Whole Blood 95 mg/dL (75-99)
[2019-11-21] MEDS ORDERED: cloNIDine HCL 0.1 MG TAB PO PRN (04:36)
[2019-11-21] MEDS: SODIUM CHLORIDE 0.9% 1,000 ML IV SCH ×2 (05:28→09:04)
[2019-11-21] MEDS: HYDROcodone/APAP 7.5-325MG 1 EACH TAB PO PRN ×2 (05:53→15:12)
[2019-11-21 07:17] LABS: Glucose,Whole Blood 226 mg/dL (75-99)
[2019-11-21] MEDS: INSULIN ASPART (NovoLOG) 100 UNIT/ML VIAL SQ SCH ×3 (07:59→17:50)
[2019-11-21] MEDS: SODIUM BICARBONATE TAB 650 MG TAB PO SCH (08:00)
[2019-11-21] MEDS: PREGABALIN 75 MG CAP PO SCH (08:00)
[2019-11-21 09:29] LABS: Calcium 8.6 mg/dL (8.4-10.2); Potassium 5.2 mmol/L (3.5-5.1)
[2019-11-21 09:34] LABS: Vancomycin,Random 23.6 ug/mL
[2019-11-21 11:24] LABS: Glucose,Whole Blood 207 mg/dL (75-99)
[2019-11-21 11:29] VITALS: RESP 18
[2019-11-21] MEDS ORDERED: diphenhydrAMINE 50 MG/ML 1 ML VIAL IVP PRN (12:03)
--- NOTE | 2019-11-21 13:38 | P.DS ---
Providers Date of admission: 11/17/19 11:33 Expected date of discharge: 11/21/19 Attending physician: Tammy Billy MD Consults: 11/16/19 12:42 Consult Physician Urgent Consulting Provider: Sawyer Tapia Consult Reason/Comments: Established patient, finger osteomyelitis Do you want consulting provider notified?: Yes 11/16/19 12:43 Consult Physician Urgent Consulting Provider: Roland Olivera Consult Reason/Comments: Dialysis Do you want consulting provider notified?: Yes 11/16/19 18:17 Consult Physician Urgent Consulting Provider: Meliza Worthington Consult Reason/Comments: R hand osteo Do you want consulting provider notified?: Yes Primary care physician: [facility] Hospital Course: The patient is a 59-year-old male with a PMH of type 2 diabetes mellitus, end- stage renal disease on hemodialysis, and ARA on CPAP presented to the ED w/ complaints of R hand 3rd finger wound with drainage and tenderness. The patient had multiple amputations due to uncontrolled DM and noted that he had been following with Dr Tapia. The patient notes that Dr Tapia advised him to come to the ED if the fingers became swollen or began hurting. The patient reports he has severe neuropathy and normally can not feel much in his fingers. The patient noted that this morning when he went to his dialysis site, they noticed a temperature of 100.0 and advised him to go to the ED and told him that his dialysis couldn't be done. The patient otherwise denied any additional complaints. Denied chest pain, SOB, nausea, vomiting, fever, chills, dizziness, diaphoresis, cough, or diarrhea. He underwent an extensive evaluation in the ED w/ T max 100.7. Finger x-ray revealed lucency in the distal portion of the middle phalanx of the R middle finger with concerns for Boo's abscess vs osteomyelitis. Laboratory evaluation revealed a WBC count of 11.6, Hgb 12.3, plt 194, Na 135, K 5.7, chloride 95, CO2 24, BUN 67, creatinine 11.19, and influenza negative. The patient was started on IV Vancomycin and Zosyn. Nephrology was consulted and the patient was restarted on his dialysis. Orthopedic surgery and ID were consulted. The patient's blood cultures grew S. aureus and he was continued on Vancomycin. Surgery recommended amputation of the R 3rd digit which the patient underwent on 11/19. The patient was started on Keflex by ID on 11/19 though the patient had a reaction to it, with itching, SOB, and vomiting. Patient was seen and examined. No acute events overnight. Patient with no complaints this morning. He denies any chest pain, shortness of breath or palpi tations. No nausea or vomiting. No fever or chills. Currently undergoing dialysis. Plans to arrange for IV vancomycin done through dialysis for at least 2-3 weeks. General: [non toxic], [no distress], [appears at stated age] Derm: [warm], [dry] Head: [atraumatic], [normocephalic], [symmetric] Eyes: [EOMI], [no lid lag], [anicteric sclera] Mouth: [no lip lesion], [mucus membranes moist] Cardiovascular: [S1S2 reg], [no murmur], [positive posterior tibial pulse bilateral], Lungs: [CTA bilateral], [no rhonchi, no rales] , [no accessory muscle use] Abdominal: [soft], [ nontender to palpation], [no guarding], [no appreciable organomegaly] Ext: [Left lower extremity BKA]. [Right lower extremity amputated toes], [right hand second digit amputation chronic, third digit post amputation with dressings clean dry and intact] Neuro: [no focal neuro deficits] Psych: [Alert], [oriented], [appropriate affect] Right hand osteomyelitis with MSSA bacteremia status post amputation 11/19/2019 ESRD on hemodialysis Hyperkalemia due to ESRD Type 2 diabetes mellitus with hyperglycemia Anemia of chronic disease As discussed with ID, patient will need 2-3 weeks of IV vancomycin to be done with dialysis. Insurance authorization is currently pending. Initial blood cultures were positive for MSSA, repeat blood cultures negative at 72 hours. Patient's potassium is 5.2 and he is currently undergoing dialysis. A repeat BMP has been ordered post dialysis. We will continue insulin sliding scale for hyperglycemia while inpatient. Patient can continue to take home dose of insulin on discharge. He will need adequate follow-up with ID and orthopedic surgery. He will need to continue dialysis on his outpatient schedule. Plans on DC home today. This complex discharge took about 35 minutes to complete. Pertinent Studies: Finger x-ray Procedures: Amputation Patient Condition at Discharge: Stable Plan - Discharge Summary Discharge Rx Participant: No New Discharge Prescriptions: Continue HYDROcodone/APAP 7.5-325MG [[place] 7.5-325] 1 tab PO TID PRN PRN Reason: Pain Midodrine HCl [ProAmatine] 10 mg PO MOWEFR@2100 PRN PRN Reason: Blood Pressure Pregabalin [Lyrica] 75 mg PO DIRECTED Albuterol Inhaler [Ventolin Hfa Inhaler] 2 puff INHALATION RT-HS Calcium Acetate [PhosLo] 2,001 - 2,668 mg PO AC-TID Insulin Degludec [Tresiba] 3 units SQ HS traMADol HCl [Ultram] 50 mg PO Q4HR PRN PRN Reason: Pain Discharge Medication List Albuterol Inhaler [Ventolin Hfa Inhaler] 2 puff INHALATION RT-HS 08/09/19 [History] HYDROcodone/APAP 7.5-325MG [[place] 7.5-325] 1 tab PO TID PRN 08/09/19 [History] Midodrine HCl [ProAmatine] 10 mg PO MOWEFR@2100 PRN 08/09/19 [History] Pregabalin [Lyrica] 75 mg PO DIRECTED 08/09/19 [History] Calcium Acetate [PhosLo] 2,001 - 2,668 mg PO AC-TID 08/12/19 [History] Insulin Degludec [Tresiba] 3 units SQ HS 08/12/19 [History] traMADol HCl [Ultram] 50 mg PO Q4HR PRN 11/16/19 [History] Follow up Appointment(s)/Referral(s): Sawyer Tapia DO [Medical Doctor] - 1 Week Ander Ortiz DO [Primary Care Provider] - 1-2 days Meliza Worthington MD [STAFF PHYSICIAN] - 1 Week Activity/Diet/Wound Care/Special Instructions: Diet: Renal Follow-up PCP within 3 days of discharge. Follow-up orthopedic surgery within 1 week of discharge. Follow-up infectious disease within 1 week of discharge. Take all medications as advised. Continue dialysis as you did in the outpatient setting. Will need vancomycin infusion with dialysis sessions. Discharge Disposition: HOME SELF-CARE
--- NOTE | 2019-11-21 16:04 | PN ---
PROGRESS NOTE Patient is seen on hemodialysis. He is tolerating his treatment well. On examination today, blood pressure was 158/82, heart rate 94 per minute. Patient is afebrile. EXAMINATION OF THE HEART: S1 and S2. EXAMINATION OF LUNGS: Bilateral breath sounds are heard. Decreased breath sounds at bases. ABDOMEN: Soft, non-tender. Examination of lower extremities shows no significant edema. Patient's right hand is currently dressed at the site of amputation of the finger, which is his right middle finger. LABS: Potassium 5.2, creatinine 10.4 mg/dL, sodium 135. ASSESSMENT: 1. End-stage renal disease, on hemodialysis on a Thursday, Thursday, Thursday schedule. I will increase his dialysis time to 4 hours, as patient runs 4 hours as outpatient. 2. Hyperkalemia, which was worsened related to recent surgery and amputation, currently improved. Expect further improvement after today's dialysis. 3. Hypertension. 4. Chronic kidney disease mineral bone disorder. 5. Type 2 diabetes. 6. Status post amputation at the middle phalanx of the right middle finger for osteomyelitis. PLAN: Increase hemodialysis time to 4 hours and repeat labs in a.m. MMODL / IJN: [id number] /
[2019-11-21 16:08] VITALS: BP 127/68; PULSE 69; TEMP 98.6
[2019-11-21 17:17] LABS: Glucose,Whole Blood 181 mg/dL (75-99)
[2019-11-21 18:37] LABS: Calcium 8.5 mg/dL (8.4-10.2); Potassium 3.9 mmol/L (3.5-5.1)
[2019-11-21] MEDS: ALBUTEROL NEBULIZED 2.5 MG/3 ML INHALATION SCH (19:31)
--- NOTE | 2019-11-21 21:55 | PN ---
PROGRESS NOTE DATE OF SERVICE: 11/21/2019 REASON FOR FOLLOWUP: Right hand middle finger abscess and cellulitis. INTERVAL HISTORY: The patient was seen on rounds this morning. The patient has been afebrile, breathing comfortably. No chest pain, shortness of breath or cough. No abdominal pain. No diarrhea or any worsening pain to the right middle finger area. PHYSICAL EXAMINATION: Blood pressure 127/68 with a pulse of 69, temperature 98.6. He is 98% on room air. General description is a middle-aged male lying in bed in no distress. RESPIRATORY SYSTEM: Unlabored breathing. Clear to auscultation anteriorly. HEART: S1, S2. Regular rate and rhythm. ABDOMEN: Soft. No tenderness. Right middle finger is currently dressed up. No obvious drainage on the dressing. LABS: Blood culture repeat from 11/18 has been negative. DIAGNOSTIC IMPRESSION AND PLAN: Patient with right middle finger abscess and cellulitis; MSSA with secondary bacteremia. Follow-up blood culture from 11/18 has been negative. Patient is status post amputation of the infected part. In view of the bacteremia, he will need to continue on IV antibiotic for at least 2 weeks from his negative blood culture, which will be vancomycin, as the patient did have a reaction to the cefazolin. Monitor the patient closely as outpatient. MMODL / IJN: [id number] /
== END 2019-11-21 19:50 | disposition home or self-care (01) | DRG 853 ==
LOC: EC 08:49 → 5NMEDONC 12:59 → OBSVTOIN 11-17 11:33
PROVIDERS: ADMIT Internal Medicine; ATTEND Internal Medicine
PROC: 5A1D70Z Performance of Urinary Filtration, Intermittent, Less than 6 Hours Per Day (ICD-10-PCS; 2019-11-17)
PROC: 0X6Q0Z2 Detachment at Right Middle Finger, Mid, Open Approach (ICD-10-PCS; principal; 2019-11-19 14:30)
PROC: 0LD70ZZ Extraction of Right Hand Tendon, Open Approach (ICD-10-PCS; 2019-11-19 14:30)
DX: A41.01 Sepsis due to Methicillin susceptible Staphylococcus aureus (principal); N18.6 End stage renal disease; E87.2 Acidosis; I12.0 Hypertensive chronic kidney disease with stage 5 chronic kidney disease or end stage renal disease; L02.511 Cutaneous abscess of right hand; M86.9 Osteomyelitis, unspecified; D63.8 Anemia in other chronic diseases classified elsewhere; E11.22 Type 2 diabetes mellitus with diabetic chronic kidney disease; E11.69 Type 2 diabetes mellitus with other specified complication; E11.42 Type 2 diabetes mellitus with diabetic polyneuropathy; E11.65 Type 2 diabetes mellitus with hyperglycemia; E66.9 Obesity, unspecified; R11.10 Vomiting, unspecified; T36.1X5A Adverse effect of cephalosporins and other beta-lactam antibiotics, initial encounter; L29.9 Pruritus, unspecified; E87.5 Hyperkalemia; J45.909 Unspecified asthma, uncomplicated; L03.011 Cellulitis of right finger; M65.841 Other synovitis and tenosynovitis, right hand; M89.9 Disorder of bone, unspecified; G47.33 Obstructive sleep apnea (adult) (pediatric); H40.9 Unspecified glaucoma; Z99.2 Dependence on renal dialysis; Z89.512 Acquired absence of left leg below knee; Z87.891 Personal history of nicotine dependence; Z79.4 Long term (current) use of insulin; Z79.899 Other long term (current) drug therapy; Z91.013 Allergy to seafood; Z90.49 Acquired absence of other specified parts of digestive tract; Z89.421 Acquired absence of other right toe(s); Z98.42 Cataract extraction status, left eye; Z98.41 Cataract extraction status, right eye; Z96.1 Presence of intraocular lens; Z68.33 Body mass index [BMI] 33.0-33.9, adult; Z82.49 Family history of ischemic heart disease and other diseases of the circulatory system
CPT/HCPCS: 36415; 80048; 80053; 80202; 83605; 84132; 85025; 85027; 85652; 86140; 86706; 87040; 87070; 87075; 87077; 87186; 87205; 87340; 87502; 88305; 88311; 90935; 93005; 94640; 96365; 96366; 96367; 96375; 96376; 99284

== ENCOUNTER 2020-03-20 16:08 | Inpatient (IN) | payer MEDICARE, OTHER ==
[2020-03-20] MEDS ORDERED: TEMAZEPAM 15 MG CAP PO PRN (16:11)
[2020-03-20] MEDS ORDERED: HYDROmorphone 0.5 MG/0.5 ML SYRINGE IVP PRN (16:11)
[2020-03-20] MEDS ORDERED: HYDROcodone/APAP 5-325MG 1 EACH TAB PO PRN (16:11)
[2020-03-20] MEDS ORDERED: diphenhydrAMINE 25 MG CAP PO PRN (16:11)
[2020-03-20] MEDS ORDERED: METOCLOPRAMIDE 5 MG/ML 2 ML VIAL IVP PRN (16:11)
[2020-03-20] MEDS ORDERED: ONDANSETRON 4 MG/2 ML VIAL IVP PRN (16:11)
[2020-03-20] MEDS ORDERED: VANCOMYCIN IV PER PHARMACY 1 EACH MISC MISCELLANE PRN (16:19)
[2020-03-20 17:29] LABS: Basophils % (A) 0 %; Eosinophils # (A) 0.2 k/uL (0-0.7); Eosinophils % (A) 2 %; HCT 37.2 % (39.0-53.0); HGB 11.6 gm/dL (13.0-17.5); Lymphocytes # (A) 1.1 k/uL (1.0-4.8); Lymphocytes % (A) 14 %; MCH 28.6 pg (25.0-35.0); MCHC 31.2 g/dL (31.0-37.0); MCV 91.7 fL (80.0-100.0); Mean Platelet Volume 8.6; Monocytes # (A) 0.6 k/uL (0-1.0); Monocytes % (A) 8 %; Neutrophils # (A) 6.3 k/uL (1.3-7.7); Neutrophils % (A) 75 %; Platelet Count 189 k/uL (150-450); RBC 4.05 m/uL (4.30-5.90); WBC 8.5 k/uL (3.8-10.6)
[2020-03-20 17:40] LABS: Albumin 4.2 g/dL (3.5-5.0); Calcium 9.3 mg/dL (8.4-10.2); Total Bilirubin 0.4 mg/dL (0.2-1.3); Total Protein 7.4 g/dL (6.3-8.2)
[2020-03-20] MEDS ORDERED: VANCOMYCIN 1,750 MG in SODIUM CHLORIDE 0.9% 500 ML 500 ML IVPB ONE (18:00)
[2020-03-20] MEDS: INSULIN ASPART (NovoLOG) 100 UNIT/ML VIAL SQ SCH ×2 (18:13→20:58)
[2020-03-20] MEDS ORDERED: HYDROcodone/APAP 7.5-325MG 1 EACH TAB PO PRN (18:48)
[2020-03-20] MEDS ORDERED: MIDODRINE 5 MG TAB PO PRN (18:48)
[2020-03-20] MEDS: LACTATED RINGERS 1,000 ML IV SCH (19:40)
[2020-03-20] MEDS: ALBUTEROL NEBULIZED 2.5 MG/3 ML INHALATION SCH (20:10)
[2020-03-20 20:48] LABS: Glucose,Whole Blood 168 mg/dL (75-99)
[2020-03-20] MEDS: INSULIN DETEMIR (LEVEMIR) 100 UNIT/ML SYR SQ SCH (20:58)
[2020-03-20] MEDS: PREGABALIN 75 MG CAP PO SCH (20:58)
[2020-03-20] MEDS: HYDROmorphone 0.5 MG/0.5 ML SYRINGE IVP PRN (20:59)
[2020-03-21] MEDS: HYDROcodone/APAP 5-325MG 1 EACH TAB PO PRN ×4 (00:21→21:03)
--- NOTE | 2020-03-21 02:30 | P.CONS ---
History of Present Illness - Reason for Consult Consult date: 03/20/20 Medical management - Chief Complaint Left index finger infection. 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 Avila's office due to worsening left index finger infection and cellulitis. Patient states that his finger was stuck in the door about a week back and had an accidental burn at and the tip couple of days later and since then he has been having increased swelling of the left index finger and redness and pain worsening up to the wrist. Patient was seen by orthopedic surgery/plastic surgery in the clinic and was recommended to admit to the hospital for IV antibiotics and possible I&D. Patient denied any complaints of fever or chills. No chest pain or shortness of breath. No nausea vomiting or abdominal pain or diarrhea. Patient is on hemodi alysis Thursday and Thursday. Patient had an x-ray at the doctor's office which showed possible bone infection as per the patient and was sent to hospital. Patient was started on antibiotics of vancomycin and ceftriaxone. Orthopedic surgery is planning for OR tomorrow. Review of Systems Constitutional: Patient denies any fever or chills . No generalized weakness or weight loss. Abdomen: Patient denied nausea vomiting and diarrhea and abdominal pain. Cardiovascular: Patient denies any chest pain or short of breath no palpitations. Respiratory: patient denied any cough is from production. No shortness of breath Neurologic: Patient denied any numbness or tingling. Patient does have dizziness and headache and ringing ears. Musculoskeletal: Left index finger swelling and pain Skin: Negative Psychiatric: Negative Endocrine: No heat or cold intolerance. No recent weight gain. Genitourinary: No dysuria or hematuria. All other 14 point ROS negative except the above Past Medical History Past Medical History: Asthma, Diabetes Mellitus, Eye Disorder, Hypertension, Musculoskeletal Disorder, Renal Disease, Sleep Apnea/CPAP/BIPAP Additional Past Medical History / Comment(s): End Stage Renal Disease- HEMODIAL YSIS THU, THU, THU, HAS FISTULAS IN BILATERAL ARMS, "CAN ONLY HAVE IV'S IN HANDS." USES O2 @ HS OCCASIONALLY. HX OSTEOMYELITIS L3-5 2010. RT INDEX FINGER ABSCESS. Neuropathy. No CPAP use. Bilateral Glaucoma. History of Any Multi-Drug Resistant Organisms: None Reported Past Surgical History: Cholecystectomy Additional Past Surgical History / Comment(s): LEFT BKA, RIGHT TOE AMPUTATIONS. FISTULA IN RFA, & LT INNER ELBOW. BILATERAL CATARACT SURGERY,bilateral lens LASER EYE SURGERY, right index finger amputation. Past Anesthesia/Blood Transfusion Reactions: No Reported Reaction Past Psychological History: No Psychological Hx Reported Additional Psychological History / Comment(s): Patient is not . Lived in [place] for most of his life however he is now out of the care of his son. His son work for the disabled [employer]. He moved from [place] to [place] here to [place]. And he followed his son. His son is now in over the road water truck driver but still resides here in the patient does live with him. He receives his hemodialysis in [place] and Dr. Linda is his store facility technician. 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 No experience. No recent international travel. No animals in the home. Was tobacco smoker but stopped about age 29. No current cocaine or methamphetamine use leg past. Does walk with assistive devices Smoking Status: Former smoker Past Alcohol Use History: Rare Additional Past Alcohol Use History / Comment(s): SMOKED AGE 9-30, UP TO 2 PPD. Past Drug Use History: Cocaine, Methamphetamine Additional Drug Use History / Comment(s): NO USE SINCE 1993. - Past Family History Mother Family Medical History: No Reported History Additional Family Medical History / Comment(s): Congestive heart failure. Father Additional Family Medical History / Comment(s): Congestive heart failure, myocardial infarction Medications and Allergies Home Medications Medication Instructions Recorded Confirmed Type HYDROcodone/APAP 7.5-325MG [[place] 1 tab PO TID PRN 08/09/19 03/20/20 History 7.5-325] Pregabalin [Lyrica] 75 mg PO HS 08/09/19 03/20/20 History Calcium Acetate [PhosLo] 2,668 mg PO AC-TID 08/12/19 03/20/20 History Insulin Degludec [Tresiba] 3 units SQ HS 08/12/19 03/20/20 History Albuterol Sulfate [Ventolin HFA] 2 puff INHALATION RT-Q4H PRN 03/20/20 03/20/20 History Pregabalin [Lyrica] 75 mg PO MOWEFR@0900 03/20/20 03/20/20 History Sensipar(Unknown Dose) 1 tab PO DAILY 03/20/20 03/20/20 History fentaNYL 25MCG/HR PATCH [Duragesic 1 patch TRANSDERM Q72H 03/20/20 03/20/20 History 25MCG/HR] Allergies Allergy/AdvReac Type Severity Reaction Status Date / Time shellfish derived [Shrimp] Allergy Anaphylaxis Verified 03/20/20 19:40 cefazolin [From Kefzol] AdvReac Intermediate Nausea Verified 11/19/19 23:40 Physical Exam Vitals: Vital Signs Temp Pulse Resp BP Pulse Ox 03/20/20 16:51 98.3 F 90 16 169/99 99 Intake and Output 03/20/20 03/20/20 03/20/20 06:59 14:59 22:59 Other: Weight 125 kg PHYSICAL EXAMINATION: Patient is lying in the bed comfortably, no acute distress, awake alert and oriented.. HEENT: Normocephalic. Neck is supple. Pupils reactive. Nostrils clear. Oral cavity is moist. Ears reveal no drainage. Neck reveals no JVD, carotid bruits, or thyromegaly. CHEST EXAMINATION: Trachea is central. Symmetrical expansion. Lung mir clear to auscultation and percussion. CARDIAC: Normal S1, S2 with no gallops. No murmurs ABDOMEN: Soft. Bowel sounds normal. No organomegaly. No abdominal bruits. Extremities: reveal no edema. No clubbing or cyanosis Left BKA and right leg toes amputation Right index finger amputation Neurologically awake, alert, oriented x3 with well-coordinated movements. No focal deficits noted Skin: No rash or skin lesions. Psychiatric: Coperative. Nonsuicidal Musculoskeletal: Swelling and redness of the left index finger extending up to the wrist. Open wound at the tip of the finger with dark eschar and no purulent drainage noted. Results CBC & Chem 7: 03/20/20 17:10 03/20/20 17:10 Labs: Abnormal Lab Results - Last 24 Hours (Table) 03/20/20 03/20/20 Range/Units 17:10 17:10 RBC 4.05 L (4.30-5.90) m/uL Hgb 11.6 L (13.0-17.5) gm/dL Hct 37.2 L (39.0-53.0) % Chloride 97 L (98-107) mmol/L BUN 47 H (9-20) mg/dL Creatinine 8.76 H* (0.66-1.25) mg/dL Glucose 114 H (74-99) mg/dL Assessment and Plan Assessment: Left index finger abscess with surrounding cellulitis. Possible osteomyelitis. Status post injury. 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 Obstructive sleep apnea not using CPAP at home Hypertension Asthma stable Bilateral glaucoma Previous history of smoking, cocaine use DVT prophylaxis with heparin subcu Plan: Patient will be continued on antibiotics in the form of ceftriaxone and vancomycin. ID will be consulted. Continue with insulin dosing and sliding scale and titrate as needed. Continue with home blood pressure medications and pain medications. Nephrology was consulted as well. Orthopedic surgery is planning for I&D. Please send deep cultures. Further recommendations based on the clinical course. Thank you for your consult. Time with Patient: Greater than 30
[2020-03-21] MEDS: HYDROmorphone 1 MG/ML 1 ML SYRINGE IVP PRN (04:01)
[2020-03-21] MEDS: LACTATED RINGERS 1,000 ML IV SCH ×3 (04:04→22:00)
[2020-03-21 07:15] LABS: Glucose,Whole Blood 74 mg/dL (75-99)
[2020-03-21 07:28] LABS: Basophils % (A) 1 %; Eosinophils # (A) 0.2 k/uL (0-0.7); Eosinophils % (A) 3 %; HCT 33.5 % (39.0-53.0); HGB 10.5 gm/dL (13.0-17.5); Lymphocytes # (A) 1.1 k/uL (1.0-4.8); Lymphocytes % (A) 15 %; MCHC 31.4 g/dL (31.0-37.0); MCV 92.5 fL (80.0-100.0); Mean Platelet Volume 8.4; Monocytes # (A) 0.6 k/uL (0-1.0); Monocytes % (A) 8 %; Neutrophils # (A) 4.9 k/uL (1.3-7.7); Neutrophils % (A) 71 %; Platelet Count 162 k/uL (150-450); RBC 3.62 m/uL (4.30-5.90); WBC 6.9 k/uL (3.8-10.6)
[2020-03-21] MEDS: CALCIUM ACETATE 667 MG TAB PO SCH ×3 (08:04→17:13)
[2020-03-21] MEDS: INSULIN ASPART (NovoLOG) 100 UNIT/ML VIAL SQ SCH ×4 (08:04→21:04)
--- NOTE | 2020-03-21 10:05 | P.NPCON ---
History of Present Illness - Reason for Consult end stage renal disease - History of Present Illness Reason for consultation: End-stage renal disease History of present illness: Patient is a 59-year-old male seen in renal consultation for end-stage renal disease. He is maintained on hemodialysis on Thursday schedule via right upper extremity AV fistula. Patient has long-standing history of diabetes mellitus and has undergone left [id number] amputation in the past. He has also undergone amputation of his right toes and right index and middle finger. He presents to the hospital due to worsening pain and swelling of his left index finger. Patient states he did injure his finger as it was stuck in the door about a week ago. He was seen by orthopedic surgery and was advised to go to the hospital. He is currently maintained on IV antibiotics. He may be undergoing incision and drainage this admission. He schedule for hemodialysis today. Denies chest pain or shortness of breath. No fever or chills. No drainage from his finger. No vomiting or diarrhea. Hemodynamically stable. Vital signs are stable. General: The patient appeared well nourished and normally developed. HEENT: Head exam is unremarkable. Neck is without jugular venous distension. LUNGS: Lungs are clear to auscultation and percussion. Breath sounds decreased. HEART: Rate and Rhythm are regular. First and second heart sounds normal. No murmurs, rubs or gallops. ABDOMEN: Abdominal exam reveals normal bowel sounds. Non-tender and non- distended. EXTREMITITES: No clubbing, cyanosis, or edema. Chronic changes noted. Left BKA. Right toes abdicated. Past Medical History Past Medical History: Asthma, Diabetes Mellitus, Eye Disorder, Hypertension, Musculoskeletal Disorder, Renal Disease, Sleep Apnea/CPAP/BIPAP Additional Past Medical History / Comment(s): End Stage Renal Disease- HEMODIALYSIS THU, THU, THU, HAS FISTULAS IN BILATERAL ARMS, "CAN ONLY HAVE IV'S IN HANDS." USES O2 @ HS OCCASIONALLY. HX OSTEOMYELITIS L3-5 2010. RT INDEX FINGER ABSCESS. Neuropathy. No CPAP use. Bilateral Glaucoma. History of Any Multi-Drug Resistant Organisms: None Reported Past Surgical History: Cholecystectomy Additional Past Surgical History / Comment(s): LEFT BKA, RIGHT TOE AMPUTATIONS. FISTULA IN RFA, & LT INNER ELBOW. BILATERAL CATARACT SURGERY,bilateral lens LASER EYE SURGERY, right index finger amputation. Past Anesthesia/Blood Transfusion Reactions: No Reported Reaction Past Psychological History: No Psychological Hx Reported Additional Psychological History / Comment(s): Patient is not . Lived in [place] for most of his life however he is now out of the care of his son. His son work for the disabled [employer]. He moved from [place] to [place] here to [place]. And he followed his son. His son is now in over the road diesel truck driver but still resides here in the patient does live with him. He receives his hemodialysis in [place] and Dr. Linda is his language pathologist. 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 No capo tary experience. No recent international travel. No animals in the home. Was tobacco smoker but stopped about age 29. No current cocaine or methamphetamine use leg past. Does walk with assistive devices Smoking Status: Former smoker Past Alcohol Use History: Rare Additional Past Alcohol Use History / Comment(s): SMOKED AGE 9-30, UP TO 2 PPD. Past Drug Use History: Cocaine, Methamphetamine Additional Drug Use History / Comment(s): NO USE SINCE 1993. - Past Family History Mother Family Medical History: No Reported History Additional Family Medical History / Comment(s): Congestive heart failure. Father Additional Family Medical History / Comment(s): Congestive heart failure, myocardial infarction Medications and Allergies Home Medications Medication Instructions Recorded Confirmed Type HYDROcodone/APAP 7.5-325MG [[place] 1 tab PO TID PRN 08/09/19 03/20/20 History 7.5-325] Pregabalin [Lyrica] 75 mg PO HS 08/09/19 03/20/20 History Calcium Acetate [PhosLo] 2,668 mg PO AC-TID 08/12/19 03/20/20 History Insulin Degludec [Tresiba] 3 units SQ HS 08/12/19 03/20/20 History Albuterol Sulfate [Ventolin HFA] 2 puff INHALATION RT-Q4H PRN 03/20/20 03/20/20 History Pregabalin [Lyrica] 75 mg PO MOWEFR@0900 03/20/20 03/20/20 History fentaNYL 25MCG/HR PATCH [Duragesic 1 patch TRANSDERM Q72H 03/20/20 03/20/20 History 25MCG/HR] Cinacalcet HCl [Sensipar] 30 mg PO DAILY 03/21/20 03/21/20 History Allergies Allergy/AdvReac Type Severity Reaction Status Date / Time shellfish derived [Shrimp] Allergy Anaphylaxis Verified 03/20/20 19:40 cefazolin [From Kefzol] AdvReac Intermediate Nausea Verified 11/19/19 23:40 Physical Exam Vitals: Vital Signs Temp Pulse Resp BP Pulse Ox 03/21/20 08:00 74 14 03/21/20 07:00 98.0 F 74 14 160/84 96 03/21/20 04:00 16 03/21/20 02:30 98.4 F 76 20 146/77 97 03/20/20 20:35 98.6 F 87 20 144/66 97 03/20/20 20:00 90 16 03/20/20 16:51 98.3 F 90 16 169/99 99 Intake and Output 03/20/20 03/21/20 03/21/20 22:59 06:59 14:59 Intake Total 1700 Balance 1700 Intake: Intake, IV Titration 1700 Amount Lactated Ringers 1,000 ml 1200 @ 100 mls/hr IV .Q10H [facility] Rx#:[id number] Vancomycin 1,750 mg In 500 Sodium Chloride 0.9% 500 ml 500 ml @ 167 mls/hr IVPB ONCE ONE Rx#: [id number] Other: # Voids 0 Weight 125 kg Results - Lab Results Most recent lab results Calcium 9.3 mg/dL (8.4-10.2) 03/20/20 17:10 03/21/20 06:25 03/20/20 17:10 Assessment and Plan Plan: Assessment: 1. End-stage renal disease maintained on hemodialysis on Thursday schedule. 2. Left index finger cellulitis maintained on antibiotics. 3. History of left BKA and right toes amputation. 4. Insulin-dependent diabetes mellitus. 5. Chronic kidney disease mineral bone disease maintained on PhosLo. Plan: Hemodialysis today. Antibiotics per infectious disease. Monitor vancomycin levels. Target level less than 20. Potential incision and drainage this admission. Thank you for the completion. I will continue to follow the patient with you during his hospital stay
[2020-03-21 11:38] LABS: Glucose,Whole Blood 90 mg/dL (75-99)
--- NOTE | 2020-03-21 14:02 | P.HPOR ---
History of Present Illness H&P Date: 03/21/20 Chief Complaint: Left index finger pain & swelling Mr. Peterson is well known to me and presented to the office for re-evaluation of his left index finger. He states that he burned it cooking some meat about 2 weeks ago. Initially, it seemed to be doing okay. The last few days, he has noticed increasing swelling and pain. He denies any fevers, chills or drainage from the wound. The pain extends up the back of his hand. Pain level tends to fluctuate. He denies numbness or tingling. He is still able to use it, but it is becoming more uncomfortable. After evaluation of his hand, he was sent directly to the hospital for IV antibiotics and continued monitoring. Prior history: Status post I&D and partial right middle finger amputation on 11/19/2019. Status post I&D and partial right index finger amputation on 08/11/19. Past Medical History Past Medical History: Asthma, Diabetes Mellitus, Eye Disorder, Hypertension, Musculoskeletal Disorder, Renal Disease, Sleep Apnea/CPAP/BIPAP Additional Past Medical History / Comment(s): End Stage Renal Disease- HEMODIALYSIS MON, WED, THU, HAS FISTULAS IN BILATERAL ARMS, "CAN ONLY HAVE IV'S IN HANDS." USES O2 @ HS OCCASIONALLY. HX OSTEOMYELITIS L3-5 2010. RT INDEX FINGER ABSCESS. Neuropathy. No CPAP use. Bilateral Glaucoma. History of Any Multi-Drug Resistant Organisms: None Reported Past Surgical History: Cholecystectomy Additional Past Surgical History / Comment(s): LEFT BKA, RIGHT TOE AMPUTATIONS. FISTULA IN RFA, & LT INNER ELBOW. BILATERAL CATARACT SURGERY,bilateral lens LASER EYE SURGERY, right index finger amputation. Past Anesthesia/Blood Transfusion Reactions: No Reported Reaction Past Psychological History: No Psychological Hx Reported Additional Psychological History / Comment(s): Patient is not . Lived in [place] for most of his life however he is now out of the care of his son. His son work for the disabled [employer] veterans. He moved from [place] to [place] here to [place]. And he followed his son. His son is now in over the road cone trucker but still resides here in the patient does live with him. He receives his hemodialysis in [place] and Dr. Linda is his lithographic general worker. 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 No experience. No recent international travel. No animals in the home. Was tobacco smoker but stopped about age 29. No current cocaine or methamphetamine use leg past. Does walk with assistive devices Smoking Status: Former smoker Past Alcohol Use History: Rare Additional Past Alcohol Use History / Comment(s): SMOKED AGE 9-30, UP TO 2 PPD. Past Drug Use History: Cocaine, Methamphetamine Additional Drug Use History / Comment(s): NO USE SINCE 1993. - Past Family History Mother Family Medical History: No Reported History Additional Family Medical History / Comment(s): Congestive heart failure. Father Additional Family Medical History / Comment(s): Congestive heart failure, myocardial infarction Medications and Allergies Home Medications Medication Instructions Recorded Confirmed Type HYDROcodone/APAP 7.5-325MG [[place] 1 tab PO TID PRN 08/09/19 03/20/20 History 7.5-325] Pregabalin [Lyrica] 75 mg PO HS 08/09/19 03/20/20 History Calcium Acetate [PhosLo] 2,668 mg PO AC-TID 08/12/19 03/20/20 History Insulin Degludec [Tresiba] 3 units SQ HS 08/12/19 03/20/20 History Albuterol Sulfate [Ventolin HFA] 2 puff INHALATION RT-Q4H PRN 03/20/20 03/20/20 History Pregabalin [Lyrica] 75 mg PO MOWEFR@0900 03/20/20 03/20/20 History fentaNYL 25MCG/HR PATCH [Duragesic 1 patch TRANSDERM Q72H 03/20/20 03/20/20 History 25MCG/HR] Cinacalcet HCl [Sensipar] 30 mg PO DAILY 03/21/20 03/21/20 History Allergies Allergy/AdvReac Type Severity Reaction Status Date / Time shellfish derived [Shrimp] Allergy Anaphylaxis Verified 03/20/20 19:40 cefazolin [From Kefzol] AdvReac Intermediate Nausea Verified 11/19/19 23:40 Physical Examination Constitution: Normal stature and development; appears stated age HEENT: Normocephalic & atraumatic Cardiovascular: Regular rate & rhythm Pulmonary: Unlabored respiratory effort without audible wheeze or conversational dyspnea Abdomen: Soft, nontender & nondistended Integumentary: No rashes or skin lesions noted in the examined areas Psychiatric: Patient interacts appropriately and is alert & oriented to person, place, time and purpose Musculoskeletal - Left hand and index finger: Stable black eschar at the tip of the digit is still intact. Interval worsening of the edema in the distal phalanx. The pulp is bulbous and tender to palpatio n. There appears to be some subcutaneous fluctuance. The edema and erythema over the dorsum of the proximal phalanx and hand has improved. These areas and no longer tender to palpation. Results - Labs Labs: Abnormal Lab Results - Last 24 Hours (Table) 03/20/20 03/20/20 03/20/20 Range/Units 17:10 17:10 20:45 RBC 4.05 L (4.30-5.90) m/uL Hgb 11.6 L (13.0-17.5) gm/dL Hct 37.2 L (39.0-53.0) % Chloride 97 L (98-107) mmol/L BUN 47 H (9-20) mg/dL Creatinine 8.76 H* (0.66-1.25) mg/dL Glucose 114 H (74-99) mg/dL POC Glucose (mg/dL) 168 H (75-99) mg/dL 03/21/20 03/21/20 Range/Units 06:25 07:14 RBC 3.62 L (4.30-5.90) m/uL Hgb 10.5 L (13.0-17.5) gm/dL Hct 33.5 L (39.0-53.0) % Chloride (98-107) mmol/L BUN (9-20) mg/dL Creatinine (0.66-1.25) mg/dL Glucose (74-99) mg/dL POC Glucose (mg/dL) 74 L (75-99) mg/dL H & H 03/20/20 03/21/20 Range/Units 17:10 06:25 Hgb 11.6 L 10.5 L (13.0-17.5) gm/dL Hct 37.2 L 33.5 L (39.0-53.0) % Result Diagrams: 03/21/20 06:25 03/20/20 17:10 Assessment and Plan Assessment: Left index finger burn wound with deep abscess and osteomyelitis of the distal phalanx. History of prior surgical debridements and digital amputations for infection Diabetes mellitus. Chronic kidney disease on hemodialysis. Morbid obesity. Plan: Given his previous history and the clinical progression, I recommended proceeding with surgical debridement and likely partial amputation of the index finger. Risks and benefits of surgery were discussed. We reviewed the surgical plan, as well as the expected postoperative course. Questions were invited and answered; the patient expressed understanding, willingness to accept these risks and wi shed to proceed with surgery. He is scheduled for dialysis this afternoon. We will plan for surgery tomorrow (local with sedation). NPO after midnight. Continue as-needed pain management.
[2020-03-21 16:10] LABS: Glucose,Whole Blood 180 mg/dL (75-99)
[2020-03-21 20:41] LABS: Glucose,Whole Blood 133 mg/dL (75-99)
[2020-03-21] MEDS: ALBUTEROL NEBULIZED 2.5 MG/3 ML INHALATION SCH (20:41)
[2020-03-21] MEDS ORDERED: VANCOMYCIN 1,750 MG in SODIUM CHLORIDE 0.9% 500 ML 500 ML IVPB ONE (21:00)
[2020-03-21] MEDS: PREGABALIN 75 MG CAP PO SCH (21:03)
[2020-03-21] MEDS: INSULIN DETEMIR (LEVEMIR) 100 UNIT/ML SYR SQ SCH (21:04)
--- NOTE | 2020-03-22 00:30 | P.CONS ---
History of Present Illness - Reason for Consult Consult date: 03/21/20 left index finger infection Requesting physician: J Carlos Babin - Chief Complaint left index finger pain x 2 weeks - History of Present Illness Patient is a 59-year-old male with a past medical history significant for finger infection requiring partial amputation culture positive for MRSA patient apparently did have a bone wound to his left index finger about 2 weeks ago patient initially was doing okay however over the last few days have the left index finger has become more swollen red and painful patient describes the pain to be throbbing to dull aching almost 7-8 out of 10 and the pain is rating to his wrist area there is no drainage denies high-grade fever or chills with the symptom and the patient was reevaluated by his surgeon patient has been admitted to the hospital for IV antibiotic patient was started on vancomycin infectious was consulted for further recommendation regarding my therapy since admission to the hospital patient has been afebrile white count has been normal wagner PCR was negative. Review of Systems Positive point has been mentioned in HPI rest of the systems are negative Past Medical History Past Medical History: Asthma, Diabetes Mellitus, Eye Disorder, Hypertension, Musculoskeletal Disorder, Renal Disease, Sleep Apnea/CPAP/BIPAP Additional Past Medical History / Comment(s): End Stage Renal Disease- HEMODIALYSIS MON, WED, THU, HAS FISTULAS IN BILATERAL ARMS, "CAN ONLY HAVE IV'S IN HANDS." USES O2 @ HS OCCASIONALLY. HX OSTEOMYELITIS L3-5 2010. RT INDEX FINGER ABSCESS. Neuropathy. No CPAP use. Bilateral Glaucoma. History of Any Multi-Drug Resistant Organisms: None Reported Past Surgical History: Cholecystectomy Additional Past Surgical History / Comment(s): LEFT BKA, RIGHT TOE AMPUTATIONS. FISTULA IN RFA, & LT INNER ELBOW. BILATERAL CATARACT SURGERY,bilateral lens LASER EYE SURGERY, right index finger amputation. Past Anesthesia/Blood Transfusion Reactions: No Reported Reaction Past Psychological History: No Psychological Hx Reported Additional Psychological History / Comment(s): Patient is not . Lived in [place] for most of his life however he is now out of the care of his son. His son work for the disabled [employer]. He moved from [place] to [place] here to [place]. And he followed his son. His son is now in over the road supervisor ordnance truck installation but still resides here in the patient does live with him. He receives his hemodialysis in [place] and Dr. Linda is his electric welder. 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 No experience. No recent international travel. No animals in the home. Was tobacco smoker but stopped about age 29. No current cocaine or methamphetamine use leg past. Does walk with assistive devices Smoking Status: Former smoker Past Alcohol Use History: Rare Additional Past Alcohol Use History / Comment(s): SMOKED AGE [age], UP TO 2 PPD. Past Drug Use History: Cocaine, Methamphetamine Additional Drug Use History / Comment(s): NO USE SINCE 1993. - Past Family History Mother Family Medical History: No Reported History Additional Family Medical History / Comment(s): Congestive heart failure. Father Additional Family Medical History / Comment(s): Congestive heart failure, myocardial infarction Medications and Allergies Home Medications Medication Instructions Recorded Confirmed Type HYDROcodone/APAP 7.5-325MG [Jansen 1 tab PO TID PRN 08/09/19 03/20/20 History 7.5-325] Pregabalin [Lyrica] 75 mg PO HS 08/09/19 03/20/20 History Calcium Acetate [PhosLo] 2,668 mg PO AC-TID 08/12/19 03/20/20 History Insulin Degludec [Tresiba] 3 units SQ HS 08/12/19 03/20/20 History Albuterol Sulfate [Ventolin HFA] 2 puff INHALATION RT-Q4H PRN 03/20/20 03/20/20 History Pregabalin [Lyrica] 75 mg PO MOWEFR@0900 03/20/20 03/20/20 History fentaNYL 25MCG/HR PATCH [Duragesic 1 patch TRANSDERM Q72H 03/20/20 03/20/20 History 25MCG/HR] Cinacalcet HCl [Sensipar] 30 mg PO DAILY 03/21/20 03/21/20 History Allergies Allergy/AdvReac Type Severity Reaction Status Date / Time shellfish derived [Shrimp] Allergy Anaphylaxis Verified 03/20/20 19:40 cefazolin [From Kefzol] AdvReac Intermediate Nausea Verified 11/19/19 23:40 Physical Exam Vitals: Vital Signs Temp Pulse Resp BP Pulse Ox 03/21/20 14:44 98.0 F 86 97 03/21/20 08:00 74 14 03/21/20 07:00 98.0 F 74 14 160/84 96 03/21/20 04:00 16 03/21/20 02:30 98.4 F 76 20 146/77 97 03/20/20 20:35 98.6 F 87 20 144/66 97 03/20/20 20:00 90 16 03/20/20 16:51 98.3 F 90 16 169/99 99 Intake and Output 03/20/20 03/21/20 03/21/20 22:59 06:59 14:59 Intake Total 1700 480 Balance 1700 480 Intake: IV 200 Lactated Ringers 1,000 ml 200 @ 100 mls/hr IV .Q10H SKY Rx#:[id number] Intake, IV Titration 1700 Amount Lactated Ringers 1,000 ml 1200 @ 100 mls/hr IV .Q10H SKY Rx#:[id number] Vancomycin 1,750 mg In 500 Sodium Chloride 0.9% 500 ml 500 ml @ 167 mls/hr IVPB ONCE ONE Rx#: [id number] Oral 280 Other: # Voids 0 2 Weight 125 kg GENERAL DESCRIPTION: Middle-aged male lying in bed, no distress. No tachypnea or accessory muscle of respiration use. HEENT: Shows Pallor , no scleral icterus. Oral mucous membrane is dry. NECK: Trachea central, no thyromegaly. LUNGS: Unlabored breathing. Clear to auscultation anteriorly. No wheeze or crackle. HEART: S1, S2, regular rate and rhythm. ABDOMEN: Soft, no tenderness , guarding or rigidity EXTREMITIES: Left index finger tip did have a bone with some swelling no significant redness or any drainage sKIN: No rash, no masses palpable. NEUROLOGICAL: The patient is awake, alert, oriented x3, mood and affect normal Results CBC & Chem 7: 03/21/20 06:25 03/20/20 17:10 Labs: Abnormal Lab Results - Last 24 Hours (Table) 03/20/20 03/20/20 03/20/20 Range/Units 17:10 17:10 20:45 RBC 4.05 L (4.30-5.90) m/uL Hgb 11.6 L (13.0-17.5) gm/dL Hct 37.2 L (39.0-53.0) % Chloride 97 L (98-107) mmol/L BUN 47 H (9-20) mg/dL Creatinine 8.76 H* (0.66-1.25) mg/dL Glucose 114 H (74-99) mg/dL POC Glucose (mg/dL) 168 H (75-99) mg/dL 03/21/20 03/21/20 Range/Units 06:25 07:14 RBC 3.62 L (4.30-5.90) m/uL Hgb 10.5 L (13.0-17.5) gm/dL Hct 33.5 L (39.0-53.0) % Chloride (98-107) mmol/L BUN (9-20) mg/dL Creatinine (0.66-1.25) mg/dL Glucose (74-99) mg/dL POC Glucose (mg/dL) 74 L (75-99) mg/dL Assessment and Plan Assessment: patient with a left index finger bone wound with secondary cellulitis and concern for underlying deep infection this patient did have previous history of MRSA infection and a dialysis patient will need to cover for the MRSA to be the likely pathogen (1) Abscess of finger Current Visit: No Status: Acute Code(s): L02.519 - CUTANEOUS ABSCESS OF UNSP ECIFIED HAND SNOMED Code(s): 81209139 Plan: 1-await I&D of this area and deep cultures 2-vancomycin pharmacy to dose her with a target trough of 15 while watching her kidney function and Vanco trough closely. We will follow on clinical condition and cultures to further adjust medication if needed Thank you for this consultation we will follow the patient along with you Time with Patient: Greater than 30
[2020-03-22] MEDS: HYDROmorphone 0.5 MG/0.5 ML SYRINGE IVP PRN ×2 (04:50→14:12)
[2020-03-22] MEDS ORDERED: ONDANSETRON 4 MG/2 ML VIAL ONE (06:00)
[2020-03-22] MEDS ORDERED: PHENYLEPHRINE-0.9% NACL SYG 1 MG/10 ML SYRINGE ONE (06:00)
[2020-03-22] MEDS ORDERED: LIDOCAINE 1% INJ 10MG/ML (20 ML MDV) ONE (06:00)
[2020-03-22] MEDS ORDERED: MIDAZOLAM 2 MG/2 ML VIAL ONE (06:00)
[2020-03-22] MEDS ORDERED: fentaNYL (PF) 50 MCG/ML 2 ML AMP ONE (06:00)
[2020-03-22] MEDS ORDERED: PROPOFOL 10 MG/ML 20 ML VIAL IV ONE (06:00)
[2020-03-22] MEDS ORDERED: SUCCINYLCHOLINE CHLORIDE 100 MG/5 ML SYR IV ONE (06:00)
[2020-03-22] MEDS ORDERED: IV FLUID CONTINUATION 1,000 ML IV ONE (06:04)
[2020-03-22] MEDS ORDERED: LIDOCAINE 2% (PF) 20 MG/ML 10 ML AMP SQ ONE (06:20)
[2020-03-22] MEDS ORDERED: SODIUM CHLORIDE 0.9% 500 ML 500 ML IV ONE (07:13)
[2020-03-22] MEDS: CALCIUM ACETATE 667 MG TAB PO SCH ×4 (07:41→17:50)
[2020-03-22] MEDS: INSULIN ASPART (NovoLOG) 100 UNIT/ML VIAL SQ SCH ×4 (07:41→21:38)
--- NOTE | 2020-03-22 07:45 | P.OP ---
Date of Procedure: 03/22/20 Preoperative Diagnosis: Left index finger gangrene with abscess and acute osteomyelitis of the distal phalanx Postoperative Diagnosis: Left index finger gangrene with abscess and acute osteomyelitis of the distal phalanx Procedure(s) Performed: Left index finger irrigation and debridement with partial amputation (distal phalanx) Anesthesia: BEBO, local Surgeon: Sawyer Tapia Estimated Blood Loss (ml): 5 Pathology: other (Distal phalanx (pathology) and swab culture) Condition: stable Disposition: PACU Indications for Procedure: The patient is a pleasant 59-year-old male who sustained a burn injury to his left index finger. Over the following weeks, he developed progressive pain and swelling. When evaluated in the office, a necrotic burn wound was noted at the tip of the digit with evidence of active infection. Imaging demonstrated findings consistent with osteomyelitis. He has a history of multiple prior similar infections which resulted in amputations. Surgical debridement was recommended. Risks and benefits were reviewed including (but not limited to) the risks of bleeding, injury to tendons or neurovascular structures, persistent or recurrent infection, wound healing problems, stiffness and possible need for additional surgery. The patient expressed understanding, willingness to accept these risks and wished to proceed with surgery. Consent forms were signed. The surgical site was confirmed and marked preoperatively. Operative Findings: Deep abscess in the pulp with clinical evidence of osteomyelitis of the distal phalanx. No purulence in the DIP joint or along the flexor or extensor tendons. Description of Procedure: The patient was positioned supine with the operative limb on a hand table. General anesthesia was administered uneventfully. A digital block was performed using 10 mL of 2% lidocaine without epinephrine. The left upper extremity was prepped and draped in standard, sterile fashion. A time-out was performed, confirming patient identifiers, the operative side, site and the procedure to be performed: all team members expressed agreement. No tourniquet was used. Loupe magnification was used throughout the case for optimum visualization. An incision was made on the radial aspect of the distal phalanx, along the midaxial line. Spreading dissection was used to explore the pulp tissue. A pocket of purulent fluid was identified and a swab culture was obtained. The bone of the distal phalanx gave way easily with probed with a blunt instrument. Based on his prior history, the decision was made to proceed with primary amputation. A fishmouth incision was marked at the distal aspect of the middle phalanx. The skin was sharply incised and full-thickness skin flaps were elevated. The dorsal skin flap was elevated off the extensor tendon. The neurovascular bundles on both sides were identified and dissected free. The nerves were gently held taut and sharply resected, recessing below the level of the intended amputation. The vessels were divided. The extensor and FDP tendons were sharply transected at the DIP joint level. The joint capsule was incised and the collateral ligaments were released. The remaining soft tissue attachments were sharply released and the distal phalanx was amputated and sent to pathology. The wound was explored, including the distal aspects of the extensor mechanism and flexor sheath: No further purulent fluid or necrotic tissue was identified. The surrounding tissues were mechanically debrided with a rongeur and copiously irrigated with normal saline using a bulb syringe. The condyles of the middle phalanx head were resected and contoured with a rongeur. The wound was again irrigated. The volar and dorsal skin flaps were mobilized distally over the end of the bone, achieving excellent coverage without tension.. The skin edges of both flaps were sharply revised and contoured to remove dog ears. The skin flaps were closed over the end of the middle phalanx with interrupted 4-0 Prolene sutures. Good hemostasis was maintained throughout the case without the need for tourniquet. Sterile dressings of Adaptic, 4 x 4's, Gasper and Coban were applied. All sponge, needle and instrument counts were correct at the end of the case. The patient tolerated the procedure well. He was taken to recovery in stable condition.
[2020-03-22] MEDS ORDERED: HYDROmorphone 0.5 MG/0.5 ML SYRINGE IVP ONE (07:50)
[2020-03-22 08:11] LABS: Glucose,Whole Blood 81 mg/dL (75-99)
[2020-03-22] MEDS: LACTATED RINGERS 1,000 ML IV SCH ×3 (09:01→17:52)
--- NOTE | 2020-03-22 10:19 | P.PN ---
Subjective Progress Note Date: 03/21/20 Principal diagnosis: Left index finger abscess with surrounding cellulitis Patient is a 59-year-old male with a known history of hypertension, diabetes type 2, ESRD on hemodialysis, obstructive sleep apnea not using CPAP, diabetic peripheral neuropathy and history of left BKA due to gangrene and right foot toes amputation status post fracture, right index finger amputation and previous history of smoking other medical medical problems including history of cocaine and methamphetamine use was sent to hospital from Dr. Avila's office due to worsening left index finger infection and cellulitis. Patient states that his finger was stuck in the door about a week back and had an accidental burn at and the tip couple of days later and since then he has been having increased swelling of the left index finger and redness and pain worsening up to the wrist. Patient was seen by orthopedic surgery/plastic surgery in the clinic and was recommended to admit to the hospital for IV antibiotics and possible I&D. Patient denied any complaints of fever or chills. No chest pain or shortness of breath. No nausea vomiting or abdominal pain or diarrhea. Patient is on hemodialysis Thursday and Thursday. Patient had an x-ray at the doctor's office which showed possible bone infection as per the patient and was sent to hospital. Patient was started on antibiotics of vancomycin and ceftriaxone. Orthopedic surgery is planning for OR tomorrow. 03/21/2020 Patient is currently undergoing hemodialysis. Awake alert and oriented 3. No complaints of chest pain or shortness of breath. Left index finger swelling is improved. Orthopedic surgery is planning for distal phalanx amputation tomorrow. Patient is afebrile. Continued on antibiotics in the form of vancomycin and ceftriaxone. Nephrology is following as well. ID on board. No complaints of fever or chills. Cultures have been negative so far. Current medications reviewed. Objective - Vital Signs Vital signs: Vital Signs Temp 99.2 F 03/21/20 19:45 Pulse 89 03/21/20 19:45 Resp 18 03/21/20 19:45 BP 177/83 03/21/20 19:45 Pulse Ox 97 03/21/20 19:45 Intake & Output 03/21/20 03/21/20 03/22/20 06:59 18:59 06:59 Intake Total 1700 480 Output Total 2500 Balance 1699 -2019 Intake: IV 200 Lactated Ringers 1,000 ml 200 @ 100 mls/hr IV .Q10H SKY Rx#:[id number] Intake, IV Titration 1700 Amount Lactated Ringers 1,000 ml 1200 @ 100 mls/hr IV .Q10H SKY Rx#:[id number] Vancomycin 1,750 mg In 500 Sodium Chloride 0.9% 500 ml 500 ml @ 167 mls/hr IVPB ONCE ONE Rx#: [id number] Oral 280 Output: Hemodialysis 2500 Other: # Voids 0 2 - Exam PHYSICAL EXAMINATION: Patient is lying in the bed comfortably, no acute distress, awake alert and oriented.. HEENT: Normocephalic. Neck is supple. Pupils reactive. Nostrils clear. Oral cavity is moist. Ears reveal no drainage. Neck reveals no JVD, carotid bruits, or thyromegaly. CHEST EXAMINATION: Trachea is central. Symmetrical expansion. Lung mir clear to auscultation and percussion. CARDIAC: Normal S1, S2 with no gallops. No murmurs ABDOMEN: Soft. Bowel sounds normal. No organomegaly. No abdominal bruits. Extremities: reveal no edema. No clubbing or cyanosis Left BKA and right leg toes amputation Right index finger amputation Neurologically awake, alert, oriented x3 with well-coordinated movements. No focal deficits noted Skin: No rash or skin lesions. Psychiatric: Coperative. Nonsuicidal Musculoskeletal: Swelling and redness of the left index finger extending up to the wrist. Open wound at the tip of the finger with dark eschar and no purulent drainage noted. - Labs CBC & Chem 7: 03/21/20 06:25 03/20/20 17:10 Labs: Abnormal Lab Results - Last 24 Hours (Table) 03/21/20 03/21/20 03/21/20 Range/Units 06:25 07:14 16:09 RBC 3.62 L (4.30-5.90) m/uL Hgb 10.5 L (13.0-17.5) gm/dL Hct 33.5 L (39.0-53.0) % POC Glucose (mg/dL) 74 L 180 H (75-99) mg/dL 03/21/20 Range/Units 20:40 RBC (4.30-5.90) m/uL Hgb (13.0-17.5) gm/dL Hct (39.0-53.0) % POC Glucose (mg/dL) 133 H (75-99) mg/dL Assessment and Plan Assessment: Left index finger abscess with surrounding cellulitis. Possible osteomyelitis. Status post injury. 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 Obstructive sleep apnea not using CPAP at home Hypertension Asthma stable Bilateral glaucoma Previous history of smoking, cocaine use DVT prophylaxis with heparin subcu Plan: Patient will be continued on antibiotics in the form of ceftriaxone and vancomycin. ID and nephrology is on board. Continue with insulin dosing and sliding scale and titrate as needed. Continue with home blood pressure medications and pain medications. Nephrology was consulted as well. Orthopedic surgery is planning for I&Dand possibledistal phalanx amputation. Please send deep cultures. Further recommendations based on the clinical course. Time with Patient: Greater than 30
--- NOTE | 2020-03-22 10:22 | P.PN ---
Subjective Patient is seen in follow-up for end-stage renal disease. He is maintained on hemodialysis on Thursday schedule. Underwent debridement with partial amputation of the left index finger on March 21. No active complaints at this time. Vital signs are stable. General: The patient appeared well nourished and normally developed. HEENT: Head exam is unremarkable. Neck is without jugular venous distension. LUNGS: Lungs are clear to auscultation and percussion. Breath sounds decreased. HEART: Rate and Rhythm are regular. First and second heart sounds normal. No murmurs, rubs or gallops. ABDOMEN: Abdominal exam reveals normal bowel sounds. Non-tender and non- distended. EXTREMITITES: No clubbing, cyanosis, or edema. BKA noted. Objective - Vital Signs Vital signs: Vital Signs Temp 97.6 F 03/22/20 08:45 Pulse 72 03/22/20 09:50 Resp 18 03/22/20 08:45 BP 141/81 03/22/20 09:50 Pulse Ox 99 03/22/20 09:50 Intake & Output 03/21/20 03/22/20 03/22/20 18:59 06:59 18:59 Intake Total 480 250 100 Output Total 2500 5 Balance -2019 250 95 Intake: IV 200 250 100 Lactated Ringers 1,000 ml 200 @ 100 mls/hr IV .Q10H SKY Rx#:[id number] Oral 280 Output: Hemodialysis 2500 Estimated Blood Loss 5 Other: # Voids 2 0 - Labs CBC & Chem 7: 03/21/20 06:25 03/20/20 17:10 Labs: Abnormal Lab Results - Last 24 Hours (Table) 03/21/20 03/21/20 Range/Units 16:09 20:40 POC Glucose (mg/dL) 180 H 133 H (75-99) mg/dL Assessment and Plan Plan: Assessment: 1. End-stage renal disease maintained on hemodialysis on Thursday schedule. 2. Left index finger cellulitis maintained on antibiotics. Status post debridement with partial amputation on March 21. 3. History of left BKA and right toes amputation. 4. Insulin-dependent diabetes mellitus. 5. Chronic kidney disease mineral bone disease maintained on PhosLo. Plan: Hemodialysis tomorrow. Antibiotics per infectious disease. Monitor vancomycin levels. Target level less than 20.
[2020-03-22 11:58] LABS: Glucose,Whole Blood 122 mg/dL (75-99)
[2020-03-22] MEDS ORDERED: fentaNYL (PF) 50 MCG/ML 2 ML AMP IV PRN (12:30)
[2020-03-22 17:04] LABS: Glucose,Whole Blood 119 mg/dL (75-99)
--- NOTE | 2020-03-22 18:24 | PN ---
PROGRESS NOTE DATE OF SERVICE: 03/22/2020 REASON FOR FOLLOWUP: Left index finger gangrene abscess and osteomyelitis. INTERVAL HISTORY: The patient was taken to the OR this morning. The patient is status post I&D of the left index finger with amputation of the distal phalanx. The patient tolerated the procedure. Wound cultures were obtained and are currently pending. Patient denies having any chest pain or shortness of breath or cough. No nausea, vomiting, abdominal pain or diarrhea. PHYSICAL EXAMINATION: Blood pressure is 151/81 with a pulse of 72, temperature 98.4. He is 97% on room air. General description is a middle-aged male lying in bed in no distress. RESPIRATORY SYSTEM: Unlabored breathing. Clear to auscultation anteriorly. HEART: S1, S2. Regular rate and rhythm. ABDOMEN: Soft. No tenderness. Right index finger is currently dressed up. No obvious drainage on the dressing. LABS: Cultures currently pending. DIAGNOSTIC IMPRESSION AND PLAN: Patient with right index finger tip gangrene abscess and osteomyelitis, status post amputation of the distal phalanx. Will wait for the culture to finalize. Continue with vancomycin and monitor his clinical course closely. MMODL / IJN: [id number] /
[2020-03-22] MEDS: ALBUTEROL NEBULIZED 2.5 MG/3 ML INHALATION SCH (19:40)
[2020-03-22 20:29] LABS: Glucose,Whole Blood 171 mg/dL (75-99)
[2020-03-22] MEDS: PREGABALIN 75 MG CAP PO SCH (21:37)
[2020-03-22] MEDS: HYDROcodone/APAP 5-325MG 1 EACH TAB PO PRN (21:37)
[2020-03-22] MEDS: INSULIN DETEMIR (LEVEMIR) 100 UNIT/ML SYR SQ SCH (21:40)
--- NOTE | 2020-03-23 00:49 | P.PN ---
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 Avila's office due to worsening left index finger infection and cellulitis. Patient states that his finger was stuck in the door about a week back and had an accidental burn at and the tip couple of days later and since then he has been having increased swelling of the left index finger and redness and pain worsening up to the wrist. Patient was seen by orthopedic surgery/plastic surgery in the clinic and was recommended to admit to the hospital for IV antibiotics and possible I&D. Patient denied any complaints of fever or chills. No chest pain or shortness of breath. No nausea vomiting or abdominal pain or diarrhea. Patient is on hemodialysis Thursday and Thursday. Patient had an x-ray at the doctor's office which showed possible bone infection as per the patient and was sent to hospital. Patient was started on antibiotics of vancomycin and ceftriaxone. Orthopedic surgery is planning for OR tomorrow. 03/21/2020 Patient is currently undergoing hemodialysis. Awake alert and oriented 3. No complaints of chest pain or shortness of breath. Left index finger swelling is improved. Orthopedic surgery is planning for distal phalanx amputation tomorrow. Patient is afebrile. Continued on antibiotics in the form of vancomycin and ceftriaxone. Nephrology is following as well. ID on board. No complaints of fever or chills. Cultures have been negative so far. 03/22/2020 Patient is currently lying in the bed comfortably. Status post IND of left index finger and amputation of distal phalanx. Currently being continued on antibiotics in the form of vancomycin and ceftriaxone. ID is on board. Hemodialysis as per schedule. Follow-up culture reports. Patient has been afebrile. Swelling and pain is improving. Current medications reviewed. Objective - Vital Signs Vital signs: Vital Signs Temp 98.4 F 03/22/20 15:00 Pulse 72 03/22/20 15:00 Resp 18 03/22/20 15:00 BP 151/81 03/22/20 15:00 Pulse Ox 97 03/22/20 15:00 Intake & Output 03/21/20 03/22/20 03/22/20 18:59 06:59 18:59 Intake Total 480 250 100 Output Total 2500 5 Balance -2019 250 95 Intake: IV 200 250 100 Lactated Ringers 1,000 ml 200 @ 100 mls/hr IV .Q10H [facility] Rx#:[id number] Oral 280 Output: Hemodialysis 2500 Estimated Blood Loss 5 Other: # Voids 2 0 2 - Exam PHYSICAL EXAMINATION: Patient is lying in the bed comfortably, no acute distress, awake alert and oriented.. HEENT: Normocephalic. Neck is supple. Pupils reactive. Nostrils clear. Oral cavity is moist. Ears reveal no drainage. Neck reveals no JVD, carotid bruits, or thyromegaly. CHEST EXAMINATION: Trachea is central. Symmetrical expansion. Lung mir clear to auscultation and percussion. CARDIAC: Normal S1, S2 with no gallops. No murmurs ABDOMEN: Soft. Bowel sounds normal. No organomegaly. No abdominal bruits. Extremities: reveal no edema. No clubbing or cyanosis Left BKA and right leg toes amputation Right index finger amputation Neurologically awake, alert, oriented x3 with well-coordinated movements. No focal deficits noted Skin: No rash or skin lesions. Psychiatric: Coperative. Nonsuicidal Musculoskeletal: Left index finger surgical site is bandaged. Swelling of the finger and tenderness improved. - Labs CBC & Chem 7: 03/21/20 06:25 03/20/20 17:10 Labs: Abnormal Lab Results - Last 24 Hours (Table) 03/21/20 03/22/20 Range/Units 20:40 11:56 POC Glucose (mg/dL) 133 H 122 H (75-99) mg/dL Assessment and Plan Assessment: Left index finger abscess with surrounding cellulitis. Possible osteomyelitis. s/p I&D and Amputation of distal phalanx. Postoperative day 0. 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 Obstructive sleep apnea not using CPAP at home Hypertension Asthma stable Bilateral glaucoma Previous history of smoking, cocaine use DVT prophylaxis with heparin subcu Plan: Patient will be continued on antibiotics in the form of ceftriaxone and va ncomycin. ID and nephrology is on board. Continue with insulin dosing and sliding scale and titrate as needed. Continue with home blood pressure medications and pain medications. Nephrology was consulted as well. s/p for I&D and distal phalanx amputation. f/u cultures. Further recommendations based on the clinical course.
[2020-03-23] MEDS: HYDROcodone/APAP 5-325MG 1 EACH TAB PO PRN ×3 (03:01→18:21)
[2020-03-23] MEDS: LACTATED RINGERS 1,000 ML IV SCH ×3 (05:13→16:41)
[2020-03-23 07:27] LABS: Glucose,Whole Blood 99 mg/dL (75-99)
[2020-03-23] MEDS: INSULIN ASPART (NovoLOG) 100 UNIT/ML VIAL SQ SCH ×4 (07:29→21:08)
[2020-03-23] MEDS: CALCIUM ACETATE 667 MG TAB PO SCH ×3 (07:50→16:57)
--- NOTE | 2020-03-23 11:24 | P.PN ---
Subjective Patient is seen in follow-up for end-stage renal disease. He is maintained on hemodialysis on Thursday schedule. Underwent debridement with partial amputation of the left index finger on March 21. No active complaints at this time. Tolerating hemodialysis well. Vital signs are stable. General: The patient appeared well nourished and normally developed. HEENT: Head exam is unremarkable. Neck is without jugular venous distension. LUNGS: Lungs are clear to auscultation and percussion. Breath sounds decreased. HEART: Rate and Rhythm are regular. First and second heart sounds normal. No murmurs, rubs or gallops. ABDOMEN: Abdominal exam reveals normal bowel sounds. Non-tender and non- distended. EXTREMITITES: No clubbing, cyanosis, or edema. BKA noted. Objective - Vital Signs Vital signs: Vital Signs Temp 97.6 F 03/23/20 07:00 Pulse 70 03/23/20 07:00 Resp 18 03/23/20 07:00 BP 149/60 03/23/20 07:00 Pulse Ox 100 03/23/20 07:00 Intake & Output 03/22/20 03/23/20 03/23/20 18:59 06:59 18:59 Intake Total 100 240 Output Total 5 Balance 95 240 Intake: IV 100 Oral 240 Output: Estimated Blood Loss 5 Other: # Voids 2 0 - Labs CBC & Chem 7: 03/21/20 06:25 03/23/20 09:26 Labs: Abnormal Lab Results - Last 24 Hours (Table) 03/22/20 03/22/20 03/22/20 Range/Units 11:56 16:57 20:27 Creatinine (0.66-1.25) mg/dL POC Glucose (mg/dL) 122 H 119 H 171 H (75-99) mg/dL 03/23/20 Range/Units 09:26 Creatinine 9.41 H* (0.66-1.25) mg/dL POC Glucose (mg/dL) (75-99) mg/dL Microbiology - Last 24 Hours (Table) 03/22/20 07:07 Gram Stain - Preliminary Finger - Left Second Wound Culture - Preliminary Presumptive Staph aureus 03/22/20 07:07 Anaerobic Culture - Preliminary Finger - Left Second Assessment and Plan Plan: Assessment: 1. End-stage renal disease maintained on hemodialysis on Thursday schedule. 2. Left index finger cellulitis maintained on antibiotics. Status post debridement with partial amputation on March 21. 3. History of left BKA and right toes amputation. 4. Insulin-dependent diabetes mellitus. 5. Chronic kidney disease mineral bone disease maintained on PhosLo. Plan: Currently seen while undergoing hemodialysis. Next treatment on Thursday. Antibiotics per infectious disease. Monitor vancomycin levels. Target level less than 20.
[2020-03-23 11:58] LABS: Glucose,Whole Blood 124 mg/dL (75-99)
--- NOTE | 2020-03-23 14:04 | P.PN ---
Subjective Progress Note Date: 03/23/20 This patient is a 59- year old male that is status-post left index finger irrigation and debridement with partial amputation on 03/22/[address] Tapia. Patient is examined bedside this morning. He states overall he feels well. He states his left index finger is mildly painful. He denies trying to move the left index finger. He is tolerating his diet well. He denies chest pain, shortness of breath, nausea, vomiting. Vital signs stable. Objective - Vital Signs Vital signs: Vital Signs Temp 97.6 F 03/23/20 07:00 Pulse 70 03/23/20 07:00 Resp 18 03/23/20 07:00 BP 149/60 03/23/20 07:00 Pulse Ox 100 03/23/20 07:00 Intake & Output 03/22/20 03/23/20 03/23/20 18:59 06:59 18:59 Intake Total 100 240 Output Total 5 Balance 95 240 Intake: IV 100 Oral 240 Output: Estimated Blood Loss 5 Other: # Voids 2 0 - Exam On examination, the patient is sitting up in bed in no apparent distress. He is alert and orientated x3. Patient currently undergoing hemodialysis. On inspection of the left hand, there is a clean, dry, intact surgical dressing in place. Dressing is taken down and reveals minimal blood on the dressing. On inspection of the left index finger, there is evidence of partial amputation with intact Prolene sutures with no tension on the skin flaps. No active drainage. The left index finger is warm and well perfused. Sensation is decreased along the finger, although patient states this is chronic and was pres ent before surgery. - Labs CBC & Chem 7: 03/21/20 06:25 03/23/20 09:26 Labs: Abnormal Lab Results - Last 24 Hours (Table) 03/22/20 03/22/20 03/23/20 Range/Units 16:57 20:27 09:26 Creatinine 9.41 H* (0.66-1.25) mg/dL POC Glucose (mg/dL) 119 H 171 H (75-99) mg/dL 03/23/20 Range/Units 11:54 Creatinine (0.66-1.25) mg/dL POC Glucose (mg/dL) 124 H (75-99) mg/dL Microbiology - Last 24 Hours (Table) 03/22/20 07:07 Gram Stain - Preliminary Finger - Left Second Wound Culture - Preliminary Presumptive Staph aureus 03/22/20 07:07 Anaerobic Culture - Preliminary Finger - Left Second Assessment and Plan Assessment: Left index finger abscess, acute osteomyelitis of the distal phalanx status-post irrigation and debridement with partial amputation on 03/22/20. Post-operative day #1. Plan: - The clinical findings were discussed with the patient. Patient was also discussed with Dr. Tapia. Left index finger dressing was changed bedside today. - Patient should have no motion of the left index finger. He should keep current dressing in place. - We will continue to follow cultures, currently showing presumptive staph aureus. - Antibiotics per infectious disease. - Medical management per internal medicine, infectious disease, nephrology. - We will continue to follow patient closely.
[2020-03-23 16:54] LABS: Glucose,Whole Blood 132 mg/dL (75-99)
--- NOTE | 2020-03-23 19:04 | P.PN ---
Subjective Progress Note Date: 03/23/20 This patient is a 59- year old male that is status-post left index finger irrigation and debridement with partial amputation on 03/22/[address] Tapia. Patient is examined bedside this morning. He states overall he feels well. He states his left index finger is mildly painful. He denies trying to move the left index finger. He is tolerating his diet well. He denies chest pain, shortness of breath, nausea, vomiting. Vital signs stable. Objective - Vital Signs Vital signs: Vital Signs Temp 97.6 F 03/23/20 07:00 Pulse 70 03/23/20 07:00 Resp 18 03/23/20 07:00 BP 149/60 03/23/20 07:00 Pulse Ox 100 03/23/20 07:00 Intake & Output 03/22/20 03/23/20 03/23/20 18:59 06:59 18:59 Intake Total 100 240 Output Total 5 Balance 95 240 Intake: IV 100 Oral 240 Output: Estimated Blood Loss 5 Other: # Voids 2 0 - Exam PHYSICAL EXAMINATION: GENERAL: The patient is alert and oriented x3, not in any acute distress. Well developed, well nourished. HEENT: Pupils are round and equally reacting to light. EOMI. No scleral icterus. No conjunctival pallor. Normocephalic, atraumatic. No pharyngeal erythema. No thyromegaly. CARDIOVASCULAR: S1 and S2 present. No murmurs, rubs, or gallops. PULMONARY: Chest is clear to auscultation, no wheezing or crackles. ABDOMEN: Soft, nontender, nondistended, normoactive bowel sounds. No palpable organomegaly. MUSCULOSKELETAL: No joint swelling or deformity. EXTREMITIES: On inspection of the left hand, there is a clean, dry, intact surgical dressing in place. NEUROLOGICAL: Gross neurological examination did not reveal any focal deficits. SKIN: No rashes. - Labs CBC & Chem 7: 03/21/20 06:25 03/23/20 09:26 Labs: Abnormal Lab Results - Last 24 Hours (Table) 03/22/20 03/22/20 03/23/20 Range/Units 16:57 20:27 09:26 Creatinine 9.41 H* (0.66-1.25) mg/dL POC Glucose (mg/dL) 119 H 171 H (75-99) mg/dL 03/23/20 Range/Units 11:54 Creatinine (0.66-1.25) mg/dL POC Glucose (mg/dL) 124 H (75-99) mg/dL Microbiology - Last 24 Hours (Table) 03/22/20 07:07 Gram Stain - Preliminary Finger - Left Second Wound Culture - Preliminary Presumptive Staph aureus 03/22/20 07:07 Anaerobic Culture - Preliminary Finger - Left Second Assessment and Plan Assessment: Left index finger abscess with surrounding cellulitis. Possible osteomyelitis. s/p I&D and Amputation of distal phalanx. Postoperative day 0. 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 Obstructive sleep apnea not using CPAP at home Hypertension Asthma stable Bilateral glaucoma Previous history of smoking, cocaine use DVT prophylaxis with heparin subcu Plan: Patient will be continued on antibiotics in the form of ceftriaxone and vancomycin. ID and nephrology is on boa
[2020-03-23] MEDS: ALBUTEROL NEBULIZED 2.5 MG/3 ML INHALATION SCH (19:55)
[2020-03-23 20:54] LABS: Glucose,Whole Blood 133 mg/dL (75-99)
[2020-03-23] MEDS: PREGABALIN 75 MG CAP PO SCH (21:04)
[2020-03-23] MEDS: INSULIN DETEMIR (LEVEMIR) 100 UNIT/ML SYR SQ SCH (21:05)
[2020-03-23] MEDS: HYDROmorphone 1 MG/ML 1 ML SYRINGE IVP PRN (21:16)
--- NOTE | 2020-03-23 23:24 | PN ---
PROGRESS NOTE DATE OF SERVICE: 03/23/2020 REASON FOR FOLLOWUP: Left index finger abscess, osteomyelitis. INTERVAL HISTORY: The patient is currently afebrile. The patient is currently breathing comfortably. Denies having any chest pain or shortness of breath or cough. No nausea, vomiting or abdominal pain. Pain to the index finger slightly controlled. PHYSICAL EXAMINATION: Blood pressure 149/60 with a pulse of 77, temperature 98.2. He is 100% on room air. General description is a middle-aged male up in the bed in no distress. RESPIRATORY SYSTEM: Unlabored breathing. Clear to auscultation anteriorly. HEART: S1, S2. Regular rate and rhythm. ABDOMEN: Soft. No tenderness. Left index finger is currently dressed up. No obvious drainage on the dressing. LABS: Wound culture with Staph aureus. DIAGNOSTIC IMPRESSION AND PLAN: Patient with left index fingertip abscess and osteomyelitis. Patient is covered with vancomycin. Will follow the culture to determine his discharge antibiotics. Continue with supportive care. MMODL / IJN: [id number] /
[2020-03-24] MEDS: LACTATED RINGERS 1,000 ML IV SCH ×4 (02:22→22:20)
[2020-03-24] MEDS: HYDROcodone/APAP 5-325MG 1 EACH TAB PO PRN ×2 (02:24→20:37)
[2020-03-24 06:47] LABS: Glucose,Whole Blood 72 mg/dL (75-99)
[2020-03-24 07:39] VITALS: RESP 18
[2020-03-24] MEDS: CALCIUM ACETATE 667 MG TAB PO SCH ×3 (07:47→17:17)
[2020-03-24] MEDS: INSULIN ASPART (NovoLOG) 100 UNIT/ML VIAL SQ SCH ×4 (07:47→22:27)
[2020-03-24] MEDS: HYDROmorphone 1 MG/ML 1 ML SYRINGE IVP PRN ×3 (07:51→22:34)
[2020-03-24 08:36] LABS: Basophils % (A) 1 %; Eosinophils # (A) 0.4 k/uL (0-0.7); Eosinophils % (A) 8 %; HCT 35.4 % (39.0-53.0); HGB 11.3 gm/dL (13.0-17.5); Lymphocytes # (A) 1.3 k/uL (1.0-4.8); Lymphocytes % (A) 29 %; MCH 29.3 pg (25.0-35.0); MCV 91.6 fL (80.0-100.0); Mean Platelet Volume 8.6; Monocytes # (A) 0.4 k/uL (0-1.0); Monocytes % (A) 9 %; Neutrophils # (A) 2.4 k/uL (1.3-7.7); Neutrophils % (A) 51 %; Platelet Count 134 k/uL (150-450); RBC 3.87 m/uL (4.30-5.90); RDW 13.6 % (11.5-15.5); WBC 4.6 k/uL (3.8-10.6)
[2020-03-24 11:56] LABS: Glucose,Whole Blood 130 mg/dL (75-99)
[2020-03-24] MEDS ORDERED: VANCOMYCIN 1,750 MG in SODIUM CHLORIDE 0.9% 500 ML 500 ML IVPB ONE (12:00)
[2020-03-24 17:11] LABS: Glucose,Whole Blood 119 mg/dL (75-99)
--- NOTE | 2020-03-24 17:12 | P.PN ---
Subjective Progress Note Date: 03/24/20 Chart and interval events reviewed. The patient states that he is doing well. There is minimal pain. He denies nausea or shortness of breath. He denies any specific issues or concerns. Objective - Vital Signs Vital signs: Vital Signs Temp 97.6 F 03/24/20 07:00 Pulse 70 03/24/20 07:00 Resp 18 03/24/20 07:00 BP 191/81 03/24/20 07:00 Pulse Ox 100 03/24/20 07:00 Intake & Output 03/23/20 03/24/20 03/24/20 18:59 06:59 18:59 Intake Total 600 Output Total 3700 Balance -3700 600 Intake: Oral 600 Output: Hemodialysis 3700 Other: # Voids 1 0 - Exam The dressings were removed. Scant sanguinous drainage. No active bleeding. The incision is well-approximated. No fluctuance. No purulence or drainage. No erythema. Minimal tenderness to palpation. Intact active PIP flexion and extension. - Labs CBC & Chem 7: 03/24/20 08:13 03/23/20 09:26 Labs: Abnormal Lab Results - Last 24 Hours (Table) 03/23/20 03/23/20 03/23/20 Range/Units 11:54 16:52 20:52 RBC (4.30-5.90) m/uL Hgb (13.0-17.5) gm/dL Hct (39.0-53.0) % Plt Count (150-450) k/uL POC Glucose (mg/dL) 124 H 132 H 133 H (75-99) mg/dL 03/24/20 03/24/20 Range/Units 06:46 08:13 RBC 3.87 L (4.30-5.90) m/uL Hgb 11.3 L (13.0-17.5) gm/dL Hct 35.4 L (39.0-53.0) % Plt Count 134 L (150-450) k/uL POC Glucose (mg/dL) 72 L (75-99) mg/dL Microbiology - Last 24 Hours (Table) 03/22/20 07:07 Gram Stain - Preliminary Finger - Left Second Wound Culture - Preliminary Presumptive Staph aureus Assessment and Plan Assessment: Post-operative day #2 status post left index finger I&D with partial amputation on 03/22/20. Left index finger necrosis, abscess and acute osteomyelitis of the distal phalanx Cultures positive for eller-sensitive staph aureus IDDM poorly controlled ESRD on HD History of multiple infections Multiple previous amputations Plan: The patient is doing well. A new dressing was applied. Leave in place. This will be changed prior to discharge. No use of the left index finger. Otherwise, activity as tolerated. Encourage ambulation. Continue IV antibiotics per infectious disease. Plan to discharge home once outpatient antibiotic arrangements have been finalized.
--- NOTE | 2020-03-24 17:27 | PN ---
PROGRESS NOTE Patient is seen for followup for end-stage renal disease. He is maintained on hemodialysis on a Thursday, Thursday, Thursday schedule. Currently patient is maintained on antibiotics for cellulitis of his right index finger. He has had an abscess and osteomyelitis. He is being followed by ID as well. EXAMINATION: Today patient is comfortable. Blood pressure was 191/81 earlier today but came down to 142/76, heart rate 74 per minute, he is afebrile. Examination of the heart S1, S2. Examination of lungs, decreased breath sounds at bases. Abdomen is soft, nontender. Examination lower extremities shows left BKA and forefoot amputation on the right foot. The left index finger is currently dressed. LABS: Show hemoglobin 11.3. Last potassium was 5.0 on 03/20/2020. PLAN: Hemodialysis on Thursday. Check labs today and continue with antibiotics as per ID. MMODL / IJN: [id number] /
[2020-03-24] MEDS: ALBUTEROL NEBULIZED 2.5 MG/3 ML INHALATION SCH (19:57)
[2020-03-24] MEDS: PREGABALIN 75 MG CAP PO SCH (20:36)
[2020-03-24] MEDS: INSULIN DETEMIR (LEVEMIR) 100 UNIT/ML SYR SQ SCH (22:27)
[2020-03-24 22:35] LABS: Glucose,Whole Blood 151 mg/dL (75-99)
[2020-03-25 07:01] LABS: Glucose,Whole Blood 97 mg/dL (75-99)
[2020-03-25] MEDS: INSULIN ASPART (NovoLOG) 100 UNIT/ML VIAL SQ SCH ×4 (07:32→21:15)
[2020-03-25] MEDS: HYDROmorphone 1 MG/ML 1 ML SYRINGE IVP PRN ×3 (07:36→21:14)
[2020-03-25] MEDS: CALCIUM ACETATE 667 MG TAB PO SCH ×3 (07:38→17:30)
[2020-03-25] MEDS: LACTATED RINGERS 1,000 ML IV SCH ×3 (07:39→15:15)
[2020-03-25 08:27] LABS: Basophils % (A) 1 %; Eosinophils # (A) 0.3 k/uL (0-0.7); Eosinophils % (A) 8 %; HCT 31.8 % (39.0-53.0); HGB 10.3 gm/dL (13.0-17.5); Lymphocytes % (A) 26 %; MCH 29.7 pg (25.0-35.0); MCHC 32.4 g/dL (31.0-37.0); MCV 91.7 fL (80.0-100.0); Mean Platelet Volume 8.7; Monocytes # (A) 0.4 k/uL (0-1.0); Monocytes % (A) 9 %; Neutrophils % (A) 53 %; Platelet Count 164 k/uL (150-450); RBC 3.46 m/uL (4.30-5.90); RDW 13.4 % (11.5-15.5); WBC 3.9 k/uL (3.8-10.6)
[2020-03-25 08:43] LABS: Calcium 8.5 mg/dL (8.4-10.2); Potassium 5.6 mmol/L (3.5-5.1)
--- NOTE | 2020-03-25 10:48 | P.PN ---
Subjective Progress Note Date: 03/25/20 This patient is a 59- year old male that is status-post left index finger irrigation and debridement with partial amputation on 03/22/[address] Tapia. Today is post-operative day #3. Patient is examined bedside this morning. He states he is feeling well. He has no complaints or concerns. Patient denies chest pain, shortness of breath, nausea, vomiting. Vital signs stable. Objective - Vital Signs Vital signs: Vital Signs Temp 98.0 F 03/25/20 07:00 Pulse 72 03/25/20 07:00 Resp 18 03/25/20 07:00 BP 195/91 03/25/20 07:00 Pulse Ox 99 03/25/20 07:00 Intake & Output 03/24/20 03/25/20 03/25/20 18:59 06:59 18:59 Intake Total 80 Balance 80 Intake: Intake, IV Titration 80 Amount Lactated Ringers 1,000 ml 80 @ 20 mls/hr IV .Q24H [facility] Rx#:[id number] Other: # Voids 0 0 - Exam On examination, the patient is sitting up in bed in no apparent distress. He is alert and orientated x3. On inspection of the left hand, there is a clean, dry, intact dressing in place. No drainage through the dressing.The base of the left index finger is warm and well perfused. Sensation is decreased along the finger, although patient states this is chronic and was present before surgery. On inspection of the right middle finger, there is small wound at the distal aspect with no surrounding erythema. No active drainage. - Labs CBC & Chem 7: 03/25/20 07:50 03/25/20 07:50 Labs: Abnormal Lab Results - Last 24 Hours (Table) 03/24/20 03/24/20 03/24/20 Range/Units 11:55 17:10 22:19 RBC (4.30-5.90) m/uL Hgb (13.0-17.5) gm/dL Hct (39.0-53.0) % Sodium (137-145) mmol/L Potassium (3.5-5.1) mmol/L BUN (9-20) mg/dL Creatinine (0.66-1.25) mg/dL POC Glucose (mg/dL) 130 H 119 H 151 H (75-99) mg/dL 03/25/20 03/25/20 Range/Units 07:50 07:50 RBC 3.46 L (4.30-5.90) m/uL Hgb 10.3 L (13.0-17.5) gm/dL Hct 31.8 L (39.0-53.0) % Sodium 135 L (137-145) mmol/L Potassium 5.6 H (3.5-5.1) mmol/L BUN 48 H (9-20) mg/dL Creatinine 8.47 H* (0.66-1.25) mg/dL POC Glucose (mg/dL) (75-99) mg/dL Microbiology - Last 24 Hours (Table) 03/22/20 07:07 Anaerobic Culture - Preliminary Finger - Left Second 03/22/20 07:07 Gram Stain - Final Finger - Left Second Wound Culture - Final Staphylococcus aureus Assessment and Plan Assessment: Left index finger abscess, acute osteomyelitis of the distal phalanx status-post irrigation and debridement with partial amputation on 03/22/20. Post-operative day #3. Plan: - The clinical findings were discussed with the patient. Patient was also discussed with Dr. Tapia. - Patient should have no use of the left index finger. He should keep current dressing in place. Dressing will be changed tomorrow before discharge. - Wound care consult for new wound of the right middle finger. - Final cultures showing staph aureus. Antibiotics per infectious disease. - Medical management per internal medicine, infectious disease, nephrology. - Plan for discharge tomorrow following hemodialysis. Final outpatient antibiotic arrangements per infectious disease. - Follow-up Telehealth visit with Dr. Tapia 10 days following discharge.
[2020-03-25] MEDS: HYDROcodone/APAP 5-325MG 1 EACH TAB PO PRN (10:53)
[2020-03-25 12:24] LABS: Glucose,Whole Blood 119 mg/dL (75-99)
--- NOTE | 2020-03-25 16:11 | PN ---
PROGRESS NOTE Patient is seen for followup for end-stage renal disease. He is scheduled for hemodialysis tomorrow. Currently doing well. No significant complaints. EXAMINATION: Blood pressure 192/80, heart rate 77 per minute, he is afebrile. Examination reveals 1+ edema lower extremities. Patient has right BKA. BUSINESS PROCESS COORDINATOR exam grossly intact. Left index trigger finger is currently dressed. LABS: Show sodium 135, potassium 5.6, BUN 48, creatinine 8.47. ASSESSMENT: 1. End-stage renal disease, on hemodialysis on a Thursday, Thursday, Thursday schedule. We will arrange for hemodialysis in a.m. 2. Hyperkalemia. No treatment at this time. Expect improvement with dialysis tomorrow. 3. Chronic kidney disease mineral bone disorder, maintained on PhosLo. 4. Osteomyelitis and cellulitis, left index finger, maintained on antibiotics. 5. Mild volume overload. Expect improvement with dialysis tomorrow. Maintain patient off IV fluids. PLAN: Hemodialysis in a.m. UF 3-4 L as tolerated. Expect improvement in blood pressure and hyperkalemia with dialysis tomorrow. MMODL / IJN: [id number] /
[2020-03-25 17:00] LABS: Glucose,Whole Blood 111 mg/dL (75-99)
--- NOTE | 2020-03-25 18:58 | P.PN ---
Subjective Progress Note Date: 03/25/20 This patient is a 59- year old male that is status-post left index finger irrigation and debridement with partial amputation on 03/22/[address] Tapia. Patient is examined bedside this morning. He states overall he feels well. He states his left index finger is mildly painful. He denies trying to move the left index finger. He is tolerating his diet well. He denies chest pain, shortness of breath, nausea, vomiting. Vital signs stable. 03/25/2020 Patient is seen and evaluated resting comfortably in bed; he is status post left index finger irrigation and debridement with partial amputation on 03/22/2020; patient is POD #3; and surgery is following and patient is recommended minimal use of left index finger; patient will have dressing change tomorrow prior to discharge; wound care is consulted for new wound on right middle finger; final culture reports staph aureus; ID will be making further recommendations for final antibiotic therapy Nephrology is following for end-stage renal disease/hemodialysis; BUN/creatinine is at 48/80.47. Potassium of 5.6; nephrology is planning hemodialysis tomorrow morning with expected improvement in blood pressure and hyperkalemia Patient can be discharged after dialysis tomorrow Objective - Vital Signs Vital signs: Vital Signs Temp 97.9 F 03/25/20 15:00 Pulse 77 03/25/20 15:00 Resp 18 03/25/20 15:00 BP 192/80 03/25/20 15:00 Pulse Ox 99 03/25/20 15:00 Intake & Output 03/24/20 03/25/20 03/25/20 18:59 06:59 18:59 Intake Total 80 Balance 80 Intake: Intake, IV Titration 80 Amount Lactated Ringers 1,000 ml 80 @ 20 mls/hr IV .Q24H [facility] Rx#:[id number] Other: # Voids 0 0 1 - Exam PHYSICAL EXAMINATION: GENERAL: The patient is alert and oriented x3, not in any acute distress. Well developed, well nourished. HEENT: Pupils are round and equally reacting to light. EOMI. No scleral icterus. No conjunctival pallor. Normocephalic, atraumatic. No pharyngeal erythema. No thyromegaly. CARDIOVASCULAR: S1 and S2 present. No murmurs, rubs, or gallops. PULMONARY: Chest is clear to auscultation, no wheezing or crackles. ABDOMEN: Soft, nontender, nondistended, normoactive bowel sounds. No palpable organomegaly. MUSCULOSKELETAL: No joint swelling or deformity. EXTREMITIES: On inspection of the left hand, there is a clean, dry, intact surgical dressing in place. NEUROLOGICAL: Gross neurological examination did not reveal any focal deficits. SKIN: No rashes. - Labs CBC & Chem 7: 03/25/20 07:50 03/25/20 07:50 Labs: Abnormal Lab Results - Last 24 Hours (Table) 03/24/20 03/24/20 03/25/20 Range/Units 17:10 22:19 07:50 RBC 3.46 L (4.30-5.90) m/uL Hgb 10.3 L (13.0-17.5) gm/dL Hct 31.8 L (39.0-53.0) % Sodium (137-145) mmol/L Potassium (3.5-5.1) mmol/L BUN (9-20) mg/dL Creatinine (0.66-1.25) mg/dL POC Glucose (mg/dL) 119 H 151 H (75-99) mg/dL 03/25/20 03/25/20 Range/Units 07:50 12:23 RBC (4.30-5.90) m/uL Hgb (13.0-17.5) gm/dL Hct (39.0-53.0) % Sodium 135 L (137-145) mmol/L Potassium 5.6 H (3.5-5.1) mmol/L BUN 48 H (9-20) mg/dL Creatinine 8.47 H* (0.66-1.25) mg/dL POC Glucose (mg/dL) 119 H (75-99) mg/dL Microbiology - Last 24 Hours (Table) 03/22/20 07:07 Anaerobic Culture - Preliminary Finger - Left Second Assessment and Plan Assessment: Left index finger abscess with surrounding cellulitis. Possible osteomyelitis. s/p I&D and Amputation of distal phalanx. Postoperative day 0. 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 Obstructive sleep apnea not using CPAP at home Hypertension Asthma stable Bilateral glaucoma Previous history of smoking, cocaine use DVT prophylaxis with heparin subcu Plan: Patient will be continued on antibiotics in the form of ceftriaxone and vancomycin. ID and nephrology is on boa
[2020-03-25] MEDS: ALBUTEROL NEBULIZED 2.5 MG/3 ML INHALATION SCH (19:54)
[2020-03-25 20:31] LABS: Glucose,Whole Blood 145 mg/dL (75-99)
[2020-03-25] MEDS: PREGABALIN 75 MG CAP PO SCH (21:14)
[2020-03-25] MEDS: INSULIN DETEMIR (LEVEMIR) 100 UNIT/ML SYR SQ SCH (21:15)
--- NOTE | 2020-03-26 02:54 | PN ---
PROGRESS NOTE DATE OF SERVICE: 03/25/2020 REASON FOR FOLLOWUP: Left index finger abscess, osteomyelitis. INTERVAL HISTORY: The patient is currently afebrile. The patient is breathing comfortably. Denies having any chest pain. No shortness of breath or cough. No abdominal pain. No diarrhea. PHYSICAL EXAMINATION: Blood pressure 147/59 with a pulse of 76, temperature 98.5. He is 100% on room air. General description is a middle-aged male up in the bed in no distress. RESPIRATORY SYSTEM: Unlabored breathing, clear to auscultation anteriorly. HEART: S1, S2. Regular rate and rhythm. ABDOMEN: Soft, no tenderness. Left index finger currently , some swelling, no redness, no drainage. LABS: Hemoglobin is 10.3, white count 3.9, BUN of 14, creatinine 0.47. DIAGNOSTIC IMPRESSION AND PLAN: Patient with left index finger osteomyelitis and abscess, status post distal phalanx amputation. Culture with MSSA. Patient does have CEFAZOLIN allergy. Patient is covered with vancomycin to continue through the dialysis for another 4 weeks and close outpatient followup. Prescription provided to nursing. MMMICHOACANOL / MEGHANN: [id number] /
[2020-03-26] MEDS: HYDROmorphone 1 MG/ML 1 ML SYRINGE IVP PRN ×2 (06:15→10:13)
[2020-03-26 06:46] LABS: Glucose,Whole Blood 109 mg/dL (75-99)
[2020-03-26] MEDS: INSULIN ASPART (NovoLOG) 100 UNIT/ML VIAL SQ SCH ×3 (07:13→17:01)
[2020-03-26] MEDS: CALCIUM ACETATE 667 MG TAB PO SCH ×3 (07:20→17:01)
[2020-03-26 08:07] VITALS: BP 152/77; PULSE 101; TEMP 98.4
[2020-03-26 08:14] LABS: Basophils # (A) 0.1 k/uL (0-0.2); Basophils % (A) 1 %; Eosinophils # (A) 0.3 k/uL (0-0.7); Eosinophils % (A) 6 %; HCT 34.2 % (39.0-53.0); HGB 10.9 gm/dL (13.0-17.5); Lymphocytes # (A) 0.8 k/uL (1.0-4.8); Lymphocytes % (A) 19 %; MCH 28.8 pg (25.0-35.0); MCHC 31.8 g/dL (31.0-37.0); MCV 90.8 fL (80.0-100.0); Mean Platelet Volume 8.2; Monocytes # (A) 0.4 k/uL (0-1.0); Monocytes % (A) 10 %; Neutrophils # (A) 2.7 k/uL (1.3-7.7); Neutrophils % (A) 62 %; Platelet Count 166 k/uL (150-450); RBC 3.77 m/uL (4.30-5.90); RDW 13.7 % (11.5-15.5); WBC 4.3 k/uL (3.8-10.6)
[2020-03-26 08:24] LABS: Calcium 8.9 mg/dL (8.4-10.2)
[2020-03-26 08:54] LABS: Potassium 6.2 mmol/L (3.5-5.1)
[2020-03-26 09:08] LABS: Vancomycin,Random 29.5 ug/mL
--- NOTE | 2020-03-26 10:14 | PN ---
PROGRESS NOTE Continue supportive care. MMODL / IJN: [id number] /
[2020-03-26] MEDS: LACTATED RINGERS 1,000 ML IV SCH (11:10)
[2020-03-26 11:30] LABS: Glucose,Whole Blood 127 mg/dL (75-99)
--- NOTE | 2020-03-26 14:47 | PN ---
PROGRESS NOTE DATE OF SERVICE: 03/26/2020 REASON FOR FOLLOWUP: Left index finger,, did abscess and osteomyelitis. INTERVAL HISTORY: The patient is currently afebrile, she is breathing comfortably. No chest pain. No shortness of breath. No cough. No abdominal pain or any diarrhea. PHYSICAL EXAMINATION: Blood pressure 150/77 with a pulse of 101, temperature 98.4. He is 99% on room air. General description is a middle-aged male, up in the bed, in no distress. RESPIRATORY SYSTEM: Unlabored breathing, clear to auscultation anteriorly. HEART: S1, S2. Regular rate and rhythm. ABDOMEN: Soft, no tenderness. LABS: Hemoglobin is 10.8, white count of 4.3, BUN of 65, creatinine 10.82. DIAGNOSTIC IMPRESSION AND PLAN: Patient left index finger abscess and osteomyelitis, status post distal phalanx amputation. The patient did have a Cefazolin allergy. Recommend vancomycin through dialysis for 4 weeks and close outpatient followup. MMODL / IJN: [id number] /
--- NOTE | 2020-03-26 14:49 | P.DS ---
Providers Date of admission: 03/20/20 16:43 Expected date of discharge: 03/26/20 Attending physician: Sawyer Tapia DO Consults: 03/20/20 16:11 Consult Physician Urgent Consulting Provider: Meliza Worthington Consult Reason/Comments: left index finger osteomyleitis Do you want consulting provider notified?: Yes 03/20/20 16:22 Consult Physician Routine Consulting Provider: Yaniv Moncada Consult Reason/Comments: medical management Do you want consulting provider notified?: Yes 03/20/20 18:04 Consult Physician Urgent Consulting Provider: Roland Olivera Consult Reason/Comments: ortho admit for cellulitis. hemodialysis patient - critical creatinine 8.76 Do you want consulting provider notified?: Yes Primary care physician: Stated None Hospital Course: This patient is a 67-year-old male with a past medical history of hypertension, diabetes, end-stage renal disease on hemodialysis, diabetic peripheral neuropathy, history of left BKA, right middle finger and index finger amputation that presented to Dr. Tapia in the office last week for evaluation of his left index finger. Once evaluated in the office by Dr. Tapia, the patient was sent directly to the hospital for IV antibiotics and surgical intervention. The patient underwent a left index finger irrigation and debridement with partial amputation on 03/22/[address] Tapia. Postoperatively, Dr. Worthington was consulted to manage antibiotic recommendations. The procedure was performed without complication or sequelae. The patient is doing fairly well postoperatively. Vital signs are stable on postoperative day #4. Patient was examined bedside this morning. He states he is doing well and has no complaints. He states the pain in his left index finger is controlled. He denies chest pain, shortness of breath, nausea, vomiting, fevers, chills. On examination, the patient is sitting up in bed in no apparent distress. He is alert and 3. On inspection of the left index finger, there is a clean, dry, intact dressing in place. The dressing is taken down and reveals an incision that is well approximated with intact sutures. No surrounding erythema, warmth, or areas of fluctuance. There is no active drainage. Patient has active flexion and extension of the PIP joint. A new dressing was placed bedside. Patient is discharged home today following hemodialysis, pending medical clearance. Patient will follow up with Dr. Tapia via Telehealth in 10 days. Please see med rec for accurate list of discharge medication. Patient Condition at Discharge: Fair Plan - Discharge Summary Discharge Rx Participant: Yes New Discharge Prescriptions: No Action HYDROcodone/APAP 7.5-325MG [[place] 7.5-325] 1 tab PO TID PRN PRN Reason: Pain Pregabalin [Lyrica] 75 mg PO HS Calcium Acetate [PhosLo] 2,668 mg PO AC-TID Insulin Degludec [Tresiba] 3 units SQ HS Albuterol Sulfate [Ventolin HFA] 2 puff INHALATION RT-Q4H PRN PRN Reason: Shortness Of Breath Pregabalin [Lyrica] 75 mg PO MOWEFR@0900 fentaNYL 25MCG/HR PATCH [Duragesic 25MCG/HR] 1 patch TRANSDERM Q72H Cinacalcet HCl [Sensipar] 30 mg PO DAILY Discharge Medication List HYDROcodone/APAP 7.5-325MG [[place] 7.5-325] 1 tab PO TID PRN 08/09/19 [History] Pregabalin [Lyrica] 75 mg PO HS 08/09/19 [History] Calcium Acetate [PhosLo] 2,668 mg PO AC-TID 08/12/19 [History] Insulin Degludec [Tresiba] 3 units SQ HS 08/12/19 [History] Albuterol Sulfate [Ventolin HFA] 2 puff INHALATION RT-Q4H PRN 03/20/20 [History] Pregabalin [Lyrica] 75 mg PO MOWEFR@0900 03/20/20 [History] fentaNYL 25MCG/HR PATCH [Duragesic 25MCG/HR] 1 patch TRANSDERM Q72H 03/20/20 [History] Cinacalcet HCl [Sensipar] 30 mg PO DAILY 03/21/20 [History] Follow up Appointment(s)/Referral(s): [facility], [NON-STAFF] - As Needed Sawyer Tapia DO [Medical Doctor] - 10 Days Ander Ortiz DO [REFERRING] - 1 Week Patient Instructions/Handouts: Finger Amputation (ED) Activity/Diet/Wound Care/Special Instructions: Daily dressing changes to left index finger. Wash left index finger daily with soap and water, keep finger clean. No use of left index finger. Keep stitches intact. Antibiotics per infectious disease. Follow-up Telehealth appointment with Dr. Tapia in 10 days. Call the office with any questions or concerns, Discharge Disposition: HOME SELF-CARE
--- NOTE | 2020-03-26 21:43 | PN ---
PROGRESS NOTE Patient is seen for followup for end-stage renal disease. He is currently seen on dialysis, tolerating his treatment well. He will be discharged today post dialysis. On examination, blood pressure this morning 152/77, heart rate 101 per minute. He is afebrile. Examination shows 1+ edema, lower extremities. Patient has left BKA. 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 Labs show potassium 6.2 today, sodium 135, BUN 65, creatinine 10.82. ASSESSMENT: 1. End-stage renal disease, on hemodialysis on a Thursday, Thursday, Thursday schedule. Currently seen on dialysis. 2. Anemia of chronic disease. 3. Left index finger cellulitis and osteomyelitis, maintained on antibiotics. 4. Peripheral vascular disease with history of left below-knee amputation. 5. Anemia of chronic disease. 6. Chronic kidney disease mineral bone disorder. PLAN: Continue antibiotics as per ID. Patient can be discharged. Follow up as outpatient for dialysis on 03/28/2020. MMODL / IJN: [id number] /
== END 2020-03-26 18:19 | disposition home health service (06) | DRG 988 ==
LOC: 4SSUR 16:43
PROVIDERS: ADMIT Orthopaedic Surgery; ATTEND Orthopaedic Surgery
PROC: 5A1D70Z Performance of Urinary Filtration, Intermittent, Less than 6 Hours Per Day (ICD-10-PCS; 2020-03-21)
PROC: 0X6P0Z3 Detachment at Left Index Finger, Low, Open Approach (ICD-10-PCS; principal; 2020-03-22 06:00)
DX: E11.69 Type 2 diabetes mellitus with other specified complication (principal); E11.52 Type 2 diabetes mellitus with diabetic peripheral angiopathy with gangrene; M86.142 Other acute osteomyelitis, left hand; I96 Gangrene, not elsewhere classified; I12.0 Hypertensive chronic kidney disease with stage 5 chronic kidney disease or end stage renal disease; L02.512 Cutaneous abscess of left hand; N18.6 End stage renal disease; E11.22 Type 2 diabetes mellitus with diabetic chronic kidney disease; E66.01 Morbid (severe) obesity due to excess calories; E11.42 Type 2 diabetes mellitus with diabetic polyneuropathy; E11.39 Type 2 diabetes mellitus with other diabetic ophthalmic complication; Z79.4 Long term (current) use of insulin; Z99.2 Dependence on renal dialysis; Z89.512 Acquired absence of left leg below knee; Z89.421 Acquired absence of other right toe(s); D63.1 Anemia in chronic kidney disease; E83.9 Disorder of mineral metabolism, unspecified; B95.61 Methicillin susceptible Staphylococcus aureus infection as the cause of diseases classified elsewhere; L03.012 Cellulitis of left finger; T23.022A Burn of unspecified degree of single left finger (nail) except thumb, initial encounter; E87.5 Hyperkalemia; G47.33 Obstructive sleep apnea (adult) (pediatric); J45.909 Unspecified asthma, uncomplicated; H40.9 Unspecified glaucoma; H42 Glaucoma in diseases classified elsewhere; M65.322 Trigger finger, left index finger; F14.11 Cocaine abuse, in remission; F15.11 Other stimulant abuse, in remission; Z68.35 Body mass index [BMI] 35.0-35.9, adult; Z79.891 Long term (current) use of opiate analgesic; Z79.899 Other long term (current) drug therapy; Z86.14 Personal history of Methicillin resistant Staphylococcus aureus infection; Z87.891 Personal history of nicotine dependence; Z89.021 Acquired absence of right finger(s); Z90.49 Acquired absence of other specified parts of digestive tract; Z98.42 Cataract extraction status, left eye; Z98.41 Cataract extraction status, right eye; Z88.1 Allergy status to other antibiotic agents; Z91.013 Allergy to seafood; Z82.49 Family history of ischemic heart disease and other diseases of the circulatory system
CPT/HCPCS: 80048; 80053; 80202; 82565; 85025; 87070; 87075; 87077; 87186; 87205; 87635; 88305; 88311; 90935; 94640

== ENCOUNTER 2020-07-03 16:12 | Day surgery (SDC) | payer MEDICARE, OTHER ==
[~2020-07-03 16:12] MED LIST changes: -BUPIVACAINE (PF) 0.5% 30 ML VIAL SQ ONE; +CLINDAMYCIN 900 MG in DEXTROSE 5% IN WATER 50 ML IVPB ONE; -DEXAMETHASONE SOD PHOSPHATE 10 MG/ML 1 ML VIAL IV ONE; -LACTATED RINGERS 1,000 ML IV SCH; -LIDOCAINE 1% 20 ML VIAL (10MG/ML) FOR IV START INTRADERMA PRN; -LIDOCAINE 1% INJ 10MG/ML (20 ML MDV) ONE; -MIDAZOLAM 2 MG/2 ML VIAL IV PRN; -MIDAZOLAM 2 MG/2 ML VIAL ONE; -ONDANSETRON 4 MG/2 ML VIAL IVP ONE; -PHENYLEPHRINE-0.9% NACL SYG 1 MG/10 ML SYRINGE ONE; -PROPOFOL 10 MG/ML 20 ML VIAL IV ONE; -SCOPOLAMINE 1.5MG/72HR PATCH TRANSDERM ONE; -SODIUM CHLORIDE 0.9% 500 ML 500 ML IV ONE; -WATER FOR INJECTION, STERILE 10 ML VIAL IV ONE; -ePHEDrine SULFATE/0.9% NACL/PF 50 MG/5 ML SYRINGE IV ONE; -fentaNYL (PF) 50 MCG/ML 2 ML AMP IV ONE; -fentaNYL (PF) 50 MCG/ML 2 ML AMP ONE
[2020-07-03] MEDS ORDERED: SODIUM CHLORIDE 0.9% 1,000 ML IV ONE (16:46)
[2020-07-03] MEDS ORDERED: LIDOCAINE 1% (10MG/ML) FOR IV START INTRADERMA ONE (16:47)
[2020-07-03 16:51] LABS: Glucose,Whole Blood 92 mg/dL (75-99)
[2020-07-03 16:53] LABS: Basophils % (A) 1 %; Eosinophils # (A) 0.2 k/uL (0-0.7); Eosinophils % (A) 3 %; HCT 38.3 % (39.0-53.0); HGB 12.3 gm/dL (13.0-17.5); Lymphocytes # (A) 1.3 k/uL (1.0-4.8); Lymphocytes % (A) 21 %; MCH 28.5 pg (25.0-35.0); MCHC 32.2 g/dL (31.0-37.0); MCV 88.6 fL (80.0-100.0); Mean Platelet Volume 8.4; Monocytes # (A) 0.5 k/uL (0-1.0); Monocytes % (A) 8 %; Neutrophils # (A) 3.9 k/uL (1.3-7.7); Neutrophils % (A) 65 %; Platelet Count 215 k/uL (150-450); RBC 4.32 m/uL (4.30-5.90); RDW 15.2 % (11.5-15.5)
[2020-07-03] MEDS ORDERED: METOCLOPRAMIDE 5 MG/ML 2 ML VIAL ONE (17:08)
[2020-07-03] MEDS ORDERED: SODIUM BICARB 8.4% 10 ML VIAL (1 MEQ/ML) ONE (17:09)
[2020-07-03 17:11] LABS: Albumin 4.3 g/dL (3.5-5.0); Calcium 8.5 mg/dL (8.4-10.2); Potassium 5.5 mmol/L (3.5-5.1); Total Protein 7.4 g/dL (6.3-8.2)
[2020-07-03] MEDS ORDERED: METOCLOPRAMIDE 5 MG/ML 2 ML VIAL IVP ONE (17:11)
[2020-07-03] MEDS ORDERED: VANCOMYCIN 1,000 MG in SODIUM CHLORIDE 0.9% 250 ML IVPB STA (18:17)
[2020-07-03] MEDS ORDERED: ONDANSETRON 4 MG/2 ML VIAL IVP PRN (19:20)
[2020-07-03] MEDS ORDERED: HYDROmorphone 0.5 MG/0.5 ML SYRINGE IVP PRN (19:20)
[2020-07-03] MEDS ORDERED: MIDAZOLAM 2 MG/2 ML VIAL ONE (20:19)
[2020-07-03] MEDS ORDERED: fentaNYL (PF) 50 MCG/ML 2 ML AMP ONE (20:19)
[2020-07-03] MEDS ORDERED: LIDOCAINE 1% INJ 10MG/ML (20 ML MDV) SQ ONE (20:38)
[2020-07-03 21:32] LABS: Glucose,Whole Blood 84 mg/dL (75-99)
--- NOTE | 2020-07-03 21:41 | P.OP ---
Date of Procedure: 07/03/20 Preoperative Diagnosis: 1. Left ring finger gangrene with abscess 2. 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 Chronic kidney disease 4. Diabetes mellitus Postoperative Diagnosis: 1. Left ring finger gangrene with abscess 2. 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 Chronic kidney disease 4. Diabetes mellitus Procedure(s) Performed: Irrigation and debridement of left ring finger with amputation of the distal phalanx (DIP disarticulation) Anesthesia: MAC, local Surgeon: Sawyer Tapia Estimated Blood Loss (ml): 3 Pathology: other (Cultures of deep wound and bone of distal phalanx; distal phalanx to pathology) Condition: stable Disposition: PACU Indications for Procedure: The patient is a 59-year-old male with a history of prior digital injurie s/infections, resulting in amputations. He sustained a crush injury and displaced left ring finger distal phalanx fracture. He also sustained a burn wound to the tip of the finger. Similar to previous episodes, the wound failed to heal and the finger became swollen and painful. Imaging was concerning for osteomyelitis. Given his history and compromised wound healing, primary amputation was recommended. Risks and benefits were reviewed in the office, including (but not limited to) the risk of persistent or recurrent infection, wound healing problems and possible need for additional surgery (including revision amputation). The patient expressed understanding, willingness to accept these risks and wished to proceed with surgery. Consent forms were signed. The surgical site was confirmed and marked preoperatively. Operative Findings: No gross purulence. No flexor or extensor tenosynovitis. The intramedullary bone at the base of the distal phalanx appeared necrotic. Description of Procedure: The patient was positioned supine with the operative limb on a hand table. Anesthesia was administered uneventfully. Antibiotics were withheld in anticipation of obtaining intraoperative cultures. A time-out was performed, confirming patient identifiers, the operative side, site and the procedure to be performed: all team members expressed agreement. Utilizing aseptic technique, a digital block was performed using lidocaine without epinephrine. Loupe magnification was utilized throughout the case for optimum visualization. A strip of the Esmarch was cut and clamped at the base of the finger as a digital tourniquet. A fishmouth incision was marked near the DIP joint. The skin was sharply incised and the subcutaneous tissues were bluntly spread. There was no gross purulence, but a small amount of thin cloudy fluid was identified in the subcutaneous tissues of the pulp: a culture swab was obtained. The fracture site was identified and opened. There was no callus or obvious bony healing. The intramedullary bone on the proximal side of the fracture appeared necrotic a specimen was obtained and sent for culture. The distal phalanx was debrided with a rongeur back to healthy-appearing bone. However, the majority of the FDP insertion had to be resected and only a small portion of subchondral bone remained. The decision was made to proceed with DIP disarticulation. The neurovascular bundles on both sides of the digit were identified. The nerves were gently held taught and then sharply transected, allowing them to retract proximal to the middle phalanx head. The vessels were coagulated with bipolar cautery. The residual FDP fibers and extensor tendon were released. The DIP joint capsule and collateral ligaments were sharply released and the distal phalanx was amputated and sent for pathology. The wound was copiously irrigated with normal saline using a bulb syringe. The surrounding soft tissues were mechanically debrided with a curette. The digital tourniquet was released and good hemostasis was obtained with manual pressure and bipolar cautery. Good bleeding was noted at the edges of both skin flaps. The skin flap edges were sharply revised and contoured. The skin flaps were closed over the head of middle phalanx with simple interrupted 4-0 Prolene sutures. The wound closed completely and without tension, providing a good soft tissue envelope over the end of the bone. Sterile dressings (Adaptic, 4 x 4's, patria and Coban) were applied. All sponge, needle and instrument counts were correct at the end of the case. The patient tolerated the procedure well and was taken to recovery in stable condition.
[2020-07-03] MEDS ORDERED: ALBUTEROL NEBULIZED 2.5 MG/3 ML INHALATION PRN (23:23)
[2020-07-03] MEDS: PREGABALIN 75 MG CAP PO SCH (23:34)
[2020-07-04] MEDS: HYDROcodone/APAP 5-325MG 1 EACH TAB PO PRN ×2 (03:28→07:46)
[2020-07-04 06:32] LABS: Glucose,Whole Blood 97 mg/dL (75-99)
[2020-07-04] MEDS: INSULIN ASPART (NovoLOG) 100 UNIT/ML VIAL SQ SCH ×4 (07:30→20:30)
[2020-07-04] MEDS: CINACALCET 30 MG TAB PO SCH (07:47)
[2020-07-04] MEDS: PREGABALIN 75 MG CAP PO SCH ×2 (07:47→20:32)
[2020-07-04] MEDS ORDERED: NON FORMULARY DRUG (Zinc [Zinc] 50 MG) PO SCH (09:00)
[2020-07-04] MEDS ORDERED: VANCOMYCIN IV PER PHARMACY 1 EACH MISC MISCELLANE PRN (09:19)
--- NOTE | 2020-07-04 09:25 | P.NPCON ---
History of Present Illness - Reason for Consult end stage renal disease - History of Present Illness Reason for consultation: End-stage renal disease History of present illness: Patient is a 59-year-old male seen in consultation for end-stage renal disease. He is maintained on hemodialysis on Thursday schedule via AV fistula. Patient had left ring finger gangrene with abscess and underwent incision and drainage with amputation of the distal phalanx July 03. He currently feels well. Denies chest pain or shortness of breath. No fever or chills. No cough. No vomiting or diarrhea. Patient has long-standing history of diabetes mellitus. Blood sugar controlled. Hemoglobin stable. He scheduled for dialysis today. Vital signs are stable. General: The patient appeared well nourished and normally developed. HEENT: Head exam is unremarkable. Neck is without jugular venous distension. LUNGS: Lungs are clear to auscultation and percussion. Breath sounds decreased. HEART: Rate and Rhythm are regular. ABDOMEN: Soft, nontender. EXTREMITITES: No clubbing, cyanosis, or edema. Left BKA. Right toes habitation noted. Past Medical History Past Medical History: Asthma, Diabetes Mellitus, Eye Disorder, Hypertension, Musculoskeletal Disorder, Renal Disease, Sleep Apnea/CPAP/BIPAP Additional Past Medical History / Comment(s): End Stage Renal Disease- HEMODIALYSIS THU, THU, THU, HAS FISTULAS IN BILATERAL ARMS, "CAN ONLY HAVE IV'S IN HANDS." USES O2 @ HS OCCASIONALLY. HX OSTEOMYELITIS L3-5 2010. RT INDEX FINGER ABSCESS. Neuropathy. No CPAP use. Bilateral Glaucoma. History of Any Multi-Drug Resistant Organisms: None Reported Past Surgical History: Cholecystectomy Additional Past Surgical History / Comment(s): LEFT BKA, RIGHT TOE AMPUTATIONS. FISTULA IN RFA, & LT INNER ELBOW. BILATERAL CATARACT SURGERY,bilateral lens LASER EYE SURGERY, right index finger amputation. Past Anesthesia/Blood Transfusion Reactions: No Reported Reaction Past Psychological History: No Psychological Hx Reported Additional Psychological History / Comment(s): lives with family Smoking Status: Former smoker Past Alcohol Use History: Rare Additional Past Alcohol Use History / Comment(s): SMOKED AGE 9-30, UP TO 2 PPD. Past Drug Use History: Cocaine, Methamphetamine Additional Drug Use History / Comment(s): NO USE SINCE 1993. - Past Family History Mother Family Medical History: No Reported History Additional Family Medical History / Comment(s): Congestive heart failure. Father Additional Family Medical History / Comment(s): Congestive heart failure, myocardial infarction Medications and Allergies Home Medications Medication Instructions Recorded Confirmed Type HYDROcodone/APAP 7.5-325MG [[place] 1 tab PO TID PRN 08/09/19 07/03/20 History 7.5-325] Pregabalin [Lyrica] 75 mg PO HS 08/09/19 07/03/20 History Insulin Degludec [Tresiba] 3 units SQ HS 08/12/19 07/03/20 History Albuterol Sulfate [Ventolin HFA] 2 puff INHALATION RT-Q4H PRN 03/20/20 07/03/20 History Pregabalin [Lyrica] 75 mg PO MOWEFR@0900 03/20/20 07/03/20 History fentaNYL 25MCG/HR PATCH [Duragesic 1 patch TRANSDERM Q72H 03/20/20 07/03/20 History 25MCG/HR] Cinacalcet HCl [Sensipar] 30 mg PO DAILY 03/21/20 07/03/20 History Zinc 50 mg PO DAILY 07/03/20 07/03/20 History Allergies Allergy/AdvReac Type Severity Reaction Status Date / Time shellfish derived [Shrimp] Allergy Anaphylaxis Verified 03/20/20 19:40 cefazolin [From Kefzol] AdvReac Intermediate Nausea Verified 11/19/19 23:40 Physical Exam Vitals: Vital Signs Temp Pulse Resp BP Pulse Ox 07/04/20 07:45 97.7 F 70 16 142/66 97 07/04/20 03:23 60 18 07/04/20 02:45 97.4 F L 60 16 129/64 98 07/04/20 01:45 62 132/63 98 07/04/20 00:31 62 132/63 98 07/03/20 23:45 59 L 152/64 99 07/03/20 23:15 60 146/66 98 07/03/20 22:45 61 125/62 100 07/03/20 22:30 55 L 154/71 99 07/03/20 22:15 61 144/60 98 07/03/20 22:00 97.6 F 60 18 147/70 100 07/03/20 21:27 98 F 61 16 158/82 96 07/03/20 16:36 97.2 F L 72 16 192/89 98 Intake and Output 07/03/20 07/04/20 07/04/20 22:59 06:59 14:59 Intake Total 606 Output Total 3 Balance 603 Intake: IV 356 Intake, IV Titration 250 Amount Vancomycin 1,000 mg In 250 Sodium Chloride 0.9% 250 ml @ 125 mls/hr IVPB ONCE STA Rx#:[id number] Output: Estimated Blood Loss 3 Other: Weight 115 kg Results - Lab Results Most recent lab results Calcium 8.5 mg/dL (8.4-10.2) 07/03/20 16:43 07/03/20 16:43 07/03/20 16:43 Assessment and Plan Plan: Assessment: 1. End-stage renal disease maintained on hemodialysis on Thursday schedule via AV fistula. 2. Left ring finger gangrene with abscess status post incision and drainage with amputation of the distal phalanx on July 03. 3. Diabetes mellitus. 4. Chronic kidney disease mineral bone disease maintained on Sensipar. Plan: Hemodialysis today. Stable to be discharged home from nephrology standpoint after dialysis. Thank you for the consultation. I will continue to follow the patient with you during his hospital stay.
[2020-07-04 11:05] LABS: Glucose,Whole Blood 123 mg/dL (75-99)
[2020-07-04 11:19] LABS: Basophils # (A) 0.1 k/uL (0-0.2); Basophils % (A) 1 %; Eosinophils # (A) 0.3 k/uL (0-0.7); Eosinophils % (A) 6 %; HCT 37.1 % (39.0-53.0); HGB 12.1 gm/dL (13.0-17.5); Lymphocytes % (A) 22 %; MCH 29.3 pg (25.0-35.0); MCHC 32.6 g/dL (31.0-37.0); MCV 89.7 fL (80.0-100.0); Mean Platelet Volume 8.2; Monocytes # (A) 0.4 k/uL (0-1.0); Monocytes % (A) 8 %; Neutrophils # (A) 2.7 k/uL (1.3-7.7); Neutrophils % (A) 60 %; Platelet Count 202 k/uL (150-450); RBC 4.14 m/uL (4.30-5.90); RDW 15.1 % (11.5-15.5); WBC 4.5 k/uL (3.8-10.6)
[2020-07-04 11:31] LABS: C Reactive Protein 22.6 mg/L (<10.0); Calcium 8.1 mg/dL (8.4-10.2); Potassium 5.4 mmol/L (3.5-5.1)
[2020-07-04] MEDS ORDERED: VANCOMYCIN 1,750 MG in SODIUM CHLORIDE 0.9% 500 ML 500 ML IVPB ONE (12:00)
[2020-07-04] MEDS: HYDROcodone/APAP 7.5-325MG 1 EACH TAB PO PRN ×2 (12:55→20:31)
--- NOTE | 2020-07-04 12:55 | P.CONS ---
History of Present Illness - Reason for Consult end-stage renal disease, type 2 diabetes mellitus - History of Present Illness patient is a pleasant 59-year-old male admitted for incision and drainage with amputation of the distal phalanx for gangrene of the left ring finger. Patient has amputation of some of the fingers as well patient states she burned his finger followed by working with metal like to gangrene. Patient is presently on Vanco mycin and the clindamycin infectious disease was consulted patient is diabetic but on a very minimal dose of long-acting insulin patient is presently on sliding scale insulin which will be continued for now won't cultures were obtained. Patient is a scheduled for hemodialysis today does have end-stage renal disease from diabetic nephropathy is undergoing hemodialysis today. Patient does have mild hyponatremia and hyperkalemia expected to improve with he modialysis. Review of Systems REVIEW OF SYSTEMS: CONSTITUTIONAL: No fever, no malaise, no fatigue. HEENT: No recent visual problems or hearing problems. Denied any sore throat. CARDIOVASCULAR: No chest pain, orthopnea, PND, no palpitations, no syncope. PULMONARY: No shortness of breath, no cough, no hemoptysis. GASTROINTESTINAL: No diarrhea, no nausea, no vomiting, no abdominal pain. NEUROLOGICAL: No headaches, no weakness, no numbness. HEMATOLOGICAL: Denies any bleeding or petechiae. GENITOURINARY: Denies any burning micturition, frequency, or urgency. MUSCULOSKELETAL/RHEUMATOLOGICAL: as mentioned in HPI ENDOCRINE: Denies any polyuria or polydipsia. The rest of the 14-point review of systems is negative. Past Medical History Past Medical History: Asthma, Diabetes Mellitus, Eye Disorder, Hypertension, Musculoskeletal Disorder, Renal Disease, Sleep Apnea/CPAP/BIPAP Additional Past Medical History / Comment(s): End Stage Renal Disease- HEMODIALYSIS MON, WED, FRI, HAS FISTULAS IN BILATERAL ARMS, "CAN ONLY HAVE IV'S IN HANDS." USES O2 @ HS OCCASIONALLY. HX OSTEOMYELITIS L3-5 2010. RT INDEX FINGER ABSCESS. Neuropathy. No CPAP use. Bilateral Glaucoma. History of Any Multi-Drug Resistant Organisms: None Reported Past Surgical History: Cholecystectomy Additional Past Surgical History / Comment(s): LEFT BKA, RIGHT TOE AMPUTATIONS. FISTULA IN RFA, & LT INNER ELBOW. BILATERAL CATARACT SURGERY,bilateral lens LASER EYE SURGERY, right index finger amputation. Past Anesthesia/Blood Transfusion Reactions: No Reported Reaction Past Psychological History: No Psychological Hx Reported Additional Psychological History / Comment(s): lives with family Smoking Status: Former smoker Past Alcohol Use History: Rare Additional Past Alcohol Use History / Comment(s): SMOKED AGE 9-30, UP TO 2 PPD. Past Drug Use History: Cocaine, Methamphetamine Additional Drug Use History / Comment(s): NO USE SINCE 1993. - Past Family History Mother Family Medical History: No Reported History Additional Family Medical History / Comment(s): Congestive heart failure. Father Additional Family Medical History / Comment(s): Congestive heart failure, myocardial infarction Medications and Allergies Home Medications Medication Instructions Recorded Confirmed Type HYDROcodone/APAP 7.5-325MG [[place] 1 tab PO TID PRN 08/09/19 07/03/20 History 7.5-325] Pregabalin [Lyrica] 75 mg PO HS 08/09/19 07/03/20 History Insulin Degludec [Tresiba] 3 units SQ HS 08/12/19 07/03/20 History Albuterol Sulfate [Ventolin HFA] 2 puff INHALATION RT-Q4H PRN 03/20/20 07/03/20 History Pregabalin [Lyrica] 75 mg PO MOWEFR@0900 03/20/20 07/03/20 History fentaNYL 25MCG/HR PATCH [Duragesic 1 patch TRANSDERM Q72H 03/20/20 07/03/20 History 25MCG/HR] Cinacalcet HCl [Sensipar] 30 mg PO DAILY 03/21/20 07/03/20 History Zinc 50 mg PO DAILY 07/03/20 07/03/20 History Allergies Allergy/AdvReac Type Severity Reaction Status Date / Time shellfish derived [Shrimp] Allergy Anaphylaxis Verified 03/20/20 19:40 cefazolin [From Kefzol] AdvReac Intermediate Nausea Verified 11/19/19 23:40 Physical Exam Vitals: Vital Signs Temp Pulse Resp BP BP Pulse Ox 07/04/20 09:26 97.9 F 70 14 112/70 100 07/04/20 07:45 97.7 F 70 16 142/66 97 07/04/20 03:23 60 18 07/04/20 02:45 97.4 F L 60 16 129/64 98 07/04/20 01:45 62 132/63 98 07/04/20 00:31 62 132/63 98 07/03/20 23:45 59 L 152/64 99 07/03/20 23:15 60 146/66 98 07/03/20 22:45 61 125/62 100 07/03/20 22:30 55 L 154/71 99 07/03/20 22:15 61 144/60 98 07/03/20 22:00 97.6 F 60 18 147/70 100 07/03/20 21:27 98 F 61 16 158/82 96 07/03/20 16:36 97.2 F L 72 16 192/89 98 Intake and Output 07/03/20 07/04/20 07/04/20 22:59 06:59 14:59 Intake Total 606 Output Total 3 Balance 603 Intake: IV 356 Intake, IV Titration 250 Amount Vancomycin 1,000 mg In 250 Sodium Chloride 0.9% 250 ml @ 125 mls/hr IVPB ONCE STA Rx#:[id number] Output: Estimated Blood Loss 3 Other: Weight 115 kg PHYSICAL EXAMINATION: GENERAL: The patient is alert and oriented x3, not in any acute distress. Well developed, well nourished. HEENT: Pupils are round and equally reacting to light. EOMI. No scleral icterus. No conjunctival pallor. Normocephalic, atraumatic. No pharyngeal erythema. No thyromegaly. CARDIOVASCULAR: S1 and S2 present. No murmurs, rubs, or gallops. PULMONARY: Chest is clear to auscultation, no wheezing or crackles. ABDOMEN: Soft, nontender, nondistended, normoactive bowel sounds. No palpable organomegaly. MUSCULOSKELETAL: No joint swelling or deformity. EXTREMITIES: No cyanosis, clubbing, or pedal edema. patient had left ring finger drained and patient has surgical packing. Patient had previous amputations and multiple other fingers NEUROLOGICAL: Gross neurological examination did not reveal any focal deficits. SKIN: No rashes. Results CBC & Chem 7: 07/04/20 11:01 07/04/20 11:01 Labs: Abnormal Lab Results - Last 24 Hours (Table) 07/03/20 07/03/20 07/04/20 Range/Units 16:43 16:43 11:01 RBC 4.14 L (4.30-5.90) m/uL Hgb 12.3 L 12.1 L (13.0-17.5) gm/dL Hct 38.3 L 37.1 L (39.0-53.0) % Sodium 135 L (137-145) mmol/L Potassium 5.5 H (3.5-5.1) mmol/L Chloride 95 L (98-107) mmol/L BUN 58 H (9-20) mg/dL Creatinine 8.71 H* (0.66-1.25) mg/dL Glucose (74-99) mg/dL POC Glucose (mg/dL) (75-99) mg/dL Calcium (8.4-10.2) mg/dL C-Reactive Protein (<10.0) mg/L 07/04/20 07/04/20 Range/Units 11:01 11:05 RBC (4.30-5.90) m/uL Hgb (13.0-17.5) gm/dL Hct (39.0-53.0) % Sodium 134 L (137-145) mmol/L Potassium 5.4 H (3.5-5.1) mmol/L Chloride 97 L (98-107) mmol/L BUN 66 H (9-20) mg/dL Creatinine 10.18 H* (0.66-1.25) mg/dL Glucose 126 H (74-99) mg/dL POC Glucose (mg/dL) 123 H (75-99) mg/dL Calcium 8.1 L (8.4-10.2) mg/dL C-Reactive Protein 22.6 H (<10.0) mg/L Microbiology - Last 24 Hours (Table) 07/03/20 21:25 Wound Culture - Preliminary Finger - Left Fourth 07/03/20 21:25 Anaerobic Culture - Preliminary Finger - Left Fourth 07/03/20 21:25 Tissue Culture - Preliminary Finger - Left Fourth 07/03/20 21:25 Anaerobic Culture - Preliminary Finger - Left Fourth Assessment and Plan Plan: -type 2 diabetes mellitus: Continue with sliding scale insulin monitor the blood sugars will obtain a hemoglobin A1c -end-stage renal disease: Patient will undergo hemodialysis as scheduled here -Metabolic bone disease from and children disease -Hyponatremia and hyperkalemia expected to improve with hemodialysis -Gangrene of the left ring finger status post incision and drainage and amputation of the distal phalanx patient is on vancomycin and clindamycin which will be continued -asthma and/or COPD without any significant exacerbation -Hypertension DVT prophylaxis early ambulation
--- NOTE | 2020-07-04 13:02 | P.PN ---
Subjective Progress Note Date: 07/04/20 Principal diagnosis: Status post I&D left ring finger with amputation of the distal phalanx (DIP disarticulation) This is a 59 year-old male post I&D left ring finger with amputation of distal phalanx. This is post-op day 1. The patient was evaluated at the bedside today. The patient denies nausea, vomiting, abdominal pain, shortness of breath, and chest pain this morning. He states his pain is not controlled at this time. The patient is currently receiving hemodialysis. He has not been seen by infectious disease yet today. Objective - Vital Signs Vital signs: Vital Signs Temp 97.9 F 07/04/20 09:26 Pulse 70 07/04/20 09:26 Resp 14 07/04/20 09:26 BP 112/70 07/04/20 09:26 Pulse Ox 100 07/04/20 09:26 Intake & Output 07/03/20 07/04/20 07/04/20 18:59 06:59 18:59 Intake Total 606 Output Total 3 Balance 603 Weight 115 kg 115 kg Intake: IV 356 Intake, IV Titration 250 Amount Vancomycin 1,000 mg In 250 Sodium Chloride 0.9% 250 ml @ 125 mls/hr IVPB ONCE STA Rx#:[id number] Output: Estimated Blood Loss 3 - Exam The patient does not appear in acute distress. Alert and orientated x3. Dressing is clean dry and intact. He is able to move his fingers well. Sensation and circulatory status is intact. - Labs CBC & Chem 7: 07/04/20 11:01 07/04/20 11:01 Labs: Abnormal Lab Results - Last 24 Hours (Table) 07/03/20 07/03/20 07/04/20 Range/Units 16:43 16:43 11:01 RBC 4.14 L (4.30-5.90) m/uL Hgb 12.3 L 12.1 L (13.0-17.5) gm/dL Hct 38.3 L 37.1 L (39.0-53.0) % Sodium 135 L (137-145) mmol/L Potassium 5.5 H (3.5-5.1) mmol/L Chloride 95 L (98-107) mmol/L BUN 58 H (9-20) mg/dL Creatinine 8.71 H* (0.66-1.25) mg/dL Glucose (74-99) mg/dL POC Glucose (mg/dL) (75-99) mg/dL Calcium (8.4-10.2) mg/dL C-Reactive Protein (<10.0) mg/L 07/04/20 07/04/20 Range/Units 11:01 11:05 RBC (4.30-5.90) m/uL Hgb (13.0-17.5) gm/dL Hct (39.0-53.0) % Sodium 134 L (137-145) mmol/L Potassium 5.4 H (3.5-5.1) mmol/L Chloride 97 L (98-107) mmol/L BUN 66 H (9-20) mg/dL Creatinine 10.18 H* (0.66-1.25) mg/dL Glucose 126 H (74-99) mg/dL POC Glucose (mg/dL) 123 H (75-99) mg/dL Calcium 8.1 L (8.4-10.2) mg/dL C-Reactive Protein 22.6 H (<10.0) mg/L Microbiology - Last 24 Hours (Table) 07/03/20 21:25 Wound Culture - Preliminary Finger - Left Fourth 07/03/20 21:25 Anaerobic Culture - Preliminary Finger - Left Fourth 07/03/20 21:25 Tissue Culture - Preliminary Finger - Left Fourth 07/03/20 21:25 Anaerobic Culture - Preliminary Finger - Left Fourth Assessment and Plan Plan: 1. Continue pain control, will add his fentanyl patch, continue [place] 7.5 mg PRN, and one time dose of dilaudid now. 2. Currently on vancomycin. Intraoperative cultures pending. 3. Await antibiotic recommendations from Dr. Worthington. 4. Anticipate discharge home when antibiotics are determined and pain is controlled better.
[2020-07-04] MEDS ORDERED: HYDROmorphone 0.5 MG/0.5 ML SYRINGE IVP STA (13:03)
[2020-07-04 13:19] LABS: Erythrocyte Sedimentation Rate 72 mm/hr (0-15)
[2020-07-04 16:19] LABS: Glucose,Whole Blood 113 mg/dL (75-99)
[2020-07-04 20:40] LABS: Glucose,Whole Blood 137 mg/dL (75-99)
--- NOTE | 2020-07-04 23:29 | P.CONS ---
History of Present Illness - Reason for Consult Consult date: 07/04/20 Left ring finger infection Requesting physician: Sawyer Tapia - Chief Complaint Left ring finger nonhealing wound x days - History of Present Illness Patient is 59-year-old -D[place] male with a past medical history significant for end-stage renal disease on hemodialysis in this patient who did have a multiple infection and partial amputation of his fingertips patient has been evaluated in the outpatient setting by his surgeon for a 4 to the left ring finger which apparently started as a burn wound which subsequently progressing becoming more swollen and red and nonhealing for the patient has been evaluated by his surgeon he was taken to the OR last night at 9:30 PM in this patient who is status post irrigation and debridement of the left ring finger with amputation of the distal phalanx culture has been obtained and there were no blood cultures done patient received only one dose of clindamycin therapy relatively infectious disease was consulted last night for further management of antibiotic therapy, patient chart was reviewed this morning blood culture were ordered and the patient was started on vancomycin because of his previous cultures and ALLERGIC to cefazolin pending formal consult to be completed Review of Systems Positive point has been mentioned in the HPI rest of the systems are negative Past Medical History Past Medical History: Asthma, Diabetes Mellitus, Eye Disorder, Hypertension, Musculoskeletal Disorder, Renal Disease, Sleep Apnea/CPAP/BIPAP Additional Past Medical History / Comment(s): End Stage Renal Disease- HEMODIALYSIS MON, WED, THU, HAS FISTULAS IN BILATERAL ARMS, "CAN ONLY HAVE IV'S IN HANDS." USES O2 @ HS OCCASIONALLY. HX OSTEOMYELITIS L3-5 2010. RT INDEX FINGER ABSCESS. Neuropathy. No CPAP use. Bilateral Glaucoma. History of Any Multi-Drug Resistant Organisms: None Reported Past Surgical History: Cholecystectomy Additional Past Surgical History / Comment(s): LEFT BKA, RIGHT TOE AMPUTATIONS. FISTULA IN RFA, & LT INNER ELBOW. BILATERAL CATARACT SURGERY,bilateral lens LASER EYE SURGERY, right index finger amputation. Past Anesthesia/Blood Transfusion Reactions: No Reported Reaction Past Psychological History: No Psychological Hx Reported Additional Psychological History / Comment(s): lives with family Smoking Status: Former smoker Past Alcohol Use History: Rare Additional Past Alcohol Use History / Comment(s): SMOKED AGE 9-30, UP TO 2 PPD. Past Drug Use History: Cocaine, Methamphetamine Additional Drug Use History / Comment(s): NO USE SINCE 1993. - Past Family History Mother Family Medical History: No Reported History Additional Family Medical History / Comment(s): Congestive heart failure. Father Additional Family Medical History / Comment(s): Congestive heart failure, myocardial infarction Medications and Allergies Home Medications Medication Instructions Recorded Confirmed Type HYDROcodone/APAP 7.5-325MG [[place] 1 tab PO TID PRN 08/09/19 07/03/20 History 7.5-325] Pregabalin [Lyrica] 75 mg PO HS 08/09/19 07/03/20 History Insulin Degludec [Tresiba] 3 units SQ HS 08/12/19 07/03/20 History Albuterol Sulfate [Ventolin HFA] 2 puff INHALATION RT-Q4H PRN 03/20/20 07/03/20 History Pregabalin [Lyrica] 75 mg PO MOWEFR@0900 03/20/20 07/03/20 History fentaNYL 25MCG/HR PATCH [Duragesic 1 patch TRANSDERM Q72H 03/20/20 07/03/20 History 25MCG/HR] Cinacalcet HCl [Sensipar] 30 mg PO DAILY 03/21/20 07/03/20 History Zinc 50 mg PO DAILY 07/03/20 07/03/20 History Allergies Allergy/AdvReac Type Severity Reaction Status Date / Time shellfish derived [Shrimp] Allergy Anaphylaxis Verified 03/20/20 19:40 cefazolin [From Kefzol] AdvReac Intermediate Nausea Verified 11/19/19 23:40 Physical Exam Vitals: Vital Signs Temp Pulse Resp BP Pulse Ox 07/04/20 07:45 97.7 F 70 16 142/66 97 07/04/20 03:23 60 18 07/04/20 02:45 97.4 F L 60 16 129/64 98 07/04/20 01:45 62 132/63 98 07/04/20 00:31 62 132/63 98 07/03/20 23:45 59 L 152/64 99 07/03/20 23:15 60 146/66 98 07/03/20 22:45 61 125/62 100 07/03/20 22:30 55 L 154/71 99 07/03/20 22:15 61 144/60 98 07/03/20 22:00 97.6 F 60 18 147/70 100 07/03/20 21:27 98 F 61 16 158/82 96 07/03/20 16:36 97.2 F L 72 16 192/89 98 Intake and Output 07/03/20 07/04/20 07/04/20 22:59 06:59 14:59 Intake Total 606 Output Total 3 Balance 603 Intake: IV 356 Intake, IV Titration 250 Amount Vancomycin 1,000 mg In 250 Sodium Chloride 0.9% 250 ml @ 125 mls/hr IVPB ONCE STA Rx#:[id number] Output: Estimated Blood Loss 3 Other: Weight 115 kg GENERAL DESCRIPTION: Middle-aged male lying in bed, no distress. No tachypnea or accessory muscle of respiration use. HEENT: Shows Pallor , no scleral icterus. Oral mucous membrane is dry. No pharyngeal erythema or thrush NECK: Trachea central, no thyromegaly. LUNGS: Unlabored breathing. Clear to auscultation anteriorly. No wheeze or crackle. HEART: S1, S2, regular rate and rhythm. No loud murmur ABDOMEN: Soft, no tenderness , guarding or rigidity, no organomegaly EXTREMITIES: Left ring finger is currently covered with postop Dressing with no drainage of the dressing SKIN: No rash, no masses palpable. NEUROLOGICAL: The patient is awake, alert, oriented x3, mood and affect normal. Results CBC & Chem 7: 07/04/20 11:01 07/04/20 11:01 Labs: Abnormal Lab Results - Last 24 Hours (Table) 07/03/20 07/03/20 Range/Units 16:43 16:43 Hgb 12.3 L (13.0-17.5) gm/dL Hct 38.3 L (39.0-53.0) % Sodium 135 L (137-145) mmol/L Potassium 5.5 H (3.5-5.1) mmol/L Chloride 95 L (98-107) mmol/L BUN 58 H (9-20) mg/dL Creatinine 8.71 H* (0.66-1.25) mg/dL Assessment and Plan Assessment: 1- patient with left ring finger distal phalanx gangrene and abscess status post amputation of the distal phalanx will need to cover for the gram-positive skin kym with the likely pathogen infection most likely and has previously grown predominately MSSA 2- patient with cefazolin ALLERGY to limit the number of antibiotic safe to use (1) Gangrene of finger of left hand Current Visit: Yes Status: Acute Code(s): I96 - GANGRENE, NOT ELSEWHERE CLASSIFIED SNOMED Code(s): 25373090023935022 (2) Abscess of finger Current Visit: No Status: Acute Code(s): L02.519 - CUTANEOUS ABSCESS OF UNSPECIFIED HAND SNOMED Code(s): 54758557 Plan: 1- Vancomycin pharmacy to dose target trough of 15 while watching his kidney function and Vanco trough closely 2- we'll wait for the cultures to finalize to determine his discharge antibiotics hopefully through dialysis We will follow on clinical condition and cultures to further adjust medication if needed Thank you for this consultation will follow this patient with you Time with Patient: Greater than 30
[2020-07-05] MEDS: HYDROcodone/APAP 7.5-325MG 1 EACH TAB PO PRN ×3 (05:34→20:47)
[2020-07-05 06:48] LABS: Glucose,Whole Blood 124 mg/dL (75-99)
[2020-07-05] MEDS: INSULIN ASPART (NovoLOG) 100 UNIT/ML VIAL SQ SCH ×4 (07:07→20:42)
[2020-07-05] MEDS: CINACALCET 30 MG TAB PO SCH (08:18)
--- NOTE | 2020-07-05 08:48 | P.PN ---
Subjective Progress Note Date: 07/05/20 Principal diagnosis: Status post I&D left ring finger with amputation of the distal phalanx (DIP disarticulation) This is a 59 year-old male post I&D left ring finger with amputation of distal phalanx. This is post-op day 2. The patient was evaluated at the bedside today. The patient denies nausea, vomiting, abdominal pain, shortness of breath, and chest pain this morning. He states his pain is better controlled at this time. We are awaiting final cultures for antibiotic direction for discharge. He will receive antibiotics at dialysis upon discharge. Objective - Vital Signs Vital signs: Vital Signs Temp 98.2 F 07/05/20 01:00 Pulse 70 07/05/20 01:00 Resp 20 07/05/20 03:54 BP 112/53 07/05/20 01:00 Pulse Ox 100 07/05/20 01:00 Intake & Output 07/04/20 07/05/20 07/05/20 18:59 06:59 18:59 Intake Total 906 100 Output Total 1999 Balance -1094 100 Intake: Oral 906 100 Output: Hemodialysis 1999 Other: # Voids 1 - Exam The patient does not appear in acute distress. Alert and orientated x3. Dressing is clean dry and intact. He is able to move his fingers well. Sensation and circulatory status is intact. - Labs CBC & Chem 7: 07/04/20 11:01 07/04/20 11:01 Labs: Abnormal Lab Results - Last 24 Hours (Table) 07/04/20 07/04/20 07/04/20 Range/Units 11:01 11:01 11:05 RBC 4.14 L (4.30-5.90) m/uL Hgb 12.1 L (13.0-17.5) gm/dL Hct 37.1 L (39.0-53.0) % ESR 72 H (0-15) mm/hr Sodium 134 L (137-145) mmol/L Potassium 5.4 H (3.5-5.1) mmol/L Chloride 97 L (98-107) mmol/L BUN 66 H (9-20) mg/dL Creatinine 10.18 H* (0.66-1.25) mg/dL Glucose 126 H (74-99) mg/dL POC Glucose (mg/dL) 123 H (75-99) mg/dL Calcium 8.1 L (8.4-10.2) mg/dL C-Reactive Protein 22.6 H (<10.0) mg/L 07/04/20 07/04/20 07/05/20 Range/Units 16:18 20:20 06:42 RBC (4.30-5.90) m/uL Hgb (13.0-17.5) gm/dL Hct (39.0-53.0) % ESR (0-15) mm/hr Sodium (137-145) mmol/L Potassium (3.5-5.1) mmol/L Chloride (98-107) mmol/L BUN (9-20) mg/dL Creatinine (0.66-1.25) mg/dL Glucose (74-99) mg/dL POC Glucose (mg/dL) 113 H 137 H 124 H (75-99) mg/dL Calcium (8.4-10.2) mg/dL C-Reactive Protein (<10.0) mg/L Microbiology - Last 24 Hours (Table) 07/03/20 21:25 Gram Stain - Preliminary Finger - Left Fourth Wound Culture - Preliminary 07/03/20 21:25 Gram Stain - Preliminary Finger - Left Fourth Tissue Culture - Preliminary 07/03/20 21:25 Anaerobic Culture - Preliminary Finger - Left Fourth 07/03/20 21:25 Anaerobic Culture - Preliminary Finger - Left Fourth Assessment and Plan (1) Amputation of finger Current Visit: No Status: Acute Code(s): S68.119A - COMPLETE TRAUMATIC MCP AMPUTATION OF UNSP FINGER, INIT SNOMED Code(s): 770404181 (2) Osteomyelitis of finger Current Visit: No Status: Acute Code(s): M86.9 - OSTEOMYELITIS, UNSPECIFIED SNOMED Code(s): 93120522 Plan: 1. Continue pain control 2. Currently on vancomycin. Intraoperative cultures pending. 3. Await antibiotic recommendations from Dr. Worthington. 4. Anticipate discharge home when antibiotics are determined.
[2020-07-05 11:22] LABS: Glucose,Whole Blood 121 mg/dL (75-99)
[2020-07-05] MEDS ORDERED: VANCOMYCIN 1,750 MG in SODIUM CHLORIDE 0.9% 500 ML 500 ML IVPB ONE (12:00)
--- NOTE | 2020-07-05 14:47 | P.PN ---
Subjective Progress Note Date: 07/05/20 Principal diagnosis: Reason for consult end-stage renal disease, type 2 diabetes mellitus History of Present Illness patient is a pleasant 59-year-old male admitted for incision and drainage with amputation of the distal phalanx for gangrene of the left ring finger. Patient has amputation of some of the fingers as well patient states she burned his fi nger followed by working with metal like to gangrene. Patient is presently on Vanco mycin and the clindamycin infectious disease was consulted patient is diabetic but on a very minimal dose of long-acting insulin patient is presently on sliding scale insulin which will be continued for now won't cultures were obtained. Patient is a scheduled for hemodialysis today does have end-stage renal disease from diabetic nephropathy is undergoing hemodialysis today. Patient does have mild hyponatremia and hyperkalemia expected to improve with hemodialysis. 07/05/2020 Patient is seen and evaluated and follow-up with no acute overnight issues. Patient is currently maintained on IV antibiotics in the form of ertapenem along with vancomycin and will continue at this time. Preliminary cultures of the left fourth finger showing gram-negative bacilli and awaiting for culture finalization to determine antibiotic therapy. Infectious disease is following. Will continue to follow along with orthopedic surgery. Patient receives dialysis in case management following working on possible antibiotic infusions during dialysis treatments. Review of systems: Constitutional: No reports of fatigue, fever, or chills Cardiovascular: No reports of chest pain or palpitations Respiratory: No reports of shortness of breath or cough GI: No reports of nausea, vomiting, or diarrhea : No reports of dysuria or retention Neurovascular: No reports of weakness or numbness All medications have been reviewed Objective - Vital Signs Vital signs: Vital Signs Temp 98.2 F 07/05/20 01:00 Pulse 70 07/05/20 01:00 Resp 20 07/05/20 03:54 BP 112/53 07/05/20 01:00 Pulse Ox 100 07/05/20 01:00 Intake & Output 07/04/20 07/05/20 07/05/20 18:59 06:59 18:59 Intake Total 906 100 Output Total 1999 Balance -1094 100 Intake: Oral 906 100 Output: Hemodialysis 1999 Other: # Voids 1 - Exam GENERAL: The patient is alert and oriented x3, not in any acute distress. Well developed, well nourished. HEENT: Pupils are round and equally reacting to light. EOMI. No scleral icterus. No conjunctival pallor. Normocephalic, atraumatic. No pharyngeal erythema. No thyromegaly. CARDIOVASCULAR: S1 and S2 present. No murmurs, rubs, or gallops. PULMONARY: Chest is clear to auscultation, no wheezing or crackles. ABDOMEN: Soft, nontender, nondistended, normoactive bowel sounds. No palpable organomegaly. MUSCULOSKELETAL: No joint swelling or deformity. EXTREMITIES: No cyanosis, clubbing, or pedal edema. patient status post left ring finger drained along with amputation of the distal phalanx with surgical dressings that are dry and intact. Patient had previous amputations and multiple other fingers NEUROLOGICAL: Gross neurological examination did not reveal any focal deficits. SKIN: No rashes. - Labs CBC & Chem 7: 07/04/20 11:01 07/04/20 11:01 Labs: Abnormal Lab Results - Last 24 Hours (Table) 07/04/20 07/04/20 07/04/20 Range/Units 11:01 16:18 20:20 ESR 72 H (0-15) mm/hr POC Glucose (mg/dL) 113 H 137 H (75-99) mg/dL 07/05/20 07/05/20 Range/Units 06:42 11:21 ESR (0-15) mm/hr POC Glucose (mg/dL) 124 H 121 H (75-99) mg/dL Microbiology - Last 24 Hours (Table) 07/03/20 21:25 Gram Stain - Preliminary Finger - Left Fourth Tissue Culture - Preliminary Gram Neg Bacilli 07/03/20 21:25 Gram Stain - Preliminary Finger - Left Fourth Wound Culture - Preliminary 07/03/20 21:25 Anaerobic Culture - Preliminary Finger - Left Fourth 07/03/20 21:25 Anaerobic Culture - Preliminary Finger - Left Fourth Assessment and Plan Assessment: -type 2 diabetes mellitus: Continue with sliding scale insulin monitor the blood sugars will obtain a hemoglobin A1c -end-stage renal disease: Early maintained on hemodialysis, nephrology following -Metabolic bone disease -Hyponatremia and hyperkalemia expected to improve with hemodialysis -Gangrene of the left ring finger status post incision and drainage and amputation of the distal phalanx. patient is on vancomycin and ertapenem which will be continued. Infectious disease following awaiting for cultures to finalized with preliminary showing gram-negative bacilli -asthma and/or COPD without any significant exacerbation -Hypertension -DVT prophylaxis early ambulation
[2020-07-05] MEDS: ERTAPENEM 0.5 GM in SODIUM CHLORIDE 0.9% 50 ML IVPB SCH (14:50)
--- NOTE | 2020-07-05 15:24 | P.PN ---
Subjective Patient is seen in follow-up for end-stage renal disease. He is maintained on hemodialysis on Thursday schedule. Tolerated dialysis well yesterday. Status post amputation of the left ring finger. Maintain on antibiotics. No active complaints at this time. Vital signs are stable. General: The patient appeared well nourished and normally developed. HEENT: Head exam is unremarkable. Neck is without jugular venous distension. LUNGS: Breath sounds decreased. HEART: Rate and Rhythm are regular. ABDOMEN: Soft, nontender. EXTREMITITES: No clubbing, cyanosis, or edema. Left BKA noted. Objective - Vital Signs Vital signs: Vital Signs Temp 98.1 F 07/05/20 13:25 Pulse 89 07/05/20 13:25 Resp 12 07/05/20 13:25 BP 119/77 07/05/20 13:25 Pulse Ox 97 07/05/20 13:25 Intake & Output 07/04/20 07/05/20 07/05/20 18:59 06:59 18:59 Intake Total 906 100 700 Output Total 1999 Balance -1094 100 700 Intake: Intake, IV Titration 500 Amount Vancomycin 1,750 mg In 500 Sodium Chloride 0.9% 500 ml 500 ml @ 167 mls/hr IVPB ONCE ONE Rx#: [id number] Oral 906 100 200 Output: Hemodialysis 1999 Other: # Voids 1 - Labs CBC & Chem 7: 07/04/20 11:01 07/04/20 11:01 Labs: Abnormal Lab Results - Last 24 Hours (Table) 07/04/20 07/04/20 07/05/20 Range/Units 16:18 20:20 06:42 POC Glucose (mg/dL) 113 H 137 H 124 H (75-99) mg/dL 07/05/20 Range/Units 11:21 POC Glucose (mg/dL) 121 H (75-99) mg/dL Microbiology - Last 24 Hours (Table) 07/04/20 11:01 Blood Culture - Preliminary Blood No Growth after 24 hours 07/03/20 21:25 Gram Stain - Preliminary Finger - Left Fourth Tissue Culture - Preliminary Gram Neg Bacilli 07/03/20 21:25 Gram Stain - Preliminary Finger - Left Fourth Wound Culture - Preliminary Assessment and Plan Plan: Assessment: 1. End-stage renal disease maintained on hemodialysis on Kang Wednesday Nic schedule via AV fistula. 2. Left ring finger gangrene with abscess status post incision and drainage with amputation of the distal phalanx on July 03. 3. Diabetes mellitus. 4. Chronic kidney disease mineral bone disease maintained on Sensipar. Plan: Hemodialysis tomorrow.
--- NOTE | 2020-07-05 16:26 | PN ---
PROGRESS NOTE DATE OF SERVICE: 07/05/2020 REASON FOR FOLLOWUP: Left ring finger infection. INTERVAL HISTORY: The patient is currently afebrile. The patient is breathing comfortably. Pain to the finger is currently controlled. Denies having any chest pain or cough. No nausea, vomiting, abdominal pain or diarrhea. PHYSICAL EXAMINATION: Blood pressure 119/77, pulse of 89, temperature 98.1. He is 97% on room air. General description is a middle-aged male up in chair in no distress. RESPIRATORY SYSTEM: Unlabored breathing. Clear to auscultation anteriorly. HEART: S1, S2. Regular rate and rhythm. ABDOMEN: Soft. No tenderness. Left finger is currently dressed up. No obvious drainage on the dressing. LABS: Wound culture now showing Gram-negative bacilli. DIAGNOSTIC IMPRESSION AND PLAN: Patient with a left ring finger abscess and osteomyelitis, status post debridement and removal of the infected part. Culture showing Gram-negative. Will wait for it to finalize to determine discharge antibiotics. For now empirically covered with Invanz. Unfortunately choice is limited because of his KEFLEX ALLERGY. Continue with supportive care. MMODL / IJN: [id number] /
[2020-07-05 16:28] LABS: Glucose,Whole Blood 102 mg/dL (75-99)
[2020-07-05 20:26] LABS: Glucose,Whole Blood 112 mg/dL (75-99)
[2020-07-05] MEDS: PREGABALIN 75 MG CAP PO SCH (20:47)
[2020-07-06] MEDS: HYDROcodone/APAP 7.5-325MG 1 EACH TAB PO PRN ×2 (03:49→10:42)
[2020-07-06 03:52] VITALS: RESP 16
[2020-07-06 07:16] LABS: Glucose,Whole Blood 107 mg/dL (75-99)
[2020-07-06] MEDS: INSULIN ASPART (NovoLOG) 100 UNIT/ML VIAL SQ SCH ×2 (08:45→16:26)
[2020-07-06] MEDS: CINACALCET 30 MG TAB PO SCH ×2 (08:47→11:01)
[2020-07-06] MEDS: PREGABALIN 75 MG CAP PO SCH (08:48)
--- NOTE | 2020-07-06 09:13 | P.PN ---
Subjective Progress Note Date: 07/06/20 Principal diagnosis: Status post I&D left ring finger with amputation of the distal phalanx (DIP disarticulation) This is a 59 year-old male post I&D left ring finger with amputation of distal phalanx. This is post-op day 3. The patient was evaluated at the bedside today. The patient denies nausea, vomiting, abdominal pain, shortness of breath, and chest pain this morning. He states his pain is better controlled at this time. We are awaiting final cultures for antibiotic direction for discharge and possible line placement. Objective - Vital Signs Vital signs: Vital Signs Temp 98.2 F 07/06/20 07:16 Pulse 71 07/06/20 07:16 Resp 16 07/06/20 07:16 BP 175/65 07/06/20 07:16 Pulse Ox 94 L 07/06/20 07:16 Intake & Output 07/05/20 07/06/20 07/06/20 18:59 06:59 18:59 Intake Total 1240 1100 Balance 1240 1100 Intake: Intake, IV Titration 500 Amount Vancomycin 1,750 mg In 500 Sodium Chloride 0.9% 500 ml 500 ml @ 167 mls/hr IVPB ONCE ONE Rx#: [id number] Oral 740 1100 Other: # Voids 1 # Bowel Movements 1 - Exam The patient does not appear in acute distress. Alert and orientated x3. Dressing is clean dry and intact. He is able to move his fingers well. Sensation and circulatory status is intact. - Labs CBC & Chem 7: 07/04/20 11:01 07/04/20 11:01 Labs: Abnormal Lab Results - Last 24 Hours (Table) 07/05/20 07/05/20 07/05/20 Range/Units 11:21 16:26 20:23 POC Glucose (mg/dL) 121 H 102 H 112 H (75-99) mg/dL 07/06/20 Range/Units 07:12 POC Glucose (mg/dL) 107 H (75-99) mg/dL Microbiology - Last 24 Hours (Table) 07/04/20 11:01 Blood Culture - Preliminary Blood No Growth after 24 hours 07/03/20 21:25 Gram Stain - Preliminary Finger - Left Fourth Tissue Culture - Preliminary Gram Neg Bacilli 07/03/20 21:25 Gram Stain - Preliminary Finger - Left Fourth Wound Culture - Preliminary Assessment and Plan (1) Amputation of finger Current Visit: No Status: Acute Code(s): S68.119A - COMPLETE TRAUMATIC MCP AMPUTATION OF UNSP FINGER, INIT SNOMED Code(s): 117797785 (2) Osteomyelitis of finger Current Visit: No Status: Acute Code(s): M86.9 - OSTEOMYELITIS, UNSPECIFIED SNOMED Code(s): 34496656 Plan: 1. Continue pain control 2. Currently on vancomycin. Intraoperative cultures pending. 3. Await antibiotic recommendations from Dr. Worthington. 4. Anticipate discharge home when antibiotics are determined and a line is placed.
[2020-07-06 09:52] LABS: Basophils # (A) 0.1 k/uL (0-0.2); Basophils % (A) 1 %; Eosinophils # (A) 0.2 k/uL (0-0.7); Eosinophils % (A) 3 %; HCT 37.3 % (39.0-53.0); HGB 11.8 gm/dL (13.0-17.5); Lymphocytes # (A) 1.2 k/uL (1.0-4.8); Lymphocytes % (A) 14 %; MCH 28.7 pg (25.0-35.0); MCHC 31.8 g/dL (31.0-37.0); MCV 90.3 fL (80.0-100.0); Monocytes # (A) 0.6 k/uL (0-1.0); Monocytes % (A) 7 %; Neutrophils # (A) 5.9 k/uL (1.3-7.7); Neutrophils % (A) 74 %; Platelet Count 182 k/uL (150-450); RBC 4.13 m/uL (4.30-5.90); RDW 15.1 % (11.5-15.5); WBC 8.1 k/uL (3.8-10.6)
[2020-07-06 09:59] LABS: Calcium 8.3 mg/dL (8.4-10.2); Potassium 5.7 mmol/L (3.5-5.1)
[2020-07-06 11:33] LABS: Glucose,Whole Blood 116 mg/dL (75-99)
--- NOTE | 2020-07-06 12:07 | P.PN ---
Subjective Patient is seen in follow-up for end-stage renal disease. He is maintained on hemodialysis on Thursday schedule. Scheduled for dialysis today. Status post amputation of the left ring finger. Maintained on antibiotics. No active complaints at this time. Vital signs are stable. General: The patient appeared well nourished and normally developed. HEENT: Head exam is unremarkable. Neck is without jugular venous distension. LUNGS: Breath sounds decreased. HEART: Rate and Rhythm are regular. ABDOMEN: Soft, nontender. EXTREMITITES: No clubbing, cyanosis, or edema. Left BKA noted. Objective - Vital Signs Vital signs: Vital Signs Temp 98.2 F 07/06/20 07:16 Pulse 71 07/06/20 08:00 Resp 16 07/06/20 08:00 BP 175/65 07/06/20 07:16 Pulse Ox 94 L 07/06/20 07:16 Intake & Output 07/05/20 07/06/20 07/06/20 18:59 06:59 18:59 Intake Total 1240 1100 Balance 1240 1100 Intake: Intake, IV Titration 500 Amount Vancomycin 1,750 mg In 500 Sodium Chloride 0.9% 500 ml 500 ml @ 167 mls/hr IVPB ONCE ONE Rx#: [id number] Oral 740 1100 Other: # Voids 1 # Bowel Movements 1 - Labs CBC & Chem 7: 07/06/20 09:01 07/06/20 09:01 Labs: Abnormal Lab Results - Last 24 Hours (Table) 07/05/20 07/05/20 07/06/20 Range/Units 16:26 20:23 07:12 RBC (4.30-5.90) m/uL Hgb (13.0-17.5) gm/dL Hct (39.0-53.0) % Sodium (137-145) mmol/L Potassium (3.5-5.1) mmol/L Chloride (98-107) mmol/L Carbon Dioxide (22-30) mmol/L BUN (9-20) mg/dL Creatinine (0.66-1.25) mg/dL Glucose (74-99) mg/dL POC Glucose (mg/dL) 102 H 112 H 107 H (75-99) mg/dL Calcium (8.4-10.2) mg/dL 07/06/20 07/06/20 07/06/20 Range/Units 09:01 09:01 11:25 RBC 4.13 L (4.30-5.90) m/uL Hgb 11.8 L (13.0-17.5) gm/dL Hct 37.3 L (39.0-53.0) % Sodium 132 L (137-145) mmol/L Potassium 5.7 H (3.5-5.1) mmol/L Chloride 96 L (98-107) mmol/L Carbon Dioxide 19 L (22-30) mmol/L BUN 69 H (9-20) mg/dL Creatinine 10.13 H* (0.66-1.25) mg/dL Glucose 155 H (74-99) mg/dL POC Glucose (mg/dL) 116 H (75-99) mg/dL Calcium 8.3 L (8.4-10.2) mg/dL Microbiology - Last 24 Hours (Table) 07/03/20 21:25 Gram Stain - Final Finger - Left Fourth Tissue Culture - Final Morganella morganii 07/03/20 21:25 Gram Stain - Final Finger - Left Fourth Wound Culture - Final 07/04/20 11:01 Blood Culture - Preliminary Blood No Growth after 24 hours Assessment and Plan Plan: Assessment: 1. End-stage renal disease maintained on hemodialysis on Thursday schedule via AV fistula. 2. Left ring finger gangrene with abscess status post incision and drainage with amputation of the distal phalanx on July 03. 3. Diabetes mellitus. 4. Chronic kidney disease mineral bone disease maintained on Sensipar. 5. Hyperkalemia secondary to chronic kidney disease and metabolic acidosis. 6. Metabolic acidosis secondary to chronic kidney disease. Plan: Hemodialysis today. Stable to be discharged home from nephrology standpoint after dialysis today.
--- NOTE | 2020-07-06 12:49 | PN ---
PROGRESS NOTE DATE OF SERVICE: 07/06/2020 REASON FOR FOLLOWUP: Left ring finger infection. INTERVAL HISTORY: Patient is currently afebrile, has been breathing comfortably, denies having any chest pain, shortness of breath. No nausea, no abdominal pain or pain to the left ring finger. PHYSICAL EXAMINATION: Blood pressure 125/65 with pulse of 68, temperature is 98.2. He is 94% on room air. General description is a middle-aged male, up in the chair in no distress. RESPIRATORY SYSTEM: Unlabored breathing, clear to auscultation anteriorly. HEART: S1, S2. Regular rate and rhythm. ABDOMEN: Soft, no tenderness. Left ring finger, distal phalanx amputation site looks clean. Incision is intact. No significant swelling, redness or drainage. LABS: Hemoglobin is 11.1, white count 8.1. BUN of 16, creatinine 0.13. Wound culture with Morganella. DIAGNOSTIC IMPRESSION AND PLAN: Patient with left ring finger, distal tip abscess infection, status post amputation as infected part removed. The patient is not bacteremic will finish therapy with oral Cipro 500 mg daily for 2 weeks and close outpatient followup. Prescription sent to the pharmacy. MMODL / IJN: [id number] /
--- NOTE | 2020-07-06 13:38 | P.DS ---
Providers Date of admission: 07/05/20 15:30 Expected date of discharge: 07/06/20 Attending physician: Sawyer Tapia, Consults: 07/03/20 19:20 Consult Physician Routine Consulting Provider: Derian Pedro Consult Reason/Comments: Medical management Do you want consulting provider notified?: Yes 07/03/20 19:24 Consult Physician Routine Consulting Provider: Meliza Worthington Consult Reason/Comments: Left ring finger abscess/osteomyelitis status post I&D/amputation Do you want consulting provider notified?: Yes, Notify in am 07/03/20 19:25 Consult Physician Routine Consulting Provider: Fabby Contreras Consult Reason/Comments: Dialysis Do you want consulting provider notified?: Yes, Notify in am Primary care physician: Ander Ortiz - Betty Diagnosis(es) (1) Amputation of finger Status: Acute (2) Osteomyelitis of finger Status: Acute Hospital Course: The patient is a 59 year-old male who presented to our office on 07/02/2020 with worsening swelling and pain to the left ring finger. He had previously injured the finger a few weeks prior and was found to have distal phalanx fracture. He was placed in a splint and on oral antibiotics at that time due to a necrotic wound the tip of the finger that was chronic. The patient underwent an incision and drainage of the left ring finger with amputation of distal phalanx on 07/03/[address] Tapia. The patient has done well post-operatively and cultures revealed Morganella morganii. He was evaluated by infectious disease and placed on Invanz while in the hospital. He will start oral Cipro upon discharge from the hospital. On the day of discharge, the patient does not appear in acute distress. Alert and orientated x3. Dressing is clean dry and intact. He is able to move his fingers well. Sensation and circulatory status is intact. The patient is orthopedic stable for discharge home today. He will follow up with Dr. Tapia and Dr. Worthington as an outpatient. Pertinent Studies: Laboratory Tests 07/06/20 07/06/20 07/06/20 09:01 09:01 11:25 WBC 8.1 RBC 4.13 L Hgb 11.8 L Hct 37.3 L Sodium 132 L Potassium 5.7 H Chloride 96 L Carbon Dioxide 19 L Glucose 155 H POC Glucose (mg/dL) 116 H Calcium 8.3 L Patient Condition at Discharge: Fair Plan - Discharge Summary New Discharge Prescriptions: New Ciprofloxacin HCl [Cipro] 500 mg PO Q24HR #15 tab No Action HYDROcodone/APAP 7.5-325MG [[place] 7.5-325] 1 tab PO TID PRN PRN Reason: Pain Pregabalin [Lyrica] 75 mg PO HS Insulin Degludec [Tresiba] 3 units SQ HS Albuterol Sulfate [Ventolin HFA] 2 puff INHALATION RT-Q4H PRN PRN Reason: Shortness Of Breath Pregabalin [Lyrica] 75 mg PO MOWEFR@0900 fentaNYL 25MCG/HR PATCH [Duragesic 25MCG/HR] 1 patch TRANSDERM Q72H Cinacalcet HCl [Sensipar] 30 mg PO DAILY Zinc 50 mg PO DAILY Discharge Medication List HYDROcodone/APAP 7.5-325MG [[place] 7.5-325] 1 tab PO TID PRN 08/09/19 [History] Pregabalin [Lyrica] 75 mg PO HS 08/09/19 [History] Insulin Degludec [Tresiba] 3 units SQ HS 08/12/19 [History] Albuterol Sulfate [Ventolin HFA] 2 puff INHALATION RT-Q4H PRN 03/20/20 [History] Pregabalin [Lyrica] 75 mg PO MOWEFR@0900 03/20/20 [History] fentaNYL 25MCG/HR PATCH [Duragesic 25MCG/HR] 1 patch TRANSDERM Q72H 03/20/20 [History] Cinacalcet HCl [Sensipar] 30 mg PO DAILY 03/21/20 [History] Zinc 50 mg PO DAILY 07/03/20 [History] Ciprofloxacin HCl [Cipro] 500 mg PO Q24HR #15 tab 07/06/20 [Rx] Follow up Appointment(s)/Referral(s): Panda Carlin [NON-STAFF] - Sawyer Tapia DO [Medical Doctor] - 07/13/20 9:00 am Meliza Worthington MD [STAFF PHYSICIAN] - 07/17/20 10:00 am Patient Instructions/Handouts: Gangrene (DC) Activity/Diet/Wound Care/Special Instructions: Keep current dressing in place unless saturated. If dressing gets wet, change dressing with non-stick dressing and gauze roll as needed. Follow up with Dr. Tapia in 1 week. Discharge Disposition: HOME WITH HOME HEALTH SERVICES
--- NOTE | 2020-07-06 14:20 | P.PN ---
Subjective Progress Note Date: 07/06/20 Principal diagnosis: Reason for consult end-stage renal disease, type 2 diabetes mellitus History of Present Illness patient is a pleasant 59-year-old male admitted for incision and drainage with amputation of the distal phalanx for gangrene of the left ring finger. Patient has amputation of some of the fingers as well patient states she burned his fi nger followed by working with metal like to gangrene. Patient is presently on Vanco mycin and the clindamycin infectious disease was consulted patient is diabetic but on a very minimal dose of long-acting insulin patient is presently on sliding scale insulin which will be continued for now won't cultures were obtained. Patient is a scheduled for hemodialysis today does have end-stage renal disease from diabetic nephropathy is undergoing hemodialysis today. Patient does have mild hyponatremia and hyperkalemia expected to improve with hemodialysis. 07/05/2020 Patient is seen and evaluated and follow-up with no acute overnight issues. Patient is currently maintained on IV antibiotics in the form of ertapenem along with vancomycin and will continue at this time. Preliminary cultures of the left fourth finger showing gram-negative bacilli and awaiting for culture finalization to determine antibiotic therapy. Infectious disease is following. Will continue to follow along with orthopedic surgery. Patient receives dialysis in case management following working on possible antibiotic infusions during dialysis treatments. Review of systems: Constitutional: No reports of fatigue, fever, or chills Cardiovascular: No reports of chest pain or palpitations Respiratory: No reports of shortness of breath or cough GI: No reports of nausea, vomiting, or diarrhea : No reports of dysuria or retention Neurovascular: No reports of weakness or numbness All medications have been reviewed 07/06/2020 Patient is seen and evaluated in follow-up currently awaiting to undergo hemodialysis today. Wound cultures finalized showing Morganella Morganii and will be going on oral antibiotics upon discharge. Patient is to receive a dose of antibiotics with dialysis today. No acute overnight issues. Patient denies any chest pain, shortness of breath, or palpitations. Patient is afebrile. No reports of nausea or vomiting noted and patient is tolerating diet. Patient states he is scheduled to go home today. Will continue to follow along with orthopedic surgery during hospitalization. Objective - Vital Signs Vital signs: Vital Signs Temp 98.2 F 07/06/20 07:16 Pulse 71 07/06/20 08:00 Resp 16 07/06/20 08:00 BP 175/65 07/06/20 07:16 Pulse Ox 94 L 07/06/20 07:16 Intake & Output 07/05/20 07/06/20 07/06/20 18:59 06:59 18:59 Intake Total 1240 1100 Balance 1240 1100 Intake: Intake, IV Titration 500 Amount Vancomycin 1,750 mg In 500 Sodium Chloride 0.9% 500 ml 500 ml @ 167 mls/hr IVPB ONCE ONE Rx#: [id number] Oral 740 1100 Other: # Voids 1 # Bowel Movements 1 - Exam GENERAL: The patient is alert and oriented x3, not in any acute distress. Well developed, well nourished. HEENT: Pupils are round and equally reacting to light. EOMI. No scleral icterus. No conjunctival pallor. Normocephalic, atraumatic. No pharyngeal erythema. No thyromegaly. CARDIOVASCULAR: S1 and S2 present. No murmurs, rubs, or gallops. PULMONARY: Chest is clear to auscultation, no wheezing or crackles. ABDOMEN: Soft, nontender, nondistended, normoactive bowel sounds. No palpable organomegaly. MUSCULOSKELETAL: No joint swelling or deformity. EXTREMITIES: No cyanosis, clubbing, or pedal edema. patient status post left ring finger drained along with amputation of the distal phalanx with surgical dressings that are dry and intact. Patient had previous amputations and multiple other fingers NEUROLOGICAL: Gross neurological examination did not reveal any focal deficits. SKIN: No rashes. - Labs CBC & Chem 7: 07/06/20 09:01 07/06/20 09:01 Labs: Abnormal Lab Results - Last 24 Hours (Table) 07/05/20 07/05/20 07/06/20 Range/Units 16:26 20:23 07:12 RBC (4.30-5.90) m/uL Hgb (13.0-17.5) gm/dL Hct (39.0-53.0) % Sodium (137-145) mmol/L Potassium (3.5-5.1) mmol/L Chloride (98-107) mmol/L Carbon Dioxide (22-30) mmol/L BUN (9-20) mg/dL Creatinine (0.66-1.25) mg/dL Glucose (74-99) mg/dL POC Glucose (mg/dL) 102 H 112 H 107 H (75-99) mg/dL Calcium (8.4-10.2) mg/dL 07/06/20 07/06/20 07/06/20 Range/Units 09:01 09:01 11:25 RBC 4.13 L (4.30-5.90) m/uL Hgb 11.8 L (13.0-17.5) gm/dL Hct 37.3 L (39.0-53.0) % Sodium 132 L (137-145) mmol/L Potassium 5.7 H (3.5-5.1) mmol/L Chloride 96 L (98-107) mmol/L Carbon Dioxide 19 L (22-30) mmol/L BUN 69 H (9-20) mg/dL Creatinine 10.13 H* (0.66-1.25) mg/dL Glucose 155 H (74-99) mg/dL POC Glucose (mg/dL) 116 H (75-99) mg/dL Calcium 8.3 L (8.4-10.2) mg/dL Microbiology - Last 24 Hours (Table) 07/03/20 21:25 Anaerobic Culture - Preliminary Finger - Left Fourth 07/03/20 21:25 Anaerobic Culture - Preliminary Finger - Left Fourth 07/04/20 11:01 Blood Culture - Preliminary Blood No Growth after 48 hours 07/03/20 21:25 Gram Stain - Final Finger - Left Fourth Tissue Culture - Final Morganella morganii 07/03/20 21:25 Gram Stain - Final Finger - Left Fourth Wound Culture - Final Assessment and Plan Assessment: -type 2 diabetes mellitus -end-stage renal disease -Metabolic bone disease -Hyponatremia and hyperkalemia -Gangrene of the left ring finger status post incision and drainage and amputation of the distal phalanx -asthma and/or COPD without any significant exacerbation -Hypertension -DVT prophylaxis Plan: Continue current medications, management, and symptomatic treatment. Wound cultures finalized showing Morganella Morganii and will be going home on oral antibiotics in the form of Cipro per infectious disease recommendations. Patient will be following up with orthopedic surgery in the outpatient setting and continuing on hemodialysis schedule. We'll continue to follow along with orthopedic surgery while hospitalized. Further recommendations to follow. Patient is scheduled to be discharged today.
[2020-07-06] MEDS: ERTAPENEM 0.5 GM in SODIUM CHLORIDE 0.9% 50 ML IVPB SCH (14:52)
[2020-07-06 14:58] VITALS: TEMP 97.5
[2020-07-06 16:15] VITALS: BP 135/65; PULSE 78
== END 2020-07-06 16:30 | disposition home health service (06) ==
LOC: OR 16:12 → 1SOBS 21:53 → 4SSUR 07-04 09:20 → OR 07-05 15:30 → 4SSUR 07-05 15:30
PROVIDERS: ADMIT Orthopaedic Surgery; ATTEND Orthopaedic Surgery
DX: M86.142 Other acute osteomyelitis, left hand (principal); E11.52 Type 2 diabetes mellitus with diabetic peripheral angiopathy with gangrene; G89.18 Other acute postprocedural pain; I96 Gangrene, not elsewhere classified; B96.4 Proteus (mirabilis) (morganii) as the cause of diseases classified elsewhere; E11.69 Type 2 diabetes mellitus with other specified complication; E87.1 Hypo-osmolality and hyponatremia; E87.5 Hyperkalemia; S62.661D Nondisplaced fracture of distal phalanx of left index finger, subsequent encounter for fracture with routine healing; T23.022D Burn of unspecified degree of single left finger (nail) except thumb, subsequent encounter; I12.0 Hypertensive chronic kidney disease with stage 5 chronic kidney disease or end stage renal disease; E11.22 Type 2 diabetes mellitus with diabetic chronic kidney disease; N18.6 End stage renal disease; M89.8X9 Other specified disorders of bone, unspecified site; E87.2 Acidosis; E66.01 Morbid (severe) obesity due to excess calories; J45.909 Unspecified asthma, uncomplicated; G47.33 Obstructive sleep apnea (adult) (pediatric); H40.9 Unspecified glaucoma; Z68.32 Body mass index [BMI] 32.0-32.9, adult; Z99.2 Dependence on renal dialysis; Z90.49 Acquired absence of other specified parts of digestive tract; Z98.41 Cataract extraction status, right eye; Z98.42 Cataract extraction status, left eye; Z96.1 Presence of intraocular lens; W54.0XXD Bitten by dog, subsequent encounter; Z89.512 Acquired absence of left leg below knee; Z89.421 Acquired absence of other right toe(s); Z87.891 Personal history of nicotine dependence; Z79.891 Long term (current) use of opiate analgesic; Z79.4 Long term (current) use of insulin; Z79.899 Other long term (current) drug therapy; Z91.013 Allergy to seafood; Z88.1 Allergy status to other antibiotic agents; Z97.3 Presence of spectacles and contact lenses; Z82.49 Family history of ischemic heart disease and other diseases of the circulatory system; Z83.3 Family history of diabetes mellitus
CPT/HCPCS: 26951; 94640; 88305; 80053; 80048 ×2; 85652; 85025 ×3; 86140; 87040; 88311; 80202 ×2; 87070; 87205; 87075; 87077; 87186; 83036; G0257 ×2; G0378 ×3; J2250; J3370 ×3; J2765; J2001; J3010; J1335 ×2; J1170 ×2; 90935

== ENCOUNTER 2020-09-07 12:16 | Day surgery (SDC) | payer MEDICARE, OTHER ==
[2020-09-05 11:58] VITALS: BMI 32.2
[2020-09-07 13:21] VITALS: RESP 16; TEMP 97.1
[2020-09-07 14:23] LABS: Glucose,Whole Blood 124 mg/dL (75-99)
[2020-09-07] MEDS ORDERED: LACTATED RINGERS 1,000 ML IV ONE (14:24)
[2020-09-07 17:55] VITALS: PULSE 74
[2020-09-07 18:03] LABS: Glucose,Whole Blood 87 mg/dL (75-99)
[2020-09-07 18:04] VITALS: BP 151/79
--- NOTE | 2020-09-18 14:55 | P.OP ---
Date of Procedure: 09/07/20 Preoperative Diagnosis: 1. Non-healing left ring finger wound status post partial amputation 2. Poorly-controlled insulin-dependent diabetes mellitus 3. Peripheral vascular disease 4. Chronic kidney disease on hemodialysis 5. Nicotine addiction/tobacco abuse Postoperative Diagnosis: 1. Non-healing left ring finger wound status post partial amputation 2. Poorly-controlled insulin-dependent diabetes mellitus 3. Peripheral vascular disease 4. Chronic kidney disease on hemodialysis 5. Nicotine addiction/tobacco abuse Procedure(s) Performed: 1. Sharp excisional debridement of non-healing left ring finger wound 2. Revision amputation left ring finger Anesthesia: local Surgeon: Sawyer Tapia Estimated Blood Loss (ml): 2 Pathology: other (middle phalanx bone for culture) Condition: stable Disposition: same day Indications for Procedure: The patient is a pleasant 60-year-old male with a history of PVD, CKD on hemodialysis and poorly-controlled IDDM, resulting in multiple previous amputations (UE and LE). I had previously performed a partial amputation of his left ring finger (DIP disarticulation). Though the surgical site healed well initially, it later developed an open wound that failed to heal. Examination of the office revealed exposed bone. Given his history and compromised wound healing, revision amputation was recommended. Risks and benefits were reviewed in the office, including (but not limited to) the risk of wound healing problems and possible need for additional surgery (including revision amputation). The patient expressed understanding, willingness to accept these risks and wished to proceed with surgery. Consent forms were signed. The surgical site was confirmed and marked preoperatively. Description of Procedure: After consent was obtained, I performed a digital block in preop: Using aseptic technique, lidocaine with epinephrine was injected around the planned incision/surgical site. After an appropriate interval of time, the patient was brought to the OR and positioned supine with the operative limb on a hand table. The left upper extremity was then prepped and draped in standard, sterile fashion. A standard surgical pause (time-out) was performed, confirming patient identifiers, the operative side, the site and the procedure to be performed: all team members expressed agreement. A tourniquet was not used. Loupe magnification was utilized throughout the case for optimum visualization. There was an open wound at the tip of the digit. The surrounding skin was hard and keratotic but not frankly necrotic. A fishmouth incision was marked along the middle phalanx and designed to excise the compromised tissue around the edges of the wound. The skin was sharply incised and full-thickness skin flaps were developed. The dorsal skin flap was elevated off the extensor tendon. The volar flap was dissected off the flexor sheath. The neurovascular bundles on both sides were identified and dissected free. The nerves were gently held taut and sharply resected, allowing them to retract proximal to the level of the intended bony resection. The vessels were divided with bipolar cautery. Exudative granular tissue was present over the middle phalanx head but there was no gross purulence. The inflammatory tissue was resected to expose the bone. The remaining capsular and collateral ligament tissues around the head of the middle phalanx were sharply reflected. The middle phalanx head was osteotomized with a bone-cutting rongeur and sent for culture. The remaining bone of the middle phalanx had good consistency. The end of the bone was shaped/contoured with rongeurs & curettes to create a smooth surface. The wound was copiously irrigated with normal saline using a bulb syringe. The end of the bone and surrounding soft tissues were mechanically debrided with a curette. The dorsal and volar skin flaps were mobilized and advanced distally. The volar plate was elevated and advanced to provide additional cushion over the end of the bone. Care was taken to preserve the FDS and central slip insertions. The skin edges were sharply revised and contoured. The skin flaps were closed over the remaining bone with interrupted 4-0 Prolene sutures. The wound closed co mpletely and without tension, providing a good soft tissue envelope over the end of the bone. Good hemostasis was maintained throughout the case without the need for a tourniquet. Soft, sterile dressings of Adaptic, 4 x 4's, patria and Coban were applied. All sponge, needle and instrument counts were correct at the end of the case. The patient tolerated the procedure well and was taken to recovery in stable condition.
== END 2020-09-07 18:26 | disposition home or self-care (01) ==
LOC: OR 12:16
PROVIDERS: ATTEND Orthopaedic Surgery
DX: T81.40XA Infection following a procedure, unspecified, initial encounter (principal); B99.8 Other infectious disease; E11.52 Type 2 diabetes mellitus with diabetic peripheral angiopathy with gangrene; I96 Gangrene, not elsewhere classified; E11.22 Type 2 diabetes mellitus with diabetic chronic kidney disease; N18.6 End stage renal disease; Z99.2 Dependence on renal dialysis; E11.65 Type 2 diabetes mellitus with hyperglycemia; E66.01 Morbid (severe) obesity due to excess calories; Z68.32 Body mass index [BMI] 32.0-32.9, adult; F17.200 Nicotine dependence, unspecified, uncomplicated; Z89.021 Acquired absence of right finger(s); Z97.3 Presence of spectacles and contact lenses; Z89.429 Acquired absence of other toe(s), unspecified side; Z98.49 Cataract extraction status, unspecified eye; Z83.3 Family history of diabetes mellitus; Z82.49 Family history of ischemic heart disease and other diseases of the circulatory system; Z79.890 Hormone replacement therapy; Z79.891 Long term (current) use of opiate analgesic; Z79.899 Other long term (current) drug therapy; Z79.4 Long term (current) use of insulin; Z88.1 Allergy status to other antibiotic agents; Z91.013 Allergy to seafood
CPT/HCPCS: 87070; 87075; 87205

== ENCOUNTER 2021-09-28 10:19 | Emergency (ER) | payer MEDICARE, OTHER ==
[2021-09-28] MEDS ORDERED: ACETAMINOPHEN TAB 500 MG TAB PO STA (11:11)
--- NOTE | 2021-09-28 11:16 | ED ---
General Adult HPI - General Chief complaint: Altered Mental Status Stated complaint: Confusion, Fall x2 Time Seen by Provider: 09/28/21 10:37 Source: patient, RN notes reviewed Mode of arrival: wheelchair Limitations: no limitations - History of Present Illness Initial comments: Patient is a 61-year-old male that presents to the emergency department com plaining of multiple falls, feeling cold feeling groggy and confused. Patient does have a complicated medical history involving a left [id number] amputation end-stage renal disease with bilateral upper extremity fistulas for hemodialysis. Patient gets dialysis Thursday was a Thursday and he has been told this appointment. Patient notes that he recently got paranoia Thursday at his appointment. Patient denied any sick contacts or any other upper respiratory tract symptoms other than the fever and feeling cold. Patient denied any chest pain shortness of breath headache nausea vomiting diarrhea constipation. - Related Data Home Medications Medication Instructions Recorded Confirmed Albuterol Sulfate [Ventolin HFA] 2 puff INHALATION RT-Q4H PRN 03/20/20 09/28/21 Cinacalcet HCl [Sensipar] 30 mg PO HS 03/21/20 09/28/21 Calcium Acetate [Phoslo] 2,668 mg PO TID-W/MEALS 09/05/20 09/28/21 HYDROmorphone [Dilaudid] 4 mg PO Q6H PRN 09/28/21 09/28/21 Insulin Degludec [Tresiba 10 units SQ HS 09/28/21 09/28/21 Flextouch U-200 Pen] Midodrine [ProAmatine] 5 mg PO MOWEFR PRN 09/28/21 09/28/21 Pregabalin [Lyrica] 100 mg PO DAILY@1100 09/28/21 09/28/21 Allergies Allergy/AdvReac Type Severity Reaction Status Date / Time shellfish derived [Shrimp] Allergy Anaphylaxis Verified 09/28/21 13:35 cefazolin [From Kefzol] AdvReac Intermediate Nausea Verified 09/28/21 13:35 cephalexin [From Keflex] AdvReac Unknown Verified 09/28/21 13:35 Review of Systems ROS Statement: Those systems with pertinent positive or pertinent negative responses have been documented in the HPI. ROS Other: All systems not noted in ROS Statement are negative. Past Medical History Past Medical History: Asthma, Diabetes Mellitus, Eye Disorder, Hypertension, Musculoskeletal Disorder, Renal Disease, Sleep Apnea/CPAP/BIPAP Additional Past Medical History / Comment(s): End Stage Renal Disease- HEMOD IALYSIS MON, WED, FRI, HAS FISTULAS IN BILATERAL ARMS, "CAN ONLY HAVE IV'S IN HANDS." USES O2 2 L @ HS. HX OSTEOMYELITIS L3-5 2010. RT INDEX FINGER ABSCESS. Neuropathy. No CPAP use. Bilateral Glaucoma., wound left ring finger. History of Any Multi-Drug Resistant Organisms: None Reported Past Surgical History: Cholecystectomy Additional Past Surgical History / Comment(s): LEFT BKA, RIGHT TOE AMPUTATIONS. FISTULA IN RFA, & LT INNER ELBOW. cataracts,bilateral lens LASER EYE SURGERY, 3 fingers amputated right hand and 2 amputated left hand. (07/03/20 I7D and amputation left ring finger. Past Anesthesia/Blood Transfusion Reactions: No Reported Reaction Past Psychological History: No Psychological Hx Reported Smoking Status: Former smoker Past Alcohol Use History: Rare Past Drug Use History: Cocaine, Methamphetamine - Past Family History Mother Family Medical History: No Reported History Additional Family Medical History / Comment(s): Congestive heart failure. Father Additional Family Medical History / Comment(s): Congestive heart failure, myocardial infarction General Exam Limitations: no limitations General appearance: alert, in no apparent distress Head exam: Present: atraumatic, normocephalic, normal inspection Eye exam: Present: normal appearance, PERRL, EOMI. Absent: scleral icterus, conjunctival injection, periorbital swelling ENT exam: Present: normal exam, mucous membranes moist Neck exam: Present: normal inspection Respiratory exam: Present: normal lung sounds bilaterally. Absent: respiratory distress, wheezes, rales, rhonchi, stridor Cardiovascular Exam: Present: regular rate, normal rhythm, normal heart sounds. Absent: systolic murmur, diastolic murmur, rubs, gallop, clicks GI/Abdominal exam: Present: soft, normal bowel sounds. Absent: distended, tenderness, guarding, rebound, rigid Extremities exam: Present: other (Left hfhjh-xax-clam amputation). Absent: tenderness, pedal edema, joint swelling, calf tenderness Neurological exam: Present: alert, oriented X3 Psychiatric exam: Present: normal affect, normal mood Skin exam: Present: warm, dry, intact, normal color. Absent: rash Course Vital Signs 09/28/21 09/28/21 09/28/21 10:29 13:00 14:05 Temperature 98.1 F Pulse Rate 81 80 77 Respiratory 18 20 20 Rate Blood Pressure 160/101 100/56 92/47 O2 Sat by Pulse 100 100 98 Oximetry EKG Findings - EKG Comments: EKG Findings:: Ventricular rate 79 bpm, TX interval 176 ms, QRS duration 78 ms, QTC 440 ms, PRT axes 68/26/57. Normal sinus rhythm, low voltage QRS, cannot rule out anterior infarct age undetermined, abnormal ECG. Medical Decision Making - Medical Decision Making 61-year-old male complaining of multiple falls confusion and chills. Labs EKG, chest x-ray, CT of the brain, 1000 mg of Tylenol for possible fever. Labs: Unremarkable from baseline. Chest x-ray negative except for a small nodule, recommend follow-up CT outpatient. CT of the brain negative for any acute process, just shows chronic small vessel ischemic changes. Patient most likely has a viral upper try tract infection causing some fatigue. Case discussed with Dr. Osborne, patient can discharge home. - Lab Data Result diagrams: 09/28/21 12:56 09/28/21 12:56 Lab Results 09/28/21 09/28/21 09/28/21 Range/Units 12:56 12:56 12:56 WBC 8.1 (3.8-10.6) k/uL RBC 4.78 (4.30-5.90) m/uL Hgb 14.3 (13.0-17.5) gm/dL Hct 42.4 (39.0-53.0) % MCV 88.8 (80.0-100.0) fL MCH 29.9 (25.0-35.0) pg MCHC 33.7 (31.0-37.0) g/dL RDW 14.2 (11.5-15.5) % Plt Count 191 (150-450) k/uL MPV 8.6 Neutrophils % 83 % Lymphocytes % 9 % Monocytes % 7 % Eosinophils % 0 % Basophils % 0 % Neutrophils # 6.7 (1.3-7.7) k/uL Lymphocytes # 0.7 L (1.0-4.8) k/uL Monocytes # 0.5 (0-1.0) k/uL Eosinophils # 0.0 (0-0.7) k/uL Basophils # 0.0 (0-0.2) k/uL PT 10.8 (9.0-12.0) sec INR 1.0 (<1.2) APTT 24.8 (22.0-30.0) sec Sodium 133 L (137-145) mmol/L Potassium 4.4 (3.5-5.1) mmol/L Chloride 96 L (98-107) mmol/L Carbon Dioxide 22 (22-30) mmol/L Anion Gap 15 mmol/L BUN 43 H (9-20) mg/dL Creatinine 7.95 H* (0.66-1.25) mg/dL Est GFR (CKD-EPI)AfAm 8 (>60 ml/min/1.73 sqM) Est GFR (CKD-EPI)NonAf 7 (>60 ml/min/1.73 sqM) Glucose 96 (74-99) mg/dL Calcium 8.2 L (8.4-10.2) mg/dL Total Bilirubin 0.6 (0.2-1.3) mg/dL AST 35 (17-59) U/L ALT 19 (4-49) U/L Alkaline Phosphatase 76 (38-126) U/L Troponin I (0.000-0.034) ng/mL Total Protein 7.3 (6.3-8.2) g/dL Albumin 4.0 (3.5-5.0) g/dL Coronavirus (PCR) (Not Detectd) 09/28/21 09/28/21 Range/Units 12:56 12:56 WBC (3.8-10.6) k/uL RBC (4.30-5.90) m/uL Hgb (13.0-17.5) gm/dL Hct (39.0-53.0) % MCV (80.0-100.0) fL MCH (25.0-35.0) pg MCHC (31.0-37.0) g/dL RDW (11.5-15.5) % Plt Count (150-450) k/uL MPV Neutrophils % % Lymphocytes % % Monocytes % % Eosinophils % % Basophils % % Neutrophils # (1.3-7.7) k/uL Lymphocytes # (1.0-4.8) k/uL Monocytes # (0-1.0) k/uL Eosinophils # (0-0.7) k/uL Basophils # (0-0.2) k/uL PT (9.0-12.0) sec INR (<1.2) APTT (22.0-30.0) sec Sodium (137-145) mmol/L Potassium (3.5-5.1) mmol/L Chloride (98-107) mmol/L Carbon Dioxide (22-30) mmol/L Anion Gap mmol/L BUN (9-20) mg/dL Creatinine (0.66-1.25) mg/dL Est GFR (CKD-EPI)AfAm (>60 ml/min/1.73 sqM) Est GFR (CKD-EPI)NonAf (>60 ml/min/1.73 sqM) Glucose (74-99) mg/dL Calcium (8.4-10.2) mg/dL Total Bilirubin (0.2-1.3) mg/dL AST (17-59) U/L ALT (4-49) U/L Alkaline Phosphatase (38-126) U/L Troponin I <0.012 (0.000-0.034) ng/mL Total Protein (6.3-8.2) g/dL Albumin (3.5-5.0) g/dL Coronavirus (PCR) Not Detected (Not Detectd) - EKG Data -: EKG Interpreted by Pr EKG shows normal: sinus rhythm Rate: normal EKG Comments: Ventricular rate 79 bpm, TX interval 176 ms, QRS duration 78 ms, QTC 440 ms, PRT axes 68/26/57. Normal sinus rhythm, low voltage QRS, cannot rule out anterior infarct age undetermined, abnormal ECG. - Radiology Data Radiology results: report reviewed, image reviewed Chest x-ray: The strandy atelectasis of the left base. Nonemergent follow-up CT chest recommended to exclude a small left upper lobe pulmonary nodule versus artifact. CT of the brain: No acute intracranial abnormality seen. Mild to moderate patchy peripheral chronic small vessel ischemic disease. Some fluid within the right mastoid air cells correlate for any pain to exclude mastoiditis. Disposition Clinical Impression: Weakness Disposition: HOME SELF-CARE Condition: Stable Instructions (If sedation given, give patient instructions): Weakness (ED) Additional Instructions: Please return to the Emergency Department if symptoms worsen or any other concerns. Follow-up with primary care 1-2 days. Get plenty or rest over the next few days. Use Tylenol as needed for any fevers. Continue to drink 32 ounces of water per day. Avoid any strenuous activity or exercise. Is patient prescribed a controlled substance at d/c from ED?: No Referrals: Ander Ortiz DO [Primary Care Provider] - 1-2 days Time of Disposition: 14:16
--- NOTE | 2021-09-28 12:02 | CT ---
EXAMINATION TYPE: CT brain wo con DATE OF EXAM: 09/28/2021 COMPARISON: None HISTORY: 61-year-old male altered mental status, Confusion, fall X 2 TECHNIQUE: Examination was done in axial plane without intravenous contrast. Coronal and sagittal r econstructions performed. CT DLP: 1169.4 mGycm Automated exposure control for dose reduction was used. FINDINGS: There is no evidence of acute intracranial hemorrhage, acute ischemic changes, mass, mass-effect, or extra-axial fluid collection. There is no effacement of cerebral sulci or basal subarachnoid cister ns. There is no hydrocephalus. There is no midline shift. Gamez-white matter distinction is preserv ed. Mucosal thickening posterior ethmoid air cells, right and left. Some trapped fluid right mastoid air cells. Leftward nasal septal deviation. Right-sided maico bullosa. Orbits and globes appear intact. Atherosclerotic calcifications proximal V4 segments vertebral arteries and also within the carotid si phons. Mild to moderate patchy white matter hypodensities both cerebral hemispheres. Benign basal ganglia ca lcifications. IMPRESSION: 1. No acute intracranial abnormality seen. Mild to moderate patchy peripheral chronic small vessel is chemic disease. 2. Some fluid within the right mastoid air cells. Correlate for any mastoid pain to exclude mastoidit is.
--- NOTE | 2021-09-28 12:11 | XR ---
EXAMINATION TYPE: XR chest 2V DATE OF EXAM: 09/28/2021 COMPARISON: None HISTORY: 61-year-old male confusion, altered mental status TECHNIQUE: AP and lateral views FINDINGS: Heart normal size. Aorta and pulmonary vasculature within normal limits. Neither nodularity or summat ion artifact left upper lobe. Some strandy opacity at the left base. No other consolidation or pleura l effusion. IMPRESSION: 1. The strandy atelectasis of the left base. 2. Nonemergent follow-up CT chest recommended to exclude a small left upper lobe pulmonary nodule yadi daisy summation artifact.
[2021-09-28 13:06] VITALS: RESP 20; TEMP 98.1
[2021-09-28 13:11] LABS: Basophils % (A) 0 %; Eosinophils % (A) 0 %; HCT 42.4 % (39.0-53.0); HGB 14.3 gm/dL (13.0-17.5); Lymphocytes # (A) 0.7 k/uL (1.0-4.8); Lymphocytes % (A) 9 %; MCH 29.9 pg (25.0-35.0); MCHC 33.7 g/dL (31.0-37.0); MCV 88.8 fL (80.0-100.0); Mean Platelet Volume 8.6; Monocytes # (A) 0.5 k/uL (0-1.0); Monocytes % (A) 7 %; Neutrophils # (A) 6.7 k/uL (1.3-7.7); Neutrophils % (A) 83 %; Platelet Count 191 k/uL (150-450); RBC 4.78 m/uL (4.30-5.90); RDW 14.2 % (11.5-15.5); WBC 8.1 k/uL (3.8-10.6)
[2021-09-28 13:32] LABS: Partial Thromboplastin Time 24.8 sec (22.0-30.0); Prothrombin Time 10.8 sec (9.0-12.0)
[2021-09-28 13:33] LABS: Calcium 8.2 mg/dL (8.4-10.2); Potassium 4.4 mmol/L (3.5-5.1); Total Bilirubin 0.6 mg/dL (0.2-1.3); Total Protein 7.3 g/dL (6.3-8.2)
[2021-09-28] MEDS ORDERED: MIDODRINE 5 MG TAB PO STA (14:14)
[2021-09-28 14:39] VITALS: BP 106/52; PULSE 80
== END 2021-09-28 14:47 | disposition home or self-care (01) ==
LOC: EC 10:19
DX: R53.1 Weakness (principal); E11.39 Type 2 diabetes mellitus with other diabetic ophthalmic complication; E11.22 Type 2 diabetes mellitus with diabetic chronic kidney disease; I12.0 Hypertensive chronic kidney disease with stage 5 chronic kidney disease or end stage renal disease; N18.6 End stage renal disease; J45.909 Unspecified asthma, uncomplicated; Z20.822 Contact with and (suspected) exposure to COVID-19; Z87.891 Personal history of nicotine dependence; Z91.013 Allergy to seafood; Z88.8 Allergy status to other drugs, medicaments and biological substances; Z79.4 Long term (current) use of insulin; Z79.899 Other long term (current) drug therapy
CPT/HCPCS: 70450; 71046; 80053; 84484; 85025; 85610; 85730; 87635; 93005; 99285

== ENCOUNTER 2022-03-09 20:54 | Emergency (ER) | payer MEDICARE, OTHER ==
[2022-03-09 21:51] VITALS: PULSE 76; TEMP 98.2
[2022-03-09] MEDS ORDERED: DOXYCYCLINE 100 MG CAP PO STA (23:49)
--- NOTE | 2022-03-09 23:52 | ED ---
Extremity Problem HPI - General Chief complaint: Extremity Problem,Nontraumatic Stated complaint: Fall-R leg injury Time Seen by Provider: 03/09/22 23:23 Source: patient, RN notes reviewed Mode of arrival: wheelchair - History of Present Illness Initial comments: This is a pleasant 61-year-old male with a history of long-standing diabetes mellitus, end-stage renal disease, hypertension, sleep apnea, and asthma. Patient has had a left BKA and the distal aspect of his right foot amputated previously. Patient has long-standing peripheral neuropathy. Patient presents today stating that he noticed a darker discoloration to the anterior aspect of his right lower leg. Patient denying any pain. Denies any joint pain. Denies any discharge. Denies any numbness or tingling increased in the foot. He states that the area actually feels a bit more numb than usual. Patient is on Lyrica and gabapentin for neuropathy. However he only takes 300 mg a day of Neurontin due to renal dysfunction. Patient stating that he feels well otherwise. No shortness of breath or chest pain. No calf pain. No fever or chills. Patient denying any injury. No headache, no fever or chills, no changes in vision or hearing, no sore throat or difficulty with speech, no neck pain, no chest pain or shortness of breath, no abdominal pain, no nausea or vomiting, no changes in urination or bowel movements, no numbness or tingling, no extremity pain, no skin rashes or lesions. - Related Data Home Medications Medication Instructions Recorded Confirmed Albuterol Sulfate [Ventolin HFA] 2 puff INHALATION RT-Q4H PRN 03/20/20 09/28/21 Cinacalcet HCl [Sensipar] 30 mg PO HS 03/21/20 09/28/21 Calcium Acetate [Phoslo] 2,668 mg PO TID-W/MEALS 09/05/20 09/28/21 HYDROmorphone [Dilaudid] 4 mg PO Q6H PRN 09/28/21 09/28/21 Insulin Degludec [Tresiba 10 units SQ HS 09/28/21 09/28/21 Flextouch U-200 Pen] Midodrine [ProAmatine] 5 mg PO MOWEFR PRN 09/28/21 09/28/21 Pregabalin [Lyrica] 100 mg PO DAILY@1100 09/28/21 09/28/21 Previous Rx's Medication Instructions Recorded Doxycycline [Vibramycin] 100 mg PO BID 1 Days #14 each 03/09/22 Allergies Allergy/AdvReac Type Severity Reaction Status Date / Time shellfish derived [Shrimp] Allergy Anaphylaxis Verified 03/09/22 21:51 cefazolin [From Kefzol] AdvReac Intermediate Nausea Verified 03/09/22 21:51 cephalexin [From Keflex] AdvReac Unknown Verified 03/09/22 21:51 Review of Systems ROS Statement: Those systems with pertinent positive or pertinent negative responses have been documented in the HPI. ROS Other: All systems not noted in ROS Statement are negative. 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 HX OSTEOMYELITIS L3-5 2010. RT INDEX FINGER ABSCESS. Neuropathy. No CPAP use. Bilateral Glaucoma., wound left ring finger. History of Any Multi-Drug Resistant Organisms: None Reported Past Surgical History: Cholecystectomy Additional Past Surgical History / Comment(s): LEFT BKA, RIGHT TOE AMPUTATIONS. FISTULA IN RFA, & LT INNER ELBOW. cataracts,bilateral lens LASER EYE SURGERY, 3 fingers amputated right hand and 2 amputated left hand. (07/03/20 I7D and amputation left ring finger. Past Anesthesia/Blood Transfusion Reactions: No Reported Reaction Past Psychological History: No Psychological Hx Reported Smoking Status: Former smoker Past Alcohol Use History: Rare Past Drug Use History: Cocaine, Methamphetamine - Past Family History Mother Family Medical History: No Reported History Additional Family Medical History / Comment(s): Congestive heart failure. Father Additional Family Medical History / Comment(s): Congestive heart failure, myocardial infarction General Exam - General Exam Comments Initial Comments: Patient does not appear to be ill or toxic. In no distress. General appearance: alert, in no apparent distress Head exam: Present: atraumatic, normocephalic, normal inspection Eye exam: Present: normal appearance, PERRL, EOMI. Absent: scleral icterus, conjunctival injection, periorbital swelling ENT exam: Present: normal exam, mucous membranes moist Neck exam: Present: normal inspection. Absent: tenderness, meningismus, lymphadenopathy Respiratory exam: Present: normal lung sounds bilaterally. Absent: respiratory distress, wheezes, rales, rhonchi, stridor Cardiovascular Exam: Present: regular rate, normal rhythm, normal heart sounds. Absent: systolic murmur, diastolic murmur, rubs, gallop, clicks GI/Abdominal exam: Present: soft, normal bowel sounds. Absent: distended, tenderness, guarding, rebound, rigid Extremities exam: Present: full ROM (Negative Homans sign.), normal capillary refill, other (Left BKA noted. Patient has no evidence of erythema. There is a tiny abrasion with break in skin integrity noted to the anterior aspect of the right lower leg. Pulses are intact at 2+ out of 4. There is no significant calor. Range of motion normal in the ankle and knee. No lymphangitis. ). Absent: tenderness, pedal edema, joint swelling, calf tenderness Back exam: Present: normal inspection Neurological exam: Present: alert, oriented X3, CN II-XII intact Psychiatric exam: Present: normal affect, normal mood Skin exam: Present: warm, dry, intact, normal color. Absent: rash Course Vital Signs 03/09/22 21:44 Temperature 98.2 F Pulse Rate 76 Respiratory 19 Rate Blood Pressure 136/83 O2 Sat by Pulse 96 Oximetry Medical Decision Making - Medical Decision Making Patient comes in with chronic appearing, dark and brawny skin changes to the anterior aspect of his right lower leg consistent with venous stasis, also likely related to long-standing neuropathy. There was no evidence of vascular insult as he had good pedal pulses. Good range of motion. Good capillary refill. Patient did have a very superficial abrasion noted. I did agree to put the patient on antibiotics as he is a brittle diabetic. We will use this as prophylaxis until he can see his regular physician. Patient has an upcoming appointment with neurology on Thursday of this week. I also advised the patient follow up with vascular surgery. No evidence of definitive infectious process. All questions answered. Treatment plan discussed. Doxycycline written. Patient was told to return to the ER for any signs or symptoms worsen. Told to return immediately if any other problems arise. All questions answered. Treatment plan discussed. Patient in agreement Every effort has been made to ensure accuracy of this dictation. However, due to the limitations of electronic medical records and dictation devices, errors in charting still occur. Supervising physicians Dr. Callahan I see no indication for further imaging or investigations at this time as the patient does not appear to be ill or toxic. Disposition Clinical Impression: Peripheral neuropathy, Venous stasis dermatitis of right lower extremity Narrative: Chronic-appearing venous stasis dermatitis to the anterior aspect of the right lower leg. Disposition: HOME SELF-CARE Condition: Good Additional Instructions: Follow-up with your regular physician as directed. Return to the ER immediately if any symptoms worsen, new symptoms arise, or any other problems develop. Keep her appointment with the neurologist as directed. It might be a good idea to heavy follow-up with a vascular specialist as well. I did provide the contact information for Dr. Shukla. Call at 8 AM tomorrow morning to schedule an appointment. Prescriptions: Doxycycline [Vibramycin] 100 mg PO BID 1 Days #14 each Is patient prescribed a controlled substance at d/c from ED?: No Referrals: Ander Ortiz DO [Primary Care Provider] - 1-2 days Time of Disposition: 23:51
[2022-03-10 00:32] VITALS: BP 132/84; RESP 18
== END 2022-03-10 00:33 | disposition home or self-care (01) ==
LOC: EC 20:54
DX: G61.9 Inflammatory polyneuropathy, unspecified (principal); I87.8 Other specified disorders of veins; L30.9 Dermatitis, unspecified; J45.909 Unspecified asthma, uncomplicated; E11.9 Type 2 diabetes mellitus without complications; I10 Essential (primary) hypertension; Z87.891 Personal history of nicotine dependence; Z91.013 Allergy to seafood; Z88.1 Allergy status to other antibiotic agents
CPT/HCPCS: 93005; 99283